=== PATIENT | male | born 1950 | race Caucasian/White ===

== ENCOUNTER 2018-09-26 07:21 | Day surgery (SDC) | payer MEDICARE, OTHER, SELFPAY ==
[2018-09-22 13:50] VITALS: BMI 36.8
--- NOTE | 2018-09-22 15:10 | RAD_ITS ---
STUDY: X-RAY CHEST REASON FOR EXAM: Male, 68 years old. Shortness of breath pulmonary hypertension TECHNIQUE: PA and lateral views of the chest. COMPARISON: None. FINDINGS: The lungs are clear and expanded. Interstitial markings are minimally prominent. There is no demonstrated pleural abnormality. There is borderline cardiomegaly. Normal mediastinum and shakir. Normal visualized pulmonary arteries. There is atherosclerotic calcification of the aortic arch with tortuosity. There is mild kyphosis of the thoracic spine, there is mild levoscoliosis of the thoracolumbar junction. There is multilevel degenerative change in the thoracic spine. Normal visualized ribs, clavicles, and shoulders. There is no demonstrated abnormality of the visualized soft tissue structures of the upper abdomen. RAD/Chest PA and Lateral IMPRESSION: No demonstrated acute cardiopulmonary process. Electronically Signed: Sarah Leyva MD at 16:49 EDT Tel , Service support ,
[2018-09-22 16:11] LABS: Absolute Lymphocyte Count 1.28 X10^3/uL (0.83-4.51); Absolute Neutrophil Count 5.5 X10^3/uL (2.0-7.7); Basophil# 0.03 X10^3/uL; Basophil% 0.4 % (0-1); Eosinophil# 0.24 X10^3/uL; Eosinophils% 3.1 % (0-5); Hematocrit 46.3 % (40-54); Lymphocyte # 1.28 X10^3/ul (4.0); Lymphocyte % 16.4 % (19-41); Mean Corp Hgb Conc 30.2 g/dL (32-36); Mean Corpuscular Hgb 29.4 pg (27.0-32.0); Mean Corpuscular Volume 97.3 fL (80-94); Mean Platelet Vol. 10.4 fl (6.2-12.0); Monocyte# 0.68 X10^3/uL; Monocyte% 8.7 % (0-10); NRBC Flagged by Analyzer 0 % (0-5); Neutrophil # 5.54 X10^3/uL (2.7-7.7); Neutrophil % 70.8 % (47-70); Platelet Count 186 K/mm3 (150-450); RBC Distribution Width CV 13.7 % (11.6-14.6); Red Blood Count 4.76 M/mm3 (4.6-6.2); White Blood Count 7.8 K/mm3 (4.4-11.0)
[2018-09-22 16:26] LABS: International Normalized Ratio 1.1; Partial Thromboplast Time 29.9 Seconds (24.1-36.2); Prothrombin Time (Protime)PT. 13.6 SECONDS (11.7-14.9)
[2018-09-22 16:32] LABS: Anion Gap 8 (5-15); BUN 19 mg/dL (7-18); Chloride 98 mmol/L (98-107); Creatinine, Serum 1.19 mg/dL (0.70-1.30); EST Glomerular Filtration Rate 64 mL/min (>60); Est Glom Filt Rate - Afr Amer 78 mL/min (>60); Glucose 94 mg/dL (74-106); Potassium 3.6 mmol/L (3.5-5.1); Sodium Level 143 mmol/L (136-145)
[2018-09-26 07:53] VITALS: BMI 35.7
[2018-09-26 10:16] LABS: Blood Gas Specimen Type VEN; VBG BASE EXCESS 10 mmol/L (-1.0-3.5); VBG Bicarbonate 35 mmol/L (22-26); VBG Oxygen Content 37 mmol/L (23-33); VBG PO2 33 mmHg (25-40); VBG SO2 59 % (50-70); VBG pCO2 59.6 mmHg (41-51); VBG pH 7.38 (7.32-7.42)
[2018-09-26 10:16] LABS: Blood Gas Specimen Type VEN; VBG BASE EXCESS 10 mmol/L (-1.0-3.5); VBG Bicarbonate 35 mmol/L (22-26); VBG Oxygen Content 37 mmol/L (23-33); VBG PO2 33 mmHg (25-40); VBG SO2 60 % (50-70); VBG pH 7.38 (7.32-7.42)
[2018-09-26 10:16] LABS: Blood Gas Specimen Type VEN; VBG BASE EXCESS 14 mmol/L (-1.0-3.5); VBG Bicarbonate 38 mmol/L (22-26); VBG Oxygen Content 40 mmol/L (23-33); VBG PO2 33 mmHg (25-40); VBG SO2 62 % (50-70); VBG pCO2 58.4 mmHg (41-51); VBG pH 7.42 (7.32-7.42)
--- NOTE | 2018-09-29 09:53 | CL.D_ITS ---
Patient Name: MARCO ANTONIO PETERSON Study Date: 09/26/2018 Performing: Olu Gonzales MD Ht: 65 inches 165 cm : 1950 Wt: 215.3 lbs 97.52 kg Age: 68 Gender: male BSA: 2.04 PROCEDURE(S) PERFORMED [id number] ONLY CLINICAL PROFILE AND INDICATIONS Indications: SOB, Pulmonary HTN Heart Failure: None Stress/Imaging Stress/Image Study Performed: No CAD Presentations: Other: SOB CONCLUSIONS Right heart pressures - moderately to severely elevated RECOMMENDATIONS DESCRIPTION OF PROCEDURE The patient arrived to the procedure lab. The risks and benefits of the procedure as well as a full d escription of our services here and current unavailability of surgical backup were fully explained to the patient and/or their significant other prior to the catheterization. The Timeout was completed, verifying the correct patient and procedure. The patient's procedural site was prepped and draped in the usual fashion. . Using a modified Seldinger technique, Venous access was obtained via the right brachial vein, micro puncture sheath removed, a 7Fr sheath was inserted into the previous IV access. A 7Fr thermal dilution catheter was inserted and right heart pressures were recorded, it was then adv anced to PA position for cardiac outputs. Thermal dilution cardiac outputs were then recorded. O2 sat urations were then obtained. The Thermal dilution catheter was then removed.The venous sheath was the n pulled and manual compression applied until hemostasis achieved CORONARY ANGIOGRAPHY RIGHT HEART ASSESSMENT Thermal CO: 4.74 Thermal CI: 2.32 Jero CO: 4.32 Jero CI: 2.12 PW: 22 PA: 53/21 36 RV: 48/7 14 RA: 11 PVR: 236 COMPLICATIONS No Complications PROCEDURE MEDICATIONS Oxygen: 3 L/min via nasal cannula SUMMARY OF HEMODYNAMIC DATA Time AIR REST ECG 07:57:21 ECG 09:26:33 PA 53/21 (36) PA 09:52:29 PW (22) PV 09:52:59 PW (19) 09:53:08 RV 48/7, 14 09:59:05 RV 47/8, 15 09:59:27 RA (11) SV 10:01:26 Type SV CO (l/m) CI (l/m/ HR Time AIR REST Thermal 76.50 4.74 2.32 62 07:57:21 Jero 69.70 4.32 2.12 62 07:57:21 Label % O2 Pres/Loc Time AIR REST AO 92 PV 10:10:20 RV 62 10:10:26 RA 59 SV 10:10:34 PA 60 PA 10:10:43 Signed By Olu Gonzales MD On 09/29/2018 9:52:32 AM Olu Gonzales MD
== END 2018-09-26 11:16 | disposition home or self-care (01) ==
PROVIDERS: Family Provider Family Medicine; PCP Family Medicine; Referring Provider Specialist; Visit Provider Specialist
DX: R06.02 Shortness of breath (principal); I27.20 Pulmonary hypertension, unspecified; G47.33 Obstructive sleep apnea (adult) (pediatric); I10 Essential (primary) hypertension; E78.5 Hyperlipidemia, unspecified; J44.9 Chronic obstructive pulmonary disease, unspecified; E11.9 Type 2 diabetes mellitus without complications; Z87.891 Personal history of nicotine dependence; R60.9 Edema, unspecified; Z51.81 Encounter for therapeutic drug level monitoring; Z79.01 Long term (current) use of anticoagulants; Z99.89 Dependence on other enabling machines and devices
CPT/HCPCS: 36415; 71046; 80048; 82803; 85025; 85610; 85730; 93451; J7040; C1751; C1769; C1894

== ENCOUNTER → 2018-11-24 08:02 | Outpatient (CLI) | payer MEDICARE, OTHER, SELFPAY ==
[2018-10-22 13:04] VITALS: BMI 36.8
[2018-11-24 09:39] LABS: Anion Gap 7 (5-15); BUN 26 mg/dL (7-18); BUN/Creat Ratio 21.1 RATIO (10-20); Calcium,Total 9.6 mg/dL (8.5-10.1); Chloride 97 mmol/L (98-107); Creatinine, Serum 1.23 mg/dL (0.70-1.30); EST Glomerular Filtration Rate 62 mL/min (>60); Est Glom Filt Rate - Afr Amer 75 mL/min (>60); Glucose 127 mg/dL (74-106); Potassium 3.5 mmol/L (3.5-5.1); Sodium Level 139 mmol/L (136-145)
== END ==
PROVIDERS: Family Provider Family Medicine; PCP Family Medicine; Referring Provider Specialist; Visit Provider Specialist
DX: I27.20 Pulmonary hypertension, unspecified (principal)
CPT/HCPCS: 36415; 80048

== ENCOUNTER 2020-01-13 09:32 | Inpatient (IN) | payer MEDICARE, OTHER, SELFPAY ==
[2019-01-21 13:29] VITALS: BMI 37.3
[2020-01-13] VITALS (29 sets, daily range): BP systolic 98–157; BP diastolic 70–104; PULSE 109–142; RESP 12–36; TEMP 35.8–36.6; O2SAT 90–100; BMI 30.3; BMI 21.5
--- NOTE | 2020-01-13 | ECHOD_ITS ---
Reason For Study: DYSPNEA/SOB Procedure This was a 2D Doppler, Color Flow transthoracic echocardiogram. The study was technically difficult. PT needed to sit up do to coughing and ARRHYTHMIA. Exam performed portable in ICU/CCU. Left Ventricle Normal LV size. The estimated ejection fraction is 35 %. There is evidence of diastolic dysfunction. There is moderate global hypokinesis of the left ventricle. Right Ventricle Normal RV size. Normal systolic function. Atria The left atrium is moderately enlarged. The right atrium is mildly enlarged. No doppler evidence for ASD. Mitral Valve There is moderate to severe mitral annular calcification. There is no mitral valve stenosis. Trivial mitral valve insufficiency. Tricuspid Valve There is no tricuspid stenosis. Mild tricuspid valve insufficiency. Pulmonary artery systolic pressure is 60 mmHg. Aortic Valve There is no aortic stenosis. No aortic valve insufficiency. Likely bioprosthetic aortic valve. Pulmonic Valve There is no pulmonic valvular stenosis. No pulmonic valve insufficiency. Great Vessels Normal aortic root. The inferior vena cava is dilated. Pericardium/Pleural No pericardial effusion. MMode/2D Measurements & Calculations LVIDd: 5.4 cm IVSd: 1.3 cm Ao root diam: 4.0 cm LVIDs: 5.0 cm LVPWd: 1.2 cm LA dimension: 5.3 cm RVDd: 4.4 cm FS: 7.1 % LAV(MOD-bp): 111.1 ml LA A4 area: 32.5 cm2 RA A4 area: 23.8 cm2 LAV(MOD-bp) Indexed: 56.1 ml/m2 LAV(MOD-sp2): 91.8 ml LAV(MOD-sp4): 130.2 ml Time Measurements MV dec time: 0.12 sec Doppler Measurements & Calculations MV E max felicitas: 146.0 cm/sec MV V2 max: 163.1 cm/sec MV P1/2t max felicitas: 163.1 cm/sec MV max P.6 mmHg MV P1/2t: 42.7 msec MV V2 mean: 52.0 cm/sec MV dec slope: 1118 cm/sec2 MV mean P.7 mmHg MVA(P1/2t): 5.2 cm2 MV V2 VTI: 27.6 cm Ao V2 max: 134.2 cm/sec LV V1 max: 118.2 cm/sec PA V2 max: 82.9 cm/sec Ao max P.2 mmHg LV V1 max P.6 mmHg TR max felicitas: 344.5 cm/sec TR max P.1 mmHg Interpretation Summary The estimated ejection fraction is 35 %. There is evidence of diastolic dysfunction. The left atrium is moderately enlarged. The right atrium is mildly enlarged. Trivial mitral valve insufficiency. Mild tricuspid valve insufficiency. Pulmonary artery systolic pressure is 60 mmHg. Likely bioprosthetic aortic valve Ordering Physician: Lizeth Gilliam Referring Physician: Thien Evans Performed By: Belem Houston RDCS, RVT
--- NOTE | 2020-01-13 09:36 | EKG12_ITS ---
Test Reason : Blood Pressure : / mmHG Vent. Rate : 114 BPM Atrial Rate : 100 BPM P-R Int : 000 ms QRS Dur : 138 ms QT Int : 476 ms P-R-T Axes : 000 -63 -37 degrees QTc Int : 656 ms Basline artifact Possible Sinus Tachycardia Left axis deviation Right bundle branch block Abnormal ECG Confirmed by SAMIR SHAIKH, NASEEM ([id number]), society editor AMADO RAMIREZ ([id number]) on 01/15/2020 1:56:10 PM Referred By: RONY Confirmed By:BRIANA DAWSON MD
--- NOTE | 2020-01-13 10:00 | RAD_ITS ---
STUDY: X-RAY CHEST REASON FOR EXAM: Male, 69 years old. Shortness of breath, respiratory failure. TECHNIQUE: Single AP portable view of the chest. COMPARISON: Comparison is made with prior study dated 09/22/2018. FINDINGS: EKG electrodes are seen. Small bilateral pleural effusions with increased markings at the lung bases suggestive of bibasilar atelectasis. Mild degree of vascular congestion. Sternal cerclage wires and vascular clips are present from a prior sternotomy and coronary artery bypass graft procedure (CABG). Borderline cardiomegaly. Normal mediastinum and shakir. Normal visualized pulmonary arteries. There is atherosclerotic tortuosity of the aortic arch and descending thoracic aorta. Normal visualized thoracic spine. Normal visualized ribs, clavicles, and shoulders. There is no demonstrated abnormality of the visualized soft tissue structures of the upper abdomen. RAD/Chest 1 View (Portable) IMPRESSION: Findings suggestive of a mild degree of CHF with small bilateral pleural effusions and bibasilar atelectasis. Electronically Signed: José Antonio Lopez, at 10:46 EST , Service support ,
[2020-01-13 10:16] LABS: Allen Test Positive; Base Excess 17 mmol/L (-2 to +2); Bicarbonate 41.6 mmol/L (22-26); Blood Gas Specimen Type ART; FI02 50; O2 Delivery Device BiPAP; PO2 187 mmHG (75-100); RR 12; SITE R Radial; SO2 100 % (95-99); Total Carbon Dioxide 44 mmol/L; pCO2 64.2 mmHg (35-45); pH 7.42 (7.35-7.45)
[2020-01-13 10:23] LABS: EPAP 8; IPAP 18
--- NOTE | 2020-01-13 10:31 | NURSING ---
PURPLE AND BLUE TOP HEMOLIZED. LAB AWARE THEY NEED TO COME REDRAW
--- NOTE | 2020-01-13 10:35 | ED.DCSUM_ITS ---
History of Present Illness Chief Complaint: Shortness of Breath Informant: Patient, Equip Maint Eng Onset: - - Limited due to dyspnea and hypoxia Timing: Continuous Quality: Difficulty breathing Location: Respiratory Current Severity: Severe Maximum Severity: Severe Worsened by: Unknown, recent positive Covid test, 4 days ago Relieved by: Nothing Associated Symptoms: Slight cough, weakness Narrative: Patient is an elderly male with both medical problems who underwent valve surgery 4 weeks ago and is on anticoagulant. Vital signs by squad indicates patient in respiratory distress with a pulse ox of 60% on nonrebreather. Patient was able to say at best 1 word before gasping for breath. He does not appear well. He does not appear toxic. He does not want the bed flat. Yes and no questions were asked that he could nod yes or no. He has had orthopnea and PND. He also has swelling of his legs. Uncertain whether there is an acute worsening. He denied chest pain. He denied fever or chills. He does report cough that is nonproductive. He does report nausea. Prior similar symptoms: No Recent Illness/Hospitalization: Yes - Past Medical History (1) Mitral valve replaced Status: Acute (2) long-term current use of anticoagulant Status: Acute (3) SARS-associated coronavirus infection Status: Acute (4) Essential hypertension Status: Chronic (5) Hyperlipidemia Status: Chronic (6) REBECA on CPAP Status: Chronic (7) Pulmonary hypertension Status: Chronic Past Medical History - Allergies and Home Meds Allergies/Adverse Reactions: Allergies povidone-iodine [From Betadine] Allergy (Intermediate, Verified 07/29/19 13:09) rash, itching soap [From Betadine] Allergy (Intermediate, Verified 07/29/19 13:09) rash, itching Primary Care Physician: Thien Evans MD [Primary Care Provider] - Surgical History: - - Recent valve replacement Lives: Spouse/ Significant Other Smoking Status: Former smoker Alcohol: None Drugs: None Review of Systems ROS: Unable to Obtain - Difficulty due to clinical presentation General: Reports: Malaise. Denies: Chills, Fever Eyes: Denies: Visual changes - bilaterally ENT: Denies: Rhinorrhea, Sore throat Cardiovascular: Reports: Heart racing. Denies: Chest pain Respiratory: Reports: Dyspnea, Dyspnea on exertion, Orthopnea, Paroxysmal nocturnal dyspnea Gastrointestinal: Reports: Nausea. Denies: Abdominal pain, Vomiting, Diarrhea Genitourinary: Denies: Dysuria, Hematuria Musculoskeletal: Reports: Swelling. Denies: Myalgias, Arthralgias, Extremity Pain Skin: Reports: Rash - Lower extremities, which is chronic Neurological: Reports: Weakness. Denies: Headache Hematologic: Denies: Easy bruising Physical Exam Vital Signs/Narrative: Vital Signs Temp Pulse Resp BP Pulse Ox 01/13/20 10:15 100 01/13/20 10:04 111 H 15 100 01/13/20 10:00 100 01/13/20 09:59 97.8 F 115 H 20 H 104/93 H 100 01/13/20 09:33 96.5 F L 142 H 28 H 129/99 H 100 Inital Vital Signs reviewed: Yes General: Well nourished, Well developed, Obese, Acute Distress Head: Normocephalic, Atraumatic Eyes: Perrl, EOMI. Negative for: Pale conjunctiva, Scleral icterus ENT: Moist mucous membranes, No rhinorrhea, TM's clear Neck: Supple, Nontender, No lymphadenopathy. Negative for: No JVD Cardiovascular: No murmurs, Irregular, Tachycardia Respiratory: Rales - [place] throughout.. Negative for: No distress, CTA bilaterally Abdomen: Soft, Nontender, Nondistended, Normal bowel sounds Rectal: Deferred Back: Negative for: Nontender, Normal Inspection Extremities: Nontender, No edema, - - Acral cyanosis Skin: No rash, Cyanosis, No Trauma. Negative for: Normal color, Diaphoresis, Jaundice Neurological: Alert, Oriented x3, Cranial nerves II-XII grossly intact, Normal Strength, Normal Sensation Psychological: Normal affect Diagnostic/Tx/Re-eval Chest X-Ray - ED: 1 View, Read by ED Physician, Bony Structures, - - Borderline and mildly enlarged heart. Limited story volume. Bilateral pleural effusion. Bilateral lower lobe atelectasis. Interstitial changes which may represent Covid and also may represent Impressions Chest X-Ray 01/13/20 10:00 IMPRESSION: Findings suggestive of a mild degree of CHF with small bilateral pleural effusions and bibasilar atelectasis. Electronically Signed: José Antonio Lopez, at 10:46 EST , Service support , 01/13/20 10:00 Chest 1 View (Portable) [RAD] Stat Laboratory Results 01/13/20 01/13/20 01/13/20 10:10 10:10 10:10 WBC Cancelled Corrected WBC Cancelled RBC Cancelled Hgb Cancelled Hct Cancelled MCV Cancelled MCH Cancelled MCHC Cancelled RDW Std Deviation Cancelled RDW Coeff of Perfecto Cancelled Plt Count Cancelled MPV Cancelled Immature Gran % (Auto) Cancelled Neut % (Auto) Cancelled Lymph % (Auto) Cancelled [place] % (Auto) Cancelled Eos % (Auto) Cancelled Baso % (Auto) Cancelled Absolute Neuts (auto) Cancelled Absolute Lymphs (auto) Cancelled Total Counted Cancelled Neutrophils % (Manual) Cancelled Band Neutrophils % Cancelled Lymphocytes % (Manual) Cancelled Monocytes % (Manual) Cancelled Eosinophils % (Manual) Cancelled Basophils % (Manual) Cancelled Metamyelocytes % Cancelled Myelocytes % Cancelled Promyelocytes % Cancelled Blast Cells % Cancelled Plasma Cell % (Manual) Cancelled Other Cells % Cancelled Nucleated RBC % Cancelled Nucleated RBCs/100 WBC Cancelled Differential Comment Cancelled Diff Path Review Cancelled Hypersegmented Neuts Cancelled Atypical Lymphocytes Cancelled Reactive Lymphocytes Cancelled Smudge Cells Cancelled Toxic Granulation Cancelled Toxic Vacuolation Cancelled Dohle Bodies Cancelled Constantino Rods Cancelled Platelet Estimate Cancelled Plt Morphology Comment Cancelled RBC Morphology Cancelled Polychromasia Cancelled Hypochromasia Cancelled Poikilocytosis Cancelled Basophilic Stippling Cancelled Anisocytosis Cancelled Microcytosis Cancelled Macrocytosis Cancelled Spherocytes Cancelled Sickle Cells Cancelled Target Cells Cancelled Tear Drop Cells Cancelled Ovalocytes Cancelled Stomatocytes Cancelled Angel-Greenway Bodies Cancelled [place] Cells Cancelled Bite Cells Cancelled Crenated Cell Cancelled Acanthocytes (Spur) Cancelled Rouleaux Cancelled Schistocytes Cancelled PT Cancelled INR Cancelled APTT Cancelled Specimen Type Sample Site pH Bicarbonate Actual Total CO2 Base Excess O2 Saturation O2 % ABG pCO2 ABG pO2 Jak Test Respiration Rate O2 Delivery Device EPAP IPAP Sodium 141 Potassium 4.2 Chloride 99 Carbon Dioxide 41.0 H Anion Gap 1 L BUN 35 H Creatinine 1.83 H Estim Creat Clear Calc 35.82 Est GFR (MDRD) Af Amer 47 L Est GFR (MDRD) Non-Af 39 L BUN/Creatinine Ratio 19.1 Glucose 96 Calcium 8.8 Total Bilirubin 1.00 AST 47 H ALT 22 Alkaline Phosphatase 76 Troponin I 0.115 H Total Protein 8.2 Albumin 2.8 L Globulin 5.4 H Albumin/Globulin Ratio 0.5 L 01/13/20 01/13/20 01/13/20 10:10 10:49 10:49 WBC 4.0 L Corrected WBC RBC 3.06 L Hgb 9.4 L Hct 32.5 L MCV 106.2 H MCH 30.7 MCHC 28.9 L RDW Std Deviation 60.5 H RDW Coeff of Perfecto 15.7 H Plt Count 164 MPV 9.8 Immature Gran % (Auto) 0.500 Neut % (Auto) 74.0 H Lymph % (Auto) 11.3 L [place] % (Auto) 13.1 H Eos % (Auto) 0.8 Baso % (Auto) 0.3 Absolute Neuts (auto) 3.0 Absolute Lymphs (auto) 0.45 L Total Counted Neutrophils % (Manual) Band Neutrophils % Lymphocytes % (Manual) Monocytes % (Manual) Eosinophils % (Manual) Basophils % (Manual) Metamyelocytes % Myelocytes % Promyelocytes % Blast Cells % Plasma Cell % (Manual) Other Cells % Nucleated RBC % 0 Nucleated RBCs/100 WBC Differential Comment Diff Path Review Hypersegmented Neuts Atypical Lymphocytes Reactive Lymphocytes Smudge Cells Toxic Granulation Toxic Vacuolation Dohle Bodies Constantino Rods Platelet Estimate Plt Morphology Comment RBC Morphology Polychromasia Hypochromasia Poikilocytosis Basophilic Stippling Anisocytosis Microcytosis Macrocytosis Spherocytes Sickle Cells Target Cells Tear Drop Cells Ovalocytes Stomatocytes Angel-Greenway Bodies Judd Cells Bite Cells Crenated Cell Acanthocytes (Spur) Rouleaux Schistocytes PT 32.4 H INR 3.2 APTT 41.2 H Specimen Type ART Sample Site R Radial pH 7.42 Bicarbonate Actual 41.6 H Total CO2 44 Base Excess 17 H O2 Saturation 100 H O2 % 50 ABG pCO2 64.2 H ABG pO2 187 H Jak Test Positive Respiration Rate 12 O2 Delivery Device BiPAP EPAP 8 IPAP 18 Sodium Potassium Chloride Carbon Dioxide Anion Gap BUN Creatinine Estim Creat Clear Calc Est GFR (MDRD) Af Amer Est GFR (MDRD) Non-Af BUN/Creatinine Ratio Glucose Calcium Total Bilirubin AST ALT Alkaline Phosphatase Troponin I Total Protein Albumin Globulin Albumin/Globulin Ratio BUN and creatinine are elevated at 35 1.83. Troponin is elevated 0.115 suspect secondary to exacerbation of heart failure. He is neutropenic which is felt to be due to the Covid infection. He is anemic. INR is elevated due to Coumadin, 3.2. - EKG Initial EKG Interpretation: Atrial Fibrillation - Ventricular rate 114, QRS duration 138 ms consistent with a right bundle branch block. QT interval 476 ms with a QTC of 650 ms, which is prolonged. [place] is to the left. Computer is reading acute ST elevation [place]. I am in disagreement. There are ST-T wave changes which in all likelihood are due t - Medical Decision Making She presents with respiratory distress. This may represent Covid pneumonia, congestive heart failure, cardiac ischemia. Also need to evaluate for pneumothorax. History is limited because of clinical presentation and respiratory distress. Patient improved markedly with BiPAP. Initial plan was intubation. Suspect low pulse ox may have been due to poor perfusion/acrocyanosis and cold extremities. Blood gas was obtained and reveals a normal pH of 7.42 with a PCO2 of 64.2 and a PaO2 of 187.3 on 50% oxygen. Bicarb is elevated 41.6. Base excess is elevated, 17.1. Saturation was 99.6 which correlated with pulse ox. Chest x-ray reveals cardiomegaly, bilateral pleural effusion and interstitial changes which may represent heart failure versus Covid. Since he has significant edema the lower extremity complains of orthopnea PND will treat for congestive heart failure. Patient has improved on BiPAP. Nitroglycerin was ordered for preload reduction. Will also order Lasix since he is clinically fluid overloaded. Suspect his elevated troponin is due to exacerbation of his congestive heart failure. Dyspnea may be worse due to anemia. We will need to review prior labs to determine if this is a new finding. Creatinine is elevated from baseline. Last hemoglobin on record was 14. - Critical Care Time Critical care time (excluding procedures): 30-74 minutes - Critical care time 36 minutes, Discussing w/Patient &/or Family/Manager Purchasing, Discussing w/Consultants, Arranging Admission or Transfer, Performing Direct Patient Care at Bedside ED Disposition - Plan for ED Patient: Disposition: Acute Care Hospital [facility] Diagnosis: Acute and chronic respiratory failure with hypercapnia, Acute exacerbation of congestive heart failure, Elevated serum creatinine, Anemia, unspecified, Infection due to 2019 novel coronavirus, Atrial fibrillation with RVR, Elevated troponin I level Referrals: Thien Evans MD [Primary Care Provider] -
[2020-01-13 10:44] LABS: ALB/GLOB Ratio 0.5 RATIO (0.9-2.4); AST(SGOT) 47 U/L (15-37); Alanine Aminotransfer ALT/SGPT 22 U/L (16-61); Albumin, Serum 2.8 g/dL (3.2-5.0); Alkaline Phosphatase 76 U/L (45-117); Anion Gap 1 (5-15); BUN 35 mg/dL (7-18); BUN/Creat Ratio 19.1 RATIO (10-20); Calcium,Total 8.8 mg/dL (8.5-10.1); Chloride 99 mmol/L (98-107); Creatinine, Serum 1.83 mg/dL (0.70-1.30); EST Glomerular Filtration Rate 39 mL/min (>60); Est Glom Filt Rate - Afr Amer 47 mL/min (>60); Estimated Creatinine Clearance 35.82 ml/min; Globulin 5.4 g/dL (2.2-4.2); Glucose 96 mg/dL (74-106); Potassium 4.2 mmol/L (3.5-5.1); Protein, Total 8.2 g/dL (6.4-8.2); Sodium Level 141 mmol/L (136-145)
[2020-01-13 11:03] LABS: Absolute Lymphocyte Count 0.45 X10^3/uL (0.83-4.51); Basophil# 0.01 X10^3/uL; Basophil% 0.3 % (0-1); Eosinophil# 0.03 X10^3/uL; Eosinophils% 0.8 % (0-5); Hematocrit 32.5 % (40-54); Hemoglobin 9.4 g/dL (13.0-16.5); Lymphocyte # 0.45 X10^3/ul (4.0); Lymphocyte % 11.3 % (19-41); Mean Corp Hgb Conc 28.9 g/dL (32-36); Mean Corpuscular Hgb 30.7 pg (27.0-32.0); Mean Corpuscular Volume 106.2 fL (80-94); Mean Platelet Vol. 9.8 fl (6.2-12.0); Monocyte# 0.52 X10^3/uL; Monocyte% 13.1 % (0-10); NRBC Flagged by Analyzer 0 % (0-5); Neutrophil # 2.95 X10^3/uL (2.7-7.7); POSITIVE DIFFERENTIAL YES; Platelet Count 164 K/mm3 (150-450); RBC Distribution Width CV 15.7 % (11.6-14.6); RBC Distribution Width SD 60.5 fl (35.1-43.9); Red Blood Count 3.06 M/mm3 (4.6-6.2)
[2020-01-13 11:08] LABS: Differential Indicated SCAN CRITERIA MET; International Normalized Ratio 3.2; Prothrombin Time (Protime)PT. 32.4 SECONDS (11.7-14.9)
[2020-01-13 11:09] LABS: Partial Thromboplast Time 41.2 Seconds (24.1-36.2)
[2020-01-13] MEDS: Nitroglycerin Infusion 250 ML 6 MG CONT INF (11:18)
[2020-01-13 11:19] LABS: Lactic Acid 1.5 mmol/L (0.4-1.9)
[2020-01-13] MEDS: dexAMETHasone 10 MG/ML Vial IV (11:19)
--- NOTE | 2020-01-13 11:41 | NURSING ---
ICU [facility] ACUTE ON CHRONIC RESP FAILURE WITH HYPERCAPNIA, CHF
[2020-01-13] MEDS: Furosemide 40 MG/4 ML Vial IV ×2 (12:03→16:53)
--- NOTE | 2020-01-13 12:04 | NURSING ---
[facility] 202
[2020-01-13 12:05] LABS: Platelet Estimate ADEQUATE (ADEQ); Red Cell Morphology NORM C+C NORMAL (NORM C&C)
--- NOTE | 2020-01-13 12:10 | NURSING ---
DR VARELA IN WITH PATIENT
[2020-01-13 15:28] LABS: BNP,B-Type NATRIURETIC PEPTIDE 1756.3 pg/mL (0-100); International Normalized Ratio 2.9; Prothrombin Time (Protime)PT. 29.6 SECONDS (11.7-14.9)
[2020-01-13 15:35] LABS: D-Dimer Quantitative (DVT/PE) 2.93 FEU/ug/m (0.27-0.49)
[2020-01-13 15:42] LABS: ALB/GLOB Ratio 0.5 RATIO (0.9-2.4); AST(SGOT) 54 U/L (15-37); Alanine Aminotransfer ALT/SGPT 20 U/L (16-61); Albumin, Serum 2.6 g/dL (3.2-5.0); Alkaline Phosphatase 68 U/L (45-117); Anion Gap 2 (5-15); BUN 35 mg/dL (7-18); BUN/Creat Ratio 20.6 RATIO (10-20); CPK Total, Creatine Kinase 69 U/L (39-308); Calcium,Total 8.8 mg/dL (8.5-10.1); Chloride 98 mmol/L (98-107); EST Glomerular Filtration Rate 42 mL/min (>60); Est Glom Filt Rate - Afr Amer 51 mL/min (>60); Estimated Creatinine Clearance 36.31 ml/min; Globulin 4.9 g/dL (2.2-4.2); Glucose 94 mg/dL (74-106); Potassium 4.4 mmol/L (3.5-5.1); Protein, Total 7.5 g/dL (6.4-8.2); Sodium Level 141 mmol/L (136-145)
--- NOTE | 2020-01-13 16:05 | NS ---
Noted ED wt was 90.5 kg and admission wt 64.41 kg. Called ICU and spoke w/ Mychal RN to notify of discrepancy. Mercedes Woods MS, RDN, LD.
--- NOTE | 2020-01-13 16:05 | PCM.HP.ID ---
Problem List (1) Infection due to 2019 novel coronavirus Status: Acute Reason for Consult: covid Consulted by: Dr. Gilliam History of Present Illness: The patient is a 69 year old M at [facility], dx with covid, started 01/11 with azithro and dex. Reports several days of fever, headache, mild body aches, dyspnea, cough. No change in taste or smell. Came to ED, admitted to icu on bipap, O2. Full ROS performed and neg except as noted above. - Medical History Past Medical History (Chronic Problems): Chronic Problems (Last Reviewed 07/29/19 @ 13:[address] Bee Gonzales MD) Acute and chronic respiratory failure with hypercapnia (Chronic) Acute exacerbation of congestive heart failure (Chronic) REBECA on CPAP (Chronic) Pulmonary hypertension (Chronic) Hyperlipidemia (Chronic) Essential hypertension (Chronic) Allergies/Adverse Reactions: Allergies povidone-iodine [From Betadine] Allergy (Intermediate, Verified 07/29/19 13:09) rash, itching soap [From Betadine] Allergy (Intermediate, Verified 07/29/19 13:09) rash, itching Home Medications: Ambulatory Orders Medication Instructions Recorded albuterol sulfate 90 mcg/actuation 2 puff INHALATION Q4H PRN g 07/23/18 aerosol inhaler aspirin 81 mg tablet,delayed 81 mg PO DAILY 07/23/18 release diltiazem HCl 180 mg 360 mg PO DAILY cap 07/23/18 capsule,extended release 24 hr fenofibrate 160 mg tablet 160 mg PO DAILY 07/23/18 fluticasone propionate 115 2 puff INHALATION BID 07/23/18 mcg-salmeterol 21 mcg/actuation HFA inhaler metformin 1,000 mg tablet 1,000 mg PO BID 07/23/18 hydrochlorothiazide 25 mg tablet 25 mg PO DAILY 11/25/18 losartan 100 mg tablet 100 mg PO DAILY 11/25/18 Apixaban [Eliquis] 5 mg PO DAILY 01/13/20 Ascorbic Acid [Vitamin C] 500 mg PO BID 01/13/20 Atorvastatin Calcium [Lipitor] 80 mg PO QHS 01/13/20 Azithromycin [Zithromax] 250 mg PO DAILY 01/13/20 Carvedilol [Coreg] 3.125 mg PO BID 01/13/20 Dexamethasone [Decadron] 6 mg PO DAILY 01/13/20 Melatonin 5 mg PO QHS 01/13/20 Potassium Chloride [K-Dur] 20 meq PO DAILY 01/13/20 Torsemide [Demadex] 20 mg PO DAILY 01/13/20 Warfarin [Coumadin ([facility])] 1.5 mg PO DAILY 01/13/20 - Social History SMOKING STATUS:: Former smoker Vital Signs Temp Pulse Resp BP Pulse Ox 97.8 F 111 H 18 109/76 100 01/13/20 12:20 01/13/20 16:00 01/13/20 16:00 01/13/20 16:00 01/13/20 16:00 Oxygen Flow Rate (L/min) 15 Oxygen Delivery Method Bi-pap Weight: 64.41 kg Body Mass Index (BMI) 21.5 Laboratory Tests Past 24 Hrs 01/13/20 01/13/20 01/13/20 10:10 10:10 10:10 WBC Cancelled Corrected WBC Cancelled RBC Cancelled Hgb Cancelled Hct Cancelled MCV Cancelled MCH Cancelled MCHC Cancelled RDW Std Deviation Cancelled RDW Coeff of Perfecto Cancelled Plt Count Cancelled MPV Cancelled Immature Gran % (Auto) Cancelled Neut % (Auto) Cancelled Lymph % (Auto) Cancelled [place] % (Auto) Cancelled Eos % (Auto) Cancelled Baso % (Auto) Cancelled Absolute Neuts (auto) Cancelled Absolute Lymphs (auto) Cancelled Total Counted Cancelled Neutrophils % (Manual) Cancelled Band Neutrophils % Cancelled Lymphocytes % (Manual) Cancelled Monocytes % (Manual) Cancelled Eosinophils % (Manual) Cancelled Basophils % (Manual) Cancelled Metamyelocytes % Cancelled Myelocytes % Cancelled Promyelocytes % Cancelled Blast Cells % Cancelled Plasma Cell % (Manual) Cancelled Other Cells % Cancelled Nucleated RBC % Cancelled Nucleated RBCs/100 WBC Cancelled Differential Comment Cancelled Diff Path Review Cancelled Hypersegmented Neuts Cancelled Atypical Lymphocytes Cancelled Reactive Lymphocytes Cancelled Smudge Cells Cancelled Toxic Granulation Cancelled Toxic Vacuolation Cancelled Dohle Bodies Cancelled Constantino Rods Cancelled Platelet Estimate Cancelled Plt Morphology Comment Cancelled RBC Morphology Cancelled Polychromasia Cancelled Hypochromasia Cancelled Poikilocytosis Cancelled Basophilic Stippling Cancelled Anisocytosis Cancelled Microcytosis Cancelled Macrocytosis Cancelled Spherocytes Cancelled Sickle Cells Cancelled Target Cells Cancelled Tear Drop Cells Cancelled Ovalocytes Cancelled Stomatocytes Cancelled [place] 5 Bodies Cancelled [place] Cells Cancelled Bite Cells Cancelled Crenated Cell Cancelled Acanthocytes (Spur) Cancelled Rouleaux Cancelled Schistocytes Cancelled PT Cancelled INR Cancelled APTT Cancelled D-Dimer Quant (PE/DVT) Specimen Type Sample Site pH Bicarbonate Actual Total CO2 Base Excess O2 Saturation O2 % ABG pCO2 ABG pO2 Jak Test Respiration Rate O2 Delivery Device EPAP IPAP Sodium 141 Potassium 4.2 Chloride 99 Carbon Dioxide 41.0 H Anion Gap 1 L BUN 35 H Creatinine 1.83 H Estim Creat Clear Calc 35.82 Est GFR (MDRD) Af Amer 47 L Est GFR (MDRD) Non-Af 39 L BUN/Creatinine Ratio 19.1 Glucose 96 Lactic Acid Calcium 8.8 Total Bilirubin 1.00 AST 47 H ALT 22 Alkaline Phosphatase 76 Total Creatine Kinase Troponin I 0.115 H B-Natriuretic Peptide Total Protein 8.2 Albumin 2.8 L Globulin 5.4 H Albumin/Globulin Ratio 0.5 L Procalcitonin 01/13/20 01/13/20 01/13/20 10:10 10:49 10:49 WBC Corrected WBC RBC Hgb Hct MCV MCH MCHC RDW Std Deviation RDW Coeff of Perfecto Plt Count MPV Immature Gran % (Auto) Neut % (Auto) Lymph % (Auto) [place] % (Auto) Eos % (Auto) Baso % (Auto) Absolute Neuts (auto) Absolute Lymphs (auto) Total Counted Neutrophils % (Manual) Band Neutrophils % Lymphocytes % (Manual) Monocytes % (Manual) Eosinophils % (Manual) Basophils % (Manual) Metamyelocytes % Myelocytes % Promyelocytes % Blast Cells % Plasma Cell % (Manual) Other Cells % Nucleated RBC % Nucleated RBCs/100 WBC Differential Comment Diff Path Review Hypersegmented Neuts Atypical Lymphocytes Reactive Lymphocytes Smudge Cells Toxic Granulation Toxic Vacuolation Dohle Bodies Constantino Rods Platelet Estimate Plt Morphology Comment RBC Morphology Polychromasia Hypochromasia Poikilocytosis Basophilic Stippling Anisocytosis Microcytosis Macrocytosis Spherocytes Sickle Cells Target Cells Tear Drop Cells Ovalocytes Stomatocytes [place] 5 Bodies Judd Cells Bite Cells Crenated Cell Acanthocytes (Spur) Rouleaux Schistocytes PT 32.4 H INR 3.2 APTT 41.2 H D-Dimer Quant (PE/DVT) Specimen Type ART Sample Site R Radial pH 7.42 Bicarbonate Actual 41.6 H Total CO2 44 Base Excess 17 H O2 Saturation 100 H O2 % 50 ABG pCO2 64.2 H ABG pO2 187 H Jak Test Positive Respiration Rate 12 O2 Delivery Device BiPAP EPAP 8 IPAP 18 Sodium Potassium Chloride Carbon Dioxide Anion Gap BUN Creatinine Estim Creat Clear Calc Est GFR (MDRD) Af Amer Est GFR (MDRD) Non-Af BUN/Creatinine Ratio Glucose Lactic Acid 1.5 Calcium Total Bilirubin AST ALT Alkaline Phosphatase Total Creatine Kinase Troponin I B-Natriuretic Peptide Total Protein Albumin Globulin Albumin/Globulin Ratio Procalcitonin 01/13/20 01/13/20 01/13/20 10:49 14:55 14:55 WBC 4.0 L Corrected WBC RBC 3.06 L Hgb 9.4 L Hct 32.5 L MCV 106.2 H MCH 30.7 MCHC 28.9 L RDW Std Deviation 60.5 H RDW Coeff of Perfecto 15.7 H Plt Count 164 MPV 9.8 Immature Gran % (Auto) 0.500 Neut % (Auto) 74.0 H Lymph % (Auto) 11.3 L [place] % (Auto) 13.1 H Eos % (Auto) 0.8 Baso % (Auto) 0.3 Absolute Neuts (auto) 3.0 Absolute Lymphs (auto) 0.45 L Total Counted Neutrophils % (Manual) Band Neutrophils % Lymphocytes % (Manual) Monocytes % (Manual) Eosinophils % (Manual) Basophils % (Manual) Metamyelocytes % Myelocytes % Promyelocytes % Blast Cells % Plasma Cell % (Manual) Other Cells % Nucleated RBC % 0 Nucleated RBCs/100 WBC Differential Comment Diff Path Review May foll Hypersegmented Neuts Atypical Lymphocytes Reactive Lymphocytes Smudge Cells Toxic Granulation Toxic Vacuolation Dohle Bodies Constantino Rods Platelet Estimate ADEQUATE Plt Morphology Comment RBC Morphology NORM C+C Polychromasia Hypochromasia Poikilocytosis Basophilic Stippling Anisocytosis Microcytosis Macrocytosis Spherocytes Sickle Cells Target Cells Tear Drop Cells Ovalocytes Stomatocytes [place] 5 Bodies Judd Cells Bite Cells Crenated Cell Acanthocytes (Spur) Rouleaux Schistocytes PT 29.6 H INR 2.9 APTT D-Dimer Quant (PE/DVT) 2.93 H* Specimen Type Sample Site pH Bicarbonate Actual Total CO2 Base Excess O2 Saturation O2 % ABG pCO2 ABG pO2 Jak Test Respiration Rate O2 Delivery Device EPAP IPAP Sodium 141 Potassium 4.4 Chloride 98 Carbon Dioxide 41.0 H Anion Gap 2 L BUN 35 H Creatinine 1.70 H Estim Creat Clear Calc 36.31 Est GFR (MDRD) Af Amer 51 L Est GFR (MDRD) Non-Af 42 L BUN/Creatinine Ratio 20.6 H Glucose 94 Lactic Acid Calcium 8.8 Total Bilirubin 1.00 AST 54 H ALT 20 Alkaline Phosphatase 68 Total Creatine Kinase 69 Troponin I 0.105 H B-Natriuretic Peptide Total Protein 7.5 Albumin 2.6 L Globulin 4.9 H Albumin/Globulin Ratio 0.5 L Procalcitonin 01/13/20 01/13/20 14:55 14:55 WBC Corrected WBC RBC Hgb Hct MCV MCH MCHC RDW Std Deviation RDW Coeff of Perfecto Plt Count MPV Immature Gran % (Auto) Neut % (Auto) Lymph % (Auto) [place] % (Auto) Eos % (Auto) Baso % (Auto) Absolute Neuts (auto) Absolute Lymphs (auto) Total Counted Neutrophils % (Manual) Band Neutrophils % Lymphocytes % (Manual) Monocytes % (Manual) Eosinophils % (Manual) Basophils % (Manual) Metamyelocytes % Myelocytes % Promyelocytes % Blast Cells % Plasma Cell % (Manual) Other Cells % Nucleated RBC % Nucleated RBCs/100 WBC Differential Comment Diff Path Review Hypersegmented Neuts Atypical Lymphocytes Reactive Lymphocytes Smudge Cells Toxic Granulation Toxic Vacuolation Dohle Bodies Constantino Rods Platelet Estimate Plt Morphology Comment RBC Morphology Polychromasia Hypochromasia Poikilocytosis Basophilic Stippling Anisocytosis Microcytosis Macrocytosis Spherocytes Sickle Cells Target Cells Tear Drop Cells Ovalocytes Stomatocytes [place] 5 Bodies Judd Cells Bite Cells Crenated Cell Acanthocytes (Spur) Rouleaux Schistocytes PT INR APTT D-Dimer Quant (PE/DVT) Specimen Type Sample Site pH Bicarbonate Actual Total CO2 Base Excess O2 Saturation O2 % ABG pCO2 ABG pO2 Jak Test Respiration Rate O2 Delivery Device EPAP IPAP Sodium Potassium Chloride Carbon Dioxide Anion Gap BUN Creatinine Estim Creat Clear Calc Est GFR (MDRD) Af Amer Est GFR (MDRD) Non-Af BUN/Creatinine Ratio Glucose Lactic Acid Calcium Total Bilirubin AST ALT Alkaline Phosphatase Total Creatine Kinase Troponin I B-Natriuretic Peptide 1756.3 H Total Protein Albumin Globulin Albumin/Globulin Ratio Procalcitonin 0.10 H - Other Studies Radiology: [] reviewed Other Studies: [] Route of nutrition/ use of supplements: [] Nutritional Intake: [] IV Site: [] [place] Catheter: [] - Physical Exam General: Alert, Oriented x3, Cooperative HEENT: Atraumatic, PERRLA, EOMI Neck: Supple, No Nodes Lungs: Diminished Cardiovascular: Regular rate, Regular Rhythm Abdomen: Soft, Non Tender, Non-Distended Extremities: No edema Skin: No rashes IV Site: Peripheral, without redness Musculoskeletal: No Tenderness to Palpation of Joints or Extremities Neurological: Cranial nerves II-XII grossly intact - Assessment/Plan Antibiotics: [] Assessment/Plan: [] Active and Suspected Problems (Last Reviewed 07/29/19 @ 13:[address] 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 Sx started around 01/10. D-dimer elevated, therapeutic INR on coumadin. Will cont dex, start remdesivir. Will follow, thank you
[2020-01-13 16:47] LABS: Bacteria 0 SEEN /hpf (None Seen); Mucous, Urine 0 SEEN /hpf (<or=2+); Squamous Epithelial Cells - UA 0 SEEN /hpf (0-5); White Blood Cells 0 SEEN /hpf (0-5)
[2020-01-13 16:48] LABS: Color, Urine Yellow (Yellow); Glucose, Dipstick Normal (Normal); Ketone-Dipstick Negative (Negative); Leukocyte Esterase-Dipstick Negative /ul (Negative); Nitrite-Dipstick Negative (Negative); Occult Blood-Urine 10 /ul (Negative); Protein-Dipstick 15 mg/dl (Negative); Specific Gravity, Urine 1.005 (1.002-1.030); Urine Bilirubin Dipstick Negative (Negative); Urine Clarity Clear (Clear); Urine Urobilinogen Normal (Normal)
[2020-01-13] MEDS: Warfarin 1 MG, Warfarin 0.5 MG 1.5 MG PO (16:53)
--- NOTE | 2020-01-13 16:59 | HP.PCM_ITS ---
History of Present Illness Date of Admission: 01/13/20 Chief Complaint: shortness of breath The patient is a 69 year old M male with an extensive past medical history who was admitted via the ED on 01/13/2020 with a complaint of shortness of breath. Patient was brought in from home where he apparently became short of breath and EMS was called. He was found to have pulse ox of 60% on and was started on a nonrebreather mask. Patient cannot give much of a history because he says he does not have a voice. He also was on BiPAP at time I reviewed him and was also not able to communicate very well. Per discussion with the ED doctor, patient had admitted to orthopnea and PND and also swelling of his lower extremities. He recently had valve surgery 4 weeks ago and is on anticoagulant. ED, vitals showed blood pressure of 121/102, temperature of 97.8 and pulse rate of 113. He was saturating at 100% on BiPAP at time I reviewed him. Labs showed creatinine of 1.83 and sodium of 141 with potassium of 4.2. Initial troponin was 0.115. She showed hemoglobin of 9.4 and WBC of 4 with platelets of 164. Of note, patient had also apparently tested positive for Covid 4 days prior to admission, there is no record in our system. He has been admitted to be managed for acute hypoxic respiratory failure due to heart failure and COVID-19 infection. [] Past Medical History Past Medical History (Chronic Problems): Chronic Problems (Last Reviewed 07/29/19 @ 13:[address] Bee Gonzales MD) Acute and chronic respiratory failure with hypercapnia (Chronic) Acute exacerbation of congestive heart failure (Chronic) REBECA on CPAP (Chronic) Pulmonary hypertension (Chronic) Hyperlipidemia (Chronic) Essential hypertension (Chronic) Medical History: Medical History (Last Reviewed 07/29/19 @ 13:[address] Bee Gonzales MD) REBECA on CPAP (Chronic) G47.33, Z99.89 Pulmonary hypertension (Chronic) I27.20 Hyperlipidemia (Chronic) E78.5 Essential hypertension (Chronic) I10 COPD (chronic obstructive pulmonary disease) J44.9 Obesity E66.9 Psoriasis L40.9 Rheumatic fever without mention of heart involvement I00 Type 2 diabetes mellitus without complication E11.9 Ulcerative colitis K51.90 Diverticulitis of colon with hemorrhage Onset Date: ~2004 K57.33 Allergies povidone-iodine [From Betadine] Allergy (Intermediate, Verified 07/29/19 13:09) rash, itching soap [From Betadine] Allergy (Intermediate, Verified 07/29/19 13:09) rash, itching Home Medications: Ambulatory Orders Medication Instructions Recorded albuterol sulfate 90 mcg/actuation 2 puff INHALATION Q4H PRN g 07/23/18 aerosol inhaler aspirin 81 mg tablet,delayed 81 mg PO DAILY 07/23/18 release diltiazem HCl 180 mg 360 mg PO DAILY cap 07/23/18 capsule,extended release 24 hr fenofibrate 160 mg tablet 160 mg PO DAILY 07/23/18 fluticasone propionate 115 2 puff INHALATION BID 07/23/18 mcg-salmeterol 21 mcg/actuation HFA inhaler metformin 1,000 mg tablet 1,000 mg PO BID 07/23/18 hydrochlorothiazide 25 mg tablet 25 mg PO DAILY 11/25/18 losartan 100 mg tablet 100 mg PO DAILY 11/25/18 Apixaban [Eliquis] 5 mg PO DAILY 01/13/20 Ascorbic Acid [Vitamin C] 500 mg PO BID 01/13/20 Atorvastatin Calcium [Lipitor] 80 mg PO QHS 01/13/20 Azithromycin [Zithromax] 250 mg PO DAILY 01/13/20 Carvedilol [Coreg] 3.125 mg PO BID 01/13/20 Dexamethasone [Decadron] 6 mg PO DAILY 01/13/20 Melatonin 5 mg PO QHS 01/13/20 Potassium Chloride [K-Dur] 20 meq PO DAILY 01/13/20 Torsemide [Demadex] 20 mg PO DAILY 01/13/20 Warfarin [Coumadin ([facility])] 1.5 mg PO DAILY 01/13/20 Surgical History: Surgical History (Last Reviewed 07/29/19 @ 13:[address] Bee Gonzales MD) History of left hip replacement Z96.642 History of open reduction and internal fixation (ORIF) procedure Z98.890 right ankle fracture History of skin graft Z94.5 right foot x 8 History of vein stripping Z98.890 left leg Surgical History: - - Recent valve replacement Lives: Spouse/ Significant Other Smoking Status: Former smoker Alcohol: None Drugs: None Review of Systems Unable to obtain accurate/complete ROS d/t: Unab to do comprehensive review of symptoms as patient is on BiPAP and shannan VTE Information - Inpt Only VTE Present on Admission: No Patient Problems: Active and Suspected Problems (Last Reviewed 07/29/19 @ 13:[address] 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 valve replaced (Acute) [employer] current use of anticoagulant (Acute) SARS-associated coronavirus infection (Acute) Elevated serum creatinine (Acute) Anemia, unspecified (Acute) Infection due to 2019 novel coronavirus (Acute) Atrial fibrillation with RVR (Acute) Elevated troponin I level (Acute) - Physical Exam Vitals/I&O's: Vital Signs Temp Pulse Resp BP Pulse Ox 97.8 F 111 H 18 109/76 100 01/13/20 12:20 01/13/20 16:00 01/13/20 16:00 01/13/20 16:00 01/13/20 16:00 Oxygen Flow Rate (L/min) 15 Oxygen Delivery Method Bi-pap Weight: 141 lb 15.996 oz Body Mass Index (BMI) 21.5 Intake and Output for Last 24 Hours 01/11/20 01/12/20 01/13/20 23:59 23:59 23:59 Intake Total 28.2 / 28.2 Output Total 800 / 800 Balance -771.8 / -771.8 General: Alert, Oriented x3, Cooperative, No apparent distress HEENT: Atraumatic, PERRLA, EOMI, Normocephalic Oral: Moist Mucosa Neck: Supple, No JVD, Negative Carotid Bruits Lungs: - - decreased breath sounds bibasally. Bilateral coarse crackles. On BIPAP Cardiovascular: Regular rate, Regular Rhythm, Normal S1, Normal S2, No murmurs Abdomen: Bowel Sounds Present, Soft, Non Tender Extremities: No clubbing, No cyanosis, - - bilateral LE edema- 2+ pitting edema. Skin: No rashes, No breakdown Musculoskeletal: No Tenderness to Palpation of Joints or Extremities Lymphatic: No Cervical, Supraclavicular, or Inguinal Adenopathy Neurological: Cranial nerves II-XII grossly intact, Neuro grossly intact, Motor Exam 5/5 strength throughout Psych/Mental Status: Normal Affect, Appropriate, Alert and oriented to time, place, person, mood and affect Microbiology Past 72 Hours 01/13/20 15:00 Urine Catheter - [place] Legionella Antigen - Final 01/13/20 15:00 Urine Catheter - [place] Streptococcus pneumoniae Antigen (M - Final Laboratory Results 01/13/20 10:10: WBC Cancelled, Corrected WBC Cancelled, RBC Cancelled, Hgb Cancelled, Hct Cancelled, MCV Cancelled, MCH Cancelled, MCHC Cancelled, RDW Std Deviation Cancelled, RDW Coeff of Perfecto Cancelled, Plt Count Cancelled, MPV Cancelled, Immature Gran % (Auto) Cancelled, Neut % (Auto) Cancelled, Lymph % (Auto) Cancelled, [place] % (Auto) Cancelled, Eos % (Auto) Cancelled, Baso % (Auto) Cancelled, Absolute Neuts (auto) Cancelled, Absolute Lymphs (auto) Cancelled, Total Counted Cancelled, Neutrophils % (Manual) Cancelled, Band Neutrophils % Cancelled, Lymphocytes % (Manual) Cancelled, Monocytes % (Manual) Cancelled, Eosinophils % (Manual) Cancelled, Basophils % (Manual) Cancelled, Metamyelocytes % Cancelled, Myelocytes % Cancelled, Promyelocytes % Cancelled, Blast Cells % Cancelled, Plasma Cell % (Manual) Cancelled, Other Cells % Cancelled, Nucleated RBC % Cancelled, Nucleated RBCs/100 WBC Cancelled, Differential Comment Cancelled, Diff Path Review Cancelled, Hypersegmented Neuts Cancelled, Atypical Lymphocytes Cancelled, Reactive Lymphocytes Cancelled, Smudge Cells Cancelled, Toxic Granulation Cancelled, Toxic Vacuolation Cancelled, Dohle Bodies Cancelled, Constantino Rods Cancelled, Platelet Estimate Cancelled, Plt Morphology Comment Cancelled, RBC Morphology Cancelled, Polychromasia Cancelled, Hypochromasia Cancelled, Poikilocytosis Cancelled, Basophilic Stippling Cancelled, Anisocytosis Cancelled, Microcytosis Cancelled, Macrocytosis Cancelled, Spherocytes Cancelled, Sickle Cells Cancelled, Target Cells Cancelled, Tear Drop Cells Cancelled, Ovalocytes Cancelled, Stomatocytes Cancelled, [place] Bodies Cancelled, [place] Cells Cancelled, Bite Cells Cancelled, Crenated Cell Cancelled, Acanthocytes (Spur) Cancelled, Rouleaux Cancelled, Schistocytes Cancelled 01/13/20 10:10: PT Cancelled, INR Cancelled, APTT Cancelled 01/13/20 10:10: Sodium 141, Potassium 4.2, Chloride 99, Carbon Dioxide 41.0 H, Anion Gap 1 L, BUN 35 H, Creatinine 1.83 H, Estim Creat Clear Calc 35.82, Est GFR (MDRD) Af Amer 47 L, Est GFR (MDRD) Non-Af 39 L, BUN/Creatinine Ratio 19.1, Glucose 96, Calcium 8.8, Total Bilirubin 1.00, AST 47 H, ALT 22, Alkaline Phosphatase 76, Troponin I 0.115 H, Total Protein 8.2, Albumin 2.8 L, Globulin 5.4 H, Albumin/Globulin Ratio 0.5 L 01/13/20 10:10: Specimen Type ART, Sample Site R Radial, pH 7.42, Bicarbonate Actual 41.6 H, Total CO2 44, Base Excess 17 H, O2 Saturation 100 H, O2 % 50, ABG pCO2 64.2 H, ABG pO2 187 H, Jak Test Positive, Respiration Rate 12, O2 Delivery Device BiPAP, EPAP 8, IPAP 18 01/13/20 10:49: Lactic Acid 1.5 01/13/20 10:49: PT 32.4 H, INR 3.2, APTT 41.2 H 01/13/20 10:49: WBC 4.0 L, RBC 3.06 L, Hgb 9.4 L, Hct 32.5 L, MCV 106.2 H, MCH 30.7, MCHC 28.9 L, RDW Std Deviation 60.5 H, RDW Coeff of Perfecto 15.7 H, Plt Count 164, MPV 9.8, Immature Gran % (Auto) 0.500, Neut % (Auto) 74.0 H, Lymph % (Auto) 11.3 L, Cochran % (Auto) 13.1 H, Eos % (Auto) 0.8, Baso % (Auto) 0.3, Absolute Neuts (auto) 3.0, Absolute Lymphs (auto) 0.45 L, Nucleated RBC % 0, Differential Comment , Diff Path Review May foll, Platelet Estimate ADEQUATE, RBC Morphology NORM C+C 01/13/20 14:55: Urine Color Yellow, Urine Clarity Clear, Urine pH 7.0, Ur Specific [place] 1.005, Urine Protein 15 H, Urine Glucose (UA) Normal, Urine Ketones Negative, Urine Occult Blood 10 H, Urine Nitrite Negative, Urine Bilirubin Negative, Urine Urobilinogen Normal, Ur Leukocyte Esterase Negative, Urine RBC Pending, Urine WBC Pending, Ur Squamous Epith Cells Pending, Urine Bacteria Pending, Urine Mucus Pending 01/13/20 14:55: PT 29.6 H, INR 2.9, D-Dimer Quant (PE/DVT) 2.93 H* 01/13/20 14:55: Sodium 141, Potassium 4.4, Chloride 98, Carbon Dioxide 41.0 H, Anion Gap 2 L, BUN 35 H, Creatinine 1.70 H, Estim Creat Clear Calc 36.31, Est GFR (MDRD) Af Amer 51 L, Est GFR (MDRD) Non-Af 42 L, BUN/Creatinine Ratio 20.6 H , Glucose 94, Calcium 8.8, Total Bilirubin 1.00, AST 54 H, ALT 20, Alkaline Phosphatase 68, Total Creatine Kinase 69, Troponin I 0.105 H, Total Protein 7.5, Albumin 2.6 L, Globulin 4.9 H, Albumin/Globulin Ratio 0.5 L 01/13/20 14:55: B-Natriuretic Peptide 1756.3 H 01/13/20 14:55: Procalcitonin 0.10 H Diagnostic Data Chest X-Ray 01/13/20 10:00 IMPRESSION: Findings suggestive of a mild degree of CHF with small bilateral pleural effusions and bibasilar atelectasis. Electronically Signed: José Antonio Lopez, at 10:46 EST , Service support , Current Medications Ascorbic Acid (Ascorbic Acid 500 Mg Tablet) 500 mg PO BID [facility] Aspirin (Aspirin E.C. 81 Mg Tablet) 81 mg PO DAILY [facility] Atorvastatin Calcium (Atorvastatin Calcium 80 Mg Tablet) 80 mg PO QHS [facility] Carvedilol (Carvedilol 3.125 Mg Tablet) 3.125 mg PO BID [facility] Dexamethasone (Dexamethasone 2 Mg Tablet) 6 mg PO DAILY [facility] Stop: 01/22/20 10:01 Fenofibrate (Fenofibrate 145 Mg Tablet) 145 mg PO DAILY [facility] Furosemide (Furosemide 40 Mg/4 Ml Vial) 40 mg IV BID@1000,1700 [facility] Last Admin: 01/13/20 16:53 Dose: 40 mg Documented by: Guaifenesin (Guaifenesin 600 Mg Tablet) 600 mg PO BID KALEB Fentanyl () 100 mls @ 2.5 mls/hr IV UD KALEB; Protocol Last Admin: 01/13/20 11:54 Dose: Not Given Documented by: Nitroglycerin/Dextrose () 250 mls @ 6 mls/hr CONT INF .[id number] [facility]; Protocol Last Titration: 01/13/20 16:00 Dose: 10 mcg/min, 6 mls/hr Documented by: Remdesivir 100 mg/ Sodium (Chloride) 250 mls @ 125 mls/hr IV DAILY KALEB; Protocol Stop: 01/17/20 11:59 Remdesivir 200 mg/ Sodium (Chloride) 250 mls @ 125 mls/hr IV X1 ONE; Protocol Stop: 01/13/20 18:29 Melatonin (Melatonin 10 Mg Tablet) 5 mg PO QHS [facility] Nitroglycerin (Nitroglycerin (Inpatient Use) 0.4 Mg Tab.Subl) 0.4 mg SUBLINGUAL Q5M PRN PRN Reason: CARDIAC/CHEST PAIN Ondansetron HCl (Ondansetron 4 Mg/2 Ml Vial) 4 mg IV Q8H PRN PRN PRN Reason: NAUSEA/VOMITING Sodium Chloride (0.9% Saline Lock 10 Ml Syringe) 10 - 40 ml IV UD PRN PRN Reason: SALINE FLUSH Warfarin Sodium 1 mg/ Warfarin (Sodium 0.5 mg) 1.5 mg PO DAILY@1700 [facility] Last Admin: 01/13/20 16:53 Dose: 1.5 mg Documented by: Assessment/Plan All Active Problems (Last Reviewed 07/29/19 @ 13:[address] 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 valve replaced (Acute) [employer] current use of anticoagulant (Acute) SARS-associated coronavirus infection (Acute) Elevated serum creatinine (Acute) Anemia, unspecified (Acute) Infection due to 2019 novel coronavirus (Acute) Atrial fibrillation with RVR (Acute) Elevated troponin I level (Acute) 69 y/o admitted with a complaint of shortness of breath # Acute on chronic hypoxic respiratory failure due to COVID 19 infection and heart failure and probable COPD exacerbation * admit to ICu with telemetry * diurese with IV lasix 40mg bid. * continue BIPAP, and titrate oxygen to maintain sats >90% * consult pulmonology. * fluid restriction to 1500cc daily. * monitor intake and output chart * # Acute on chronic HFpEF * 2D echo from 2019 showed EF of 65%. * BNP is >1700. * Diuresed with IV Lasix 40 mg twice daily as above. * Order 2D echo. * Management as above. * #COVID-19 infection * D consulted. Tested positive about 4 days ago. * Started on remdesivir and dexamethasone. * Denies also elevated. INR is therapeutic while on Coumadin. * Titrate oxygen to maintain saturation above 90% as above. * # Pulmonary hypertension and chronic respiratory failure due to COPD * on oxygen at home. * being managed for acute on chronic respiratory failure as above * #History of mitral valve replacement: On Coumadin. #Atrial fibrillation: Currently rate controlled. #FREDIS on CKD: * Creatinine is 1.7. Baseline is around 1.23. * Cannot hydrate with fluids on account of heart failure. * Will trend creatinine. * #Elevated creatinine: * Initial troponin was 0.115 but this is started trending down to 0.105. * Likely due to heart failure and Covid infection. * Will monitor. * 2D echo ordered. * DVT prophlaxis; on coumadin. INR is therapeutic Code Status: Full code * Patient counseled extensively about different types of CODE STATUS including full code, DNR CCA and DNR CCA. Patient elects to be full co. Total [id number] time 16 minutes. Inpatient E&M: 96171 Init Hosp L3 Procedures: 94757 Advncd Care Plan 30 Min
[2020-01-13 17:09] LABS: Red Blood Cells-Urine 0-5 SEEN /hpf (0-5)
--- NOTE | 2020-01-13 19:46 | NURSING ---
PICC line called. Unable to place line tonight, but PICC RN will be available tomorrow 01/14/2020 some time after 9am.
[2020-01-13] MEDS: MELATONIN 10 MG TABLET 5 MG PO (20:15)
[2020-01-13] MEDS: Carvedilol 3.125 MG TABLET PO (20:15)
[2020-01-13] MEDS: Atorvastatin Calcium 80 MG Tablet PO (20:15)
[2020-01-13] MEDS: guaiFENesin 600 MG Tablet PO (20:15)
[2020-01-13] MEDS: Ascorbic Acid 500 MG Tablet PO (20:17)
[2020-01-13 22:36] LABS: Lactic Acid 1.3 mmol/L (0.4-1.9)
[2020-01-14] VITALS (23 sets, daily range): BP systolic 94–127; BP diastolic 43–105; PULSE 86–115; RESP 17–30; TEMP 36.6–37.1; O2SAT 94–100
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
--- NOTE | 2020-01-14 04:18 | NURSING ---
Excessive weight variance from yesterday. Assured only typical bedding on bed, bed in low Fowlers, urinary catheter off rail.
[2020-01-14 04:34] LABS: Absolute Lymphocyte Count 0.47 X10^3/uL (0.83-4.51); Absolute Neutrophil Count 4.5 X10^3/uL (2.0-7.7); Basophil# 0.01 X10^3/uL; Basophil% 0.2 % (0-1); Hematocrit 29.9 % (40-54); Hemoglobin 8.7 g/dL (13.0-16.5); Lymphocyte # 0.47 X10^3/ul (4.0); Lymphocyte % 8.4 % (19-41); Mean Corp Hgb Conc 29.1 g/dL (32-36); Mean Corpuscular Hgb 31.2 pg (27.0-32.0); Mean Corpuscular Volume 107.2 fL (80-94); Mean Platelet Vol. 10.5 fl (6.2-12.0); Monocyte# 0.55 X10^3/uL; Monocyte% 9.8 % (0-10); NRBC Flagged by Analyzer 0 % (0-5); Neutrophil # 4.54 X10^3/uL (2.7-7.7); Neutrophil % 81.1 % (47-70); POSITIVE DIFFERENTIAL YES; Platelet Count 165 K/mm3 (150-450); RBC Distribution Width CV 15.7 % (11.6-14.6); RBC Distribution Width SD 62.1 fl (35.1-43.9); Red Blood Count 2.79 M/mm3 (4.6-6.2); White Blood Count 5.6 K/mm3 (4.4-11.0)
[2020-01-14 04:38] LABS: Differential Indicated SCAN CRITERIA MET
[2020-01-14 05:03] LABS: Anion Gap 3 (5-15); BUN 39 mg/dL (7-18); BUN/Creat Ratio 21.9 RATIO (10-20); Calcium,Total 8.6 mg/dL (8.5-10.1); Chloride 95 mmol/L (98-107); Cholesterol 82 mg/dL (200); Creatinine, Serum 1.78 mg/dL (0.70-1.30); EST Glomerular Filtration Rate 40 mL/min (>60); Est Glom Filt Rate - Afr Amer 49 mL/min (>60); Estimated Creatinine Clearance 36.83 ml/min; Glucose 114 mg/dL (74-106); High Density Lipoprotein 52 mg/dL; Potassium 4.4 mmol/L (3.5-5.1); Sodium Level 139 mmol/L (136-145); Triglycerides 96 mg/dL; Very Low Density Lipoprotein 19 mg/dL (5-40)
--- NOTE | 2020-01-14 05:58 | CON.PCM_ITS ---
Reason for Consult Date of Consultation: 01/14/20 Reason for Consultation: Acute hypoxemic respiratory failure History of Present Illness: The patient is a 69-year-old male, with a history as outlined below, who presented to the emergency department on January 12 with shortness of breath and hypoxemia. Per patient report, he was diagnosed with Covid approximately 4 days prior to admission. The patient does have a self-reported history of chronic hypoxemic respiratory failure with a 3 L/min baseline requirement along with COPD of unknown severity. On presentation to the emergency department, the patient was noted to be afebrile but was tachycardic, tachypneic and hypoxemic, requiring a nonrebreather mask. Laboratory evaluation revealed an elevated D-dimer to 2.93. Chemistry profile revealed a bicarbonate of 41 and creatinine of 1.83. Troponin was mildly elevated to 0.115. BNP was elevated to 1756. Urine analysis was unremarkable. The patient was seen in consultation by infectious diseases after being transferred to the medical intensive care unit. The patient did require BiPAP support and was subsequently started on Decadron and remdesivir. He was also placed on IV diuretic therapy. As of this morning, the patient has been weaned to 3 L/min via nasal cannula. The patient remains therapeutically anticoagulated on Coumadin. Creatinine remains elevated at 1.78. Liver function is stable. Past Medical History Past Medical History (Chronic Problems): Chronic Problems (Last Reviewed 07/29/19 @ 13:[address] Bee Gonzales MD) Acute and chronic respiratory failure with hypercapnia (Chronic) Acute exacerbation of congestive heart failure (Chronic) REBECA on CPAP (Chronic) Pulmonary hypertension (Chronic) Hyperlipidemia (Chronic) Essential hypertension (Chronic) Medical History: Medical History (Last Reviewed 07/29/19 @ 13:[address] Bee Gonzales MD) REBECA on CPAP (Chronic) G47.33, Z99.89 Pulmonary hypertension (Chronic) I27.20 Hyperlipidemia (Chronic) E78.5 Essential hypertension (Chronic) I10 COPD (chronic obstructive pulmonary disease) J44.9 Obesity E66.9 Psoriasis L40.9 Rheumatic fever without mention of heart involvement I00 Type 2 diabetes mellitus without complication E11.9 Ulcerative colitis K51.90 Diverticulitis of colon with hemorrhage Onset Date: ~2004 K57.33 Allergies povidone-iodine [From Betadine] Allergy (Intermediate, Verified 07/29/19 13:09) rash, itching soap [From Betadine] Allergy (Intermediate, Verified 07/29/19 13:09) rash, itching Home Medications: Ambulatory Orders Medication Instructions Recorded albuterol sulfate 90 mcg/actuation 2 puff INHALATION Q4H PRN g 07/23/18 aerosol inhaler aspirin 81 mg tablet,delayed 81 mg PO DAILY 07/23/18 release diltiazem HCl 180 mg 360 mg PO DAILY cap 07/23/18 capsule,extended release 24 hr fenofibrate 160 mg tablet 160 mg PO DAILY 07/23/18 fluticasone propionate 115 2 puff INHALATION BID 07/23/18 mcg-salmeterol 21 mcg/actuation HFA inhaler metformin 1,000 mg tablet 1,000 mg PO BID 07/23/18 hydrochlorothiazide 25 mg tablet 25 mg PO DAILY 11/25/18 losartan 100 mg tablet 100 mg PO DAILY 11/25/18 Apixaban [Eliquis] 5 mg PO DAILY 01/13/20 Ascorbic Acid [Vitamin C] 500 mg PO BID 01/13/20 Atorvastatin Calcium [Lipitor] 80 mg PO QHS 01/13/20 Azithromycin [Zithromax] 250 mg PO DAILY 01/13/20 Carvedilol [Coreg] 3.125 mg PO BID 01/13/20 Dexamethasone [Decadron] 6 mg PO DAILY 01/13/20 Melatonin 5 mg PO QHS 01/13/20 Potassium Chloride [K-Dur] 20 meq PO DAILY 01/13/20 Torsemide [Demadex] 20 mg PO DAILY 01/13/20 Warfarin [Coumadin ([facility])] 1.5 mg PO DAILY 01/13/20 Surgical History: Surgical History (Last Reviewed 07/29/19 @ 13:[address] Bee Gonzales MD) History of left hip replacement Z96.642 History of open reduction and internal fixation (ORIF) procedure Z98.890 right ankle fracture History of skin graft Z94.5 right foot x 8 History of vein stripping Z98.890 left leg Surgical History: - - Recent valve replacement Lives: Spouse/ Significant Other Smoking Status: Former smoker Alcohol: None Drugs: None Review of Systems Constitutional: Reports: Malaise, Fatigue Eyes: Denies: Blurred vision, Double vision HEENT: Denies: Head Aches, Sinus Congestion, Sinus Drainage Cardiovascular: Reports: Edema. Denies: Chest Pain, Palpitations Respiratory: Reports: Cough, Shortness of Breath Gastrointestinal: Denies: Abdominal Pain, Nausea, Vomiting Genitourinary: Denies: Dysuria Musculoskeletal: Denies: Joint Pain, Joint Tenderness Skin: Denies: Rash, Wounds Neurological: Denies: Numbness, Tingling, Focal weakness Psychiatric: Denies: Anxiety, Depression, Homicidal Ideations, Suicidal Ideations Hematologic/ Lymphatic: Reports: Anemia Patient Problems: Active and Suspected Problems (Last Reviewed 07/29/19 @ 13:[address] 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 - Physical Exam Vitals/I&O's: Vital Signs Temp Pulse Resp BP Pulse Ox 98.4 F 109 H 20 H 95/80 100 01/14/20 04:00 01/14/20 05:00 01/14/20 05:00 01/14/20 05:00 01/14/20 05:00 Oxygen Flow Rate (L/min) 3 Oxygen Delivery Method Nasal Cannula Weight: 186 lb 11.704 oz Body Mass Index (BMI) 21.5 Intake and Output for Last 24 Hours 01/12/20 01/13/20 01/14/20 23:59 23:59 23:59 Intake Total 250.2 / 346.2 126 / 126 Output Total 1650 / 1770 120 / 120 Balance -1399.8 / -1423.8 General: Alert, Oriented x3, Cooperative, - - Mild conversational dyspnea. HEENT: Atraumatic, PERRLA, Normocephalic Oral: Moist Mucosa, No Gingival or Mucosal Lesions/ Ulcerations Neck: Supple, No Nodes, Trachea Midline Lungs: Diminished, Rales, Short of Breath, Tachypneic Cardiovascular: Normal S1, Normal S2, Tachycardic Abdomen: Bowel Sounds Present, Soft, Non Tender Extremities: No clubbing, No cyanosis, - - Lower extremity pitting edema present Skin: No breakdown Musculoskeletal: No Tenderness to Palpation of Joints or Extremities, No Muscle Wasting Lymphatic: No Cervical, Supraclavicular, or Inguinal Adenopathy Neurological: Cranial nerves II-XII grossly intact, Neuro grossly intact Psych/Mental Status: Normal Affect, Appropriate Labs (Last 48 Hours) 01/13/20 01/13/20 01/13/20 10:10 10:10 10:10 WBC Cancelled Corrected WBC Cancelled RBC Cancelled Hgb Cancelled Hct Cancelled MCV Cancelled MCH Cancelled MCHC Cancelled RDW Std Deviation Cancelled RDW Coeff of Perfecto Cancelled Plt Count Cancelled MPV Cancelled Immature Gran % (Auto) Cancelled Neut % (Auto) Cancelled Lymph % (Auto) Cancelled [place] % (Auto) Cancelled Eos % (Auto) Cancelled Baso % (Auto) Cancelled Absolute Neuts (auto) Cancelled Absolute Lymphs (auto) Cancelled Total Counted Cancelled Neutrophils % (Manual) Cancelled Band Neutrophils % Cancelled Lymphocytes % (Manual) Cancelled Monocytes % (Manual) Cancelled Eosinophils % (Manual) Cancelled Basophils % (Manual) Cancelled Metamyelocytes % Cancelled Myelocytes % Cancelled Promyelocytes % Cancelled Blast Cells % Cancelled Plasma Cell % (Manual) Cancelled Other Cells % Cancelled Nucleated RBC % Cancelled Nucleated RBCs/100 WBC Cancelled Differential Comment Cancelled Diff Path Review Cancelled Hypersegmented Neuts Cancelled Atypical Lymphocytes Cancelled Reactive Lymphocytes Cancelled Smudge Cells Cancelled Toxic Granulation Cancelled Toxic Vacuolation Cancelled Dohle Bodies Cancelled Constantino Rods Cancelled Platelet Estimate Cancelled Plt Morphology Comment Cancelled RBC Morphology Cancelled Polychromasia Cancelled Hypochromasia Cancelled Poikilocytosis Cancelled Basophilic Stippling Cancelled Anisocytosis Cancelled Microcytosis Cancelled Macrocytosis Cancelled Spherocytes Cancelled Sickle Cells Cancelled Target Cells Cancelled Tear Drop Cells Cancelled Ovalocytes Cancelled Stomatocytes Cancelled Angel-Hohenwald Bodies Cancelled Judd Cells Cancelled Bite Cells Cancelled Crenated Cell Cancelled Acanthocytes (Spur) Cancelled Rouleaux Cancelled Schistocytes Cancelled PT Cancelled INR Cancelled APTT Cancelled D-Dimer Quant (PE/DVT) Specimen Type Sample Site pH Bicarbonate Actual Total CO2 Base Excess O2 Saturation O2 % ABG pCO2 ABG pO2 Jak Test Respiration Rate O2 Delivery Device EPAP IPAP Sodium 141 Potassium 4.2 Chloride 99 Carbon Dioxide 41.0 H Anion Gap 1 L BUN 35 H Creatinine 1.83 H Estim Creat Clear Calc 35.82 Est GFR (MDRD) Af Amer 47 L Est GFR (MDRD) Non-Af 39 L BUN/Creatinine Ratio 19.1 Glucose 96 Lactic Acid Calcium 8.8 Total Bilirubin 1.00 AST 47 H ALT 22 Alkaline Phosphatase 76 Total Creatine Kinase Troponin I 0.115 H B-Natriuretic Peptide Total Protein 8.2 Albumin 2.8 L Globulin 5.4 H Albumin/Globulin Ratio 0.5 L Triglycerides Cholesterol LDL Cholesterol VLDL Cholesterol HDL Cholesterol Procalcitonin Urine Color Urine Clarity Urine pH Ur Specific [place] Urine Protein Urine Glucose (UA) Urine Ketones Urine Occult Blood Urine Nitrite Urine Bilirubin Urine Urobilinogen Ur Leukocyte Esterase Urine RBC Urine WBC Ur Squamous Epith Cells Urine Bacteria Urine Mucus 01/13/20 01/13/20 01/13/20 10:10 10:49 10:49 WBC Corrected WBC RBC Hgb Hct MCV MCH MCHC RDW Std Deviation RDW Coeff of Perfecto Plt Count MPV Immature Gran % (Auto) Neut % (Auto) Lymph % (Auto) [place] % (Auto) Eos % (Auto) Baso % (Auto) Absolute Neuts (auto) Absolute Lymphs (auto) Total Counted Neutrophils % (Manual) Band Neutrophils % Lymphocytes % (Manual) Monocytes % (Manual) Eosinophils % (Manual) Basophils % (Manual) Metamyelocytes % Myelocytes % Promyelocytes % Blast Cells % Plasma Cell % (Manual) Other Cells % Nucleated RBC % Nucleated RBCs/100 WBC Differential Comment Diff Path Review Hypersegmented Neuts Atypical Lymphocytes Reactive Lymphocytes Smudge Cells Toxic Granulation Toxic Vacuolation Dohle Bodies Constantino Rods Platelet Estimate Plt Morphology Comment RBC Morphology Polychromasia Hypochromasia Poikilocytosis Basophilic Stippling Anisocytosis Microcytosis Macrocytosis Spherocytes Sickle Cells Target Cells Tear Drop Cells Ovalocytes Stomatocytes Angel-Hohenwald Bodies [place] Cells Bite Cells Crenated Cell Acanthocytes (Spur) Rouleaux Schistocytes PT 32.4 H INR 3.2 APTT 41.2 H D-Dimer Quant (PE/DVT) Specimen Type ART Sample Site R Radial pH 7.42 Bicarbonate Actual 41.6 H Total CO2 44 Base Excess 17 H O2 Saturation 100 H O2 % 50 ABG pCO2 64.2 H ABG pO2 187 H Jak Test Positive Respiration Rate 12 O2 Delivery Device BiPAP EPAP 8 IPAP 18 Sodium Potassium Chloride Carbon Dioxide Anion Gap BUN Creatinine Estim Creat Clear Calc Est GFR (MDRD) Af Amer Est GFR (MDRD) Non-Af BUN/Creatinine Ratio Glucose Lactic Acid 1.5 Calcium Total Bilirubin AST ALT Alkaline Phosphatase Total Creatine Kinase Troponin I B-Natriuretic Peptide Total Protein Albumin Globulin Albumin/Globulin Ratio Triglycerides Cholesterol LDL Cholesterol VLDL Cholesterol HDL Cholesterol Procalcitonin Urine Color Urine Clarity Urine pH Ur Specific [place] Urine Protein Urine Glucose (UA) Urine Ketones Urine Occult Blood Urine Nitrite Urine Bilirubin Urine Urobilinogen Ur Leukocyte Esterase Urine RBC Urine WBC Ur Squamous Epith Cells Urine Bacteria Urine Mucus 01/13/20 01/13/20 01/13/20 10:49 14:55 14:55 WBC 4.0 L Corrected WBC RBC 3.06 L Hgb 9.4 L Hct 32.5 L MCV 106.2 H MCH 30.7 MCHC 28.9 L RDW Std Deviation 60.5 H RDW Coeff of Perfecto 15.7 H Plt Count 164 MPV 9.8 Immature Gran % (Auto) 0.500 Neut % (Auto) 74.0 H Lymph % (Auto) 11.3 L [place] % (Auto) 13.1 H Eos % (Auto) 0.8 Baso % (Auto) 0.3 Absolute Neuts (auto) 3.0 Absolute Lymphs (auto) 0.45 L Total Counted Neutrophils % (Manual) Band Neutrophils % Lymphocytes % (Manual) Monocytes % (Manual) Eosinophils % (Manual) Basophils % (Manual) Metamyelocytes % Myelocytes % Promyelocytes % Blast Cells % Plasma Cell % (Manual) Other Cells % Nucleated RBC % 0 Nucleated RBCs/100 WBC Differential Comment Diff Path Review May foll Hypersegmented Neuts Atypical Lymphocytes Reactive Lymphocytes Smudge Cells Toxic Granulation Toxic Vacuolation Dohle Bodies Constantino Rods Platelet Estimate ADEQUATE Plt Morphology Comment RBC Morphology NORM C+C Polychromasia Hypochromasia Poikilocytosis Basophilic Stippling Anisocytosis Microcytosis Macrocytosis Spherocytes Sickle Cells Target Cells Tear Drop Cells Ovalocytes Stomatocytes Angel-Hohenwald Bodies [place] Cells Bite Cells Crenated Cell Acanthocytes (Spur) Rouleaux Schistocytes PT 29.6 H INR 2.9 APTT D-Dimer Quant (PE/DVT) 2.93 H* Specimen Type Sample Site pH Bicarbonate Actual Total CO2 Base Excess O2 Saturation O2 % ABG pCO2 ABG pO2 Jak Test Respiration Rate O2 Delivery Device EPAP IPAP Sodium Potassium Chloride Carbon Dioxide Anion Gap BUN Creatinine Estim Creat Clear Calc Est GFR (MDRD) Af Amer Est GFR (MDRD) Non-Af BUN/Creatinine Ratio Glucose Lactic Acid Calcium Total Bilirubin AST ALT Alkaline Phosphatase Total Creatine Kinase Troponin I B-Natriuretic Peptide Total Protein Albumin Globulin Albumin/Globulin Ratio Triglycerides Cholesterol LDL Cholesterol VLDL Cholesterol HDL Cholesterol Procalcitonin Urine Color Yellow Urine Clarity Clear Urine pH 7.0 Ur Specific [place] 1.005 Urine Protein 15 H Urine Glucose (UA) Normal Urine Ketones Negative Urine Occult Blood 10 H Urine Nitrite Negative Urine Bilirubin Negative Urine Urobilinogen Normal Ur Leukocyte Esterase Negative Urine RBC 0-5 SEEN Urine WBC 0 SEEN Ur Squamous Epith Cells 0 SEEN Urine Bacteria 0 SEEN Urine Mucus 0 SEEN 01/13/20 01/13/20 01/13/20 14:55 14:55 14:55 WBC Corrected WBC RBC Hgb Hct MCV MCH MCHC RDW Std Deviation RDW Coeff of Perfecto Plt Count MPV Immature Gran % (Auto) Neut % (Auto) Lymph % (Auto) [place] % (Auto) Eos % (Auto) Baso % (Auto) Absolute Neuts (auto) Absolute Lymphs (auto) Total Counted Neutrophils % (Manual) Band Neutrophils % Lymphocytes % (Manual) Monocytes % (Manual) Eosinophils % (Manual) Basophils % (Manual) Metamyelocytes % Myelocytes % Promyelocytes % Blast Cells % Plasma Cell % (Manual) Other Cells % Nucleated RBC % Nucleated RBCs/100 WBC Differential Comment Diff Path Review Hypersegmented Neuts Atypical Lymphocytes Reactive Lymphocytes Smudge Cells Toxic Granulation Toxic Vacuolation Dohle Bodies Constantino Rods Platelet Estimate Plt Morphology Comment RBC Morphology Polychromasia Hypochromasia Poikilocytosis Basophilic Stippling Anisocytosis Microcytosis Macrocytosis Spherocytes Sickle Cells Target Cells Tear Drop Cells Ovalocytes Stomatocytes Angel-Hohenwald Bodies Judd Cells Bite Cells Crenated Cell Acanthocytes (Spur) Rouleaux Schistocytes PT INR APTT D-Dimer Quant (PE/DVT) Specimen Type Sample Site pH Bicarbonate Actual Total CO2 Base Excess O2 Saturation O2 % ABG pCO2 ABG pO2 Jak Test Respiration Rate O2 Delivery Device EPAP IPAP Sodium 141 Potassium 4.4 Chloride 98 Carbon Dioxide 41.0 H Anion Gap 2 L BUN 35 H Creatinine 1.70 H Estim Creat Clear Calc 36.31 Est GFR (MDRD) Af Amer 51 L Est GFR (MDRD) Non-Af 42 L BUN/Creatinine Ratio 20.6 H Glucose 94 Lactic Acid Calcium 8.8 Total Bilirubin 1.00 AST 54 H ALT 20 Alkaline Phosphatase 68 Total Creatine Kinase 69 Troponin I 0.105 H B-Natriuretic Peptide 1756.3 H Total Protein 7.5 Albumin 2.6 L Globulin 4.9 H Albumin/Globulin Ratio 0.5 L Triglycerides Cholesterol LDL Cholesterol VLDL Cholesterol HDL Cholesterol Procalcitonin 0.10 H Urine Color Urine Clarity Urine pH Ur Specific [place] Urine Protein Urine Glucose (UA) Urine Ketones Urine Occult Blood Urine Nitrite Urine Bilirubin Urine Urobilinogen Ur Leukocyte Esterase Urine RBC Urine WBC Ur Squamous Epith Cells Urine Bacteria Urine Mucus 01/13/20 01/13/20 01/13/20 18:25 21:50 21:50 WBC Corrected WBC RBC Hgb Hct MCV MCH MCHC RDW Std Deviation RDW Coeff of Perfecto Plt Count MPV Immature Gran % (Auto) Neut % (Auto) Lymph % (Auto) [place] % (Auto) Eos % (Auto) Baso % (Auto) Absolute Neuts (auto) Absolute Lymphs (auto) Total Counted Neutrophils % (Manual) Band Neutrophils % Lymphocytes % (Manual) Monocytes % (Manual) Eosinophils % (Manual) Basophils % (Manual) Metamyelocytes % Myelocytes % Promyelocytes % Blast Cells % Plasma Cell % (Manual) Other Cells % Nucleated RBC % Nucleated RBCs/100 WBC Differential Comment Diff Path Review Hypersegmented Neuts Atypical Lymphocytes Reactive Lymphocytes Smudge Cells Toxic Granulation Toxic Vacuolation Dohle Bodies Constantino Rods Platelet Estimate Plt Morphology Comment RBC Morphology Polychromasia Hypochromasia Poikilocytosis Basophilic Stippling Anisocytosis Microcytosis Macrocytosis Spherocytes Sickle Cells Target Cells Tear Drop Cells Ovalocytes Stomatocytes Angel-Hohenwald Bodies Judd Cells Bite Cells Crenated Cell Acanthocytes (Spur) Rouleaux Schistocytes PT INR APTT D-Dimer Quant (PE/DVT) Specimen Type Sample Site pH Bicarbonate Actual Total CO2 Base Excess O2 Saturation O2 % ABG pCO2 ABG pO2 Jak Test Respiration Rate O2 Delivery Device EPAP IPAP Sodium Potassium Chloride Carbon Dioxide Anion Gap BUN Creatinine Estim Creat Clear Calc Est GFR (MDRD) Af Amer Est GFR (MDRD) Non-Af BUN/Creatinine Ratio Glucose Lactic Acid 1.3 Calcium Total Bilirubin AST ALT Alkaline Phosphatase Total Creatine Kinase Troponin I 0.096 H 0.090 H B-Natriuretic Peptide Total Protein Albumin Globulin Albumin/Globulin Ratio Triglycerides Cholesterol LDL Cholesterol VLDL Cholesterol HDL Cholesterol Procalcitonin Urine Color Urine Clarity Urine pH Ur Specific [place] Urine Protein Urine Glucose (UA) Urine Ketones Urine Occult Blood Urine Nitrite Urine Bilirubin Urine Urobilinogen Ur Leukocyte Esterase Urine RBC Urine WBC Ur Squamous Epith Cells Urine Bacteria Urine Mucus 01/14/20 01/14/20 04:15 04:15 WBC 5.6 Corrected WBC RBC 2.79 L Hgb 8.7 L Hct 29.9 L MCV 107.2 H MCH 31.2 MCHC 29.1 L RDW Std Deviation 62.1 H RDW Coeff of Perfecto 15.7 H Plt Count 165 MPV 10.5 Immature Gran % (Auto) 0.500 Neut % (Auto) 81.1 H Lymph % (Auto) 8.4 L [place] % (Auto) 9.8 Eos % (Auto) 0.0 Baso % (Auto) 0.2 Absolute Neuts (auto) 4.5 Absolute Lymphs (auto) 0.47 L Total Counted Neutrophils % (Manual) Band Neutrophils % Lymphocytes % (Manual) Monocytes % (Manual) Eosinophils % (Manual) Basophils % (Manual) Metamyelocytes % Myelocytes % Promyelocytes % Blast Cells % Plasma Cell % (Manual) Other Cells % Nucleated RBC % 0 Nucleated RBCs/100 WBC Differential Comment Diff Path Review Hypersegmented Neuts Atypical Lymphocytes Reactive Lymphocytes Smudge Cells Toxic Granulation Toxic Vacuolation Dohle Bodies Constantino Rods Platelet Estimate Plt Morphology Comment RBC Morphology Polychromasia Hypochromasia Poikilocytosis Basophilic Stippling Anisocytosis Microcytosis Macrocytosis Spherocytes Sickle Cells Target Cells Tear Drop Cells Ovalocytes Stomatocytes Angel-Hohenwald Bodies [place] Cells Bite Cells Crenated Cell Acanthocytes (Spur) Rouleaux Schistocytes PT INR APTT D-Dimer Quant (PE/DVT) Specimen Type Sample Site pH Bicarbonate Actual Total CO2 Base Excess O2 Saturation O2 % ABG pCO2 ABG pO2 Jak Test Respiration Rate O2 Delivery Device EPAP IPAP Sodium 139 Potassium 4.4 Chloride 95 L Carbon Dioxide 41.0 H Anion Gap 3 L BUN 39 H Creatinine 1.78 H Estim Creat Clear Calc 36.83 Est GFR (MDRD) Af Amer 49 L Est GFR (MDRD) Non-Af 40 L BUN/Creatinine Ratio 21.9 H Glucose 114 H Lactic Acid Calcium 8.6 Total Bilirubin AST ALT Alkaline Phosphatase Total Creatine Kinase Troponin I B-Natriuretic Peptide Total Protein Albumin Globulin Albumin/Globulin Ratio Triglycerides 96 Cholesterol 82 LDL Cholesterol 11 VLDL Cholesterol 19 HDL Cholesterol 52 Procalcitonin Urine Color Urine Clarity Urine pH Ur Specific [place] Urine Protein Urine Glucose (UA) Urine Ketones Urine Occult Blood Urine Nitrite Urine Bilirubin Urine Urobilinogen Ur Leukocyte Esterase Urine RBC Urine WBC Ur Squamous Epith Cells Urine Bacteria Urine Mucus Microbiology 01/13/20 15:00 Urine Catheter - [place] Legionella Antigen - Final 01/13/20 15:00 Urine Catheter - [place] Streptococcus pneumoniae Antigen (M - Final Clinical Impression(s) from Imaging Studies Chest X-Ray 01/13/20 10:00 IMPRESSION: Findings suggestive of a mild degree of CHF with small bilateral pleural effusions and bibasilar atelectasis. Electronically Signed: José Antonio Lopez, at 10:46 EST , Service support , Current Medications Albuterol Sulfate (Albuterol Sulfate 8 Gm Inhaler (60 Puffs)) 1 puff INHALATION Q6HWA.RT KALEB Albuterol Sulfate (Albuterol Sulfate 8 Gm Inhaler (60 Puffs)) 2 puff INHALATION Q4H PRN PRN Reason: SOB &/OR WHEEZING Ascorbic Acid (Ascorbic Acid 500 Mg Tablet) 500 mg PO BID [facility] Last Admin: 01/13/20 20:17 Dose: 500 mg Documented by: Aspirin (Aspirin E.C. 81 Mg Tablet) 81 mg PO DAILY KALEB Atorvastatin Calcium (Atorvastatin Calcium 80 Mg Tablet) 80 mg PO QHS [facility] Last Admin: 01/13/20 20:15 Dose: 80 mg Documented by: Carvedilol (Carvedilol 3.125 Mg Tablet) 3.125 mg PO BID [facility] Last Admin: 01/13/20 20:15 Dose: 3.125 mg Documented by: Dexamethasone (Dexamethasone 2 Mg Tablet) 6 mg PO DAILY [facility] Stop: 01/22/20 10:01 Diltiazem HCl (Diltiazem Cd 180 Mg Capsule) 360 mg PO DAILY [facility] Fenofibrate (Fenofibrate 145 Mg Tablet) 145 mg PO DAILY [facility] Furosemide (Furosemide 40 Mg/4 Ml Vial) 40 mg IV BID@1000,1700 [facility] Last Admin: 01/13/20 16:53 Dose: 40 mg Documented by: Guaifenesin (Guaifenesin 600 Mg Tablet) 600 mg PO BID [facility] Last Admin: 01/13/20 20:15 Dose: 600 mg Documented by: Fentanyl () 100 mls @ 2.5 mls/hr IV UD [facility]; Protocol Last Admin: 01/13/20 11:54 Dose: Not Given Documented by: Nitroglycerin/Dextrose () 250 mls @ 6 mls/hr CONT INF .[id number] [facility]; Protocol Last Titration: 01/14/20 05:00 Dose: 10 mcg/min, 6 mls/hr Documented by: Remdesivir 100 mg/ Sodium (Chloride) 250 mls @ 125 mls/hr IV QHS [facility]; Protocol Stop: 01/17/20 23:59 Melatonin (Melatonin 10 Mg Tablet) 5 mg PO QHS [facility] Last Admin: 01/13/20 20:15 Dose: 5 mg Documented by: Nitroglycerin (Nitroglycerin (Inpatient Use) 0.4 Mg Tab.Subl) 0.4 mg SUBLINGUAL Q5M PRN PRN Reason: CARDIAC/CHEST PAIN Ondansetron HCl (Ondansetron 4 Mg/2 Ml Vial) 4 mg IV Q8H PRN PRN PRN Reason: NAUSEA/VOMITING Potassium Chloride (Potassium Chloride 20 Meq Tablet) 20 meq PO DAILY [facility] Sodium Chloride (0.9% Saline Lock 10 Ml Syringe) 10 - 40 ml IV UD PRN PRN Reason: SALINE FLUSH Warfarin Sodium 1 mg/ Warfarin (Sodium 0.5 mg) 1.5 mg PO DAILY@1700 [facility] Last Admin: 01/13/20 16:53 Dose: 1.5 mg Documented by: Assessment/Plan Active and Suspected Problems (Last Reviewed 07/29/19 @ 13:[address] 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 valve replaced (Acute) alf current use of anticoagulant (Acute) SARS-associated coronavirus infection (Acute) Elevated serum creatinine (Acute) Anemia, unspecified (Acute) Infection due to 2019 novel coronavirus (Acute) Atrial fibrillation with RVR (Acute) Elevated troponin I level (Acute) RECOMMENDATIONS: 1. Continue to wean supplemental oxygen as tolerated. 2. Continue remdesivir and Decadron as ordered. Monitor liver and renal function accordingly. 3. Continue diuretic therapy as tolerated by hemodynamics and renal function. 4. Continue systemic anticoagulation with Coumadin and monitor INR daily. 5. Encourage incentive spirometer use and mobilize patient as tolerated. IMPRESSIONS: 1. Acute on chronic hypoxemic respiratory failure Likely multifactorial in etiology with COPD exacerbation precipitated by COVID- 19 pneumonia along with a component of decompensated heart failure likely contributing. The patient has responded clinically to IV diuretic therapy and noninvasive positive pressure ventilatory support. He will be continued on Decadron and remdesivir as ordered. Continue to monitor liver and renal function accordingly. The patient remains systemically anticoagulated on Coumadin with a therapeutic INR. Continue to monitor coagulation status daily. At the present time, the patient is maintaining appropriate oxygen saturations on his baseline 3 L/min requirement. Encourage incentive spirometer use and mob ilize patient as tolerated. 2. Self-reported COPD of unknown severity The patient is a poor historian but does report a history of COPD for which she is apparently followed by an outside editorial specialist. Plan to continue current supportive measures with as needed bronchodilator therapy and supplemental oxygen. 3. Heart failure with preserved ejection fraction/pulmonary hypertension Prior echocardiogram from 2019 did reveal heart failure with preserved ejection fraction and pulmonary hypertension. The patient has responded appropriately to diuretic therapy and BiPAP. Plan to continue Lasix as tolerated by hemodynamics and renal function. 4. Paroxysmal atrial fibrillation/diabetes mellitus/hypertension/hyperlipidemia Complicates care, management, recovery and prognosis. Need to clarify home anticoagulation regimen. Continue to monitor INR daily if the patient is chronically on Coumadin. This note was generated with 66. comation software. It may contain incorrect words, spelling, and punctuation that were not noted in checking the note before signing. Inpatient E&M: 24632 Init Hosp L3
--- NOTE | 2020-01-14 07:39 | PCM.PN.HOSP ---
Patient Problems: Active and Suspected Problems (Last Reviewed 07/29/19 @ 13:[address] 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 He has been weaned to 3 L of oxygen by nasal cannula today. Shortness of breath is improved and he has no other complaints. He however remains tachycardic and tachypneic. Review of symptoms otherwise negative. Vitals/I&O's: Vital Signs Temp Pulse Resp BP Pulse Ox 98.4 F 110 H 27 H 125/88 H 100 01/14/20 04:00 01/14/20 07:00 01/14/20 07:00 01/14/20 07:00 01/14/20 07:00 Oxygen Flow Rate (L/min) 3 Oxygen Delivery Method Nasal Cannula Weight: 186 lb 11.704 oz Body Mass Index (BMI) 21.5 Intake and Output for Last 24 Hours 01/12/20 01/13/20 01/14/20 23:59 23:59 23:59 Intake Total 250.2 / 346.2 126 / 126 Output Total 1650 / 1770 120 / 120 Balance -1399.8 / -1423.8 / General: Alert, Oriented x3, Cooperative, No apparent distress HEENT: Atraumatic, PERRLA, EOMI, Normocephalic Oral: Moist Mucosa Neck: Supple, No JVD, Negative Carotid Bruits Lungs: - - decreased breath sounds bibasally. Bilateral coarse crackles. On 3L of oxygen, tachypneic Cardiovascular: Regular Rhythm, Normal S1, Normal S2, No murmurs, tachycardic Abdomen: Bowel Sounds Present, Soft, Non Tender Extremities: No clubbing, No cyanosis, - - bilateral LE edema- 2+ pitting edema. Skin: No rashes, No breakdown Musculoskeletal: No Tenderness to Palpation of Joints or Extremities Lymphatic: No Cervical, Supraclavicular, or Inguinal Adenopathy Neurological: Cranial nerves II-XII grossly intact, Neuro grossly intact, Motor Exam 5/5 strength throughout Psych/Mental Status: Normal Affect, Appropriate, Alert and oriented to time, place, person, mood and affect Microbiology Past 72 Hours 01/13/20 15:00 Urine Catheter - Aguilera Legionella Antigen - Final 01/13/20 15:00 Urine Catheter - Aguilera Streptococcus pneumoniae Antigen (M - Final Laboratory Results 01/13/20 10:10: WBC Cancelled, Corrected WBC Cancelled, RBC Cancelled, Hgb Cancelled, Hct Cancelled, MCV Cancelled, MCH Cancelled, MCHC Cancelled, RDW Std Deviation Cancelled, RDW Coeff of Perfecto Cancelled, Plt Count Cancelled, MPV Cancelled, Immature Gran % (Auto) Cancelled, Neut % (Auto) Cancelled, Lymph % (Auto) Cancelled, [place] % (Auto) Cancelled, Eos % (Auto) Cancelled, Baso % (Auto) Cancelled, Absolute Neuts (auto) Cancelled, Absolute Lymphs (auto) Cancelled, Total Counted Cancelled, Neutrophils % (Manual) Cancelled, Band Neutrophils % Cancelled, Lymphocytes % (Manual) Cancelled, Monocytes % (Manual) Cancelled, Eosinophils % (Manual) Cancelled, Basophils % (Manual) Cancelled, Metamyelocytes % Cancelled, Myelocytes % Cancelled, Promyelocytes % Cancelled, Blast Cells % Cancelled, Plasma Cell % (Manual) Cancelled, Other Cells % Cancelled, Nucleated RBC % Cancelled, Nucleated RBCs/100 WBC Cancelled, Differential Comment Cancelled, Diff Path Review Cancelled, Hypersegmented Neuts Cancelled, Atypical Lymphocytes Cancelled, Reactive Lymphocytes Cancelled, Smudge Cells Cancelled, Toxic Granulation Cancelled, Toxic Vacuolation Cancelled, Dohle Bodies Cancelled, Constantino Rods Cancelled, Platelet Estimate Cancelled, Plt Morphology Comment Cancelled, RBC Morphology Cancelled, Polychromasia Cancelled, Hypochromasia Cancelled, Poikilocytosis Cancelled, Basophilic Stippling Cancelled, Anisocytosis Cancelled, Microcytosis Cancelled, Macrocytosis Cancelled, Spherocytes Cancelled, Sickle Cells Cancelled, Target Cells Cancelled, Tear Drop Cells Cancelled, Ovalocytes Cancelled, Stomatocytes Cancelled, Angel-Grifton Bodies Cancelled, Napoleon Cells Cancelled, Bite Cells Cancelled, Crenated Cell Cancelled, Acanthocytes (Spur) Cancelled, Rouleaux Cancelled, Schistocytes Cancelled 01/13/20 10:10: PT Cancelled, INR Cancelled, APTT Cancelled 01/13/20 10:10: Sodium 141, Potassium 4.2, Chloride 99, Carbon Dioxide 41.0 H, Anion Gap 1 L, BUN 35 H, Creatinine 1.83 H, Estim Creat Clear Calc 35.82, Est GFR (MDRD) Af Amer 47 L, Est GFR (MDRD) Non-Af 39 L, BUN/Creatinine Ratio 19.1, Glucose 96, Calcium 8.8, Total Bilirubin 1.00, AST 47 H, ALT 22, Alkaline Phosphatase 76, Troponin I 0.115 H, Total Protein 8.2, Albumin 2.8 L, Globulin 5.4 H, Albumin/Globulin Ratio 0.5 L 01/13/20 10:10: Specimen Type ART, Sample Site R Radial, pH 7.42, Bicarbonate Actual 41.6 H, Total CO2 44, Base Excess 17 H, O2 Saturation 100 H, O2 % 50, ABG pCO2 64.2 H, ABG pO2 187 H, Jak Test Positive, Respiration Rate 12, O2 Delivery Device BiPAP, EPAP 8, IPAP 18 01/13/20 10:49: Lactic Acid 1.5 01/13/20 10:49: PT 32.4 H, INR 3.2, APTT 41.2 H 01/13/20 10:49: WBC 4.0 L, RBC 3.06 L, Hgb 9.4 L, Hct 32.5 L, MCV 106.2 H, MCH 30.7, MCHC 28.9 L, RDW Std Deviation 60.5 H, RDW Coeff of Perfecto 15.7 H, Plt Count 164, MPV 9.8, Immature Gran % (Auto) 0.500, Neut % (Auto) 74.0 H, Lymph % (Auto) 11.3 L, [place] % (Auto) 13.1 H, Eos % (Auto) 0.8, Baso % (Auto) 0.3, Absolute Neuts (auto) 3.0, Absolute Lymphs (auto) 0.45 L, Nucleated RBC % 0, Differential Comment , Diff Path Review May foll, Platelet Estimate ADEQUATE, RBC Morphology NORM C+C 01/13/20 14:55: Urine Color Yellow, Urine Clarity Clear, Urine pH 7.0, Ur Specific [place] 1.005, Urine Protein 15 H, Urine Glucose (UA) Normal, Urine Ketones Negative, Urine Occult Blood 10 H, Urine Nitrite Negative, Urine Bilirubin Negative, Urine Urobilinogen Normal, Ur Leukocyte Esterase Negative, Urine RBC 0-5 SEEN, Urine WBC 0 SEEN, Ur Squamous Epith Cells 0 SEEN, Urine Bacteria 0 SEEN, Urine Mucus 0 SEEN 01/13/20 14:55: PT 29.6 H, INR 2.9, D-Dimer Quant (PE/DVT) 2.93 H* 01/13/20 14:55: Sodium 141, Potassium 4.4, Chloride 98, Carbon Dioxide 41.0 H, Anion Gap 2 L, BUN 35 H, Creatinine 1.70 H, Estim Creat Clear Calc 36.31, Est GFR (MDRD) Af Amer 51 L, Est GFR (MDRD) Non-Af 42 L, BUN/Creatinine Ratio 20.6 H, Glucose 94, Calcium 8.8, Total Bilirubin 1.00, AST 54 H, ALT 20, Alkaline Phosphatase 68, Total Creatine Kinase 69, Troponin I 0.105 H, Total Protein 7.5, Albumin 2.6 L, Globulin 4.9 H, Albumin/Globulin Ratio 0.5 L 01/13/20 14:55: B-Natriuretic Peptide 1756.3 H 01/13/20 14:55: Procalcitonin 0.10 H 01/13/20 18:25: Troponin I 0.096 H 01/13/20 21:50: Lactic Acid 1.3 01/13/20 21:50: Troponin I 0.090 H 01/14/20 04:15: Sodium 139, Potassium 4.4, Chloride 95 L, Carbon Dioxide 41.0 H, Anion Gap 3 L, BUN 39 H, Creatinine 1.78 H, Estim Creat Clear Calc 36.83, Est GFR (MDRD) Af Amer 49 L, Est GFR (MDRD) Non-Af 40 L, BUN/Creatinine Ratio 21.9 H, Glucose 114 H, Calcium 8.6, Triglycerides 96, Cholesterol 82, LDL Cholesterol 11, VLDL Cholesterol 19, HDL Cholesterol 52 01/14/20 04:15: WBC 5.6, RBC 2.79 L, Hgb 8.7 L, Hct 29.9 L, MCV 107.2 H, MCH 31.2, MCHC 29.1 L, RDW Std Deviation 62.1 H, RDW Coeff of Perfecto 15.7 H, Plt Count 165, MPV 10.5, Immature Gran % (Auto) 0.500, Neut % (Auto) 81.1 H, Lymph % (Auto) 8.4 L, [place] % (Auto) 9.8, Eos % (Auto) 0.0, Baso % (Auto) 0.2, Absolute Neuts (auto) 4.5, Absolute Lymphs (auto) 0.47 L, Nucleated RBC % 0 Current Medications Albuterol Sulfate (Albuterol Sulfate 8 Gm Inhaler (60 Puffs)) 1 puff INHALATION Q6HWA.RT KALEB Albuterol Sulfate (Albuterol Sulfate 8 Gm Inhaler (60 Puffs)) 2 puff INHALATION Q4H PRN PRN Reason: SOB &/OR WHEEZING Ascorbic Acid (Ascorbic Acid 500 Mg Tablet) 500 mg PO BID [facility] Last Admin: 01/13/20 20:17 Dose: 500 mg Documented by: Aspirin (Aspirin E.C. 81 Mg Tablet) 81 mg PO DAILY [facility] Atorvastatin Calcium (Atorvastatin Calcium 80 Mg Tablet) 80 mg PO QHS [facility] Last Admin: 01/13/20 20:15 Dose: 80 mg Documented by: Carvedilol (Carvedilol 3.125 Mg Tablet) 3.125 mg PO BID [facility] Last Admin: 01/13/20 20:15 Dose: 3.125 mg Documented by: Dexamethasone (Dexamethasone 2 Mg Tablet) 6 mg PO DAILY [facility] Stop: 01/22/20 10:01 Diltiazem HCl (Diltiazem Cd 180 Mg Capsule) 360 mg PO DAILY [facility] Fenofibrate (Fenofibrate 145 Mg Tablet) 145 mg PO DAILY [facility] Furosemide (Furosemide 40 Mg/4 Ml Vial) 40 mg IV BID@1000,1700 [facility] Last Admin: 01/13/20 16:53 Dose: 40 mg Documented by: Guaifenesin (Guaifenesin 600 Mg Tablet) 600 mg PO BID [facility] Last Admin: 01/13/20 20:15 Dose: 600 mg Documented by: Fentanyl () 100 mls @ 2.5 mls/hr IV UD [facility]; Protocol Last Admin: 01/13/20 11:54 Dose: Not Given Documented by: Nitroglycerin/Dextrose () 250 mls @ 6 mls/hr CONT INF .[id number] [facility]; Protocol Last Titration: 01/14/20 05:00 Dose: 10 mcg/min, 6 mls/hr Documented by: Remdesivir 100 mg/ Sodium (Chloride) 250 mls @ 125 mls/hr IV QHS [facility]; Protocol Stop: 01/17/20 23:59 Melatonin (Melatonin 10 Mg Tablet) 5 mg PO QHS [facility] Last Admin: 01/13/20 20:15 Dose: 5 mg Documented by: Nitroglycerin (Nitroglycerin (Inpatient Use) 0.4 Mg Tab.Subl) 0.4 mg SUBLINGUAL Q5M PRN PRN Reason: CARDIAC/CHEST PAIN Ondansetron HCl (Ondansetron 4 Mg/2 Ml Vial) 4 mg IV Q8H PRN PRN PRN Reason: NAUSEA/VOMITING Potassium Chloride (Potassium Chloride 20 Meq Tablet) 20 meq PO DAILY [facility] Sodium Chloride (0.9% Saline Lock 10 Ml Syringe) 10 - 40 ml IV UD PRN PRN Reason: SALINE FLUSH Warfarin Sodium 1 mg/ Warfarin (Sodium 0.5 mg) 1.5 mg PO DAILY@1700 [facility] Last Admin: 01/13/20 16:53 Dose: 1.5 mg Documented by: STROKE Vital Signs/Narrative: Vital Signs Temp Pulse Resp BP Pulse Ox 01/14/20 07:00 110 H 27 H 125/88 H 100 01/14/20 06:00 111 H 27 H 120/91 H 100 01/14/20 05:00 109 H 20 H 95/80 100 01/14/20 04:00 98.4 F 110 H 21 H 110/87 H 100 01/14/20 03:40 110 H Medical Necessity - Tobacco Use Smoking Status: Former smoker Assessment/Plan All Active Problems (Last Reviewed 07/29/19 @ 13:[address] 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 valve replaced (Acute) USP current use of anticoagulant (Acute) SARS-associated coronavirus infection (Acute) Elevated serum creatinine (Acute) Anemia, unspecified (Acute) Infection due to 2019 novel coronavirus (Acute) Atrial fibrillation with RVR (Acute) Elevated troponin I level (Acute) 69 y/o admitted with a complaint of shortness of breath # Acute on chronic hypoxic respiratory failure due to COVID 19 infection and heart failure and probable COPD exacerbation now on 3L of oxygen on IV lasix 40mg bid. titrate oxygen to maintain sats >90% pulmonology on board fluid restriction to 1500cc daily. monitor intake and output chart # Acute on chronic HFpEF 2D echo from 2019 showed EF of 65%. BNP is >1700. on IV lasix as above 2D echo pending Management as above. #COVID-19 infection D consulted. Tested positive about 4 days ago. Started on remdesivir and dexamethasone. Denies also elevated. INR is therapeutic while on Coumadin. Titrate oxygen to maintain saturation above 90% as above. # Pulmonary hypertension and chronic respiratory failure due to COPD on oxygen at home. being managed for acute on chronic respiratory failure as above #History of mitral valve replacement: On Coumadin. #Atrial fibrillation: Currently rate controlled. #FREDIS on CKD: Creatinine is 1.78 today. Baseline is around 1.23. Cannot hydrate with fluids on account of heart failure. Will trend creatinine. #Elevated troponin Initial troponin was 0.115 but this is started trending down to 0.105 then 0.09 Likely due to heart failure and Covid infection. Will monitor. 2D echo ordered. DVT prophylaxis; on coumadin. INR is therapeutic-2.9 Code Status: Full code Inpatient E&M: 29942 Subs Hosp L3
[2020-01-14 08:50] LABS: Prothrombin Time (Protime)PT. 34.8 SECONDS (11.7-14.9)
[2020-01-14 09:09] LABS: International Normalized Ratio 3.5
--- NOTE | 2020-01-14 11:05 | CASEMGMT ---
Social Work SW received referral from RN that Pt is from [facility] and pt dgt does not want pt to return due to care concerns. SW placed call to pt dgt Violeta Cruz. Violeta states pt does not have a HCPOA or Living Will. Pt is and dgt reports pt Nathalie does have trouble remembering things and Violeta has been assisting with medical decisions. Per Violeta, pt was living at home with independently until 11/05/19 when pt had cardiac issues and was hospitalized. Pt transferred to [facility] for Cardiac Surgery. Pt transferred to [facility] in December and from there transferred to [facility] (SNF) for continued rehab on 01/05/20. Violeta stating that pt did not receive good care while at [facility] and pt and she do not feel he should return there. Violeta is aware that pt does need continued SNF stay for rehab with the end goal to return home with his . SW provided list of facilities that are accepting Covid positive patients to pt dgt and provided information on Medicare.gov custodial compare website. Pt dgt will review list of available facilities and will call SW bath with decision. Phone call to pt room to discuss discharge plan however, pt did not answer his phone. Plan: SNF placement upon D/C JARET Rivas
[2020-01-14] MEDS: dexAMETHasone 2 MG TABLET 6 MG PO (11:09)
[2020-01-14] MEDS: Aspirin E.C. 81 MG Tablet PO (11:09)
[2020-01-14] MEDS: Carvedilol 3.125 MG TABLET PO ×2 (11:10→20:31)
[2020-01-14] MEDS: guaiFENesin 600 MG Tablet PO ×2 (11:10→20:31)
[2020-01-14] MEDS: Fenofibrate 145 MG Tablet PO (11:10)
[2020-01-14] MEDS: Ascorbic Acid 500 MG Tablet PO ×2 (11:10→20:31)
[2020-01-14] MEDS: dilTIAZem CD 180 MG Capsule 360 MG PO (11:10)
[2020-01-14] MEDS: Furosemide 40 MG/4 ML Vial IV ×2 (11:11→16:54)
--- NOTE | 2020-01-14 14:51 | PCM.PN.ID ---
Patient Problems: Active and Suspected Problems (Last Reviewed 07/29/19 @ 13:[address] 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) SARS-associated coronavirus infection (Acute) Elevated serum creatinine (Acute) Anemia, unspecified (Acute) Infection due to 2019 novel coronavirus (Acute) Atrial fibrillation with RVR (Acute) Elevated troponin I level (Acute) Subjective: Feeling better today, no fever, some dyspnea, no n/v/d - Physical Exam Vitals/I&O's: Vital Signs Temp Pulse Resp BP Pulse Ox 97.8 F 110 H 21 H 110/86 H 94 01/14/20 12:00 01/14/20 14:00 01/14/20 14:00 01/14/20 14:00 01/14/20 14:00 Oxygen Flow Rate (L/min) 3 Oxygen Delivery Method Nasal Cannula Weight: 84.7 kg Body Mass Index (BMI) 21.5 Intake and Output for Last 24 Hours 01/12/20 01/13/20 01/14/20 23:59 23:59 23:59 Intake Total 250.2 / 346.2 394 / 394 Output Total 1650 / 1770 270 / 270 Balance -1399.8 / -1423.8 124 / 124 General: Alert, Cooperative, No apparent distress Lungs: Diminished Cardiovascular: Regular rate, Regular Rhythm Abdomen: Soft, Non Tender, Non-Distended Skin: No rashes Microbiology Past 72 Hours 01/13/20 14:55 Urine, Clean Catch Urine Culture - Preliminary Culture exhibits no growth. 01/14/20 04:15 Sputum, Expectorated/Coughed Gram Stain - Final 01/13/20 15:00 Urine Catheter - Aguilera Legionella Antigen - Final 01/13/20 15:00 Urine Catheter - Aguilera Streptococcus pneumoniae Antigen (M - Final Laboratory Results 01/13/20 14:55: Urine Color Yellow, Urine Clarity Clear, Urine pH 7.0, Ur Specific [place] 1.005, Urine Protein 15 H, Urine Glucose (UA) Normal, Urine Ketones Negative, Urine Occult Blood 10 H, Urine Nitrite Negative, Urine Bilirubin Negative, Urine Urobilinogen Normal, Ur Leukocyte Esterase Negative, Urine RBC 0-5 SEEN, Urine WBC 0 SEEN, Ur Squamous Epith Cells 0 SEEN, Urine Bacteria 0 SEEN, Urine Mucus 0 SEEN 01/13/20 14:55: PT 29.6 H, INR 2.9, D-Dimer Quant (PE/DVT) 2.93 H* 01/13/20 14:55: Sodium 141, Potassium 4.4, Chloride 98, Carbon Dioxide 41.0 H, Anion Gap 2 L, BUN 35 H, Creatinine 1.70 H, Estim Creat Clear Calc 36.31, Est GFR (MDRD) Af Amer 51 L, Est GFR (MDRD) Non-Af 42 L, BUN/Creatinine Ratio 20.6 H, Glucose 94, Calcium 8.8, Total Bilirubin 1.00, AST 54 H, ALT 20, Alkaline Phosphatase 68, Total Creatine Kinase 69, Troponin I 0.105 H, Total Protein 7.5, Albumin 2.6 L, Globulin 4.9 H, Albumin/Globulin Ratio 0.5 L 01/13/20 14:55: B-Natriuretic Peptide 1756.3 H 01/13/20 14:55: Procalcitonin 0.10 H 01/13/20 18:25: Troponin I 0.096 H 01/13/20 21:50: Lactic Acid 1.3 01/13/20 21:50: Troponin I 0.090 H 01/14/20 04:15: Sodium 139, Potassium 4.4, Chloride 95 L, Carbon Dioxide 41.0 H, Anion Gap 3 L, BUN 39 H, Creatinine 1.78 H, Estim Creat Clear Calc 36.83, Est GFR (MDRD) Af Amer 49 L, Est GFR (MDRD) Non-Af 40 L, BUN/Creatinine Ratio 21.9 H, Glucose 114 H, Calcium 8.6, Triglycerides 96, Cholesterol 82, LDL Cholesterol 11, VLDL Cholesterol 19, HDL Cholesterol 52 01/14/20 04:15: WBC 5.6, RBC 2.79 L, Hgb 8.7 L, Hct 29.9 L, MCV 107.2 H, MCH 31.2, MCHC 29.1 L, RDW Std Deviation 62.1 H, RDW Coeff of Perfecto 15.7 H, Plt Count 165, MPV 10.5, Immature Gran % (Auto) 0.500, Neut % (Auto) 81.1 H, Lymph % (Auto) 8.4 L, [place] % (Auto) 9.8, Eos % (Auto) 0.0, Baso % (Auto) 0.2, Absolute Neuts (auto) 4.5, Absolute Lymphs (auto) 0.47 L, Nucleated RBC % 0 01/14/20 08:25: PT 34.8 H, INR 3.5 H* Current Medications Albuterol Sulfate (Albuterol Sulfate 8 Gm Inhaler (60 Puffs)) 1 puff INHALATION Q6HWA.RT KALEB Albuterol Sulfate (Albuterol Sulfate 8 Gm Inhaler (60 Puffs)) 2 puff INHALATION Q4H PRN PRN Reason: SOB &/OR WHEEZING Ascorbic Acid (Ascorbic Acid 500 Mg Tablet) 500 mg PO BID [facility] Last Admin: 01/14/20 11:10 Dose: 500 mg Documented by: Aspirin (Aspirin E.C. 81 Mg Tablet) 81 mg PO DAILY [facility] Last Admin: 01/14/20 11:09 Dose: 81 mg Documented by: Atorvastatin Calcium (Atorvastatin Calcium 80 Mg Tablet) 80 mg PO QHS [facility] Last Admin: 01/13/20 20:15 Dose: 80 mg Documented by: Carvedilol (Carvedilol 3.125 Mg Tablet) 3.125 mg PO BID [facility] Last Admin: 01/14/20 11:10 Dose: 3.125 mg Documented by: Dexamethasone (Dexamethasone 2 Mg Tablet) 6 mg PO DAILY [facility] Stop: 01/22/20 10:01 Last Admin: 01/14/20 11:09 Dose: 6 mg Documented by: Diltiazem HCl (Diltiazem Cd 180 Mg Capsule) 360 mg PO DAILY [facility] Last Admin: 01/14/20 11:10 Dose: 360 mg Documented by: Fenofibrate (Fenofibrate 145 Mg Tablet) 145 mg PO DAILY [facility] Last Admin: 01/14/20 11:10 Dose: 145 mg Documented by: Furosemide (Furosemide 40 Mg/4 Ml Vial) 40 mg IV BID@1000,1700 [facility] Last Admin: 01/14/20 11:11 Dose: 40 mg Documented by: Guaifenesin (Guaifenesin 600 Mg Tablet) 600 mg PO BID [facility] Last Admin: 01/14/20 11:10 Dose: 600 mg Documented by: Remdesivir 100 mg/ Sodium (Chloride) 250 mls @ 125 mls/hr IV DAILY [facility]; Protocol Stop: 01/18/20 11:59 Melatonin (Melatonin 10 Mg Tablet) 5 mg PO QHS [facility] Last Admin: 01/13/20 20:15 Dose: 5 mg Documented by: Nitroglycerin (Nitroglycerin (Inpatient Use) 0.4 Mg Tab.Subl) 0.4 mg SUBLINGUAL Q5M PRN PRN Reason: CARDIAC/CHEST PAIN Ondansetron HCl (Ondansetron 4 Mg/2 Ml Vial) 4 mg IV Q8H PRN PRN PRN Reason: NAUSEA/VOMITING Potassium Chloride (Potassium Chloride 20 Meq Tablet) 20 meq PO DAILY [facility] Last Admin: 01/14/20 11:10 Dose: 20 meq Documented by: Sodium Chloride (0.9% Saline Lock 10 Ml Syringe) 10 - 40 ml IV UD PRN PRN Reason: SALINE FLUSH Warfarin Sodium 1 mg/ Warfarin (Sodium 0.5 mg) 1.5 mg PO DAILY@1700 [facility] Last Admin: 01/13/20 16:53 Dose: 1.5 mg Documented by: Medical Necessity - Tobacco Use Smoking Status: Former smoker Route of nutrition/ use of supplements: [] Nutritional Intake: [] IV Site: [] Aguilera Catheter: [] - Assessment/Plan Antibiotics: [] Assessment/Plan: [] Active and Suspected Problems (Last Reviewed 07/29/19 @ 13:[address] 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 Sx started around 01/10. D-dimer elevated, therapeutic INR on coumadin. Will cont dex, remdesivir. Feeling better. Will follow
[2020-01-14] MEDS: Albuterol Sulfate 8 gm Inhaler (60 puffs) 1 PUFF INHALATION (16:00)
[2020-01-14] MEDS: MELATONIN 10 MG TABLET 5 MG PO (20:30)
[2020-01-14] MEDS: Atorvastatin Calcium 80 MG Tablet PO (20:35)
--- NOTE | 2020-01-14 22:29 | PCM.RX.CS ---
Consult Pharmacy has been consulted to manage selected antiobiotic: Vancomycin Type of Consult: New start Labs: Sodium 139 mmol/L (136-145) 01/14/20 04:15 Potassium 4.4 mmol/L (3.5-5.1) 01/14/20 04:15 Chloride 95 mmol/L (98-107) L 01/14/20 04:15 Carbon Dioxide 41.0 mmol/L (21.0-32.0) H 01/14/20 04:15 Anion Gap 3 (5-15) L 01/14/20 04:15 BUN 39 mg/dL (7-18) H 01/14/20 04:15 Creatinine 1.78 mg/dL (0.70-1.30) H 01/14/20 04:15 Est GFR (MDRD) Af Amer 49 mL/min (>60) L 01/14/20 04:15 Est GFR (MDRD) Non-Af 40 mL/min (>60) L 01/14/20 04:15 BUN/Creatinine Ratio 21.9 RATIO (10-20) H 01/14/20 04:15 Glucose 114 mg/dL (74-106) H 01/14/20 04:15 Microbiology: Microbiology 01/13/20 10:10 Blood Culture (Wb) - Right Forearm Blood Culture - Preliminary 01/13/20 14:55 Urine, Clean Catch Urine Culture - Preliminary Culture exhibits no growth. 01/14/20 04:15 Sputum, Expectorated/Coughed Gram Stain - Final 01/13/20 15:00 Urine Catheter - Aguilera Legionella Antigen - Final 01/13/20 15:00 Urine Catheter - Aguilera Streptococcus pneumoniae Antigen (M - Final Weight used for dosin kg Estimated Creatinine Clearance: 37 Goal Trough: 15-20 mcg/mL Pharmacy Plan for Drug Dosinmg IV x1 given in ED, 1250mg IV q24h with trough prior to 3rd dose per policy. Pharmacy Service will continue to monitor and adjust dosing as required. Follow-Up Labs: Trough Vancomycin - 01/15 @ 2029
[2020-01-15] VITALS (12 sets, daily range): BP systolic 97–112; BP diastolic 30–70; PULSE 70–94; RESP 19–24; TEMP 34.8–36.6; O2SAT 91–97
--- NOTE | 2020-01-15 07:26 | PN_ITS ---
Patient Problems: Active and Suspected Problems (Last Reviewed 07/29/19 @ 13:[address] 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 valve replaced (Acute) intermediate teacher current use of anticoagulant (Acute) SARS-associated coronavirus infection (Acute) Elevated serum creatinine (Acute) Anemia, unspecified (Acute) Infection due to 2019 novel coronavirus (Acute) Atrial fibrillation with RVR (Acute) Elevated troponin I level (Acute) Subjective: The patient was seen and examined at the bedside this morning. Events from the last 24 hours have been reviewed. The patient is currently afebrile, hemodynamically stable and maintaining appropriate oxygen saturations on 3 L/min via nasal cannula. The patient remains on twice daily scheduled IV Lasix along with Decadron and remdesivir. Liver and renal function are stable. Objective: The patient's most recent lab work, culture data and imaging studies have all been personally reviewed. Surface echocardiogram revealed an ejection fraction of 35%, diastolic dysfunction and moderate global hypokinesis of the LV. Pulmonary artery systolic pressure was estimated to be 60 mmHg. Sputum culture was positive for possible Pseudomonas. - Physical Exam Vitals/I&O's: Vital Signs Temp Pulse Resp BP Pulse Ox 97.3 F L 88 19 H 103/70 93 01/15/20 03:00 01/15/20 03:00 01/15/20 03:00 01/15/20 03:00 01/15/20 03:00 Oxygen Flow Rate (L/min) 3 Oxygen Delivery Method Nasal Cannula Weight: 186 lb 15.232 oz Body Mass Index (BMI) 21.5 Intake and Output for Last 24 Hours 01/13/20 01/14/20 01/15/20 23:59 23:59 23:59 Intake Total 250.2 / 346.2 1184 / 1184 200 / 200 Output Total 1650 / 1770 1120 / 1795 1125 / 1125 Balance -1399.8 / -1423.8 64 / -611 -925 / -925 General: Alert, Cooperative, No apparent distress HEENT: Atraumatic, Normocephalic Oral: Moist Mucosa, No Gingival or Mucosal Lesions/ Ulcerations Neck: Supple, No Nodes, Trachea Midline Lungs: No rhonchi, No wheeze, No rales, Diminished Cardiovascular: Regular rate, Regular Rhythm Abdomen: Bowel Sounds Present, Soft, Non Tender Extremities: No clubbing, No cyanosis, Edema Skin: - - No significant change from previous Musculoskeletal: No Tenderness to Palpation of Joints or Extremities Lymphatic: No Cervical, Supraclavicular, or Inguinal Adenopathy Neurological: Cranial nerves II-XII grossly intact, Neuro grossly intact Psych/Mental Status: Normal Affect, Appropriate Labs (Last 48 Hours) 01/13/20 01/13/20 01/13/20 10:10 10:10 10:10 WBC Cancelled Corrected WBC Cancelled RBC Cancelled Hgb Cancelled Hct Cancelled MCV Cancelled MCH Cancelled MCHC Cancelled RDW Std Deviation Cancelled RDW Coeff of Perfecto Cancelled Plt Count Cancelled MPV Cancelled Immature Gran % (Auto) Cancelled Neut % (Auto) Cancelled Lymph % (Auto) Cancelled [place] % (Auto) Cancelled Eos % (Auto) Cancelled Baso % (Auto) Cancelled Absolute Neuts (auto) Cancelled Absolute Lymphs (auto) Cancelled Total Counted Cancelled Neutrophils % (Manual) Cancelled Band Neutrophils % Cancelled Lymphocytes % (Manual) Cancelled Monocytes % (Manual) Cancelled Eosinophils % (Manual) Cancelled Basophils % (Manual) Cancelled Metamyelocytes % Cancelled Myelocytes % Cancelled Promyelocytes % Cancelled Blast Cells % Cancelled Plasma Cell % (Manual) Cancelled Other Cells % Cancelled Nucleated RBC % Cancelled Nucleated RBCs/100 WBC Cancelled Differential Comment Cancelled Diff Path Review Cancelled Hypersegmented Neuts Cancelled Atypical Lymphocytes Cancelled Reactive Lymphocytes Cancelled Smudge Cells Cancelled Toxic Granulation Cancelled Toxic Vacuolation Cancelled Dohle Bodies Cancelled Constantino Rods Cancelled Platelet Estimate Cancelled Plt Morphology Comment Cancelled RBC Morphology Cancelled Polychromasia Cancelled Hypochromasia Cancelled Poikilocytosis Cancelled Basophilic Stippling Cancelled Anisocytosis Cancelled Microcytosis Cancelled Macrocytosis Cancelled Spherocytes Cancelled Sickle Cells Cancelled Target Cells Cancelled Tear Drop Cells Cancelled Ovalocytes Cancelled Stomatocytes Cancelled Angel-[place] Bodies Cancelled Sumner Cells Cancelled Bite Cells Cancelled Crenated Cell Cancelled Acanthocytes (Spur) Cancelled Rouleaux Cancelled Schistocytes Cancelled PT Cancelled INR Cancelled APTT Cancelled D-Dimer Quant (PE/DVT) Specimen Type Sample Site pH Bicarbonate Actual Total CO2 Base Excess O2 Saturation O2 % ABG pCO2 ABG pO2 Jak Test Respiration Rate O2 Delivery Device EPAP IPAP Sodium 141 Potassium 4.2 Chloride 99 Carbon Dioxide 41.0 H Anion Gap 1 L BUN 35 H Creatinine 1.83 H Estim Creat Clear Calc 35.82 Est GFR (MDRD) Af Amer 47 L Est GFR (MDRD) Non-Af 39 L BUN/Creatinine Ratio 19.1 Glucose 96 Lactic Acid Calcium 8.8 Total Bilirubin 1.00 AST 47 H ALT 22 Alkaline Phosphatase 76 Total Creatine Kinase Troponin I 0.115 H B-Natriuretic Peptide Total Protein 8.2 Albumin 2.8 L Globulin 5.4 H Albumin/Globulin Ratio 0.5 L Triglycerides Cholesterol LDL Cholesterol VLDL Cholesterol HDL Cholesterol Procalcitonin Urine Color Urine Clarity Urine pH Ur Specific [place] Urine Protein Urine Glucose (UA) Urine Ketones Urine Occult Blood Urine Nitrite Urine Bilirubin Urine Urobilinogen Ur Leukocyte Esterase Urine RBC Urine WBC Ur Squamous Epith Cells Urine Bacteria Urine Mucus 01/13/20 01/13/20 01/13/20 10:10 10:49 10:49 WBC Corrected WBC RBC Hgb Hct MCV MCH MCHC RDW Std Deviation RDW Coeff of Perfecto Plt Count MPV Immature Gran % (Auto) Neut % (Auto) Lymph % (Auto) [place] % (Auto) Eos % (Auto) Baso % (Auto) Absolute Neuts (auto) Absolute Lymphs (auto) Total Counted Neutrophils % (Manual) Band Neutrophils % Lymphocytes % (Manual) Monocytes % (Manual) Eosinophils % (Manual) Basophils % (Manual) Metamyelocytes % Myelocytes % Promyelocytes % Blast Cells % Plasma Cell % (Manual) Other Cells % Nucleated RBC % Nucleated RBCs/100 WBC Differential Comment Diff Path Review Hypersegmented Neuts Atypical Lymphocytes Reactive Lymphocytes Smudge Cells Toxic Granulation Toxic Vacuolation Dohle Bodies Constantino Rods Platelet Estimate Plt Morphology Comment RBC Morphology Polychromasia Hypochromasia Poikilocytosis Basophilic Stippling Anisocytosis Microcytosis Macrocytosis Spherocytes Sickle Cells Target Cells Tear Drop Cells Ovalocytes Stomatocytes Angel-Picacho Bodies Judd Cells Bite Cells Crenated Cell Acanthocytes (Spur) Rouleaux Schistocytes PT 32.4 H INR 3.2 APTT 41.2 H D-Dimer Quant (PE/DVT) Specimen Type ART Sample Site R Radial pH 7.42 Bicarbonate Actual 41.6 H Total CO2 44 Base Excess 17 H O2 Saturation 100 H O2 % 50 ABG pCO2 64.2 H ABG pO2 187 H Jak Test Positive Respiration Rate 12 O2 Delivery Device BiPAP EPAP 8 IPAP 18 Sodium Potassium Chloride Carbon Dioxide Anion Gap BUN Creatinine Estim Creat Clear Calc Est GFR (MDRD) Af Amer Est GFR (MDRD) Non-Af BUN/Creatinine Ratio Glucose Lactic Acid 1.5 Calcium Total Bilirubin AST ALT Alkaline Phosphatase Total Creatine Kinase Troponin I B-Natriuretic Peptide Total Protein Albumin Globulin Albumin/Globulin Ratio Triglycerides Cholesterol LDL Cholesterol VLDL Cholesterol HDL Cholesterol Procalcitonin Urine Color Urine Clarity Urine pH Ur Specific [place] Urine Protein Urine Glucose (UA) Urine Ketones Urine Occult Blood Urine Nitrite Urine Bilirubin Urine Urobilinogen Ur Leukocyte Esterase Urine RBC Urine WBC Ur Squamous Epith Cells Urine Bacteria Urine Mucus 01/13/20 01/13/20 01/13/20 10:49 14:55 14:55 WBC 4.0 L Corrected WBC RBC 3.06 L Hgb 9.4 L Hct 32.5 L MCV 106.2 H MCH 30.7 MCHC 28.9 L RDW Std Deviation 60.5 H RDW Coeff of Perfecto 15.7 H Plt Count 164 MPV 9.8 Immature Gran % (Auto) 0.500 Neut % (Auto) 74.0 H Lymph % (Auto) 11.3 L [place] % (Auto) 13.1 H Eos % (Auto) 0.8 Baso % (Auto) 0.3 Absolute Neuts (auto) 3.0 Absolute Lymphs (auto) 0.45 L Total Counted Neutrophils % (Manual) Band Neutrophils % Lymphocytes % (Manual) Monocytes % (Manual) Eosinophils % (Manual) Basophils % (Manual) Metamyelocytes % Myelocytes % Promyelocytes % Blast Cells % Plasma Cell % (Manual) Other Cells % Nucleated RBC % 0 Nucleated RBCs/100 WBC Differential Comment Diff Path Review May foll Hypersegmented Neuts Atypical Lymphocytes Reactive Lymphocytes Smudge Cells Toxic Granulation Toxic Vacuolation Dohle Bodies Constantino Rods Platelet Estimate ADEQUATE Plt Morphology Comment RBC Morphology NORM C+C Polychromasia Hypochromasia Poikilocytosis Basophilic Stippling Anisocytosis Microcytosis Macrocytosis Spherocytes Sickle Cells Target Cells Tear Drop Cells Ovalocytes Stomatocytes Angel-Pic[place] Bodies Sumner Cells Bite Cells Crenated Cell Acanthocytes (Spur) Rouleaux Schistocytes PT 29.6 H INR 2.9 APTT D-Dimer Quant (PE/DVT) 2.93 H* Specimen Type Sample Site pH Bicarbonate Actual Total CO2 Base Excess O2 Saturation O2 % ABG pCO2 ABG pO2 Jak Test Respiration Rate O2 Delivery Device EPAP IPAP Sodium Potassium Chloride Carbon Dioxide Anion Gap BUN Creatinine Estim Creat Clear Calc Est GFR (MDRD) Af Amer Est GFR (MDRD) Non-Af BUN/Creatinine Ratio Glucose Lactic Acid Calcium Total Bilirubin AST ALT Alkaline Phosphatase Total Creatine Kinase Troponin I B-Natriuretic Peptide Total Protein Albumin Globulin Albumin/Globulin Ratio Triglycerides Cholesterol LDL Cholesterol VLDL Cholesterol HDL Cholesterol Procalcitonin Urine Color Yellow Urine Clarity Clear Urine pH 7.0 Ur Specific [place] 1.005 Urine Protein 15 H Urine Glucose (UA) Normal Urine Ketones Negative Urine Occult Blood 10 H Urine Nitrite Negative Urine Bilirubin Negative Urine Urobilinogen Normal Ur Leukocyte Esterase Negative Urine RBC 0-5 SEEN Urine WBC 0 SEEN Ur Squamous Epith Cells 0 SEEN Urine Bacteria 0 SEEN Urine Mucus 0 SEEN 01/13/20 01/13/20 01/13/20 14:55 14:55 14:55 WBC Corrected WBC RBC Hgb Hct MCV MCH MCHC RDW Std Deviation RDW Coeff of Perfecto Plt Count MPV Immature Gran % (Auto) Neut % (Auto) Lymph % (Auto) [place] % (Auto) Eos % (Auto) Baso % (Auto) Absolute Neuts (auto) Absolute Lymphs (auto) Total Counted Neutrophils % (Manual) Band Neutrophils % Lymphocytes % (Manual) Monocytes % (Manual) Eosinophils % (Manual) Basophils % (Manual) Metamyelocytes % Myelocytes % Promyelocytes % Blast Cells % Plasma Cell % (Manual) Other Cells % Nucleated RBC % Nucleated RBCs/100 WBC Differential Comment Diff Path Review Hypersegmented Neuts Atypical Lymphocytes Reactive Lymphocytes Smudge Cells Toxic Granulation Toxic Vacuolation Dohle Bodies Constantino Rods Platelet Estimate Plt Morphology Comment RBC Morphology Polychromasia Hypochromasia Poikilocytosis Basophilic Stippling Anisocytosis Microcytosis Macrocytosis Spherocytes Sickle Cells Target Cells Tear Drop Cells Ovalocytes Stomatocytes Angel-[place] Bodies Judd Cells Bite Cells Crenated Cell Acanthocytes (Spur) Rouleaux Schistocytes PT INR APTT D-Dimer Quant (PE/DVT) Specimen Type Sample Site pH Bicarbonate Actual Total CO2 Base Excess O2 Saturation O2 % ABG pCO2 ABG pO2 Jak Test Respiration Rate O2 Delivery Device EPAP IPAP Sodium 141 Potassium 4.4 Chloride 98 Carbon Dioxide 41.0 H Anion Gap 2 L BUN 35 H Creatinine 1.70 H Estim Creat Clear Calc 36.31 Est GFR (MDRD) Af Amer 51 L Est GFR (MDRD) Non-Af 42 L BUN/Creatinine Ratio 20.6 H Glucose 94 Lactic Acid Calcium 8.8 Total Bilirubin 1.00 AST 54 H ALT 20 Alkaline Phosphatase 68 Total Creatine Kinase 69 Troponin I 0.105 H B-Natriuretic Peptide 1756.3 H Total Protein 7.5 Albumin 2.6 L Globulin 4.9 H Albumin/Globulin Ratio 0.5 L Triglycerides Cholesterol LDL Cholesterol VLDL Cholesterol HDL Cholesterol Procalcitonin 0.10 H Urine Color Urine Clarity Urine pH Ur Specific [place] Urine Protein Urine Glucose (UA) Urine Ketones Urine Occult Blood Urine Nitrite Urine Bilirubin Urine Urobilinogen Ur Leukocyte Esterase Urine RBC Urine WBC Ur Squamous Epith Cells Urine Bacteria Urine Mucus 01/13/20 01/13/20 01/13/20 18:25 21:50 21:50 WBC Corrected WBC RBC Hgb Hct MCV MCH MCHC RDW Std Deviation RDW Coeff of Perfecto Plt Count MPV Immature Gran % (Auto) Neut % (Auto) Lymph % (Auto) [place] % (Auto) Eos % (Auto) Baso % (Auto) Absolute Neuts (auto) Absolute Lymphs (auto) Total Counted Neutrophils % (Manual) Band Neutrophils % Lymphocytes % (Manual) Monocytes % (Manual) Eosinophils % (Manual) Basophils % (Manual) Metamyelocytes % Myelocytes % Promyelocytes % Blast Cells % Plasma Cell % (Manual) Other Cells % Nucleated RBC % Nucleated RBCs/100 WBC Differential Comment Diff Path Review Hypersegmented Neuts Atypical Lymphocytes Reactive Lymphocytes Smudge Cells Toxic Granulation Toxic Vacuolation Dohle Bodies Constantino Rods Platelet Estimate Plt Morphology Comment RBC Morphology Polychromasia Hypochromasia Poikilocytosis Basophilic Stippling Anisocytosis Microcytosis Macrocytosis Spherocytes Sickle Cells Target Cells Tear Drop Cells Ovalocytes Stomatocytes Angel-Picacho Bodies Sumner Cells Bite Cells Crenated Cell Acanthocytes (Spur) Rouleaux Schistocytes PT INR APTT D-Dimer Quant (PE/DVT) Specimen Type Sample Site pH Bicarbonate Actual Total CO2 Base Excess O2 Saturation O2 % ABG pCO2 ABG pO2 Jak Test Respiration Rate O2 Delivery Device EPAP IPAP Sodium Potassium Chloride Carbon Dioxide Anion Gap BUN Creatinine Estim Creat Clear Calc Est GFR (MDRD) Af Amer Est GFR (MDRD) Non-Af BUN/Creatinine Ratio Glucose Lactic Acid 1.3 Calcium Total Bilirubin AST ALT Alkaline Phosphatase Total Creatine Kinase Troponin I 0.096 H 0.090 H B-Natriuretic Peptide Total Protein Albumin Globulin Albumin/Globulin Ratio Triglycerides Cholesterol LDL Cholesterol VLDL Cholesterol HDL Cholesterol Procalcitonin Urine Color Urine Clarity Urine pH Ur Specific [place] Urine Protein Urine Glucose (UA) Urine Ketones Urine Occult Blood Urine Nitrite Urine Bilirubin Urine Urobilinogen Ur Leukocyte Esterase Urine RBC Urine WBC Ur Squamous Epith Cells Urine Bacteria Urine Mucus 01/14/20 01/14/20 01/14/20 04:15 04:15 08:25 WBC 5.6 Corrected WBC RBC 2.79 L Hgb 8.7 L Hct 29.9 L MCV 107.2 H MCH 31.2 MCHC 29.1 L RDW Std Deviation 62.1 H RDW Coeff of Perfecto 15.7 H Plt Count 165 MPV 10.5 Immature Gran % (Auto) 0.500 Neut % (Auto) 81.1 H Lymph % (Auto) 8.4 L [place] % (Auto) 9.8 Eos % (Auto) 0.0 Baso % (Auto) 0.2 Absolute Neuts (auto) 4.5 Absolute Lymphs (auto) 0.47 L Total Counted Neutrophils % (Manual) Band Neutrophils % Lymphocytes % (Manual) Monocytes % (Manual) Eosinophils % (Manual) Basophils % (Manual) Metamyelocytes % Myelocytes % Promyelocytes % Blast Cells % Plasma Cell % (Manual) Other Cells % Nucleated RBC % 0 Nucleated RBCs/100 WBC Differential Comment Diff Path Review Hypersegmented Neuts Atypical Lymphocytes Reactive Lymphocytes Smudge Cells Toxic Granulation Toxic Vacuolation Dohle Bodies Constantino Rods Platelet Estimate Plt Morphology Comment RBC Morphology Polychromasia Hypochromasia Poikilocytosis Basophilic Stippling Anisocytosis Microcytosis Macrocytosis Spherocytes Sickle Cells Target Cells Tear Drop Cells Ovalocytes Stomatocytes Angel-Picacho Bodies Judd Cells Bite Cells Crenated Cell Acanthocytes (Spur) Rouleaux Schistocytes PT 34.8 H INR 3.5 H* APTT D-Dimer Quant (PE/DVT) Specimen Type Sample Site pH Bicarbonate Actual Total CO2 Base Excess O2 Saturation O2 % ABG pCO2 ABG pO2 Jak Test Respiration Rate O2 Delivery Device EPAP IPAP Sodium 139 Potassium 4.4 Chloride 95 L Carbon Dioxide 41.0 H Anion Gap 3 L BUN 39 H Creatinine 1.78 H Estim Creat Clear Calc 36.83 Est GFR (MDRD) Af Amer 49 L Est GFR (MDRD) Non-Af 40 L BUN/Creatinine Ratio 21.9 H Glucose 114 H Lactic Acid Calcium 8.6 Total Bilirubin AST ALT Alkaline Phosphatase Total Creatine Kinase Troponin I B-Natriuretic Peptide Total Protein Albumin Globulin Albumin/Globulin Ratio Triglycerides 96 Cholesterol 82 LDL Cholesterol 11 VLDL Cholesterol 19 HDL Cholesterol 52 Procalcitonin Urine Color Urine Clarity Urine pH Ur Specific [place] Urine Protein Urine Glucose (UA) Urine Ketones Urine Occult Blood Urine Nitrite Urine Bilirubin Urine Urobilinogen Ur Leukocyte Esterase Urine RBC Urine WBC Ur Squamous Epith Cells Urine Bacteria Urine Mucus Microbiology 01/13/20 10:10 Blood Culture (Wb) - Right Forearm Bacteria Detection (PCR) - Preliminary Staphylococcus epidermidis 01/13/20 10:10 Blood Culture (Wb) - Right Forearm Blood Culture - Preliminary 01/13/20 14:55 Urine, Clean Catch Urine Culture - Preliminary Culture exhibits no growth. 01/14/20 04:15 Sputum, Expectorated/Coughed Gram Stain - Final 01/13/20 15:00 Urine Catheter - [place] Legionella Antigen - Final 01/13/20 15:00 Urine Catheter - [place] Streptococcus pneumoniae Antigen (M - Final Clinical Impression(s) from Imaging Studies Chest X-Ray 01/13/20 10:00 IMPRESSION: Findings suggestive of a mild degree of CHF with small bilateral pleural effusions and bibasilar atelectasis. Electronically Signed: José Antonio Lopez, at 10:46 EST , Service support , Current Medications Albuterol Sulfate (Albuterol Sulfate 8 Gm Inhaler (60 Puffs)) 1 puff INHALATION Q6HWA.RT [facility] Last Admin: 01/14/20 16:00 Dose: 1 puff Documented by: Albuterol Sulfate (Albuterol Sulfate 8 Gm Inhaler (60 Puffs)) 2 puff INHALATION Q4H PRN PRN Reason: SOB &/OR WHEEZING Ascorbic Acid (Ascorbic Acid 500 Mg Tablet) 500 mg PO BID [facility] Last Admin: 01/14/20 20:31 Dose: 500 mg Documented by: Aspirin (Aspirin E.C. 81 Mg Tablet) 81 mg PO DAILY [facility] Last Admin: 01/14/20 11:09 Dose: 81 mg Documented by: Atorvastatin Calcium (Atorvastatin Calcium 80 Mg Tablet) 80 mg PO QHS [facility] Last Admin: 01/14/20 20:35 Dose: 80 mg Documented by: Carvedilol (Carvedilol 3.125 Mg Tablet) 3.125 mg PO BID [facility] Last Admin: 01/14/20 20:31 Dose: 3.125 mg Documented by: Dexamethasone (Dexamethasone 2 Mg Tablet) 6 mg PO DAILY [facility] Stop: 01/22/20 10:01 Last Admin: 01/14/20 11:09 Dose: 6 mg Documented by: Diltiazem HCl (Diltiazem Cd 180 Mg Capsule) 360 mg PO DAILY [facility] Last Admin: 01/14/20 11:10 Dose: 360 mg Documented by: Fenofibrate (Fenofibrate 145 Mg Tablet) 145 mg PO DAILY [facility] Last Admin: 01/14/20 11:10 Dose: 145 mg Documented by: Furosemide (Furosemide 40 Mg/4 Ml Vial) 40 mg IV BID@1000,1700 [facility] Last Admin: 01/14/20 16:54 Dose: 40 mg Documented by: Guaifenesin (Guaifenesin 600 Mg Tablet) 600 mg PO BID [facility] Last Admin: 01/14/20 20:31 Dose: 600 mg Documented by: Remdesivir 100 mg/ Sodium (Chloride) 250 mls @ 125 mls/hr IV DAILY [facility]; Camilo col Stop: 01/18/20 11:59 Vancomycin IV Pharmacy to Dose (1 ea/ Sodium Chloride) 500 mls @ 250 mls/hr IV PRN PRN; Protocol PRN Reason: Rx to Dose Vancomycin HCl 1,250 mg/ (Sodium Chloride) 275 mls @ 167 mls/hr IV Q24H [facility] Melatonin (Melatonin 10 Mg Tablet) 5 mg PO QHS [facility] Last Admin: 01/14/20 20:30 Dose: 5 mg Documented by: Nitroglycerin (Nitroglycerin (Inpatient Use) 0.4 Mg Tab.Subl) 0.4 mg SUBLINGUAL Q5M PRN PRN Reason: CARDIAC/CHEST PAIN Ondansetron HCl (Ondansetron 4 Mg/2 Ml Vial) 4 mg IV Q8H PRN PRN PRN Reason: NAUSEA/VOMITING Potassium Chloride (Potassium Chloride 20 Meq Tablet) 20 meq PO DAILY [facility] Last Admin: 01/14/20 11:10 Dose: 20 meq Documented by: Sodium Chloride (0.9% Saline Lock 10 Ml Syringe) 10 - 40 ml IV UD PRN PRN Reason: SALINE FLUSH Medical Necessity - Tobacco Use Smoking Status: Former smoker Assessment/Plan All Active Problems (Last Reviewed 07/29/19 @ 13:[address] 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 valve replaced (Acute) intermediate teacher current use of anticoagulant (Acute) SARS-associated coronavirus infection (Acute) Elevated serum creatinine (Acute) Anemia, unspecified (Acute) Infection due to 2019 novel coronavirus (Acute) Atrial fibrillation with RVR (Acute) Elevated troponin I level (Acute) RECOMMENDATIONS: 1. Continue to wean supplemental oxygen as tolerated. 2. Continue remdesivir and Decadron as ordered. Monitor liver and renal function accordingly. 3. Continue diuretic therapy as tolerated by hemodynamics and renal function. 4. Continue to hold Coumadin and monitor INR daily. 5. Encourage incentive spirometer use and mobilize patient as tolerated. 6. Discontinue vancomycin and start Zosyn to cover for possible Pseudomonas in sputum. IMPRESSIONS: 1. Acute on chronic hypoxemic respiratory failure Likely multifactorial in etiology with COPD exacerbation precipitated by COVID- 19 pneumonia along with a component of decompensated heart failure likely contributing. The patient responded clinically to IV diuretic therapy and noninvasive positive pressure ventilatory support. He will be continued on Decadron and remdesivir as ordered. Continue to monitor liver and renal function accordingly. The patient is normally anticoagulated on Coumadin at baseline. However, he has a supratherapeutic INR at this time. Therefore, Coumadin will be held. Continue to monitor coagulation status daily. At the present time, the patient is maintaining appropriate oxygen saturations on his baseline 3 L/min requirement. Encourage incentive spirometer use and mobilize patient as tolerated. 2. Self-reported COPD of unknown severity The patient is a poor historian but does report a history of COPD for which she is apparently followed by an outside pan puller. Plan to continue current supportive measures with as needed bronchodilator therapy and supplemental oxygen. 3. Heart failure with preserved ejection fraction/pulmonary hypertension Prior echocardiogram from 2019 did reveal heart failure with preserved ejection fraction and pulmonary hypertension. The patient has responded appropriately to diuretic therapy and BiPAP. Plan to continue Lasix as tolerated by hemodynamics and renal function. 4. Paroxysmal atrial fibrillation/diabetes mellitus/hypertension/hyperlipidemia Complicates care, management, recovery and prognosis. Continue supportive measures as noted above. This note was generated with [employer] dictation software. It may contain incorrect words, spelling, and punctuation that were not noted in checking the note before signing. Inpatient E&M: 11297 Subs Hosp L2
[2020-01-15] MEDS: 0.9% Saline Lock 10 ML Syringe IV ×3 (08:23→15:51)
[2020-01-15] MEDS: dilTIAZem CD 180 MG Capsule 360 MG PO (08:23)
[2020-01-15] MEDS: Furosemide 40 MG/4 ML Vial IV ×2 (08:23→15:51)
[2020-01-15] MEDS: Fenofibrate 145 MG Tablet PO (08:23)
[2020-01-15] MEDS: Aspirin E.C. 81 MG Tablet PO ×2 (08:23→08:26)
[2020-01-15] MEDS: Carvedilol 3.125 MG TABLET PO ×2 (08:23→22:32)
[2020-01-15] MEDS: Ascorbic Acid 500 MG Tablet PO ×2 (08:24→22:33)
[2020-01-15] MEDS: guaiFENesin 600 MG Tablet PO ×2 (08:24→22:33)
[2020-01-15] MEDS: dexAMETHasone 2 MG TABLET 6 MG PO (08:24)
[2020-01-15 08:29] LABS: Absolute Neutrophil Count 3.1 X10^3/uL (2.0-7.7); Basophil# 0.01 X10^3/uL; Basophil% 0.3 % (0-1); Hematocrit 31.4 % (40-54); Hemoglobin 8.8 g/dL (13.0-16.5); Lymphocyte % 10.2 % (19-41); Mean Corpuscular Hgb 30.1 pg (27.0-32.0); Mean Corpuscular Volume 107.5 fL (80-94); Mean Platelet Vol. 9.9 fl (6.2-12.0); Monocyte# 0.41 X10^3/uL; Monocyte% 10.4 % (0-10); NRBC Flagged by Analyzer 0 % (0-5); Neutrophil % 78.6 % (47-70); POSITIVE DIFFERENTIAL YES; Platelet Count 171 K/mm3 (150-450); RBC Distribution Width CV 15.5 % (11.6-14.6); RBC Distribution Width SD 61.8 fl (35.1-43.9); Red Blood Count 2.92 M/mm3 (4.6-6.2); White Blood Count 3.9 K/mm3 (4.4-11.0)
[2020-01-15 08:31] LABS: Differential Indicated SCAN CRITERIA MET
[2020-01-15 08:43] LABS: ALB/GLOB Ratio 0.5 RATIO (0.9-2.4); AST(SGOT) 32 U/L (15-37); Alanine Aminotransfer ALT/SGPT 19 U/L (16-61); Albumin, Serum 2.4 g/dL (3.2-5.0); Alkaline Phosphatase 63 U/L (45-117); Anion Gap 6 (5-15); BUN 43 mg/dL (7-18); BUN/Creat Ratio 29.5 RATIO (10-20); Calcium,Total 8.3 mg/dL (8.5-10.1); Chloride 96 mmol/L (98-107); Creatinine, Serum 1.46 mg/dL (0.70-1.30); EST Glomerular Filtration Rate 51 mL/min (>60); Est Glom Filt Rate - Afr Amer 61 mL/min (>60); Globulin 4.5 g/dL (2.2-4.2); Glucose 73 mg/dL (74-106); Potassium 3.9 mmol/L (3.5-5.1); Protein, Total 6.9 g/dL (6.4-8.2); Sodium Level 141 mmol/L (136-145)
[2020-01-15 08:53] LABS: Prothrombin Time (Protime)PT. 38.3 SECONDS (11.7-14.9)
[2020-01-15 09:02] LABS: International Normalized Ratio 3.9
--- NOTE | 2020-01-15 09:27 | CASEMGMT ---
Addendum entered by Melissa Phan 01/15/20 16:41: Social Work Physician stating pt is not ready for discharge over the weekend. SW spoke with Fer from [facility] and they are able to accept pt. ANTONIO will need to follow up on Saturday with [facility] for bed availability. Phone call to pt dgt Violeta and updated that [facility] can accept given that there is a bed available when pt is ready for discharge. Violeta inquiring about [facility] and SW informed the do not accept covid positive pt. Violeta understanding and agreeable to placement at [facility]. Plan: [facility], will check bed availability closer to time of discharge. JARET Rivas Original Note: Social Work VM recieved from pt daughter who states she has confirmed with pt and at discharge they would like pt to SNF. Their choice is 1. [facility] 2. [facility] 3. [facility]. Phone Call to Fer at [facility]. He states beds are limited but referral could be faxed and he will review. Clinical information faxed. Will wait for return call. JARET Rivas
[2020-01-15 11:28] LABS: Pathologist Review Reviewed
--- NOTE | 2020-01-15 11:33 | PCM.PN.HOSP ---
Patient Problems: Active and Suspected Problems (Last Reviewed 07/29/19 @ 13:[address] 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 He had no active events overnight. Review of systems otherwise negative. He is a bit tachypneic today with respiratory of 24. He is on 3 L. According to his daughter, Covid test was January 09, 2020. Chemistry showed creatinine of 1.46 and bicarb of 39. Hemoglobin today is 8.8 and WBC is 3.9. Platelets are 171. Blood cultures are growing staph epidermidis in 1 out of 2 samples. ID on board. Vitals/I&O's: Vital Signs Temp Pulse Resp BP Pulse Ox 96.6 F L 83 24 H 112/70 92 01/15/20 08:08 01/15/20 08:08 01/15/20 08:08 01/15/20 08:08 01/15/20 10:15 Oxygen Flow Rate (L/min) 3 Oxygen Delivery Method Nasal Cannula Weight: 186 lb 15.232 oz Body Mass Index (BMI) 21.5 Intake and Output for Last 24 Hours 01/13/20 01/14/20 01/15/20 23:59 23:59 23:59 Intake Total 250.2 / 346.2 1184 / 1184 200 / 200 Output Total 1650 / 1770 1120 / 1795 1125 / 1125 Balance -1399.8 / -1423.8 64 / -611 -925 / -925 General: Alert, Oriented x3, Cooperative, No apparent distress HEENT: Atraumatic, PERRLA, EOMI, Normocephalic Oral: Moist Mucosa Neck: Supple, No JVD, Negative Carotid Bruits Lungs: - - decreased breath sounds bibasally. Bilateral coarse crackles. On 3L of oxygen, tachypneic Cardiovascular: Regular Rhythm, Normal S1, Normal S2, No murmurs, tachycardic Abdomen: Bowel Sounds Present, Soft, Non Tender Extremities: No clubbing, No cyanosis, - - bilateral LE edema- 2+ pitting edema. Skin: No rashes, No breakdown Musculoskeletal: No Tenderness to Palpation of Joints or Extremities Lymphatic: No Cervical, Supraclavicular, or Inguinal Adenopathy Neurological: Cranial nerves II-XII grossly intact, Neuro grossly intact, Motor Exam 5/5 strength throughout Psych/Mental Status: Normal Affect, Appropriate, Alert and oriented to time, place, person, mood and affect Microbiology Past 72 Hours 01/13/20 09:40 Blood Culture (Wb) - Anticubital Left Blood Culture - Preliminary No growth in 48 hours. 01/13/20 10:10 Blood Culture (Wb) - Right Forearm Bacteria Detection (PCR) - Final Staphylococcus epidermidis 01/13/20 10:10 Blood Culture (Wb) - Right Forearm Blood Culture - Preliminary Staphylococcus epidermidis 01/13/20 14:55 Urine, Clean Catch Urine Culture - Preliminary Culture exhibits no growth. 01/14/20 04:15 Sputum, Expectorated/Coughed Gram Stain - Final 01/13/20 15:00 Urine Catheter - [facility] Legionella Antigen - Final 01/13/20 15:00 Urine Catheter - [place] Streptococcus pneumoniae Antigen (M - Final Laboratory Results 01/13/20 10:49: Diff Path Review Reviewed 01/15/20 07:21: WBC 3.9 L, RBC 2.92 L, Hgb 8.8 L, Hct 31.4 L, MCV 107.5 H, MCH 30.1, MCHC 28.0 L, RDW Std Deviation 61.8 H, RDW Coeff of Perfecto 15.5 H, Plt Count 171, MPV 9.9, Immature Gran % (Auto) 0.500, Neut % (Auto) 78.6 H, Lymph % (Auto) 10.2 L, [place] % (Auto) 10.4 H, Eos % (Auto) 0.0, Baso % (Auto) 0.3, Absolute Neuts (auto) 3.1, Absolute Lymphs (auto) 0.40 L, Nucleated RBC % 0, Differential Comment COMMENT, Diff Path Review June01/15/20 07:21: Sodium 141, Potassium 3.9, Chloride 96 L, Carbon Dioxide 39.0 H, Anion Gap 6, BUN 43 H, Creatinine 1.46 H, Estim Creat Clear Calc 44.90, Est GFR (MDRD) Af Amer 61, Est GFR (MDRD) Non-Af 51 L, BUN/Creatinine Ratio 29.5 H, Glucose 73 L, Calcium 8.3 L, Total Bilirubin 1.00, AST 32, ALT 19, Alkaline Phosphatase 63, Total Protein 6.9, Albumin 2.4 L, Globulin 4.5 H, Albumin/Globulin Ratio 0.5 L 01/15/20 07:34: PT 38.3 H, INR 3.9 H* Current Medications Albuterol Sulfate (Albuterol Sulfate 8 Gm Inhaler (60 Puffs)) 1 puff INHALATION Q6HWA.RT [facility] Last Admin: 01/14/20 16:00 Dose: 1 puff Documented by: Albuterol Sulfate (Albuterol Sulfate 8 Gm Inhaler (60 Puffs)) 2 puff INHALATION Q4H PRN PRN Reason: SOB &/OR WHEEZING Ascorbic Acid (Ascorbic Acid 500 Mg Tablet) 500 mg PO BID [facility] Last Admin: 01/15/20 08:24 Dose: 500 mg Documented by: Aspirin (Aspirin E.C. 81 Mg Tablet) 81 mg PO DAILY [facility] Last Admin: 01/15/20 08:26 Dose: 81 mg Documented by: Atorvastatin Calcium (Atorvastatin Calcium 80 Mg Tablet) 80 mg PO QHS [facility] Last Admin: 01/14/20 20:35 Dose: 80 mg Documented by: Carvedilol (Carvedilol 3.125 Mg Tablet) 3.125 mg PO BID [facility] Last Admin: 01/15/20 08:23 Dose: 3.125 mg Documented by: Dexamethasone (Dexamethasone 2 Mg Tablet) 6 mg PO DAILY [facility] Stop: 01/22/20 10:01 Last Admin: 01/15/20 08:24 Dose: 6 mg Documented by: Diltiazem HCl (Diltiazem Cd 180 Mg Capsule) 360 mg PO DAILY [facility] Last Admin: 01/15/20 08:23 Dose: 360 mg Documented by: Fenofibrate (Fenofibrate 145 Mg Tablet) 145 mg PO DAILY [facility] Last Admin: 01/15/20 08:23 Dose: 145 mg Documented by: Furosemide (Furosemide 40 Mg/4 Ml Vial) 40 mg IV BID@1000,1700 [facility] Last Admin: 01/15/20 08:23 Dose: 40 mg Documented by: Guaifenesin (Guaifenesin 600 Mg Tablet) 600 mg PO BID [facility] Last Admin: 01/15/20 08:24 Dose: 600 mg Documented by: Remdesivir 100 mg/ Sodium (Chloride) 250 mls @ 125 mls/hr IV DAILY [facility]; Protocol Stop: 01/18/20 11:59 Vancomycin IV Pharmacy to Dose (1 ea/ Sodium Chloride) 500 mls @ 250 mls/hr IV PRN PRN; Protocol PRN Reason: Rx to Dose Vancomycin HCl 1,250 mg/ (Sodium Chloride) 275 mls @ 167 mls/hr IV Q24H [facility] Melatonin (Melatonin 10 Mg Tablet) 5 mg PO QHS [facility] Last Admin: 01/14/20 20:30 Dose: 5 mg Documented by: Nitroglycerin (Nitroglycerin (Inpatient Use) 0.4 Mg Tab.Subl) 0.4 mg SUBLINGUAL Q5M PRN PRN Reason: CARDIAC/CHEST PAIN Ondansetron HCl (Ondansetron 4 Mg/2 Ml Vial) 4 mg IV Q8H PRN PRN PRN Reason: NAUSEA/VOMITING Potassium Chloride (Potassium Chloride 20 Meq Tablet) 20 meq PO DAILY [facility] Last Admin: 01/15/20 08:23 Dose: 20 meq Documented by: Sodium Chloride (0.9% Saline Lock 10 Ml Syringe) 10 - 40 ml IV UD PRN PRN Reason: SALINE FLUSH Last Admin: 01/15/20 08:23 Dose: 10 ml Documented by: STROKE Vital Signs/Narrative: Vital Signs Temp Pulse Resp BP Pulse Ox 01/15/20 10:15 92 01/15/20 08:08 96.6 F L 83 24 H 112/70 92 Medical Necessity - Tobacco Use Smoking Status: Former smoker Assessment/Plan All Active Problems (Last Reviewed 07/29/19 @ 13:[address] 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 valve replaced (Acute) 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 (Acute) SARS-associated coronavirus infection (Acute) Elevated serum creatinine (Acute) Anemia, unspecified (Acute) Infection due to 2019 novel coronavirus (Acute) Atrial fibrillation with RVR (Acute) Elevated troponin I level (Acute) 69 y/o admitted with a complaint of shortness of breath # Acute on chronic hypoxic respiratory failure due to COVID 19 infection and heart failure and probable COPD exacerbation on IV lasix 40mg bid now on 3L of oxygen by nasal canula titrate oxygen to maintain sats >90% fluid restriction to 1500cc daily pulmonology on board # Acute on chronic HFpEF 2D echo from 2019 showed EF of 65%. BNP is >1700. on IV lasix as above 2D echo: EF of 35%, with evidence of diastolic dysfunction and moderate global hypokinesis of the left ventricle. RVSP is 60mmHg Management as above. #COVID-19 infection ID on board; tested positive on January 09, 2020 on remdesivir and dexamethasone. INR is 3.9 today Titrate oxygen to maintain saturation above 90% as above. #Bacteremia Blood culture at staph epidermidis in 1 out of 2 samples. on IV vancomycin. ID on board; await rec's. # Pulmonary hypertension and chronic respiratory failure due to COPD on oxygen at home. being managed for acute on chronic respiratory failure as above #History of mitral valve replacement: On Coumadin. #Atrial fibrillation: Currently rate controlled. #FREDIS on CKD: Creatinine is 1.46 today. Baseline is around 1.23. Cannot hydrate with fluids on account of heart failure. Will trend creatinine. #Elevated troponin Initial troponin was 0.115 but this is started trending down to 0.105 then 0.09 Likely due to heart failure and Covid infection. Will monitor. 2D echo as above DVT prophylaxis; on coumadin. INR is 3.9. coumadin on hold. Code Status: Full code Inpatient E&M: 97222 Subs Hosp L2
[2020-01-15 13:51] LABS: Pathologist Review Reviewed
--- NOTE | 2020-01-15 13:58 | EKG12_ITS ---
Test Reason : Blood Pressure : / mmHG Vent. Rate : 071 BPM Atrial Rate : 072 BPM P-R Int : 000 ms QRS Dur : 150 ms QT Int : 486 ms P-R-T Axes : 000 -60 086 degrees QTc Int : 528 ms Wide QRS rhythm : Consider Sinus vs Ectopic Atrial Rhythm Left axis deviation Right bundle branch block T wave abnormality, consider lateral ischemia Abnormal ECG Confirmed by JASON SHAIKH, MIGUELINA ([id number]), makeup editor GONZALES HARDEN ([id number]) on 01/20/2020 1:23:44 PM Referred By: AVERY Confirmed By:MIGUELINA GOMEZ MD
[2020-01-15] MEDS: Albuterol Sulfate 8 gm Inhaler (60 puffs) 2 PUFF INHALATION ×2 (14:33→22:44)
--- NOTE | 2020-01-15 15:22 | PCM.PN.ID ---
Patient Problems: Active and Suspected Problems (Last Reviewed 07/29/19 @ 13:[address] 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) SARS-associated coronavirus infection (Acute) Elevated serum creatinine (Acute) Anemia, unspecified (Acute) Infection due to 2019 novel coronavirus (Acute) Atrial fibrillation with RVR (Acute) Elevated troponin I level (Acute) Subjective: Green and bloody sputum, no fever - Physical Exam Vitals/I&O's: Vital Signs Temp Pulse Resp BP Pulse Ox 96.2 F L 75 20 H 97/68 95 01/15/20 14:23 01/15/20 14:23 01/15/20 14:23 01/15/20 14:23 01/15/20 14:23 Oxygen Flow Rate (L/min) 3 Oxygen Delivery Method Nasal Cannula Weight: 84.8 kg Body Mass Index (BMI) 21.5 Intake and Output for Last 24 Hours 01/13/20 01/14/20 01/15/20 23:59 23:59 23:59 Intake Total 250.2 / 346.2 1184 / 1184 200 / 200 Output Total 1650 / 1770 1120 / 1795 1700 / 1700 Balance -1399.8 / -1423.8 64 / -611 -1500 / -1500 General: Alert, Cooperative, No apparent distress Lungs: Diminished, Rhonchi Cardiovascular: Regular rate, Regular Rhythm Abdomen: Soft, Non Tender, Non-Distended Skin: No rashes Microbiology Past 72 Hours 01/14/20 04:15 Sputum, Expectorated/Coughed Gram Stain - Final 01/14/20 04:15 Sputum, Expectorated/Coughed Respiratory Culture - Preliminary GNR Poss Pseudomonas sp 01/13/20 09:40 Blood Culture (Wb) - Anticubital Left Blood Culture - Preliminary No growth in 48 hours. 01/13/20 10:10 Blood Culture (Wb) - Right Forearm Bacteria Detection (PCR) - Final Staphylococcus epidermidis 01/13/20 10:10 Blood Culture (Wb) - Right Forearm Blood Culture - Preliminary Staphylococcus epidermidis 01/13/20 14:55 Urine, Clean Catch Urine Culture - Preliminary Culture exhibits no growth. 01/13/20 15:00 Urine Catheter - [place] Legionella Antigen - Final 12/02/20 15:00 Urine Catheter - [place] Streptococcus pneumoniae Antigen (M - Final Laboratory Results 01/13/20 10:49: Diff Path Review Reviewed 01/15/20 07:21: WBC 3.9 L, RBC 2.92 L, Hgb 8.8 L, Hct 31.4 L, MCV 107.5 H, MCH 30.1, MCHC 28.0 L, RDW Std Deviation 61.8 H, RDW Coeff of Perfecto 15.5 H, Plt Count 171, MPV 9.9, Immature Gran % (Auto) 0.500, Neut % (Auto) 78.6 H, Lymph % (Auto) 10.2 L, [place] % (Auto) 10.4 H, Eos % (Auto) 0.0, Baso % (Auto) 0.3, Absolute Neuts (auto) 3.1, Absolute Lymphs (auto) 0.40 L, Nucleated RBC % 0, Differential Comment COMMENT, Diff Path Review Reviewed 01/15/20 07:21: Sodium 141, Potassium 3.9, Chloride 96 L, Carbon Dioxide 39.0 H, Anion Gap 6, BUN 43 H, Creatinine 1.46 H, Estim Creat Clear Calc 44.90, Est GFR (MDRD) Af Amer 61, Est GFR (MDRD) Non-Af 51 L, BUN/Creatinine Ratio 29.5 H, Glucose 73 L, Calcium 8.3 L, Total Bilirubin 1.00, AST 32, ALT 19, Alkaline Phosphatase 63, Total Protein 6.9, Albumin 2.4 L, Globulin 4.5 H, Albumin/Globulin Ratio 0.5 L 01/15/20 07:34: PT 38.3 H, INR 3.9 H* Current Medications Albuterol Sulfate (Albuterol Sulfate 8 Gm Inhaler (60 Puffs)) 1 puff INHALATION Q6HWA.RT [facility] Last Admin: 01/14/20 16:00 Dose: 1 puff Documented by: Albuterol Sulfate (Albuterol Sulfate 8 Gm Inhaler (60 Puffs)) 2 puff INHALATION Q4H PRN PRN Reason: SOB &/OR WHEEZING Last Admin: 01/15/20 14:33 Dose: 2 puff Documented by: Ascorbic Acid (Ascorbic Acid 500 Mg Tablet) 500 mg PO BID [facility] Last Admin: 01/15/20 08:24 Dose: 500 mg Documented by: Aspirin (Aspirin E.C. 81 Mg Tablet) 81 mg PO DAILY [facility] Last Admin: 01/15/20 08:26 Dose: 81 mg Documented by: Atorvastatin Calcium (Atorvastatin Calcium 80 Mg Tablet) 80 mg PO QHS [facility] Last Admin: 01/14/20 20:35 Dose: 80 mg Documented by: Carvedilol (Carvedilol 3.125 Mg Tablet) 3.125 mg PO BID [facility] Last Admin: 01/15/20 08:23 Dose: 3.125 mg Documented by: Dexamethasone (Dexamethasone 2 Mg Tablet) 6 mg PO DAILY [facility] Stop: 01/22/20 10:01 Last Admin: 01/15/20 08:24 Dose: 6 mg Documented by: Diltiazem HCl (Diltiazem Cd 180 Mg Capsule) 360 mg PO DAILY [facility] Last Admin: 01/15/20 08:23 Dose: 360 mg Documented by: Fenofibrate (Fenofibrate 145 Mg Tablet) 145 mg PO DAILY [facility] Last Admin: 01/15/20 08:23 Dose: 145 mg Documented by: Furosemide (Furosemide 40 Mg/4 Ml Vial) 40 mg IV BID@1000,1700 [facility] Last Admin: 01/15/20 08:23 Dose: 40 mg Documented by: Guaifenesin (Guaifenesin 600 Mg Tablet) 600 mg PO BID [facility] Last Admin: 01/15/20 08:24 Dose: 600 mg Documented by: Remdesivir 100 mg/ Sodium (Chloride) 250 mls @ 125 mls/hr IV DAILY [facility]; Protocol Stop: 01/18/20 11:59 Last Admin: 01/15/20 12:49 Dose: 125 mls/hr Documented by: Piperacillin Sod/Tazobactam (Sod 3.375 gm/ Sodium Chloride) 50 mls @ 12.5 mls/hr IV Q8 [facility] Melatonin (Melatonin 10 Mg Tablet) 5 mg PO QHS [facility] Last Admin: 01/14/20 20:30 Dose: 5 mg Documented by: Nitroglycerin (Nitroglycerin (Inpatient Use) 0.4 Mg Tab.Subl) 0.4 mg SUBLINGUAL Q5M PRN PRN Reason: CARDIAC/CHEST PAIN Ondansetron HCl (Ondansetron 4 Mg/2 Ml Vial) 4 mg IV Q8H PRN PRN PRN Reason: NAUSEA/VOMITING Potassium Chloride (Potassium Chloride 20 Meq Tablet) 20 meq PO DAILY [facility] Last Admin: 01/15/20 08:23 Dose: 20 meq Documented by: Sodium Chloride (0.9% Saline Lock 10 Ml Syringe) 10 - 40 ml IV UD PRN PRN Reason: SALINE FLUSH Last Admin: 01/15/20 12:49 Dose: 10 ml Documented by: Medical Necessity - Tobacco Use Smoking Status: Former smoker Route of nutrition/ use of supplements: [] Nutritional Intake: [] IV Site: [] [facility] Catheter: [] - Assessment/Plan Antibiotics: [] Assessment/Plan: [] Active and Suspected Problems (Last Reviewed 07/29/19 @ 13:[address] 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 Sx started around 01/10. D-dimer elevated, therapeutic INR on coumadin. Will cont dex, remdesivir. Feeling better. Sputum purulence, showing Pseudomonas-like, would treat. Zosyn started. Single (+) bcx with CoNS, contaminant. Will follow
[2020-01-15] MEDS: Atorvastatin Calcium 80 MG Tablet PO (22:32)
[2020-01-15] MEDS: MELATONIN 10 MG TABLET 5 MG PO (22:33)
[2020-01-16] VITALS (14 sets, daily range): BP systolic 102–139; BP diastolic 62–84; PULSE 67–90; RESP 18–20; TEMP 36.3–36.6; O2SAT 94–100
[2020-01-16 07:12] LABS: Absolute Lymphocyte Count 0.31 X10^3/uL (0.83-4.51); Absolute Neutrophil Count 2.5 X10^3/uL (2.0-7.7); Hematocrit 30.8 % (40-54); Lymphocyte # 0.31 X10^3/ul (4.0); Lymphocyte % 9.8 % (19-41); Mean Corp Hgb Conc 29.2 g/dL (32-36); Mean Corpuscular Hgb 30.6 pg (27.0-32.0); Mean Corpuscular Volume 104.8 fL (80-94); Mean Platelet Vol. 9.9 fl (6.2-12.0); Monocyte% 9.5 % (0-10); NRBC Flagged by Analyzer 0 % (0-5); Neutrophil # 2.54 X10^3/uL (2.7-7.7); Neutrophil % 80.1 % (47-70); POSITIVE DIFFERENTIAL YES; Platelet Count 166 K/mm3 (150-450); RBC Distribution Width CV 15.3 % (11.6-14.6); RBC Distribution Width SD 59.7 fl (35.1-43.9); Red Blood Count 2.94 M/mm3 (4.6-6.2); White Blood Count 3.2 K/mm3 (4.4-11.0)
[2020-01-16 07:18] LABS: Differential Indicated SCAN CRITERIA MET
[2020-01-16 07:38] LABS: Differential Comment SCANNED
[2020-01-16 07:41] LABS: Anion Gap 5 (5-15); BUN 41 mg/dL (7-18); BUN/Creat Ratio 31.1 RATIO (10-20); Calcium,Total 8.1 mg/dL (8.5-10.1); Chloride 96 mmol/L (98-107); Creatinine, Serum 1.32 mg/dL (0.70-1.30); EST Glomerular Filtration Rate 57 mL/min (>60); Est Glom Filt Rate - Afr Amer 69 mL/min (>60); Estimated Creatinine Clearance 49.66 ml/min; Glucose 109 mg/dL (74-106); Potassium 3.4 mmol/L (3.5-5.1); Sodium Level 140 mmol/L (136-145)
[2020-01-16] MEDS: dilTIAZem CD 180 MG Capsule 360 MG PO (09:03)
[2020-01-16] MEDS: Ascorbic Acid 500 MG Tablet PO ×2 (09:04→21:25)
[2020-01-16] MEDS: guaiFENesin 600 MG Tablet PO ×2 (09:04→21:25)
[2020-01-16] MEDS: Fenofibrate 145 MG Tablet PO (09:04)
[2020-01-16] MEDS: Carvedilol 3.125 MG TABLET PO ×2 (09:04→21:30)
[2020-01-16] MEDS: 0.9% Saline Lock 10 ML Syringe IV ×3 (10:17→16:31)
[2020-01-16] MEDS: dexAMETHasone 2 MG TABLET 6 MG PO (10:17)
[2020-01-16] MEDS: Furosemide 40 MG/4 ML Vial IV ×2 (10:17→16:10)
[2020-01-16 12:14] LABS: International Normalized Ratio 3.4; Prothrombin Time (Protime)PT. 34.3 SECONDS (11.7-14.9)
--- NOTE | 2020-01-16 13:04 | PCM.PN.HOSP ---
Patient Problems: Active and Suspected Problems (Last Reviewed 07/29/19 @ 13:[address] 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 He has no active complaints and feels well. Review of symptoms otherwise negative. He has remained hemodynamically stable. He is awaiting placement in a [facility]. Vitals/I&O's: Vital Signs Temp Pulse Resp BP Pulse Ox 97.8 F 87 20 H 109/62 98 01/16/20 08:47 01/16/20 09:00 01/16/20 08:47 01/16/20 08:47 01/16/20 08:47 Oxygen Flow Rate (L/min) 3 Oxygen Delivery Method Nasal Cannula Weight: 183 lb 12.8 oz Body Mass Index (BMI) 21.5 Intake and Output for Last 24 Hours 01/14/20 01/15/20 01/16/20 23:59 23:59 23:59 Intake Total 1184 / 1184 500 / 500 350 / 350 Output Total 1120 / 1795 1900 / 1900 1475 / 1475 Balance 64 / -611 -1400 / -1400 -1125 / -1125 General: Alert, Oriented x3, Cooperative, No apparent distress HEENT: Atraumatic, PERRLA, EOMI, Normocephalic Oral: Moist Mucosa Neck: Supple, No JVD, Negative Carotid Bruits Lungs: - - decreased breath sounds bibasally. Bilateral coarse crackles. On 3L of oxygen, Cardiovascular: Regular Rhythm, Normal S1, Normal S2, No murmurs, tachycardic Abdomen: Bowel Sounds Present, Soft, Non Tender Extremities: No clubbing, No cyanosis, - - bilateral LE edema- 2+ pitting edema. Skin: No rashes, No breakdown Musculoskeletal: No Tenderness to Palpation of Joints or Extremities Lymphatic: No Cervical, Supraclavicular, or Inguinal Adenopathy Neurological: Cranial nerves II-XII grossly intact, Neuro grossly intact, Motor Exam 5/5 strength throughout Psych/Mental Status: Normal Affect, Appropriate, Alert and oriented to time, place, person, mood and affect Microbiology Past 72 Hours 01/14/20 04:15 Sputum, Expectorated/Coughed Gram Stain - Final 01/14/20 04:15 Sputum, Expectorated/Coughed Respiratory Culture - Final Pseudomonas aeroginosa 01/13/20 14:55 Urine, Clean Catch Urine Culture - Final Culture exhibits no growth. 01/13/20 09:40 Blood Culture (Wb) - Anticubital Left Blood Culture - Preliminary No growth in 48 hours. 01/13/20 10:10 Blood Culture (Wb) - Right Forearm Bacteria Detection (PCR) - Final Staphylococcus epidermidis 01/13/20 10:10 Blood Culture (Wb) - Right Forearm Blood Culture - Preliminary Staphylococcus epidermidis 01/13/20 15:00 Urine Catheter - [place] Legionella Antigen - Final 01/13/20 15:00 Urine Catheter - [place] Streptococcus pneumoniae Antigen (M - Final Laboratory Results 01/15/20 07:21: Diff Path Review Reviewed 01/15/20 15:14: Troponin I 0.137 H 01/15/20 17:32: Troponin I 0.113 H 01/15/20 20:50: Troponin I 0.122 H 01/16/20 06:25: WBC 3.2 L, RBC 2.94 L, Hgb 9.0 L, Hct 30.8 L, MCV 104.8 H, MCH 30.6, MCHC 29.2 L, RDW Std Deviation 59.7 H, RDW Coeff of Perfecto 15.3 H, Plt Count 166, MPV 9.9, Immature Gran % (Auto) 0.600, Neut % (Auto) 80.1 H, Lymph % (Auto) 9.8 L, [place] % (Auto) 9.5, Eos % (Auto) 0.0, Baso % (Auto) 0.0, Absolute Neuts (auto) 2.5, Absolute Lymphs (auto) 0.31 L, Nucleated RBC % 0, Differential Comment SCANNED, Diff Path Review June01/16/20 06:25: Sodium 140, Potassium 3.4 L, Chloride 96 L, Carbon Dioxide 39.0 H, Anion Gap 5, BUN 41 H, Creatinine 1.32 H, Estim Creat Clear Calc 49.66, Est GFR (MDRD) Af Amer 69, Est GFR (MDRD) Non-Af 57 L, BUN/Creatinine Ratio 31.1 H, Glucose 109 H, Calcium 8.1 L 01/16/20 10:00: PT Cancelled, INR Cancelled 01/16/20 12:01: PT 34.3 H, INR 3.4 Diagnostic Data Chest X-Ray 01/13/20 10:00 IMPRESSION: Findings suggestive of a mild degree of CHF with small bilateral pleural effusions and bibasilar atelectasis. Electronically Signed: José Antonio Jessica, at 10:46 EST , Service support , Current Medications Albuterol Sulfate (Albuterol Sulfate 8 Gm Inhaler (60 Puffs)) 1 puff INHALATION Q6HWA.RT [facility] Last Admin: 01/14/20 16:00 Dose: 1 puff Documented by: Albuterol Sulfate (Albuterol Sulfate 8 Gm Inhaler (60 Puffs)) 2 puff INHALATION Q4H PRN PRN Reason: SOB &/OR WHEEZING Last Admin: 01/15/20 22:44 Dose: 2 puff Documented by: Ascorbic Acid (Ascorbic Acid 500 Mg Tablet) 500 mg PO BID [facility] Last Admin: 01/16/20 09:04 Dose: 500 mg Documented by: Aspirin (Aspirin E.C. 81 Mg Tablet) 81 mg PO DAILY [facility] Last Admin: 01/15/20 08:26 Dose: 81 mg Documented by: Atorvastatin Calcium (Atorvastatin Calcium 80 Mg Tablet) 80 mg PO QHS [facility] Last Admin: 01/15/20 22:32 Dose: 80 mg Documented by: Carvedilol (Carvedilol 3.125 Mg Tablet) 3.125 mg PO BID [facility] Last Admin: 01/16/20 09:04 Dose: 3.125 mg Documented by: Dexamethasone (Dexamethasone 2 Mg Tablet) 6 mg PO DAILY [facility] Stop: 01/22/20 10:01 Last Admin: 01/16/20 10:17 Dose: 6 mg Documented by: Diltiazem HCl (Diltiazem Cd 180 Mg Capsule) 360 mg PO DAILY [facility] Last Admin: 01/16/20 09:03 Dose: 360 mg Documented by: Fenofibrate (Fenofibrate 145 Mg Tablet) 145 mg PO DAILY [facility] Last Admin: 01/16/20 09:04 Dose: 145 mg Documented by: Furosemide (Furosemide 40 Mg/4 Ml Vial) 40 mg IV BID@1000,1700 [facility] Last Admin: 01/16/20 10:17 Dose: 40 mg Documented by: Guaifenesin (Guaifenesin 600 Mg Tablet) 600 mg PO BID [facility] Last Admin: 01/16/20 09:04 Dose: 600 mg Documented by: Remdesivir 100 mg/ Sodium (Chloride) 250 mls @ 125 mls/hr IV DAILY [facility]; Protocol Stop: 01/18/20 11:59 Last Infusion: 01/16/20 12:55 Dose: Infused Documented by: Piperacillin Sod/Tazobactam (Sod 3.375 gm/ Sodium Chloride) 50 mls @ 12.5 mls/hr IV Q8 [facility] Last Admin: 01/16/20 12:56 Dose: 12.5 mls/hr Documented by: Sodium Chloride () 250 mls @ 15 mls/hr IV .[id number] PRN PRN Reason: Saline Flush Last Infusion: 01/16/20 05:25 Dose: 0 mls/hr Documented by: Melatonin (Melatonin 10 Mg Tablet) 5 mg PO QHS [facility] Last Admin: 01/15/20 22:33 Dose: 5 mg Documented by: Nitroglycerin (Nitroglycerin (Inpatient Use) 0.4 Mg Tab.Subl) 0.4 mg SUBLINGUAL Q5M PRN PRN Reason: CARDIAC/CHEST PAIN Ondansetron HCl (Ondansetron 4 Mg/2 Ml Vial) 4 mg IV Q8H PRN PRN PRN Reason: NAUSEA/VOMITING Potassium Chloride (Potassium Chloride 20 Meq Tablet) 20 meq PO DAILY [facility] Last Admin: 01/16/20 09:04 Dose: 20 meq Documented by: Sodium Chloride (0.9% Saline Lock 10 Ml Syringe) 10 - 40 ml IV UD PRN PRN Reason: SALINE FLUSH Last Admin: 01/16/20 12:56 Dose: 10 ml Documented by: Medical Necessity - Tobacco Use Smoking Status: Former smoker Assessment/Plan All Active Problems (Last Reviewed 07/29/19 @ 13:[address] 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 valve replaced (Acute) residential current use of anticoagulant (Acute) SARS-associated coronavirus infection (Acute) Elevated serum creatinine (Acute) Anemia, unspecified (Acute) Infection due to 2019 novel coronavirus (Acute) Atrial fibrillation with RVR (Acute) Elevated troponin I level (Acute) 69 y/o admitted with a complaint of shortness of breath # Acute on chronic hypoxic respiratory failure due to COVID 19 infection and heart failure and probable COPD exacerbation on IV lasix 40mg bid now on 3L of oxygen by nasal canula titrate oxygen to maintain sats >90% fluid restriction to 1500cc daily pulmonology on board # Acute on chronic HFpEF 2D echo from 2019 showed EF of 65%. BNP is >1700. on IV lasix as above 2D echo: EF of 35%, with evidence of diastolic dysfunction and moderate global hypokinesis of the left ventricle. RVSP is 60mmHg Management as above. #COVID-19 infection ID on board; tested positive on January 09, 2020 on remdesivir and dexamethasone. INR is 3.4 today Titrate oxygen to maintain saturation above 90% as above. started on zosyn o/a of sputum growing probable Pseudomonas #Bacteremia Blood culture at [facility] epidermidis in 1 out of 2 samples. ID feels it is a contaminant. vancomycin discontinued # Pulmonary hypertension and chronic respiratory failure due to COPD on oxygen at home. being managed for acute on chronic respiratory failure as above #History of mitral valve replacement: On Coumadin. INR today is 3.4. Coumadin on hold. #Atrial fibrillation: Currently rate controlled. #FREDIS on CKD: Creatinine is 1.32 today. Baseline is around 1.23. stable #Elevated troponin Likely due to heart failure and Covid infection. Will monitor. 2D echo as above DVT prophylaxis; on coumadin. INR is 3.4 today. coumadin on hold. Code Status: Full code Disposition: awaiting placement at [facility]. Inpatient E&M: 51241 Subs Hosp L2
[2020-01-16] MEDS: Phytonadione (Vit K1) 5 MG TABLET 2.5 MG PO (18:58)
[2020-01-16] MEDS: Mixture 30 ML Bottle TOPICAL (19:11)
[2020-01-16 20:28] LABS: Vancomycin, Trough Level 11.3 ug/mL (5.0-15.0)
--- NOTE | 2020-01-16 21:05 | SUR.PREOP ---
ED physician consultation and procedure note for epistaxis care Given lack of ENT coverage at the time, I was called to evaluate this patient due to acute epistaxis. Patient is anticoagulated on warfarin and his last INR is 3.5, they are reversing him and he is admitted for COVID-19 complications. He has had nosebleeds in the past but not very frequently. Started bleeding spontaneously tonight from the left side only, he is swallowing blood when holding pressure but not a lot. He denies any other focal complaints right now other than spitting out some of the blood he was swallowing, no vomiting or increased dyspnea. Exam: Blood and clots present in the left naris, small amount of active bleeding seen in the posterior oropharynx, there is no arterial hemorrhaging in the patient's airway is intact, he is hoarse of voice but able to talk and in no distress. There is no blood seen in the right side. With the patient's verbal consent, initially had him blow his nose until he could easily move air through the left nostril without any more blood or clots. Bleeding was minimal at that time, and I immediately placed 3 cc of Olivia mix into the nose, he swallowed a portion and spit the rest of it out tolerating this well. This was followed immediately by insertion of a 5.5 cm inflatable rapid Rhino, patient tolerated this very well and it resulted in good hemostasis. Since care providers are reversing his coagulopathy, if he has no other issues with this hemorrhage while the packing is in and he is in the hospital, packing may be removed in 2 days either here in the hospital or if discharged prior to that, with otolaryngology or in the emergency department. He does not require antibiotics solely for the purpose of infection prevention for this packing.
[2020-01-16] MEDS: MELATONIN 10 MG TABLET 5 MG PO (21:25)
[2020-01-16] MEDS: Atorvastatin Calcium 80 MG Tablet PO (21:25)
[2020-01-17] VITALS (9 sets, daily range): BP systolic 102–137; BP diastolic 63–87; PULSE 54–91; RESP 20–22; TEMP 36.4–36.8; O2SAT 94–100
--- NOTE | 2020-01-17 07:08 | PCM.PN.PUL ---
Patient Problems: Active and Suspected Problems (Last Reviewed 07/29/19 @ 13:[address] 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 Events from the last 24 hours have been reviewed. The patient is currently afebrile, hemodynamically stable and maintaining appropriate oxygen saturations on 6 L/min via nasal cannula. The patient remains on remdesivir and Decadron, along with antimicrobials. The patient is currently documented to be overall net -5 L for the hospital admission. The patient did experience epistaxis last night which required nasal packing. Objective: The patient's most recent lab work, culture data and imaging studies have all been personally reviewed. Surface echocardiogram revealed an ejection fraction of 35%, diastolic dysfunction and moderate global hypokinesis of the LV. Pulmonary artery systolic pressure was estimated to be 60 mmHg. Sputum culture was positive for Pseudomonas. - Physical Exam Vitals/I&O's: Vital Signs Temp Pulse Resp BP Pulse Ox 97.6 F L 87 22 H 137/87 H 99 01/17/20 05:36 01/17/20 05:36 01/17/20 05:36 01/17/20 05:36 01/17/20 05:36 Oxygen Flow Rate (L/min) 6 Oxygen Delivery Method Nasal Cannula Weight: 180 lb 1.883 oz Body Mass Index (BMI) 21.5 Intake and Output for Last 24 Hours 01/15/20 01/16/20 01/17/20 23:59 23:59 23:59 Intake Total 500 / 500 535.5 / 535.5 315.5 / 315.5 Output Total 1900 / 1900 2660 / 2660 700 / 700 Balance -1400 / -1400 -2124.5 / -2124.5 -384.5 / -384.5 General: Alert, Cooperative, No apparent distress HEENT: Atraumatic, PERRLA, Normocephalic Oral: No Gingival or Mucosal Lesions/ Ulcerations Neck: Supple, No Nodes, Trachea Midline Lungs: Diminished, Rhonchi Cardiovascular: Regular rate, Regular Rhythm Abdomen: Bowel Sounds Present, Soft, Non Tender Extremities: No clubbing, No cyanosis, Edema Skin: - - Lower extremity venous stasis dermatitis Musculoskeletal: No Muscle Wasting Lymphatic: No Cervical, Supraclavicular, or Inguinal Adenopathy Neurological: Cranial nerves II-XII grossly intact, Neuro grossly intact Psych/Mental Status: Normal Affect, Appropriate Labs (Last 48 Hours) 01/13/20 01/15/20 01/15/20 10:49 07:21 07:21 WBC 3.9 L RBC 2.92 L Hgb 8.8 L Hct 31.4 L MCV 107.5 H MCH 30.1 MCHC 28.0 L RDW Std Deviation 61.8 H RDW Coeff of Perfecto 15.5 H Plt Count 171 MPV 9.9 Immature Gran % (Auto) 0.500 Neut % (Auto) 78.6 H Lymph % (Auto) 10.2 L [place] % (Auto) 10.4 H Eos % (Auto) 0.0 Baso % (Auto) 0.3 Absolute Neuts (auto) 3.1 Absolute Lymphs (auto) 0.40 L Nucleated RBC % 0 Differential Comment COMMENT Diff Path Review Reviewed Reviewed PT INR Sodium 141 Potassium 3.9 Chloride 96 L Carbon Dioxide 39.0 H Anion Gap 6 BUN 43 H Creatinine 1.46 H Estim Creat Clear Calc 44.90 Est GFR (MDRD) Af Amer 61 Est GFR (MDRD) Non-Af 51 L BUN/Creatinine Ratio 29.5 H Glucose 73 L Calcium 8.3 L Total Bilirubin 1.00 AST 32 ALT 19 Alkaline Phosphatase 63 Troponin I Total Protein 6.9 Albumin 2.4 L Globulin 4.5 H Albumin/Globulin Ratio 0.5 L Vancomycin Trough 01/15/20 01/15/20 01/15/20 07:34 15:14 17:32 WBC RBC Hgb Hct MCV MCH MCHC RDW Std Deviation RDW Coeff of Perfecto Plt Count MPV Immature Gran % (Auto) Neut % (Auto) Lymph % (Auto) [place] % (Auto) Eos % (Auto) Baso % (Auto) Absolute Neuts (auto) Absolute Lymphs (auto) Nucleated RBC % Differential Comment Diff Path Review PT 38.3 H INR 3.9 H* Sodium Potassium Chloride Carbon Dioxide Anion Gap BUN Creatinine Estim Creat Clear Calc Est GFR (MDRD) Af Amer Est GFR (MDRD) Non-Af BUN/Creatinine Ratio Glucose Calcium Total Bilirubin AST ALT Alkaline Phosphatase Troponin I 0.137 H 0.113 H Total Protein Albumin Globulin Albumin/Globulin Ratio Vancomycin Trough 01/15/20 01/16/20 01/16/20 20:50 06:25 06:25 WBC 3.2 L RBC 2.94 L Hgb 9.0 L Hct 30.8 L MCV 104.8 H MCH 30.6 MCHC 29.2 L RDW Std Deviation 59.7 H RDW Coeff of Perfecto 15.3 H Plt Count 166 MPV 9.9 Immature Gran % (Auto) 0.600 Neut % (Auto) 80.1 H Lymph % (Auto) 9.8 L [place] % (Auto) 9.5 Eos % (Auto) 0.0 Baso % (Auto) 0.0 Absolute Neuts (auto) 2.5 Absolute Lymphs (auto) 0.31 L Nucleated RBC % 0 Differential Comment SCANNED Diff Path Review May foll PT INR Sodium 140 Potassium 3.4 L Chloride 96 L Carbon Dioxide 39.0 H Anion Gap 5 BUN 41 H Creatinine 1.32 H Estim Creat Clear Calc 49.66 Est GFR (MDRD) Af Amer 69 Est GFR (MDRD) Non-Af 57 L BUN/Creatinine Ratio 31.1 H Glucose 109 H Calcium 8.1 L Total Bilirubin AST ALT Alkaline Phosphatase Troponin I 0.122 H Total Protein Albumin Globulin Albumin/Globulin Ratio Vancomycin Trough 01/16/20 01/16/20 01/16/20 10:00 12:01 19:55 WBC RBC Hgb Hct MCV MCH MCHC RDW Std Deviation RDW Coeff of Perfecto Plt Count MPV Immature Gran % (Auto) Neut % (Auto) Lymph % (Auto) [place] % (Auto) Eos % (Auto) Baso % (Auto) Absolute Neuts (auto) Absolute Lymphs (auto) Nucleated RBC % Differential Comment Diff Path Review PT Cancelled 34.3 H INR Cancelled 3.4 Sodium Potassium Chloride Carbon Dioxide Anion Gap BUN Creatinine Estim Creat Clear Calc Est GFR (MDRD) Af Amer Est GFR (MDRD) Non-Af BUN/Creatinine Ratio Glucose Calcium Total Bilirubin AST ALT Alkaline Phosphatase Troponin I Total Protein Albumin Globulin Albumin/Globulin Ratio Vancomycin Trough 11.3 Microbiology 01/14/20 04:15 Sputum, Expectorated/Coughed Gram Stain - Final 01/14/20 04:15 Sputum, Expectorated/Coughed Respiratory Culture - Final Pseudomonas aeroginosa 01/13/20 14:55 Urine, Clean Catch Urine Culture - Final Culture exhibits no growth. 01/13/20 09:40 Blood Culture (Wb) - Anticubital Left Blood Culture - Preliminary No growth in 48 hours. 01/13/20 10:10 Blood Culture (Wb) - Right Forearm Bacteria Detection (PCR) - Final Staphylococcus epidermidis 01/13/20 10:10 Blood Culture (Wb) - Right Forearm Blood Culture - Preliminary Staphylococcus epidermidis Clinical Impression(s) from Imaging Studies Chest X-Ray 01/13/20 10:00 IMPRESSION: Findings suggestive of a mild degree of CHF with small bilateral pleural effusions and bibasilar atelectasis. Electronically Signed: José Antonio Lopez, at 10:46 EST , Service support , Current Medications Albuterol Sulfate (Albuterol Sulfate 8 Gm Inhaler (60 Puffs)) 1 puff INHALATION Q6HWA.RT [facility] Last Admin: 01/14/20 16:00 Dose: 1 puff Documented by: Albuterol Sulfate (Albuterol Sulfate 8 Gm Inhaler (60 Puffs)) 2 puff INHALATION Q4H PRN PRN Reason: SOB &/OR WHEEZING Last Admin: 01/15/20 22:44 Dose: 2 puff Documented by: Ascorbic Acid (Ascorbic Acid 500 Mg Tablet) 500 mg PO BID [facility] Last Admin: 01/16/20 21:25 Dose: 500 mg Documented by: Atorvastatin Calcium (Atorvastatin Calcium 80 Mg Tablet) 80 mg PO QHS [facility] Last Admin: 01/16/20 21:25 Dose: 80 mg Documented by: Carvedilol (Carvedilol 3.125 Mg Tablet) 3.125 mg PO BID [facility] Last Admin: 01/16/20 21:30 Dose: 3.125 mg Documented by: Dexamethasone (Dexamethasone 2 Mg Tablet) 6 mg PO DAILY [facility] Stop: 01/22/20 10:01 Last Admin: 01/16/20 10:17 Dose: 6 mg Documented by: Diltiazem HCl (Diltiazem Cd 180 Mg Capsule) 360 mg PO DAILY [facility] Last Admin: 01/16/20 09:03 Dose: 360 mg Documented by: Fenofibrate (Fenofibrate 145 Mg Tablet) 145 mg PO DAILY [facility] Last Admin: 01/16/20 09:04 Dose: 145 mg Documented by: Furosemide (Furosemide 40 Mg/4 Ml Vial) 40 mg IV BID@1000,1700 [facility] Last Admin: 01/16/20 16:10 Dose: 40 mg Documented by: Guaifenesin (Guaifenesin 600 Mg Tablet) 600 mg PO BID [facility] Last Admin: 01/16/20 21:25 Dose: 600 mg Documented by: Remdesivir 100 mg/ Sodium (Chloride) 250 mls @ 125 mls/hr IV DAILY [facility]; Protocol Stop: 01/18/20 11:59 Last Infusion: 01/16/20 12:55 Dose: Infused Documented by: Piperacillin Sod/Tazobactam (Sod 3.375 gm/ Sodium Chloride) 50 mls @ 12.5 mls/hr IV Q8 [facility] Last Admin: 01/17/20 05:41 Dose: 12.5 mls/hr Documented by: Sodium Chloride () 250 mls @ 15 mls/hr IV .[id number] PRN PRN Reason: Saline Flush Last Infusion: 01/17/20 05:41 Dose: 0 mls/hr Documented by: Melatonin (Melatonin 10 Mg Tablet) 5 mg PO QHS [facility] Last Admin: 01/16/20 21:25 Dose: 5 mg Documented by: Nitroglycerin (Nitroglycerin (Inpatient Use) 0.4 Mg Tab.Subl) 0.4 mg SUBLINGUAL Q5M PRN PRN Reason: CARDIAC/CHEST PAIN Ondansetron HCl (Ondansetron 4 Mg/2 Ml Vial) 4 mg IV Q8H PRN PRN PRN Reason: NAUSEA/VOMITING Potassium Chloride (Potassium Chloride 20 Meq Tablet) 20 meq PO DAILY [facility] Last Admin: 01/16/20 09:04 Dose: 20 meq Documented by: Sodium Chloride (0.9% Saline Lock 10 Ml Syringe) 10 - 40 ml IV UD PRN PRN Reason: SALINE FLUSH Last Admin: 01/16/20 16:31 Dose: 10 ml Documented by: Medical Necessity - Tobacco Use Smoking Status: Former smoker Assessment/Plan All Active Problems (Last Reviewed 07/29/19 @ 13:[address] 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 Continue to wean supplemental oxygen as tolerated. 2. Continue remdesivir and Decadron as ordered. Monitor liver and renal function accordingly. 3. Continue diuretic therapy as tolerated by hemodynamics and renal function. 4. Continue Coumadin and check daily INR. 5. Encourage incentive spirometer use and mobilize patient as tolerated. 6. Continue antimicrobials. IMPRESSIONS: 1. Acute on chronic hypoxemic respiratory failure Likely multifactorial in etiology with COPD exacerbation precipitated by COVID-19 pneumonia along with a component of decompensated heart failure likely contributing. The patient responded clinically to IV diuretic therapy and noninvasive positive pressure ventilatory support. He will be continued on Decadron and remdesivir as ordered. Continue to monitor liver and renal function accordingly. The patient is normally anticoagulated on Coumadin at baseline. Continue to monitor coagulation status daily. Encourage incentive spirometer use and mobilize patient as tolerated. 2. Self-reported COPD of unknown severity The patient is a poor historian but does report a history of COPD for which she is apparently followed by an outside fulfillment coordinator. Plan to continue current supportive measures with as needed bronchodilator therapy and supplemental oxygen. 3. Heart failure with preserved ejection fraction/pulmonary hypertension Prior echocardiogram from 2019 did reveal heart failure with preserved ejection fraction and pulmonary hypertension. The patient has responded appropriately to diuretic therapy and BiPAP. Plan to continue Lasix as tolerated by hemodynamics and renal function. 4. Paroxysmal atrial fibrillation/diabetes mellitus/hypertension/hyperlipidemia Complicates care, management, recovery and prognosis. Continue supportive measures as noted above. This note was generated with [employer] software. It may contain incorrect words, spelling, and punctuation that were not noted in checking the note before signing. Inpatient E&M: 27054 Subs Hosp L2
[2020-01-17] MEDS: Fenofibrate 145 MG Tablet PO (08:58)
[2020-01-17] MEDS: Ascorbic Acid 500 MG Tablet PO ×2 (08:58→21:25)
[2020-01-17] MEDS: guaiFENesin 600 MG Tablet PO ×2 (08:58→21:25)
[2020-01-17] MEDS: Carvedilol 3.125 MG TABLET PO ×2 (08:58→21:25)
[2020-01-17] MEDS: 0.9% Saline Lock 10 ML Syringe IV ×3 (08:59→15:26)
[2020-01-17] MEDS: Furosemide 40 MG/4 ML Vial IV ×2 (08:59→15:25)
[2020-01-17] MEDS: dilTIAZem CD 180 MG Capsule 360 MG PO (08:59)
[2020-01-17 09:42] LABS: Absolute Lymphocyte Count 0.38 X10^3/uL (0.83-4.51); Absolute Neutrophil Count 4.2 X10^3/uL (2.0-7.7); Hematocrit 33.6 % (40-54); Hemoglobin 9.5 g/dL (13.0-16.5); Lymphocyte # 0.38 X10^3/ul (4.0); Lymphocyte % 7.7 % (19-41); Mean Corp Hgb Conc 28.3 g/dL (32-36); Mean Platelet Vol. 9.3 fl (6.2-12.0); Monocyte# 0.31 X10^3/uL; Monocyte% 6.3 % (0-10); NRBC Flagged by Analyzer 0 % (0-5); Neutrophil # 4.21 X10^3/uL (2.7-7.7); Neutrophil % 85.8 % (47-70); POSITIVE DIFFERENTIAL YES; Platelet Count 190 K/mm3 (150-450); RBC Distribution Width CV 15.1 % (11.6-14.6); RBC Distribution Width SD 60.2 fl (35.1-43.9); Red Blood Count 3.17 M/mm3 (4.6-6.2); White Blood Count 4.9 K/mm3 (4.4-11.0)
[2020-01-17 09:51] LABS: Differential Indicated SCAN CRITERIA MET
[2020-01-17 09:53] LABS: International Normalized Ratio 2.3
[2020-01-17 09:59] LABS: ALB/GLOB Ratio 0.6 RATIO (0.9-2.4); AST(SGOT) 25 U/L (15-37); Alanine Aminotransfer ALT/SGPT 20 U/L (16-61); Albumin, Serum 2.6 g/dL (3.2-5.0); Alkaline Phosphatase 61 U/L (45-117); Anion Gap 4 (5-15); BUN 38 mg/dL (7-18); BUN/Creat Ratio 26.2 RATIO (10-20); Calcium,Total 8.3 mg/dL (8.5-10.1); Chloride 96 mmol/L (98-107); Creatinine, Serum 1.45 mg/dL (0.70-1.30); EST Glomerular Filtration Rate 51 mL/min (>60); Est Glom Filt Rate - Afr Amer 62 mL/min (>60); Estimated Creatinine Clearance 45.21 ml/min; Globulin 4.6 g/dL (2.2-4.2); Glucose 191 mg/dL (74-106); Potassium 3.4 mmol/L (3.5-5.1); Protein, Total 7.2 g/dL (6.4-8.2); Sodium Level 144 mmol/L (136-145)
[2020-01-17 10:11] LABS: Differential Comment SCANNED
[2020-01-17] MEDS: dexAMETHasone 2 MG TABLET 6 MG PO (10:55)
--- NOTE | 2020-01-17 11:29 | PN_ITS ---
Patient Problems: Active and Suspected Problems (Last Reviewed 07/29/19 @ 13:[address] 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 He apparently complained of some chest pain during the night with chest pain had resolved this morning. He started having epistasis yesterday from the left nostril. This was not resolving with nasal pressure. ED physician inserted nasal packing on 01/16/2020 on account of lack of ENT coverage at that time. Bleeding subsequently resolved and he has not had any bleeding again. INR today is 2.3. He did receive 5 mg of vitamin K yesterday. Per ED doctor, patient does not need to be on antibiotics for infection prophylaxis and packing can be removed in 2 days if bleeding does not recur. Review of systems otherwise negative. He has remained hemodynamically stable. Vitals/I&O's: Vital Signs Temp Pulse Resp BP Pulse Ox 98.2 F 91 20 H 105/63 94 01/17/20 08:43 01/17/20 08:43 01/17/20 08:43 01/17/20 08:43 01/17/20 08:43 Oxygen Flow Rate (L/min) 6 Oxygen Delivery Method Nasal Cannula Weight: 180 lb 1.883 oz Body Mass Index (BMI) 21.5 Intake and Output for Last 24 Hours 01/15/20 01/16/20 01/17/20 23:59 23:59 23:59 Intake Total 500 / 500 535.5 / 535.5 365.5 / 365.5 Output Total 1900 / 1900 2660 / 2660 700 / 700 Balance -1400 / -1400 -2124.5 / -2124.5 -334.5 / -334.5 General: Alert, Oriented x3, Cooperative, No apparent distress HEENT: Atraumatic, PERRLA, EOMI, Normocephalic, nasal packing in left nares Oral: Dry Mucosa Neck: Supple, No JVD, Negative Carotid Bruits Lungs: - - diminished breath sounds bibasally, no wheezes or crackles. on 2L of oxygen. Cardiovascular: Regular rate, Regular Rhythm, Normal S1, Normal S2, No murmurs Abdomen: Bowel Sounds Present, Soft, Non Tender, Non-Distended, No Hepato- splenomegaly Extremities: No edema, Capillary Refill Less than 3 Seconds Skin: No rashes, No breakdown Musculoskeletal: No Tenderness to Palpation of Joints or Extremities Neurological: Cranial nerves II-XII grossly intact Psych/Mental Status: Normal Affect, Appropriate, Alert and oriented to time, place, person, mood and affect Microbiology Past 72 Hours 01/14/20 04:15 Sputum, Expectorated/Coughed Gram Stain - Final 01/14/20 04:15 Sputum, Expectorated/Coughed Respiratory Culture - Final Pseudomonas aeroginosa 01/13/20 14:55 Urine, Clean Catch Urine Culture - Final Culture exhibits no growth. 01/13/20 09:40 Blood Culture (Wb) - Anticubital Left Blood Culture - Preliminary No growth in 48 hours. 01/13/20 10:10 Blood Culture (Wb) - Right Forearm Bacteria Detection (PCR) - Final Staphylococcus epidermidis 01/13/20 10:10 Blood Culture (Wb) - Right Forearm Blood Culture - Preliminary Staphylococcus epidermidis Laboratory Results 01/16/20 10:00: PT Cancelled, INR Cancelled 01/16/20 12:01: PT 34.3 H, INR 3.4 01/16/20 19:55: Vancomycin Trough 11.3 01/17/20 09:23: PT 25.0 H, INR 2.3 01/17/20 09:23: Sodium 144, Potassium 3.4 L, Chloride 96 L, Carbon Dioxide 44.0 H, Anion Gap 4 L, BUN 38 H, Creatinine 1.45 H, Estim Creat Clear Calc 45.21, Est GFR (MDRD) Af Amer 62, Est GFR (MDRD) Non-Af 51 L, BUN/Creatinine Ratio 26.2 H, Glucose 191 H, Calcium 8.3 L, Total Bilirubin 1.00, AST 25, ALT 20, Alkaline Phosphatase 61, Total Protein 7.2, Albumin 2.6 L, Globulin 4.6 H, Albumin/Globulin Ratio 0.6 L 01/17/20 09:23: WBC 4.9, RBC 3.17 L, Hgb 9.5 L, Hct 33.6 L, MCV 106.0 H, MCH 30.0, MCHC 28.3 L, RDW Std Deviation 60.2 H, RDW Coeff of Perfecto 15.1 H, Plt Count 190, MPV 9.3, Immature Gran % (Auto) 0.200, Neut % (Auto) 85.8 H, Lymph % (Auto) 7.7 L, Sumner % (Auto) 6.3, Eos % (Auto) 0.0, Baso % (Auto) 0.0, Absolute Neuts (auto) 4.2, Absolute Lymphs (auto) 0.38 L, Nucleated RBC % 0, Differential Comment SCANNED 01/17/20 09:23: Magnesium 2.0 Current Medications Albuterol Sulfate (Albuterol Sulfate 8 Gm Inhaler (60 Puffs)) 1 puff INHALATION Q6HWA.RT [facility] Last Admin: 01/14/20 16:00 Dose: 1 puff Documented by: Albuterol Sulfate (Albuterol Sulfate 8 Gm Inhaler (60 Puffs)) 2 puff INHALATION Q4H PRN PRN Reason: SOB &/OR WHEEZING Last Admin: 01/15/20 22:44 Dose: 2 puff Documented by: Ascorbic Acid (Ascorbic Acid 500 Mg Tablet) 500 mg PO BID [facility] Last Admin: 01/17/20 08:58 Dose: 500 mg Documented by: Atorvastatin Calcium (Atorvastatin Calcium 80 Mg Tablet) 80 mg PO QHS [facility] Last Admin: 01/16/20 21:25 Dose: 80 mg Documented by: Carvedilol (Carvedilol 3.125 Mg Tablet) 3.125 mg PO BID [facility] Last Admin: 01/17/20 08:58 Dose: 3.125 mg Documented by: Dexamethasone (Dexamethasone 2 Mg Tablet) 6 mg PO DAILY [facility] Stop: 01/22/20 10:01 Last Admin: 01/17/20 10:55 Dose: 6 mg Documented by: Diltiazem HCl (Diltiazem Cd 180 Mg Capsule) 360 mg PO DAILY [facility] Last Admin: 01/17/20 08:59 Dose: 360 mg Documented by: Fenofibrate (Fenofibrate 145 Mg Tablet) 145 mg PO DAILY [facility] Last Admin: 01/17/20 08:58 Dose: 145 mg Documented by: Furosemide (Furosemide 40 Mg/4 Ml Vial) 40 mg IV BID@1000,1700 [facility] Last Admin: 01/17/20 08:59 Dose: 40 mg Documented by: Guaifenesin (Guaifenesin 600 Mg Tablet) 600 mg PO BID [facility] Last Admin: 01/17/20 08:58 Dose: 600 mg Documented by: Remdesivir 100 mg/ Sodium (Chloride) 250 mls @ 125 mls/hr IV DAILY [facility]; Protocol Stop: 01/18/20 11:59 Last Admin: 01/17/20 10:54 Dose: 125 mls/hr Documented by: Piperacillin Sod/Tazobactam (Sod 3.375 gm/ Sodium Chloride) 50 mls @ 12.5 mls/hr IV Q8 [facility] Last Infusion: 01/17/20 10:35 Dose: Infused Documented by: Sodium Chloride () 250 mls @ 15 mls/hr IV .[id number] PRN PRN Reason: Saline Flush Last Infusion: 01/17/20 05:41 Dose: 0 mls/hr Documented by: Melatonin (Melatonin 10 Mg Tablet) 5 mg PO QHS [facility] Last Admin: 01/16/20 21:25 Dose: 5 mg Documented by: Nitroglycerin (Nitroglycerin (Inpatient Use) 0.4 Mg Tab.Subl) 0.4 mg SUBLINGUAL Q5M PRN PRN Reason: CARDIAC/CHEST PAIN Ondansetron HCl (Ondansetron 4 Mg/2 Ml Vial) 4 mg IV Q8H PRN PRN PRN Reason: NAUSEA/VOMITING Potassium Chloride (Potassium Chloride 20 Meq Tablet) 20 meq PO DAILY [facility] Last Admin: 01/17/20 08:59 Dose: 20 meq Documented by: Sodium Chloride (0.9% Saline Lock 10 Ml Syringe) 10 - 40 ml IV UD PRN PRN Reason: SALINE FLUSH Last Admin: 01/17/20 10:55 Dose: 10 ml Documented by: STROKE Vital Signs/Narrative: Vital Signs Temp Pulse Resp BP Pulse Ox 01/17/20 08:43 98.2 F 90 20 H 105/63 94 Medical Necessity - Tobacco Use Smoking Status: Former smoker Assessment/Plan All Active Problems (Last Reviewed 07/29/19 @ 13:[address] 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) SARS-associated coronavirus infection (Acute) Elevated serum creatinine (Acute) Anemia, unspecified (Acute) Infection due to 2019 novel coronavirus (Acute) Atrial fibrillation with RVR (Acute) Elevated troponin I level (Acute) 69 y/o admitted with a complaint of shortness of breath # Acute on chronic hypoxic respiratory failure due to COVID 19 infection and heart failure and probable COPD exacerbation * on IV lasix 40mg bid * now on 3L of oxygen by nasal canula * titrate oxygen to maintain sats >90% * fluid restriction to 1500cc daily * pulmonology on board * will switch to PO lasix 40mg bid # Acute on chronic HFpEF * 2D echo from 2019 showed EF of 65%. * BNP is >1700. * on IV lasix as above; will switch to PO lasix * 2D echo: EF of 35%, with evidence of diastolic dysfunction and moderate global hypokinesis of the left ventricle. RVSP is 60mmHg * Management as above. * #COVID-19 infection * ID on board; tested positive on January 09, 2020 * on remdesivir and dexamethasone. * INR is 2.3 today * Titrate oxygen to maintain saturation above 90% as above. * started on zosyn o/a of sputum growing probable Pseudomonas * #Bacteremia * Blood culture at staph epidermidis in 1 out of 2 samples. ID feels it is a contaminant. vancomycin discontinued * #Chest pain * Patient was complaining of chest pain during the night. Troponins have been mildly elevated and peaked at 0.132. * Patient in troponin was initially thought to be due to Covid and heart failure. However in light of his chest pain, cardiology consulted. * 2D echo done showed EF of 35% as above. * #Epistaxis: * Had nasal packing done by ED doctor yesterday. * Epistasis has resolved. Per ED doctor's note, packing could be left in for 2 days and then removed if it does not recur. * # Pulmonary hypertension and chronic respiratory failure due to COPD * on oxygen at home. * being managed for acute on chronic respiratory failure as above * #History of mitral valve replacement: On Coumadin. INR today is 2.3. He received vitamin K yesterday o/a of epistaxis. Coumadin on hold. #Atrial fibrillation: Currently rate controlled. #FREDIS on CKD: * resolved. Cr is 1.45 today which is around his baseline. * stable * DVT prophylaxis; INR is 2.3 today. coumadin on hold. Code Status: Full code * Disposition: awaiting placement at [facility]. Inpatient E&M: 86778 Subs Hosp L2
--- NOTE | 2020-01-17 11:59 | CON.PCM_ITS ---
Problem List (1) Chest pain Status: Acute (2) Abnormal cardiac enzyme level Status: Acute (3) Cardiomyopathy Status: Acute (4) Acute exacerbation of congestive heart failure Status: Chronic (5) Mitral valve replaced Status: Acute (6) Hyperlipidemia Status: Chronic Qualifiers: Hyperlipidemia type: unspecified Qualified Code(s): E78.5 - Hyperlipidemia, unspecified (7) Essential hypertension Status: Chronic (8) Pulmonary hypertension Status: Chronic (9) Epistaxis Status: Acute (10) SARS-associated coronavirus infection Status: Acute Reason for Consult Date of Consultation: 01/17/20 History of Present Illness: The patient is a 69 year old male with a past medical history of hyperlipidemia, hypertension, pulmonary hypertension, previously evaluated and cared for by Dr. Gonzales of [facility] who was referred for evaluation of chest pain, abnormal cardiac enzymes, findings compatible with a cardiomyopathy, concern of acute systolic CHF, a history of mitral valve replacement, superimposed upon his aforementioned medical history as well as being COVID-19 positive. The patient states that since his last visit, which was a virtual visit with Dr. Gonzales he is undergone additional evaluation and care which he believes may have occurred in [place], [place]. He states this resulted in open heart surgery which he believes is CABG. He does not recall being told about valvular related surgery. He has been recuperating since his recent surgery. He presented for shortness of breath post upon being reported as Covid positive. During his hospitalization he has been evaluated. From a cardiac standpoint he had indeterminate troponin I levels to which have waxed and waned. He had ECGs that demonstrated what appears to be sinus versus ectopic atrial rhythm with a right bundle branch block pattern nonspecific T wave abnormality. He had a chest x- ray which suggested post open heart surgery changes/sternotomy changes. He underwent evaluation with a transthoracic echocardiogram. The results are noted below. Of note there is no comment of any type of prosthetic valvular apparatus. He has continued medical therapy with adjustment based upon his vital signs and clinical course. With respect to his COVID-19 positivity he has been on medical management as well per infectious disease. This morning he apparently commented on some form of chest discomfort. He states that he had discomfort which went across his lower chest/upper abdominal area. He notes it was fleeting in duration. He states he has had no recurrent discomfort. There was no associated nausea, emesis, or diaphoresis. He notes his main concern continues to be his shortness of breath and dyspnea. He has also had bilateral lower extremity peripheral pitting edema. He notes that since his open heart surgery he has had a very weak voice. He speaks in a whisper. He is reported as having a long postoperative course which required for period of time a tracheostomy. He also has a wound on his right foot which is being cared for. He was reported as being on aspirin and anticoagulant therapy with warfarin/Coumadin. The exact reason for this is unknown although there are mentions as to whether or not he may have had atrial fibrillation. He is reported by the nursing staff as having had epistaxis requiring nasal packing. Thus his aspirin and warfarin therapy have been placed on hold. His previous cardiovascular records guarding his open heart surgery procedure are unavailable for review. Past Medical History Allergies/Adverse Reactions: Allergies povidone-iodine [From Betadine] Allergy (Intermediate, Verified 07/29/19 13:09) rash, itching soap [From Betadine] Allergy (Intermediate, Verified 07/29/19 13:09) rash, itching Home Medications: Ambulatory Orders Medication Instructions Recorded albuterol sulfate 90 mcg/actuation 2 puff INHALATION Q4H PRN g 07/23/18 aerosol inhaler aspirin 81 mg tablet,delayed 81 mg PO DAILY 07/23/18 release diltiazem HCl 180 mg 360 mg PO DAILY cap 07/23/18 capsule,extended release 24 hr fenofibrate 160 mg tablet 160 mg PO DAILY 07/23/18 fluticasone propionate 115 2 puff INHALATION BID 07/23/18 mcg-salmeterol 21 mcg/actuation HFA inhaler metformin 1,000 mg tablet 1,000 mg PO BID 07/23/18 hydrochlorothiazide 25 mg tablet 25 mg PO DAILY 11/25/18 losartan 100 mg tablet 100 mg PO DAILY 11/25/18 Apixaban [Eliquis] 5 mg PO DAILY 01/13/20 Ascorbic Acid [Vitamin C] 500 mg PO BID 01/13/20 Atorvastatin Calcium [Lipitor] 80 mg PO QHS 01/13/20 Azithromycin [Zithromax] 250 mg PO DAILY 01/13/20 Carvedilol [Coreg] 3.125 mg PO BID 01/13/20 Dexamethasone [Decadron] 6 mg PO DAILY 01/13/20 Melatonin 5 mg PO QHS 01/13/20 Potassium Chloride [K-Dur] 20 meq PO DAILY 01/13/20 Torsemide [Demadex] 20 mg PO DAILY 01/13/20 Warfarin [Coumadin (PBKC)] 1.5 mg PO DAILY 01/13/20 Past Medical History (Chronic Problems): Chronic Problems (Last Reviewed 07/29/19 @ 13:[address] Bee Gonzales MD) Acute and chronic respiratory failure with hypercapnia (Chronic) Acute exacerbation of congestive heart failure (Chronic) REBECA on CPAP (Chronic) Pulmonary hypertension (Chronic) Hyperlipidemia (Chronic) Essential hypertension (Chronic) Surgical History: - - Recent valve replacement Lives: Spouse/ Significant Other Smoking Status: Former smoker Alcohol: None Drugs: None Review of Systems - Review of Systems General: Denies: Fever, Night Sweats, Fatigue HEENT: Reports: - - Epistaxis Cardiovascular: Reports: Chest Discomfort, Shortness of Breath. Denies: Orthopnea, PND, Peripheral Edema, Palpitations, Lightheadedness, Dizziness, Near Syncope, Syncope Respiratory: Reports: Shortness of Breath. Denies: Cough, Sputum Production, Hemoptysis Gastrointestinal: Denies: Hematemesis, Hematochezia, Melena Genitourinary: Denies: Dysuria, Hematuria Skin: Denies: Rash Subjectve: This is an older than stated age appearing 69-year-old white male who speaks in a soft voice wearing O2 nasal cannula in his oral cavity at this time secondary to his nasal packing who appears to be resting comfortably at the moment in no acute distress. Objective: Vital Signs Temp Pulse Resp BP Pulse Ox 98.2 F 71 20 H 105/63 94 01/17/20 08:43 01/17/20 11:00 01/17/20 08:43 01/17/20 08:43 01/17/20 08:43 Oxygen Flow Rate (L/min) 6 Oxygen Delivery Method Nasal Cannula Weight: 180 lb 1.883 oz Body Mass Index (BMI) 21.5 Intake and Output for Last 24 Hours 01/15/20 01/16/20 01/17/20 23:59 23:59 23:59 Intake Total 500 / 500 535.5 / 535.5 365.5 / 365.5 Output Total 1900 / 1900 2660 / 2660 700 / 700 Balance -1400 / -1400 -2124.5 / -2124.5 -334.5 / -334.5 General: Awake, Alert, Oriented x 3, Cooperative, No Acute Distress HEENT: Atraumatic, Normocephalic, PERRL, EOMI, Sclera Non Icteric Neck: Supple, Good ROM, No JVD Lungs: Rhonchi, Expiratory Wheezes-Sushil Cardiovascular: Regular Rhythm, Normal S1, Normal S2 Abdomen: Bowel Sounds Present, Soft Extremities: Moderate RLE Edema, Moderate LLE Edema Psych/Mental Status: Appropriate 01/16/20 10:00: PT Cancelled, INR Cancelled 01/16/20 12:01: PT 34.3 H, INR 3.4 01/17/20 09:23: PT 25.0 H, INR 2.3 01/17/20 09:23: Sodium 144, Potassium 3.4 L, Chloride 96 L, Carbon Dioxide 44.0 H, Anion Gap 4 L, BUN 38 H, Creatinine 1.45 H, Est GFR (MDRD) Af Amer 62, Est GFR (MDRD) Non-Af 51 L, BUN/Creatinine Ratio 26.2 H, Glucose 191 H, Calcium 8.3 L, Total Bilirubin 1.00 01/17/20 09:23: WBC 4.9, RBC 3.17 L, Hgb 9.5 L, Hct 33.6 L, MCV 106.0 H, MCH 30.0, MCHC 28.3 L, Plt Count 190, MPV 9.3, Immature Gran % (Auto) 0.200, Neut % (Auto) 85.8 H, Lymph % (Auto) 7.7 L, Irion % (Auto) 6.3, Eos % (Auto) 0.0, Baso % (Auto) 0.0, Absolute Neuts (auto) 4.2, Nucleated RBC % 0 01/17/20 09:23: Magnesium 2.0 Rhythm: Sinus versus ectopic atrial rhythm EK01-15-2020: Sinus versus ectopic atrial rhythm, left axis deviation, right bundle branch block pattern, nonspecific T wave abnormality ECHO: 01-14-2020 Interpretation Summary The estimated ejection fraction is 35 %. There is evidence of diastolic dysfunction. The left atrium is moderately enlarged. The right atrium is mildly enlarged. Trivial mitral valve insufficiency. Mild tricuspid valve insufficiency. Pulmonary artery systolic pressure is 60 mmHg. Likely bioprosthetic aortic valve Stress Test: Cardiac Cath: 09-29-2018 CONCLUSIONS Right heart pressures - moderately to severely elevated RECOMMENDATIONS DESCRIPTION OF PROCEDURE The patient arrived to the procedure lab. The risks and benefits of the procedure as well as a full description of our services here and current unavailability of surgical backup were fully explained to the patient and/or their significant other prior to the catheterization. The Timeout was completed, verifying the correct patient and procedure. The patient's procedural site was prepped and draped in the usual fashion. . Using a modified Seldinger technique, Venous access was obtained via the right brachial vein, micro puncture sheath removed, a 7Fr sheath was inserted into the previous IV access. A 7Fr thermal dilution catheter was inserted and right heart pressures were recorded, it was then advanced to PA position for cardiac outputs. Thermal dilution cardiac outputs were then recorded. O2 saturations were then obtained. The Thermal dilution catheter was then removed.The venous sheath was then pulled and manual compression applied until hemostasis achieved CORONARY ANGIOGRAPHY RIGHT HEART ASSESSMENT Thermal CO: 4.74 Thermal CI: 2.32 Jero CO: 4.32 Jero CI: 2.12 PW: / 22 PA: 53/21 36 RV: 48/7 14 RA: 19/14 11 PVR: 236 CXR: FINDINGS: EKG electrodes are seen. Small bilateral pleural effusions with increased markings at the lung bases suggestive of bibasilar atelectasis. Mild degree of vascular congestion. Sternal cerclage wires and vascular clips are present from a prior sternotomy and coronary artery bypass graft procedure (CABG). Borderline cardiomegaly. Normal mediastinum and shakir. Normal visualized pulmonary arteries. There is atherosclerotic tortuosity of the aortic arch and descending thoracic aorta. Normal visualized thoracic spine. Normal visualized ribs, clavicles, and shoulders. There is no demonstrated abnormality of the visualized soft tissue structures of the upper abdomen. RAD/Chest 1 View (Portable) IMPRESSION: Findings suggestive of a mild degree of CHF with small bilateral pleural effusions and bibasilar atelectasis. Electronically Signed: José Antonio Lopez, at 10:46 EST Assessment/Plan 1. Chest pain The patient described a somewhat atypical chest discomfort. The exact etiology is unclear. It is unclear whether this truly represents an underlying CAD history versus being related to postoperative musculoskeletal discomfort versus being related to his underlying ongoing pulmonary disease process versus etiologies. He has been followed with cardiac enzymes which have demonstrated troponin I levels which remain indeterminant. It is unclear they are related to any ongoing cardiovascular event as they could be related to his underlying noncardiac issues as well. He has been followed on underground roof bolter which appears to suggest underlying sinus versus ectopic atrial rhythm. At the moment he can continue to be followed. It would not be unreasonable to repeat an ECG. He has already undergone evaluation with a transthoracic echocardiogram. He will continue medical therapy for the possibility of underlying CAD. This could include agents when he is able to resume such as aspirin, nitrates as needed, beta-blockers, and his lipid-lowering agents. 2. Abnormal cardiac enzymes Again the etiology of his cardiac enzymes are somewhat unclear. It is not clear that he has had an acute coronary syndrome event. His enzymes may be secondary to underlying noncardiovascular issues such as his underlying pulmonary disease process superimposed upon an underlying cardiovascular condition. This could include concerns of CAD or his cardiomyopathy. At the moment his enzymes remain indeterminant without significant change. Again it would not be unreasonable to repeat an ECG. He has already had an echocardiogram performed. He will continue medical management. 3. Cardiomyopathy He does have what appears to be diminished LV systolic function based upon his recent echocardiogram. This does appear to be different compared to a previous transthoracic echocardiogram. However it is unclear as to his cardiovascular history since his last outpatient visit with respect to what occurred with his cardiac status and his overall LV systolic function. Thus at the moment attempt will be made to obtain outside cardiovascular records for continuity of care. In the meantime he will continue medical therapy. This would include agents such as his beta-blockers, diuretics, and when he is able afterload reducing agents. 4. CHF: Acute systolic He does have findings which can be compatible with acute systolic mediated CHF based upon his diminished LV systolic function. This is based upon his history, his exam, and his radiologic findings suggesting findings compatible with CHF and pleural effusions superimposed upon his COVID-19 bit of status. The moment he is continuing medical therapy. This is included diuretic therapy. 5. Status post mitral valve replacement The patient is unaware of any valvular heart related disease/procedure. He believes he had open heart surgery for CABG. His examination, as best as can be auscultated at this time, does not appear to suggest a mechanical prosthetic valve click. His recent echocardiogram performed during this hospitalization does not report any prosthetic valvular apparatus present. Thus it would be important to obtain his open heart surgery report as to what exact surgery was performed whether was coronary bypass grafting surgery and/or valvular related surgery. 6. Hyperlipidemia He should continue medical therapy as tolerated. 7. Hypertension Blood pressures have waxed and waned. He will need to continue medical management. 8. Pulmonary hypertension Has a history of pulmonary hypertension for which she has been evaluated by Dr. Gonzales in the past. In the past at [facility] she had a right heart catheterization performed. Those results are available for review. We will need to continue medical management and support. 9. Epistaxis He was reported as having epistaxis. He required nasal packing. His antiplatelet anticoagulants have been placed on hold. Hopefully he can resume them as deemed appropriate as his condition stabilizes. 10. COVID-19 positive He is COVID-19 positive. He is being evaluated by infectious disease. He is receiving medical therapy. As he is COVID-19 positive, barring some unforeseen acute cardiovascular event resulting in compromise to the patient, he would continue conservative cardiovascular medical therapy with patient or outpatient cardiovascular renetta luation as deemed appropriate. Comment: The patient's case has been discussed and reviewed with the patient. This note was generated using a voice recognition system and there may be incorrect words, spelling or punctuation that were not noted when reviewing the office note prior to saving.
--- NOTE | 2020-01-17 12:44 | EKG12_ITS ---
Test Reason : CP Blood Pressure : / mmHG Vent. Rate : 074 BPM Atrial Rate : 085 BPM P-R Int : 000 ms QRS Dur : 158 ms QT Int : 484 ms P-R-T Axes : 000 -63 128 degrees QTc Int : 537 ms Undetermined rhythm :Consider Sinus vs Ectopic Atrial Rhythm Right bundle branch block Left anterior fascicular block Bifascicular block Nonspecific T wave abnormality Abnormal ECG Confirmed by JASON SHAIKH, MIGUELINA ([id number]), news editor GONZALES HARDEN ([id number]) on 01/20/2020 1:26:33 PM Referred By: JASON Confirmed By:MIGUELINA GOMEZ MD
[2020-01-17] MEDS: Atorvastatin Calcium 80 MG Tablet PO (21:25)
[2020-01-17] MEDS: MELATONIN 10 MG TABLET 5 MG PO (21:26)
[2020-01-18] VITALS (11 sets, daily range): BP systolic 119–135; BP diastolic 68–92; PULSE 74–109; RESP 18–22; TEMP 36.4–37.1; O2SAT 80–100
--- NOTE | 2020-01-18 05:55 | RAD_ITS ---
STUDY: X-RAY CHEST REASON FOR EXAM: Male, 69 years old. CHF -- PLEURAL EFFUSION -- COVID+ TECHNIQUE: Single AP portable view of the chest. COMPARISON: Comparison is made with prior study dated 01/13/2020. FINDINGS: EKG electrodes are seen. Surgical clips are seen in the right axillary region. Since prior study, there has been progressive increase of the bilateral pleural effusions with bibasilar atelectasis and/or infiltrates at the lung bases slightly worse on the right side. Sternal cerclage wires and vascular clips are present from a prior sternotomy and coronary artery bypass graft procedure (CABG). Normal mediastinum and shakir. Normal visualized pulmonary arteries. There is atherosclerotic calcification of the aortic arch with tortuosity. There are diffuse degenerative changes of the visualized thoracic spine. There is degenerative osteoarthritis of the bilateral shoulders. There is no demonstrated abnormality of the visualized soft tissue structures of the upper abdomen. RAD/Chest 1 View (Portable) IMPRESSION: Progressive increase in the bilateral pleural effusions worse on the right side with the bibasilar atelectasis and/or infiltrates. Electronically Signed: José Antonio Lopez, at 10:14 EST , Service support ,
[2020-01-18 06:02] LABS: Hematocrit 35.2 % (40-54); Hemoglobin 10.2 g/dL (13.0-16.5); Lymphocyte % 5.3 % (19-41); Mean Corpuscular Hgb 30.3 pg (27.0-32.0); Mean Corpuscular Volume 104.5 fL (80-94); Mean Platelet Vol. 9.8 fl (6.2-12.0); Monocyte# 0.36 X10^3/uL; Monocyte% 6.4 % (0-10); NRBC Flagged by Analyzer 0 % (0-5); Neutrophil # 4.95 X10^3/uL (2.7-7.7); Neutrophil % 87.9 % (47-70); POSITIVE DIFFERENTIAL YES; Platelet Count 187 K/mm3 (150-450); RBC Distribution Width CV 15.1 % (11.6-14.6); RBC Distribution Width SD 58.4 fl (35.1-43.9); Red Blood Count 3.37 M/mm3 (4.6-6.2); White Blood Count 5.6 K/mm3 (4.4-11.0)
--- NOTE | 2020-01-18 06:02 | PCA ---
PATIENT REFUSED TO GET HIS WEIGHT TODAY. PATIENT WAS IN THE RECLINER AND WAS COMFORTABLE SO HE DIDNT WANT TO GET BACK INTO BED FOR THE WEIGHT.
[2020-01-18 06:04] LABS: Differential Indicated SCAN CRITERIA MET
[2020-01-18 06:33] LABS: ALB/GLOB Ratio 0.5 RATIO (0.9-2.4); AST(SGOT) 29 U/L (15-37); Alanine Aminotransfer ALT/SGPT 19 U/L (16-61); Albumin, Serum 2.5 g/dL (3.2-5.0); Alkaline Phosphatase 59 U/L (45-117); Anion Gap 4 (5-15); BUN 36 mg/dL (7-18); BUN/Creat Ratio 27.3 RATIO (10-20); Calcium,Total 8.4 mg/dL (8.5-10.1); Chloride 96 mmol/L (98-107); Creatinine, Serum 1.32 mg/dL (0.70-1.30); EST Glomerular Filtration Rate 57 mL/min (>60); Est Glom Filt Rate - Afr Amer 69 mL/min (>60); Estimated Creatinine Clearance 49.66 ml/min; Globulin 4.6 g/dL (2.2-4.2); Glucose 118 mg/dL (74-106); Potassium 3.2 mmol/L (3.5-5.1); Protein, Total 7.1 g/dL (6.4-8.2); Sodium Level 143 mmol/L (136-145)
[2020-01-18] MEDS: guaiFENesin 600 MG Tablet PO ×2 (08:52→20:13)
[2020-01-18] MEDS: Fenofibrate 145 MG Tablet PO (08:52)
[2020-01-18] MEDS: dexAMETHasone 2 MG TABLET 6 MG PO (08:52)
[2020-01-18] MEDS: Carvedilol 3.125 MG TABLET PO ×2 (08:52→20:11)
[2020-01-18] MEDS: Ascorbic Acid 500 MG Tablet PO ×2 (08:53→20:13)
[2020-01-18] MEDS: dilTIAZem CD 180 MG Capsule 360 MG PO (08:53)
[2020-01-18] MEDS: Furosemide 40 MG/4 ML Vial IV ×2 (08:53→17:12)
[2020-01-18] MEDS: 0.9% Saline Lock 10 ML Syringe IV (08:54)
--- NOTE | 2020-01-18 09:20 | CASEMGMT ---
Addendum entered by Maricruz Walker 01/18/20 12:43: SW spoke w/Fer from [place], pt is accepted, SW will speak w/Fer tomorrow regarding bed availability. YASMINE Weston Original Note: SW spoke w/Fer from [place], he requested updates, will let SW know about bed availability. SW faxed updates, waiting for return call. YASMINE Weston
--- NOTE | 2020-01-18 13:15 | CHAPLAIN ---
Type of Pastoral Visit ___ Initial Visit ___ Follow-up Visit ___ On-call Visit ___ General Patient Visit ___ Spiritual Assessment ___ Family Conference ___ Bereavement ___ Rapid Response ___ Code Blue _x__ Other (describe below) Pastoral Care Referral From _x__ Patient ___ Family ___ Nurse ___ Physician ___ Flower Picker ___ Mail Machine Operator ___ Other (describe below) Sacrament/Intervention ___ Active listening ___ Anointing ___ Baptist ___ Bereavement ___ Communion ___ Kyra exploration ___ ___ Life review _x__ Prayer ___ Reconciliation ___ Sacrament of Sick _x__ Supportive presence ___ Wedding ___ Other (describe below) Pastoral Comments due to patient being in isolation room a phone call was made by this trial examiner; pt answered phone on second attempt of the day; pt voice is very weak but he answers the few questions asked and welcomed prayer; this trial examiner kept call brief and assured pt that future support and prayer is available as desired; pt accepts
--- NOTE | 2020-01-18 13:15 | CASEMGMT ---
Addendum entered by Maricruz Walker 01/18/20 14:13: Daughter called SW back, SW reiterated that [facility] has medically accepted pt and we will see if they have a bed available when pt is ready for discharge. Daughter states understanding. YASMINE Weston Original Note: SW did call pt's daughter and left a message explaining [facility] medically has accepted pt and we will see if bed is available when pt is ready for discharge. YASMINE Weston
--- NOTE | 2020-01-18 13:58 | PCM.PN.PUL ---
Patient Problems: Active and Suspected Problems (Last Reviewed 07/29/19 @ 13:[address] 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 valve replaced (Acute) emt 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 (Acute) SARS-associated coronavirus infection (Acute) Elevated serum creatinine (Acute) Anemia, unspecified (Acute) Infection due to 2019 novel coronavirus (Acute) Atrial fibrillation with RVR (Acute) Elevated troponin I level (Acute) Chest pain (Acute) Abnormal cardiac enzyme level (Acute) Cardiomyopathy (Acute) Epistaxis (Acute) Subjective: Patient did okay overnight. No acute issues were reported. Patient continues to have a Rhino Rocket in place and states he is tolerating this well. Patient is requiring 3 L nasal cannula to maintain saturations. Patient reports this is his baseline oxygen requirements. - Physical Exam Vitals/I&O's: Vital Signs Temp Pulse Resp BP Pulse Ox 37.1 C 107 H 20 H 135/78 H 97 01/18/20 08:41 01/18/20 08:41 01/18/20 08:41 01/18/20 08:41 01/18/20 08:41 Oxygen Flow Rate (L/min) 3 Oxygen Delivery Method Nasal Cannula Weight: 81.7 kg Body Mass Index (BMI) 21.5 Intake and Output for Last 24 Hours 01/16/20 01/17/20 01/18/20 23:59 23:59 23:59 Intake Total 535.5 / 535.5 719.25 / 719.25 308.00 / 308.00 Output Total 2660 / 2660 1685 / 1685 2325 / 2325 Balance -4.5 / -2124.5 -965.75 / -965.75 -2017.00 / -2017.00 General: Alert, Oriented x3, Cooperative, No apparent distress, - - Poor vocalization at baseline HEENT: Atraumatic, PERRLA, EOMI, Normocephalic, - - Rhino Rocket is clean, dry and intact Oral: Moist Mucosa, No Gingival or Mucosal Lesions/ Ulcerations Neck: Supple, No Nodes, Trachea Midline, JVD, Right Lungs: No rhonchi, No wheeze, Diminished, - - Dullness to percussion at the right base Cardiovascular: Regular rate, Regular Rhythm, Normal S1, Normal S2, No murmurs, No rub noted, No Gallop Abdomen: Bowel Sounds Present, Soft, Non Tender, Non-Distended Extremities: No clubbing, No cyanosis, Edema Skin: - - Venous stasis changes lower extremities Musculoskeletal: No Tenderness to Palpation of Joints or Extremities Lymphatic: No Cervical, Supraclavicular, or Inguinal Adenopathy Neurological: Cranial nerves II-XII grossly intact, Neuro grossly intact, Motor Exam 5/5 strength throughout Psych/Mental Status: Normal Affect, Appropriate Microbiology Past 72 Hours 01/13/20 10:10 Blood Culture (Wb) - Right Forearm Bacteria Detection (PCR) - Final Staphylococcus epidermidis 01/13/20 10:10 Blood Culture (Wb) - Right Forearm Blood Culture - Final Staphylococcus epidermidis 01/13/20 09:40 Blood Culture (Wb) - Anticubital Left Blood Culture - Final No growth in 5 days. 01/14/20 04:15 Sputum, Expectorated/Coughed Gram Stain - Final 01/14/20 04:15 Sputum, Expectorated/Coughed Respiratory Culture - Final Pseudomonas aeroginosa 01/13/20 14:55 Urine, Clean Catch Urine Culture - Final Culture exhibits no growth. Laboratory Results 01/18/20 05:30: WBC 5.6, RBC 3.37 L, Hgb 10.2 L, Hct 35.2 L, MCV 104.5 H, MCH 30.3, MCHC 29.0 L, RDW Std Deviation 58.4 H, RDW Coeff of Perfecto 15.1 H, Plt Count 187, MPV 9.8, Immature Gran % (Auto) 0.400, Neut % (Auto) 87.9 H, Lymph % (Auto) 5.3 L, [place] % (Auto) 6.4, Eos % (Auto) 0.0, Baso % (Auto) 0.0, Absolute Neuts (auto) 5.0, Absolute Lymphs (auto) 0.30 L, Nucleated RBC % 0 01/18/20 05:30: Sodium 143, Potassium 3.2 L, Chloride 96 L, Carbon Dioxide 43.0 H, Anion Gap 4 L, BUN 36 H, Creatinine 1.32 H, Estim Creat Clear Calc 49.66, Est GFR (MDRD) Af Amer 69, Est GFR (MDRD) Non-Af 57 L, BUN/Creatinine Ratio 27.3 H, Glucose 118 H, Calcium 8.4 L, Total Bilirubin 0.90, AST 29, ALT 19, Alkaline Phosphatase 59, Total Protein 7.1, Albumin 2.5 L, Globulin 4.6 H, Albumin/Globulin Ratio 0.5 L Current Medications Albuterol Sulfate (Albuterol Sulfate 8 Gm Inhaler (60 Puffs)) 1 puff INHALATION Q6HWA.RT [facility] Last Admin: 01/14/20 16:00 Dose: 1 puff Documented by: Albuterol Sulfate (Albuterol Sulfate 8 Gm Inhaler (60 Puffs)) 2 puff INHALATION Q4H PRN PRN Reason: SOB &/OR WHEEZING Last Admin: 01/15/20 22:44 Dose: 2 puff Documented by: Ascorbic Acid (Ascorbic Acid 500 Mg Tablet) 500 mg PO BID [facility] Last Admin: 01/18/20 08:53 Dose: 500 mg Documented by: Atorvastatin Calcium (Atorvastatin Calcium 80 Mg Tablet) 80 mg PO QHS [facility] Last Admin: 01/17/20 21:25 Dose: 80 mg Documented by: Carvedilol (Carvedilol 3.125 Mg Tablet) 3.125 mg PO BID [facility] Last Admin: 01/18/20 08:52 Dose: 3.125 mg Documented by: Dexamethasone (Dexamethasone 2 Mg Tablet) 6 mg PO DAILY [facility] Stop: 01/22/20 10:01 Last Admin: 01/18/20 08:52 Dose: 6 mg Documented by: Diltiazem HCl (Diltiazem Cd 180 Mg Capsule) 360 mg PO DAILY [facility] Last Admin: 01/18/20 08:53 Dose: 360 mg Documented by: Fenofibrate (Fenofibrate 145 Mg Tablet) 145 mg PO DAILY [facility] Last Admin: 01/18/20 08:52 Dose: 145 mg Documented by: Furosemide (Furosemide 40 Mg/4 Ml Vial) 40 mg IV BID@1000,1700 [facility] Last Admin: 01/18/20 08:53 Dose: 40 mg Documented by: Guaifenesin (Guaifenesin 600 Mg Tablet) 600 mg PO BID [facility] Last Admin: 01/18/20 08:52 Dose: 600 mg Documented by: Piperacillin Sod/Tazobactam (Sod 3.375 gm/ Sodium Chloride) 50 mls @ 12.5 mls/hr IV Q8 [facility] Last Infusion: 01/18/20 09:20 Dose: Infused Documented by: Sodium Chloride () 250 mls @ 15 mls/hr IV .[id number] PRN PRN Reason: Saline Flush Last Infusion: 01/18/20 05:23 Dose: 0 mls/hr Documented by: Melatonin (Melatonin 10 Mg Tablet) 5 mg PO QHS [facility] Last Admin: 01/17/20 21:26 Dose: 5 mg Documented by: Nitroglycerin (Nitroglycerin (Inpatient Use) 0.4 Mg Tab.Subl) 0.4 mg SUBLINGUAL Q5M PRN PRN Reason: CARDIAC/CHEST PAIN Ondansetron HCl (Ondansetron 4 Mg/2 Ml Vial) 4 mg IV Q8H PRN PRN PRN Reason: NAUSEA/VOMITING Potassium Chloride (Potassium Chloride 20 Meq Tablet) 20 meq PO DAILY [facility] Last Admin: 01/18/20 08:53 Dose: 20 meq Documented by: Sodium Chloride (0.9% Saline Lock 10 Ml Syringe) 10 - 40 ml IV UD PRN PRN Reason: SALINE FLUSH Last Admin: 01/18/20 08:54 Dose: 10 ml Documented by: Clinical Impression(s) from Imaging Studies Chest X-Ray 01/18/20 05:55 IMPRESSION: Progressive increase in the bilateral pleural effusions worse on the right side with the bibasilar atelectasis and/or infiltrates. Electronically Signed: José Antonio Lopez, at 10:14 EST , Service support , Medical Necessity - Tobacco Use Smoking Status: Former smoker Assessment/Plan All Active Problems (Last Reviewed 07/29/19 @ 13:[address] 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 valve replaced (Acute) shelter current use of anticoagulant (Acute) SARS-associated coronavirus infection (Acute) Elevated serum creatinine (Acute) Anemia, unspecified (Acute) Infection due to 2019 novel coronavirus (Acute) Atrial fibrillation with RVR (Acute) Elevated troponin I level (Acute) Chest pain (Acute) Abnormal cardiac enzyme level (Acute) Cardiomyopathy (Acute) Epistaxis (Acute) RECOMMENDATIONS: 1. Continue to wean supplemental oxygen as tolerated. 2. Completed remdesivir. Continue Decadron as ordered. Monitor liver and renal function accordingly. 3. Continue diuretic therapy as tolerated by hemodynamics and renal function. 4. Continue Coumadin and check daily INR. 5. Encourage incentive spirometer use and mobilize patient as tolerated. 6. Continue antimicrobials. 7. No thoracentesis likely indicated during the acute hospitalization IMPRESSIONS: 1. Acute on chronic hypoxemic respiratory failure Likely multifactorial in etiology with COPD exacerbation precipitated by COVID-19 pneumonia along with a component of decompensated heart failure likely contributing. The patient responded clinically to IV diuretic therapy and noninvasive positive pressure ventilatory support. He will be continued on Decadron and remdesivir as ordered. Continue to monitor liver and renal function accordingly. The patient is normally anticoagulated on Coumadin at baseline. Continue to monitor coagulation status daily. Encourage incentive spirometer use and mobilize patient as tolerated. Patient at his baseline oxygen requirements. Likely not necessary to proceed with thoracentesis as transudate etiology is highly likely. This could be addressed as an outpatient if fails to resolve with appropriate diuretic therapy and cardiac optimization 2. Self-reported COPD of unknown severity The patient is a poor historian but does report a history of COPD for which she is apparently followed by an outside carbon paste mixer operator. Plan to continue current supportive measures with as needed bronchodilator therapy and supplemental oxygen. Patient can likely follow-up with outside carbon paste mixer operator following discharge 3. Heart failure with preserved ejection fraction/pulmonary hypertension Prior echocardiogram from 2019 did reveal heart failure with preserved ejection fraction and pulmonary hypertension. The patient has responded appropriately to diuretic therapy and BiPAP. Plan to continue Lasix as tolerated by hemodynamics and renal function. Would not recommend thoracentesis at this time. 4. Paroxysmal atrial fibrillation/diabetes mellitus/hypertension/hyperlipidemia Complicates care, management, recovery and prognosis. Continue supportive measures as noted above. Inpatient E&M: 07846 Subs Hosp L2
[2020-01-18 14:10] LABS: Pathologist Review Reviewed
--- NOTE | 2020-01-18 15:36 | NURSING ---
EMILI Montez had just changed the dressing to the right foot. this nurse will assess in am.
--- NOTE | 2020-01-18 16:40 | PCM.PN.ID ---
Patient Problems: Active and Suspected Problems (Last Reviewed 07/29/19 @ 13:[address] 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 - Physical Exam Vitals/I&O's: Vital Signs Temp Pulse Resp BP Pulse Ox 97.6 F L 77 20 H 119/68 96 01/18/20 14:07 01/18/20 15:24 01/18/20 14:07 01/18/20 14:07 01/18/20 14:07 Oxygen Flow Rate (L/min) 3 Oxygen Delivery Method Nasal Cannula Weight: 81.7 kg Body Mass Index (BMI) 21.5 Intake and Output for Last 24 Hours 01/16/20 01/17/20 01/18/20 23:59 23:59 23:59 Intake Total 535.5 / 535.5 719.25 / 719.25 558.00 / 558.00 Output Total 2660 / 2660 1685 / 1685 2325 / 2325 Balance -2124.5 / -2124.5 -965.75 / -965.75 -1767.00 / -1767.00 General: Alert, Cooperative, No apparent distress Lungs: Clear to auscultation, Diminished Cardiovascular: Regular rate, Regular Rhythm Abdomen: Soft, Non Tender, Non-Distended Skin: No rashes Microbiology Past 72 Hours 01/13/20 10:10 Blood Culture (Wb) - Right Forearm Bacteria Detection (PCR) - Final Staphylococcus epidermidis 01/13/20 10:10 Blood Culture (Wb) - Right Forearm Blood Culture - Final Staphylococcus epidermidis 01/13/20 09:40 Blood Culture (Wb) - Anticubital Left Blood Culture - Final No growth in 5 days. 01/14/20 04:15 Sputum, Expectorated/Coughed Gram Stain - Final 01/14/20 04:15 Sputum, Expectorated/Coughed Respiratory Culture - Final Pseudomonas aeroginosa 01/13/20 14:55 Urine, Clean Catch Urine Culture - Final Culture exhibits no growth. Laboratory Results 01/16/20 06:25: Diff Path Review Reviewed 01/18/20 05:30: WBC 5.6, RBC 3.37 L, Hgb 10.2 L, Hct 35.2 L, MCV 104.5 H, MCH 30.3, MCHC 29.0 L, RDW Std Deviation 58.4 H, RDW Coeff of Perfecto 15.1 H, Plt Count 187, MPV 9.8, Immature Gran % (Auto) 0.400, Neut % (Auto) 87.9 H, Lymph % (Auto) 5.3 L, [place] % (Auto) 6.4, Eos % (Auto) 0.0, Baso % (Auto) 0.0, Absolute Neuts (auto) 5.0, Absolute Lymphs (auto) 0.30 L, Nucleated RBC % 0 01/18/20 05:30: Sodium 143, Potassium 3.2 L, Chloride 96 L, Carbon Dioxide 43.0 H, Anion Gap 4 L, BUN 36 H, Creatinine 1.32 H, Estim Creat Clear Calc 49.66, Est GFR (MDRD) Af Amer 69, Est GFR (MDRD) Non-Af 57 L, BUN/Creatinine Ratio 27.3 H, Glucose 118 H, Calcium 8.4 L, Total Bilirubin 0.90, AST 29, ALT 19, Alkaline Phosphatase 59, Total Protein 7.1, Albumin 2.5 L, Globulin 4.6 H, Albumin/Globulin Ratio 0.5 L Current Medications Albuterol Sulfate (Albuterol Sulfate 8 Gm Inhaler (60 Puffs)) 1 puff INHALATION Q6HWA.RT [facility] Last Admin: 01/14/20 16:00 Dose: 1 puff Documented by: Albuterol Sulfate (Albuterol Sulfate 8 Gm Inhaler (60 Puffs)) 2 puff INHALATION Q4H PRN PRN Reason: SOB &/OR WHEEZING Last Admin: 01/15/20 22:44 Dose: 2 puff Documented by: Ascorbic Acid (Ascorbic Acid 500 Mg Tablet) 500 mg PO BID [facility] Last Admin: 01/18/20 08:53 Dose: 500 mg Documented by: Atorvastatin Calcium (Atorvastatin Calcium 80 Mg Tablet) 80 mg PO QHS [facility] Last Admin: 01/17/20 21:25 Dose: 80 mg Documented by: Carvedilol (Carvedilol 3.125 Mg Tablet) 3.125 mg PO BID [facility] Last Admin: 01/18/20 08:52 Dose: 3.125 mg Documented by: Dexamethasone (Dexamethasone 2 Mg Tablet) 6 mg PO DAILY [facility] Stop: 01/22/20 10:01 Last Admin: 01/18/20 08:52 Dose: 6 mg Documented by: Diltiazem HCl (Diltiazem Cd 180 Mg Capsule) 360 mg PO DAILY [facility] Last Admin: 01/18/20 08:53 Dose: 360 mg Documented by: Fenofibrate (Fenofibrate 145 Mg Tablet) 145 mg PO DAILY [facility] Last Admin: 01/18/20 08:52 Dose: 145 mg Documented by: Furosemide (Furosemide 40 Mg/4 Ml Vial) 40 mg IV BID@1000,1700 [facility] Last Admin: 01/18/20 08:53 Dose: 40 mg Documented by: Guaifenesin (Guaifenesin 600 Mg Tablet) 600 mg PO BID [facility] Last Admin: 01/18/20 08:52 Dose: 600 mg Documented by: Piperacillin Sod/Tazobactam (Sod 3.375 gm/ Sodium Chloride) 50 mls @ 12.5 mls/hr IV Q8 [facility] Last Admin: 01/18/20 13:58 Dose: 12.5 mls/hr Documented by: Sodium Chloride () 250 mls @ 15 mls/hr IV .[id number] PRN PRN Reason: Saline Flush Last Infusion: 01/18/20 05:23 Dose: 0 mls/hr Documented by: Melatonin (Melatonin 10 Mg Tablet) 5 mg PO QHS [facility] Last Admin: 01/17/20 21:26 Dose: 5 mg Documented by: Nitroglycerin (Nitroglycerin (Inpatient Use) 0.4 Mg Tab.Subl) 0.4 mg SUBLINGUAL Q5M PRN PRN Reason: CARDIAC/CHEST PAIN Ondansetron HCl (Ondansetron 4 Mg/2 Ml Vial) 4 mg IV Q8H PRN PRN PRN Reason: NAUSEA/VOMITING Potassium Chloride (Potassium Chloride 20 Meq Tablet) 20 meq PO DAILY [facility] Last Admin: 01/18/20 08:53 Dose: 20 meq Documented by: Sodium Chloride (0.9% Saline Lock 10 Ml Syringe) 10 - 40 ml IV UD PRN PRN Reason: SALINE FLUSH Last Admin: 01/18/20 08:54 Dose: 10 ml Documented by: Medical Necessity - Tobacco Use Smoking Status: Former smoker Route of nutrition/ use of supplements: [] Nutritional Intake: [] IV Site: [] Aguilera Catheter: [] - Assessment/Plan Antibiotics: [] Assessment/Plan: [] Active and Suspected Problems (Last Reviewed 07/29/19 @ 13:[address] 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 Sx started around 01/10. D-dimer elevated, therapeutic INR on coumadin. Will cont dex, completed remdesivir. Feeling better. Sputum purulence, showing Pseudomonas, cont zosyn. Single (+) bcx with CoNS, contaminant. Ok for discharge to complete 10 days total of dex. Plan on 6-7 days of zosyn; not a candidate for po cipro due to QTC over 600. Will follow
--- NOTE | 2020-01-18 17:39 | PN_ITS ---
Patient Problems: Active and Suspected Problems (Last Reviewed 07/29/19 @ 13:[address] 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 Vitals/I&O's: Vital Signs Temp Pulse Resp BP Pulse Ox 36.4 C L 77 20 H 119/68 96 01/18/20 14:07 01/18/20 15:24 01/18/20 14:07 01/18/20 14:07 01/18/20 14:07 Oxygen Flow Rate (L/min) 3 Oxygen Delivery Method Nasal Cannula Weight: 81.7 kg Body Mass Index (BMI) 21.5 Intake and Output for Last 24 Hours 01/16/20 01/17/20 01/18/20 23:59 23:59 23:59 Intake Total 535.5 / 535.5 719.25 / 719.25 558.00 / 558.00 Output Total 2660 / 2660 1685 / 1685 2875 / 2875 Balance -2124.5 / -2124.5 -965.75 / -965.75 -2317.00 / -2317.00 General: Alert, No apparent distress HEENT: Atraumatic, Normocephalic Oral: Moist Mucosa, No Gingival or Mucosal Lesions/ Ulcerations Neck: No Nodes, Thyroid Normal Size and Texture Lungs: Clear to auscultation, Normal air movement, No rhonchi, No wheeze, No rales Cardiovascular: Regular rate, Regular Rhythm, Normal S1, Normal S2, No murmurs Abdomen: Bowel Sounds Present, Soft, Non Tender, Non-Distended, No Hepato- splenomegaly Extremities: No edema, No Calf Tenderness Psych/Mental Status: Normal Affect, Appropriate Microbiology Past 72 Hours 01/13/20 10:10 Blood Culture (Wb) - Right Forearm Bacteria Detection (PCR) - Final Staphylococcus epidermidis 01/13/20 10:10 Blood Culture (Wb) - Right Forearm Blood Culture - Final Staphylococcus epidermidis 01/13/20 09:40 Blood Culture (Wb) - Anticubital Left Blood Culture - Final No growth in 5 days. 01/14/20 04:15 Sputum, Expectorated/Coughed Gram Stain - Final 01/14/20 04:15 Sputum, Expectorated/Coughed Respiratory Culture - Final Pseudomonas aeroginosa 01/13/20 14:55 Urine, Clean Catch Urine Culture - Final Culture exhibits no growth. Laboratory Results 01/16/20 06:25: Diff Path Review Reviewed 01/18/20 05:30: WBC 5.6, RBC 3.37 L, Hgb 10.2 L, Hct 35.2 L, MCV 104.5 H, MCH 30.3, MCHC 29.0 L, RDW Std Deviation 58.4 H, RDW Coeff of Perfecto 15.1 H, Plt Count 187, MPV 9.8, Immature Gran % (Auto) 0.400, Neut % (Auto) 87.9 H, Lymph % (Auto) 5.3 L, [place] % (Auto) 6.4, Eos % (Auto) 0.0, Baso % (Auto) 0.0, Absolute Neuts (auto) 5.0, Absolute Lymphs (auto) 0.30 L, Nucleated RBC % 0 01/18/20 05:30: Sodium 143, Potassium 3.2 L, Chloride 96 L, Carbon Dioxide 43.0 H, Anion Gap 4 L, BUN 36 H, Creatinine 1.32 H, Estim Creat Clear Calc 49.66, Est GFR (MDRD) Af Amer 69, Est GFR (MDRD) Non-Af 57 L, BUN/Creatinine Ratio 27.3 H, Glucose 118 H, Calcium 8.4 L, Total Bilirubin 0.90, AST 29, ALT 19, Alkaline Phosphatase 59, Total Protein 7.1, Albumin 2.5 L, Globulin 4.6 H, Albumin/Globulin Ratio 0.5 L Current Medications Albuterol Sulfate (Albuterol Sulfate 8 Gm Inhaler (60 Puffs)) 1 puff INHALATION Q6HWA.RT [facility] Last Admin: 01/14/20 16:00 Dose: 1 puff Documented by: Albuterol Sulfate (Albuterol Sulfate 8 Gm Inhaler (60 Puffs)) 2 puff INHALATION Q4H PRN PRN Reason: SOB &/OR WHEEZING Last Admin: 01/15/20 22:44 Dose: 2 puff Documented by: Ascorbic Acid (Ascorbic Acid 500 Mg Tablet) 500 mg PO BID [facility] Last Admin: 01/18/20 08:53 Dose: 500 mg Documented by: Atorvastatin Calcium (Atorvastatin Calcium 80 Mg Tablet) 80 mg PO QHS [facility] Last Admin: 01/17/20 21:25 Dose: 80 mg Documented by: Carvedilol (Carvedilol 3.125 Mg Tablet) 3.125 mg PO BID [facility] Last Admin: 01/18/20 08:52 Dose: 3.125 mg Documented by: Dexamethasone (Dexamethasone 2 Mg Tablet) 6 mg PO DAILY [facility] Stop: 01/22/20 10:01 Last Admin: 01/18/20 08:52 Dose: 6 mg Documented by: Diltiazem HCl (Diltiazem Cd 180 Mg Capsule) 360 mg PO DAILY [facility] Last Admin: 01/18/20 08:53 Dose: 360 mg Documented by: Fenofibrate (Fenofibrate 145 Mg Tablet) 145 mg PO DAILY [facility] Last Admin: 01/18/20 08:52 Dose: 145 mg Documented by: Furosemide (Furosemide 40 Mg/4 Ml Vial) 40 mg IV BID@1000,1700 [facility] Last Admin: 01/18/20 17:12 Dose: 40 mg Documented by: Guaifenesin (Guaifenesin 600 Mg Tablet) 600 mg PO BID [facility] Last Admin: 01/18/20 08:52 Dose: 600 mg Documented by: Piperacillin Sod/Tazobactam (Sod 3.375 gm/ Sodium Chloride) 50 mls @ 12.5 mls/hr IV Q8 [facility] Last Admin: 01/18/20 13:58 Dose: 12.5 mls/hr Documented by: Sodium Chloride () 250 mls @ 15 mls/hr IV .[id number] PRN PRN Reason: Saline Flush Last Infusion: 01/18/20 05:23 Dose: 0 mls/hr Documented by: Melatonin (Melatonin 10 Mg Tablet) 5 mg PO QHS [facility] Last Admin: 01/17/20 21:26 Dose: 5 mg Documented by: Nitroglycerin (Nitroglycerin (Inpatient Use) 0.4 Mg Tab.Subl) 0.4 mg SUBLINGUAL Q5M PRN PRN Reason: CARDIAC/CHEST PAIN Ondansetron HCl (Ondansetron 4 Mg/2 Ml Vial) 4 mg IV Q8H PRN PRN PRN Reason: NAUSEA/VOMITING Potassium Chloride (Potassium Chloride 20 Meq Tablet) 20 meq PO DAILY [facility] Last Admin: 01/18/20 08:53 Dose: 20 meq Documented by: Sodium Chloride (0.9% Saline Lock 10 Ml Syringe) 10 - 40 ml IV UD PRN PRN Reason: SALINE FLUSH Last Admin: 01/18/20 08:54 Dose: 10 ml Documented by: STROKE Vital Signs/Narrative: Vital Signs Temp Pulse Resp BP Pulse Ox 01/18/20 15:24 77 01/18/20 14:07 36.4 C L 74 20 H 119/68 96 Medical Necessity - Tobacco Use Smoking Status: Former smoker Assessment/Plan All Active Problems (Last Reviewed 07/29/19 @ 13:[address] 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 valve replaced (Acute) [facility] current use of anticoagulant (Acute) SARS-associated coronavirus infection (Acute) Elevated serum creatinine (Acute) Anemia, unspecified (Acute) Infection due to 2019 novel coronavirus (Acute) Atrial fibrillation with RVR (Acute) Elevated troponin I level (Acute) Chest pain (Acute) Abnormal cardiac enzyme level (Acute) Cardiomyopathy (Acute) Epistaxis (Acute) 1. acute COVID 19 pneumonia * on dexa * completed remdesivir * on pip/tazo 2. acute hypoxic resp failure * wean oxygen as tolerated * 2/2 COVID-19 pneumonia +/- ALI, +/- pneumonia +/- HFrEF + pleural effusions 3. Acute HFrEF * EF 35% * continue furosemide * on carvedilol 4. Pleural effusion * follow up CXR as outpt * if persists, then may need thoracentesis 5. pAfib * resume warfarin 6. VTE prophylaxis: anticoagulated Inpatient E&M: [id number] Subs Hosp L2
[2020-01-18] MEDS: Atorvastatin Calcium 80 MG Tablet PO (20:12)
[2020-01-18] MEDS: MELATONIN 10 MG TABLET 5 MG PO (20:12)
[2020-01-18] MEDS: Albuterol Sulfate 8 gm Inhaler (60 puffs) 1 PUFF INHALATION (20:16)
[2020-01-19 02:05] VITALS: BP 141/72; PULSE 90; RESP 20; TEMP 36.7; O2SAT 94
[2020-01-19 05:52] VITALS: PULSE 98
[2020-01-19 06:03] LABS: Absolute Lymphocyte Count 0.32 X10^3/uL (0.83-4.51); Hematocrit 36.1 % (40-54); Hemoglobin 10.3 g/dL (13.0-16.5); Lymphocyte # 0.32 X10^3/ul (4.0); Lymphocyte % 5.6 % (19-41); Mean Corp Hgb Conc 28.5 g/dL (32-36); Mean Corpuscular Hgb 30.2 pg (27.0-32.0); Mean Corpuscular Volume 105.9 fL (80-94); NRBC Flagged by Analyzer 0 % (0-5); Neutrophil # 4.95 X10^3/uL (2.7-7.7); POSITIVE DIFFERENTIAL YES; Platelet Count 189 K/mm3 (150-450); RBC Distribution Width SD 58.5 fl (35.1-43.9); Red Blood Count 3.41 M/mm3 (4.6-6.2); White Blood Count 5.7 K/mm3 (4.4-11.0)
[2020-01-19 06:05] LABS: Differential Indicated SCAN CRITERIA MET
[2020-01-19 06:13] LABS: International Normalized Ratio 1.4; Prothrombin Time (Protime)PT. 16.8 SECONDS (11.7-14.9)
[2020-01-19 06:27] LABS: ALB/GLOB Ratio 0.6 RATIO (0.9-2.4); AST(SGOT) 28 U/L (15-37); Alanine Aminotransfer ALT/SGPT 18 U/L (16-61); Albumin, Serum 2.6 g/dL (3.2-5.0); Alkaline Phosphatase 57 U/L (45-117); Anion Gap 5 (5-15); BUN 33 mg/dL (7-18); BUN/Creat Ratio 25.6 RATIO (10-20); Calcium,Total 8.7 mg/dL (8.5-10.1); Chloride 96 mmol/L (98-107); Creatinine, Serum 1.29 mg/dL (0.70-1.30); EST Glomerular Filtration Rate 58 mL/min (>60); Est Glom Filt Rate - Afr Amer 70 mL/min (>60); Estimated Creatinine Clearance 50.81 ml/min; Globulin 4.3 g/dL (2.2-4.2); Glucose 108 mg/dL (74-106); Potassium 3.3 mmol/L (3.5-5.1); Protein, Total 6.9 g/dL (6.4-8.2); Sodium Level 145 mmol/L (136-145)
[2020-01-19 06:30] LABS: Differential Comment SCANNED
[2020-01-19 08:14] VITALS: PULSE 90
[2020-01-19 08:18] VITALS: BP 116/82; PULSE 96; RESP 20; TEMP 36.5; O2SAT 96
[2020-01-19 10:10] VITALS: O2SAT 94
[2020-01-19] MEDS: guaiFENesin 600 MG Tablet PO (10:27)
[2020-01-19] MEDS: dexAMETHasone 2 MG TABLET 6 MG PO (10:27)
[2020-01-19] MEDS: Ascorbic Acid 500 MG Tablet PO (10:28)
[2020-01-19] MEDS: Carvedilol 3.125 MG TABLET PO (10:28)
[2020-01-19] MEDS: dilTIAZem CD 180 MG Capsule 360 MG PO (10:28)
[2020-01-19] MEDS: Fenofibrate 145 MG Tablet PO (10:28)
[2020-01-19] MEDS: Furosemide 40 MG/4 ML Vial IV (10:29)
--- NOTE | 2020-01-19 10:53 | PCA ---
sent to [facility] [place] and [place] again to get records no response back at this time
--- NOTE | 2020-01-19 11:03 | PCM.TXEXTCAR ---
- Diet 01/18/20 12:17 Diet: Cardiac. 1500 cc/fluid/day Food consistency:: Regular Liquid Consistency:: Regular/Thin Type of Dietary Supplement:: Ensure Enlive Is pt able to select menu?: Yes - Routine Orders/Code Status Routine Lab Work: BMP - every Saturday and , INR - every Sat and Code Status: Full Code - Wound(s) R Foot Wound Type: Broken blister top of right foot rt hand Wound Type: healing scab lt toes 3 and 4 Wound Type: Neuropathic/Diabetic Foot Ulcer ant chest Wound Type: Surgical Incision RT KNEE Wound Type: Abrasion LEFT FOOT Wound Type: Abrasion - Therapies Physical Therapy: Eval and Treat Occupational Therapy: Eval and Treat - Allergies/Procedures Done in Hospital Allergies/Adverse Reactions: Allergies povidone-iodine [From Betadine] Allergy (Intermediate, Verified 07/29/19 13:09) rash, itching soap [From Betadine] Allergy (Intermediate, Verified 07/29/19 13:09) rash, itching Procedures: 2-D Echocardiogram - he estimated ejection fraction is 35 %. There is evidence of diastolic dysfunction. The left atrium is moderately enlarged. The right atrium is mildly enlarged. Trivial mitral valve insufficiency. Mild tricuspid valve insufficiency. Pulmonary artery systolic pressure is 60 mmHg. - Type of Care/Length of Stay Estimated LOS: Convalescent Care Less Than 30 days Type of Care Needed: Skilled Rehab Potential: Fair Prognosis: Fair - Additional Orders/Day of Discharge Day of Discharge: 01/19/20 - Dietary and Speech Recommendations Dietitian Recommendations/Changes: Will liberalize diet to Regular d/t s/s of malnutrition - can resume therapeutic diet once po intake consistently improves. Will provide 8 oz ensure enlive w/ meals for increased nutrition if consumed - Follow Up Care Primary Care Physician: Thien Evans MD [Primary Care Provider] - Within 1 Week Please Follow Up With: [facility] When: 2-4 weeks
--- NOTE | 2020-01-19 11:07 | PCM.DC.SUM ---
Discharge Date and Diagnosis - Problem List Patient Problems: Active and Suspected Problems (Last Reviewed 07/29/19 @ 13:[address] Bee Gonzales MD) SARS-associated coronavirus infection (Acute) Elevated serum creatinine (Acute) Infection due to 2019 novel coronavirus (Acute) Elevated troponin I level (Acute) Chest pain (Acute) Abnormal cardiac enzyme level (Acute) Date of Admission: 01/13/20 Date of Discharge: 01/19/20 - Primary Discharge Diagnosis Acute Problems: Active Problems (Last Reviewed 07/29/19 @ 13:[address] 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 Bee Gonzales MD) Acute and chronic respiratory failure with hypercapnia (Chronic) Acute exacerbation of congestive heart failure (Chronic) REBECA on CPAP (Chronic) Pulmonary hypertension (Chronic) Hyperlipidemia (Chronic) Essential hypertension (Chronic) Hospital Course and Treatment Imaging Results: Clinical Impression(s) from Imaging Studies Chest X-Ray 01/13/20 10:00 IMPRESSION: Findings suggestive of a mild degree of CHF with small bilateral pleural effusions and bibasilar atelectasis. Electronically Signed: José Antonio Lopez, at 10:46 EST , Service support , Chest X-Ray 01/18/20 05:55 IMPRESSION: Progressive increase in the bilateral pleural effusions worse on the right side with the bibasilar atelectasis and/or infiltrates. Electronically Signed: José Antonio Lopez, at 10:14 EST , Service support , Consultations 01/17/20 22:04 Consult: Onc/Wound/equipment engineering technician Routine Comment: Allan, cardiology Duane/Kojo, [facility] [place] Operations: None Procedures: 2-D Echocardiogram - The estimated ejection fraction is 35 %. There is evidence of diastolic dysfunction. The left atrium is moderately enlarged. The right atrium is mildly enlarged. Trivial mitral valve insufficiency. Mild tricuspid valve insufficiency. Pulmonary artery systolic pressure is 60 mmHg. Summary of Care Provided: The patient is a 69 year old M presents with SOB. 1. acute COVID 19 pneumonia on dexa completed remdesivir on pip/tazo 2. acute hypoxic resp failure wean oxygen as tolerated 2/ COVID-19 pneumonia +/- ALI, +/- pneumonia +/- HFrEF + pleural effusions 3. Acute HFrEF EF 35% continue furosemide on carvedilol 4. Pleural effusion follow up CXR as outpt if persists, then may need thoracentesis 5. pAfib resume warfarin 6. Pseudomonal pneumonia: on pip/tazo. continue with 3 more days of abx on dc. 7. FREDIS: resolved. 8. Debility to [place] on DC.[] 9. Elevated cardiac enzymes: seen by cardiology unclear if true cardiac event v demand. Follow up with cardiology as outpt. Patient Problems: Active and Suspected Problems (Last Reviewed 07/29/19 @ 13:[address] Bee Gonzales MD) SARS-associated coronavirus infection (Acute) Elevated serum creatinine (Acute) Infection due to 2019 novel coronavirus (Acute) Elevated troponin I level (Acute) Chest pain (Acute) Abnormal cardiac enzyme level (Acute) - Physical Exam Vitals/I&O's: Vital Signs Temp Pulse Resp BP Pulse Ox 36.5 C L 96 20 H 116/82 H 96 01/19/20 08:18 01/19/20 08:18 01/19/20 08:18 01/19/20 08:18 01/19/20 08:18 Oxygen Flow Rate (L/min) 4 Oxygen Delivery Method Nasal Cannula Weight: 81.7 kg Body Mass Index (BMI) 21.5 Intake and Output for Last 24 Hours 01/17/20 01/18/20 01/19/20 23:59 23:59 23:59 Intake Total 719.25 / 719.25 608.00 / 608.00 340 / 340 Output Total 1685 / 1685 3975 / 4375 850 / 850 Balance -965.75 / -965.75 -3367.00 / -3767.00 -510 / -510 General: Alert, No apparent distress HEENT: Atraumatic, Normocephalic Oral: Moist Mucosa, No Gingival or Mucosal Lesions/ Ulcerations Neck: No Nodes, Thyroid Normal Size and Texture Lungs: Clear to auscultation, Normal air movement, No rhonchi, No wheeze, No rales Cardiovascular: Regular rate, Regular Rhythm, Normal S1, Normal S2, No murmurs Abdomen: Bowel Sounds Present, Soft, Non Tender, Non-Distended, No Hepato-splenomegaly Extremities: No edema, No Calf Tenderness Psych/Mental Status: Normal Affect, Appropriate Microbiology Past 72 Hours 01/13/20 10:10 Blood Culture (Wb) - Right Forearm Bacteria Detection (PCR) - Final Staphylococcus epidermidis 01/13/20 10:10 Blood Culture (Wb) - Right Forearm Blood Culture - Final Staphylococcus epidermidis 01/13/20 09:40 Blood Culture (Wb) - Anticubital Left Blood Culture - Final No growth in 5 days. 01/14/20 04:15 Sputum, Expectorated/Coughed Gram Stain - Final 01/14/20 04:15 Sputum, Expectorated/Coughed Respiratory Culture - Final Pseudomonas aeroginosa 01/13/20 14:55 Urine, Clean Catch Urine Culture - Final Culture exhibits no growth. Laboratory Results 01/16/20 06:25: Diff Path Review Reviewed 01/19/20 05:06: WBC 5.7, RBC 3.41 L, Hgb 10.3 L, Hct 36.1 L, MCV 105.9 H, MCH 30.2, MCHC 28.5 L, RDW Std Deviation 58.5 H, RDW Coeff of Perfecto 15.0 H, Plt Count 189, MPV 10.0, Immature Gran % (Auto) 0.400, Neut % (Auto) 87.0 H, Lymph % (Auto) 5.6 L, [place] % (Auto) 7.0, Eos % (Auto) 0.0, Baso % (Auto) 0.0, Absolute Neuts (auto) 5.0, Absolute Lymphs (auto) 0.32 L, Nucleated RBC % 0, Differential Comment SCANNED 01/19/20 05:06: PT 16.8 H, INR 1.4 01/19/20 05:06: Sodium 145, Potassium 3.3 L, Chloride 96 L, Carbon Dioxide 44.0 H, Anion Gap 5, BUN 33 H, Creatinine 1.29, Estim Creat Clear Calc 50.81, Est GFR (MDRD) Af Amer 70, Est GFR (MDRD) Non-Af 58 L, BUN/Creatinine Ratio 25.6 H, Glucose 108 H, Calcium 8.7, Total Bilirubin 0.90, AST 28, ALT 18, Alkaline Phosphatase 57, Total Protein 6.9, Albumin 2.6 L, Globulin 4.3 H, Albumin/Globulin Ratio 0.6 L Current Medications Albuterol Sulfate (Albuterol Sulfate 8 Gm Inhaler (60 Puffs)) 1 puff INHALATION Q6HWA.RT [facility] Last Admin: 01/18/20 20:16 Dose: 1 puff Documented by: Albuterol Sulfate (Albuterol Sulfate 8 Gm Inhaler (60 Puffs)) 2 puff INHALATION Q4H PRN PRN Reason: SOB &/OR WHEEZING Last Admin: 01/15/20 22:44 Dose: 2 puff Documented by: Ascorbic Acid (Ascorbic Acid 500 Mg Tablet) 500 mg PO BID [facility] Last Admin: 01/19/20 10:28 Dose: 500 mg Documented by: Atorvastatin Calcium (Atorvastatin Calcium 80 Mg Tablet) 80 mg PO QHS [facility] Last Admin: 01/18/20 20:12 Dose: 80 mg Documented by: Carvedilol (Carvedilol 3.125 Mg Tablet) 3.125 mg PO BID [facility] Last Admin: 01/19/20 10:28 Dose: 3.125 mg Documented by: Dexamethasone (Dexamethasone 2 Mg Tablet) 6 mg PO DAILY [facility] Stop: 01/22/20 10:01 Last Admin: 01/19/20 10:27 Dose: 6 mg Documented by: Diltiazem HCl (Diltiazem Cd 180 Mg Capsule) 360 mg PO DAILY [facility] Last Admin: 01/19/20 10:28 Dose: 360 mg Documented by: Fenofibrate (Fenofibrate 145 Mg Tablet) 145 mg PO DAILY [facility] Last Admin: 01/19/20 10:28 Dose: 145 mg Documented by: Furosemide (Furosemide 40 Mg/4 Ml Vial) 40 mg IV BID@1000,1700 [facility] Last Admin: 01/19/20 10:29 Dose: 40 mg Documented by: Guaifenesin (Guaifenesin 600 Mg Tablet) 600 mg PO BID [facility] Last Admin: 01/19/20 10:27 Dose: 600 mg Documented by: Piperacillin Sod/Tazobactam (Sod 3.375 gm/ Sodium Chloride) 50 mls @ 12.5 mls/hr IV Q8 [facility] Last Infusion: 01/19/20 08:58 Dose: Infused Documented by: Sodium Chloride () 250 mls @ 15 mls/hr IV .[id number] PRN PRN Reason: Saline Flush Last Infusion: 01/18/20 07:30 Dose: 15 mls/hr Documented by: Melatonin (Melatonin 10 Mg Tablet) 5 mg PO QHS [facility] Last Admin: 01/18/20 20:12 Dose: 5 mg Documented by: Nitroglycerin (Nitroglycerin (Inpatient Use) 0.4 Mg Tab.Subl) 0.4 mg SUBLINGUAL Q5M PRN PRN Reason: CARDIAC/CHEST PAIN Ondansetron HCl (Ondansetron 4 Mg/2 Ml Vial) 4 mg IV Q8H PRN PRN PRN Reason: NAUSEA/VOMITING Potassium Chloride (Potassium Chloride 20 Meq Tablet) 20 meq PO DAILY [facility] Last Admin: 01/19/20 10:28 Dose: 20 meq Documented by: Sodium Chloride (0.9% Saline Lock 10 Ml Syringe) 10 - 40 ml IV UD PRN PRN Reason: SALINE FLUSH Last Admin: 01/18/20 08:54 Dose: 10 ml Documented by: Warfarin Sodium (Warfarin 1 Mg Tablet) 1 mg PO DAILY@1700 [facility] Warfarin Sodium (Warfarin 0.5 Mg Tablet) 0.5 mg PO DAILY@1700 [facility] Discharge Diet: Low fat/ Low Cholesterol, 2000 mg Sodium Diet Home Medications: Medications to take at Discharge albuterol sulfate 90 mcg/actuation aerosol inhaler 2 puff INHALATION Q4H PRN g 07/23/18 diltiazem HCl 180 mg capsule,extended release 24 hr 360 mg PO DAILY cap 07/23/18 fenofibrate 160 mg tablet 160 mg PO DAILY 07/23/18 fluticasone propionate 115 mcg-salmeterol 21 mcg/actuation HFA inhaler 2 puff INHALATION BID 07/23/18 losartan 100 mg tablet 100 mg PO DAILY 11/25/18 Ascorbic Acid [Vitamin C] 500 mg PO BID 01/13/20 Atorvastatin Calcium [Lipitor] 80 mg PO QHS 01/13/20 Carvedilol [Coreg (Beta Sheron)] 3.125 mg PO BID 01/13/20 Melatonin 5 mg PO QHS 01/13/20 Potassium Chloride [K-Dur] 20 meq PO DAILY 01/13/20 Warfarin [Coumadin ([facility])] 1.5 mg PO DAILY 01/13/20 Amoxicillin/Potassium Clav [Augmentin 875-125 Tablet] 1 ea PO BID #6 tab 01/19/20 Dexamethasone [Decadron] 6 mg PO DAILY #0 01/19/20 Furosemide 40 mg PO BID #60 tab 01/19/20 Following Prescriptions Were Given to Patient: Amoxicillin/Potassium Clav [Augmentin 875-125 Tablet] 1 ea PO BID #6 tab Furosemide 40 mg PO BID #60 tab Primary Care Physician: Thien Evans MD [Primary Care Provider] - Within 1 Week Please Follow Up With: [facility] When: 2-4 weeks Disposition: Shelter facility Minutes spent on discharge:: 35 Patient Condition:: Fair Medical Necessity - Tobacco Use Smoking Status: Former smoker Meaningful Use Info Meaningful Use Diagnoses (Choose all that apply): CHF - CHF GIA/ARB ordered at discharge?: Yes Documented LVEF (%): 35 Inpatient E&M: 51120 Disch Hosp
--- NOTE | 2020-01-19 11:23 | NURSING ---
EMILI Cavazos had changed dressing to the right foot.
--- NOTE | 2020-01-19 11:57 | CASEMGMT ---
SW spoke to daughter for clarification on when and where pt was tested for COVID. Pt was tested at [facility] in [place], results came back on 01/12/20 that he was positive for COVID. YASMINE Weston
--- NOTE | 2020-01-19 12:18 | CASEMGMT ---
Pt is ready for discharge today, going to [facility]. ANTONIO faxed all discharge instructions to [facility] including completed hospital exemption form from [facility]. Fer at [facility] asking about when pt was diagnosed with COVID, SW called daughter to verify, she states was diagnosed on 01/12/20 at [facility]. SW let daughter know pt will be discharged today and will be setting up transport for this afternoon. Daughter states understanding and is in agreement with plan and time. ANTONIO attempted to call [facility] in [place] to get documentation for [facility] in regard to pt's COVID test, just got voicemail. SW will try again. [facility], set up a 1:30pm Ambulance. ANTONIO let RN here know, Fer from [facility] know. CARMEN Ballard called [facility] in [place] and left a message asking for the COVID results from their facility be faxed here. YASMINE Weston
[2020-01-19 12:52] VITALS: BP 134/74; PULSE 76; RESP 20; TEMP 36.6; O2SAT 96
[2020-01-19] MEDS: Albuterol Sulfate 8 gm Inhaler (60 puffs) 1 PUFF INHALATION (13:02)
--- NOTE | 2020-01-19 14:41 | NURSING ---
report given to maddi pearson in [place]
== END 2020-01-19 13:58 | disposition skilled nursing facility (03) | DRG 177 ==
LOC: ED 11:48 → ICU 12:05 → MS2 01-14 15:18
PROVIDERS: Internal Medicine Critical Care Medicine; Admitting Provider Student in an Organized Health Care Education/Training Program; Emergency Provider Emergency Medicine; PCP Family Medicine
DX: U07.1 COVID-19 (principal); J96.21 Acute and chronic respiratory failure with hypoxia; I50.43 Acute on chronic combined systolic (congestive) and diastolic (congestive) heart failure; J15.1 Pneumonia due to Pseudomonas; J96.22 Acute and chronic respiratory failure with hypercapnia; J12.89 Other viral pneumonia; J44.1 Chronic obstructive pulmonary disease with (acute) exacerbation; N17.9 Acute kidney failure, unspecified; J44.0 Chronic obstructive pulmonary disease with (acute) lower respiratory infection; I13.0 Hypertensive heart and chronic kidney disease with heart failure and stage 1 through stage 4 chronic kidney disease, or unspecified chronic kidney disease; J90 Pleural effusion, not elsewhere classified; I42.9 Cardiomyopathy, unspecified; N18.9 Chronic kidney disease, unspecified; I27.20 Pulmonary hypertension, unspecified; E78.5 Hyperlipidemia, unspecified; Z95.2 Presence of prosthetic heart valve; Z99.81 Dependence on supplemental oxygen; Z79.01 Long term (current) use of anticoagulants; I48.0 Paroxysmal atrial fibrillation; R74.8 Abnormal levels of other serum enzymes; G47.33 Obstructive sleep apnea (adult) (pediatric); Z87.891 Personal history of nicotine dependence; Z66 Do not resuscitate; D64.9 Anemia, unspecified; E11.22 Type 2 diabetes mellitus with diabetic chronic kidney disease; R04.0 Epistaxis; Z79.82 Long term (current) use of aspirin; Z79.899 Other long term (current) drug therapy; Z95.1 Presence of aortocoronary bypass graft; Z96.642 Presence of left artificial hip joint
CPT/HCPCS: 36415; 36600; 71045; 80048; 80053; 80061; 80202; 81001; 82550; 82803; 83605; 83735; 83880; 84145; 84484; 85025; 85379; 85610; 85730; 87040; 87070; 87077; 87086; 87149; 87184; 87186; 87205; 87449; 93005; 93306; 94002; 94640; 94762; 97110; 97116; 97162; 97166; 97530; 97535; 99285; J7040; J7050; Q9957; A4216; J1940

== ENCOUNTER → 2020-06-15 16:22 | Outpatient (CLI) | payer MEDICARE, OTHER, SELFPAY ==
[2020-01-13 14:14] VITALS: BMI 21.5
[2020-06-15 17:32] LABS: Absolute Lymphocyte Count 0.87 X10^3/uL (0.83-4.51); Absolute Neutrophil Count 3.9 X10^3/uL (2.0-7.7); Basophil# 0.02 X10^3/uL; Basophil% 0.4 % (0-1); Eosinophil# 0.24 X10^3/uL; Eosinophils% 4.3 % (0-5); Hematocrit 31.9 % (40-54); Hemoglobin 9.1 g/dL (13.0-16.5); Lymphocyte # 0.87 X10^3/ul (0.83-4.51); Lymphocyte % 15.6 % (19-41); Mean Corp Hgb Conc 28.5 g/dL (32-36); Mean Corpuscular Hgb 26.7 pg (27.0-32.0); Mean Corpuscular Volume 93.5 fL (80-94); Mean Platelet Vol. 10.5 fl (6.2-12.0); Monocyte# 0.48 X10^3/uL; Monocyte% 8.6 % (0-10); NRBC Flagged by Analyzer 0 % (0-5); Neutrophil # 3.91 X10^3/uL (2.7-7.7); Neutrophil % 70.2 % (47-70); Platelet Count 163 K/mm3 (150-450); RBC Distribution Width CV 15.6 % (11.6-14.6); RET-HE 30.7 pg (30-35); Red Blood Count 3.41 M/mm3 (4.6-6.2); Reticulocyte Count 1.37 % (0.5-1.5); White Blood Count 5.6 K/mm3 (4.4-11.0)
[2020-06-15 18:10] LABS: Vitamin B12 246 pg/mL (211-911)
[2020-06-15 18:27] LABS: Anion Gap 4 (5-15); BUN 62 mg/dL (7-18); BUN/Creat Ratio 27.7 RATIO (10-20); Calcium,Total 8.9 mg/dL (8.5-10.1); Chloride 105 mmol/L (98-107); Creatinine, Serum 2.24 mg/dL (0.70-1.30); EST Glomerular Filtration Rate 31 mL/min (>60); Est Glom Filt Rate - Afr Amer 37 mL/min (>60); Ferritin 279 ng/mL (26-388); Glucose 75 mg/dL (74-106); Iron 68 ug/dL (65-175); Iron Binding Capacity,Total 260 ug/dL (250-450); PERCENT IRON SATURATION 26.2 % (15.0-55.0); Potassium 4.4 mmol/L (3.5-5.1); Sodium Level 140 mmol/L (136-145)
== END ==
PROVIDERS: PCP Family Medicine; Visit Provider Family Medicine
DX: E11.9 Type 2 diabetes mellitus without complications (principal); I11.0 Hypertensive heart disease with heart failure; I50.9 Heart failure, unspecified; I27.20 Pulmonary hypertension, unspecified; Z79.01 Long term (current) use of anticoagulants
CPT/HCPCS: 80048; 82607; 82728; 82746; 83540; 83550; 85025; 85045

== ENCOUNTER → 2020-12-12 13:14 | Outpatient (CLI) | payer MEDICARE, OTHER, SELFPAY ==
[2020-12-12 13:55] LABS: Anion Gap 6 (5-15); BUN 51 mg/dL (7-18); BUN/Creat Ratio 25.4 RATIO (10-20); Calcium,Total 8.9 mg/dL (8.5-10.1); Chloride 102 mmol/L (98-107); Creatinine, Serum 2.01 mg/dL (0.70-1.30); EST Glomerular Filtration Rate 35 mL/min (>60); Est Glom Filt Rate - Afr Amer 42 mL/min (>60); Glucose 176 mg/dL (74-106); Potassium 3.3 mmol/L (3.5-5.1); Sodium Level 144 mmol/L (136-145)
[2020-12-12 14:53] LABS: BNP,B-Type NATRIURETIC PEPTIDE 471.3 pg/mL (0-100)
== END ==
PROVIDERS: PCP Family Medicine
DX: I50.22 Chronic systolic (congestive) heart failure (principal); I44.2 Atrioventricular block, complete
CPT/HCPCS: 80048; 83880

== ENCOUNTER → 2020-12-19 15:35 | Outpatient (CLI) | payer MEDICARE, OTHER, SELFPAY ==
[2020-12-19 16:03] LABS: BNP,B-Type NATRIURETIC PEPTIDE 478.3 pg/mL (0-100)
[2020-12-19 16:12] LABS: Anion Gap 5 (5-15); BUN 45 mg/dL (7-18); BUN/Creat Ratio 23.6 RATIO (10-20); Calcium,Total 8.7 mg/dL (8.5-10.1); Chloride 97 mmol/L (98-107); Creatinine, Serum 1.91 mg/dL (0.70-1.30); EST Glomerular Filtration Rate 37 mL/min (>60); Est Glom Filt Rate - Afr Amer 45 mL/min (>60); Glucose 144 mg/dL (74-106); Sodium Level 139 mmol/L (136-145)
== END ==
PROVIDERS: PCP Family Medicine
DX: I50.22 Chronic systolic (congestive) heart failure (principal); I44.2 Atrioventricular block, complete
CPT/HCPCS: 80048; 83880

== ENCOUNTER → 2021-01-20 12:27 | Outpatient (CLI) | payer MEDICARE, OTHER, SELFPAY ==
[2021-01-20 13:14] LABS: Anion Gap 9 (5-15); BUN 67 mg/dL (7-18); BUN/Creat Ratio 36.6 RATIO (10-20); Calcium,Total 8.7 mg/dL (8.5-10.1); Chloride 101 mmol/L (98-107); Creatinine, Serum 1.83 mg/dL (0.70-1.30); EST Glomerular Filtration Rate 39 mL/min (>60); Est Glom Filt Rate - Afr Amer 47 mL/min (>60); Glucose 141 mg/dL (74-106); Potassium 4.6 mmol/L (3.5-5.1); Sodium Level 142 mmol/L (136-145)
== END ==
PROVIDERS: PCP Family Medicine
DX: I48.92 Unspecified atrial flutter (principal); I48.19 Other persistent atrial fibrillation; I13.0 Hypertensive heart and chronic kidney disease with heart failure and stage 1 through stage 4 chronic kidney disease, or unspecified chronic kidney disease; I50.22 Chronic systolic (congestive) heart failure
CPT/HCPCS: 80048

== ENCOUNTER 2021-06-06 08:53 | Outpatient (RCR) | payer MEDICARE, OTHER, SELFPAY ==
[2021-06-06 09:10] VITALS: BP 131/94; PULSE 69; TEMP 36.3
[2021-06-06 09:43] VITALS: BMI 32.4
--- NOTE | 2021-06-06 14:49 | PCM.WC.HP ---
History of Present Illness Date of Service: 06/06/21 Chief Complaint: Open wound, right lower extremity History of Wound: This is a 71-year-old male who presents with an open wound in the right lower extremity. According the patient, the wound has been present for approximately 18 months. It is cared for by nursing staff at [facility], with visits 2-3 times per week. It appears as though a variety of treatments have been implemented, including the use of collagenase Santyl and gauze packing. Patient is currently applying gauze topically. He has previously been treated with Augmentin. The patient is unaware of the etiology of his wound, or how it originated. It has been relatively unchanged for quite some time. He denies a history of thrombophlebitis. He does relate swelling in his right lower extremity, typically worse at the end of the day. He sleeps in a recliner. Patient has multiple pre-existing medical problems, including atrial fibrillation, congestive heart failure, diabetes mellitus, chronic respiratory failure with hypoxia, oxygen dependence, COPD, diverticular disease, hypertension, hyperlipidemia, ulcerative colitis, and obstructive sleep apnea. The patient has a pacemaker, and is on systemic anticoagulation with Coumadin. He has previously undergone open reduction and internal fixation of a right ankle fracture, with subsequent skin graft procedures on multiple occasions. He has had a vein stripping in the left lower extremity, and a left total hip replacement. [facility] Medical History (Updated 06/06/21 @ 15:[address] Rayo Lee MD) Chronic renal failure, stage 3 (moderate) COPD (chronic obstructive pulmonary disease) COPD (chronic obstructive pulmonary disease) Dependence on supplemental oxygen Diabetes mellitus Diverticular disease Diverticulitis of colon with hemorrhage (~2004) Essential hypertension Hyperlipidemia Leg edema Leg swelling Obesity Obesity (BMI 30.0-34.9) REBECA on CPAP Pacemaker Psoriasis Pulmonary hypertension Rheumatic fever without mention of heart involvement Type 2 diabetes mellitus without complication Ulcerative colitis Ulcerative colitis Wound of right lower extremity Home Medications albuterol sulfate 90 mcg/actuation aerosol inhaler 2 puff INHALATION Q4H PRN g 07/23/18 [History Last Taken Unknown] diltiazem HCl 180 mg capsule,extended release 24 hr 360 mg PO DAILY cap 07/23/18 [History Last Taken 09/26/18] fenofibrate 160 mg tablet 160 mg PO DAILY 07/23/18 [History Last Taken Unknown] fluticasone propionate 115 mcg-salmeterol 21 mcg/actuation HFA inhaler 2 puff INHALATION BID 07/23/18 [History Last Taken Unknown] losartan 100 mg tablet 100 mg PO DAILY 11/25/18 [History Last Taken Unknown] ascorbic acid (vitamin C) 500 mg PO BID 01/13/20 [History Last Taken Unknown] atorvastatin 80 mg PO QHS 01/13/20 [History Last Taken Unknown] carvedilol 3.125 mg PO BID 01/13/20 [History Last Taken Unknown] melatonin 5 mg PO QHS 01/13/20 [History Last Taken Unknown] potassium chloride 20 meq PO DAILY 01/13/20 [History Last Taken Unknown] amoxicillin-pot clavulanate 1 ea PO BID #6 tab 01/19/20 [Rx Last Taken Unknown] dexamethasone 6 mg PO DAILY #0 01/19/20 [Rx Last Taken Unknown] furosemide 40 mg PO BID #60 tab 01/19/20 [Rx Last Taken Unknown] warfarin 1 mg tablet 3.5 mg PO DAILY tab 02/08/20 [History Last Taken Unknown] Allergy/AdvReac Type Severity Reaction Status Date / Time povidone-iodine Allergy Intermediate rash, Verified 07/29/19 13:09 [From Betadine] itching soap [From Betadine] Allergy Intermediate rash, Verified 07/29/19 13:09 itching Family History Mother Cancer kidney Father Cancer lung Surgical History (Updated 01/19/20 @ 11:[address] Hector Stringer DO) History of left hip replacement History of open reduction and internal fixation (ORIF) procedure History of skin graft History of vein stripping Social History (Updated 07/29/19 @ 13:[address] Bee Gonzales MD) Smoking Status: Former smoker Smokeless tobacco user: snuff how long ago did patient quit smokin months ago alcohol intake: never substance use type: does not use caffeine: Yes Type: coffee Number of servings: 2 Vital Signs Vital Signs Vital Signs: 06/06/21 09:10 Temperature 97.4 F L Temperature Source Temporal Pulse Rate 69 Blood Pressure 131/94 H Blood Pressure Mean 106 Blood Pressure Source Monitor Blood Pressure Position Sitting Blood Pressure Location Right Arm Weight Weight: 195 lb Body Mass Index (BMI) 32.4 Physical Exam Const alert, oriented x3, no apparent distress and well nourished Constitutional Narrative: The patient is obese. General Appearance: cooperative, comfortable and well developed Orientation / Consciousness: awake, oriented to person, oriented to place and oriented to time HEENT normocephalic and head/scalp atraumatic Head and Scalp: normal to inspection, normocephalic and atraumatic External Ear: external ears normal Eyes PERRL and EOMs intact bilaterally General Eye: normal appearance of both eyes Resp normal respiratory effort, normal air movement, no retractions and no use of accessory muscles Effort and Inspection: able to speak in complete sentences Extremity no calf tenderness General Extremity: Negative for clubbing or cyanosis Skin Wound Narrative: Patient's wound is noted on the medial aspect of his right lower extremity. It is situated on his upper calf. There is significant undermining at the 1 o'clock position. The depth of the undermined segment is approximately 2 cm. There are scattered varicosities and telangiectasias in the lower extremities bilaterally. No significant swelling is noted at this time. Hyperpigmentation is noted in the gaiter areas bilaterally. There is no sign of infection or cellulitis. No drainage or odor are noted. Neuro oriented x3, CN's II-XII intact bilaterally and moves all extremities Sensorium / Orientation: awake, alert, oriented to person, oriented to place and oriented to time Psych Appearance: grossly normal and appropriate Attitude: calm Activity / Motor Behavior: appropriate eye contact Speech: normal speech Mood & Affect: euthymic mood Thought Process: normal thought process Thought Content: normal thought content Attention / Concentration: attention grossly intact Debridement Note Debridement Note Wound debrided: Right lower extremity Laterality: Right Type of Debridement: Excisional debridement Anesthesia Used: 5% Lidocaine Gel Depth: Down to and including healthy tissue and in the subcutaneous layer Percentage of wound debrided: 100 Instrument Used: 3mm curette Tissue Removed: Bioburden Severity: Fat Layer Exposed Amount of bleeding with debridement: Mild Bleeding Controlled with: Compression and gauze Patient tolerated procedure: Patient tolerated procedure well Post-Debridement Measurements and Additional Note: Post-Debridement Measurements/Treatment [facility] - Nurse 1 - General Ulcer Assessment Start: 06/06/21 09:09 Freq: Status: Active Protocol: RAJAT Activity Type Activity Date Activity User E-Sign Co-Sign Detail Recorded Client Recorded Date Recorded By Document 06/06/21 09:10 KR [id number] 06/06/21 09:25 KR Document 06/06/21 09:43 KR [id number] 06/06/21 09:45 KR 06/06/21 06/06/21 09:10 09:43 WC - Today's Visit Information Type of service Initial Visit Arrival Mode Ambulatory Patient Identification Verified (Name & Yes ) Height and Weight Height 5 ft 5 in Weight 195 lb Weight in Pounds 195.0 lbs Body Mass Index (BMI) 32.4 BMI Classification Obese BSA - Bianca 1.96 Vital Signs Temperature (97.8 F-99.1 F) 97.4 F L Temperature Source Temporal Pulse Rate (60-100) 69 Pulse Location Monitor Blood Pressure (90/60-120/80) 131/94 H Blood Pressure Mean 106 Source Monitor Position Sitting Blood Pressure Location Right Arm History Since Last Visit- (Skip if this is Patient's initial visit) Have you changed medications since your No last visit? Any new allergies or adverse reactions No Had a fall/change in ADL's that may No increase risk of falls Signs or symptoms of abuse and/or No neglect since last visit Have you been in the hospital since your No last visit? Has dressing in place as prescribed Yes Has compression in place as prescribed N/A Has offloadiing in place as prescribed N/A Experienced any changes in pain level or No management Left Footwear Regular Shoe Right Footwear Regular Shoe Pain Scale: 0-10 Numeric Is Patient Pain Free? Yes Yes Lower Extremity Assessment/ Foot Assessment/ Toe Nail Assessment Right -Popliteal Doppler Multiphasic -Posterior Tibial Palpable Yes -Posterior Tibial Doppler Multiphasic -Dorsalis Pedis Palpable Yes -Dorsalis Pedis Doppler Monophasic -Extremity Color Hemosiderin -Hair Growth on Legs No -Hair Growth on Toes No -Temperature of Extremity Cool -Capillary Refill Less than 3 Seconds -Dependent Rubor No -Blanched when Elevated N/A -Lipodermatosclerosis No -Other Deformity No -Prior Foot Ulcer No -Charcot Joint No -Prior Amputation No -Thick Yes -Discolored Yes -Deformed Yes -Improper Length & Hygeine Yes Left -Popliteal Doppler Multiphasic -Posterior Tibial Doppler Multiphasic -Dorsalis Pedis Doppler Monophasic -Extremity Color Hemosiderin -Hair Growth on Legs No -Hair Growth on Toes No -Temperature of Extremity Cool -Capillary Refill Less than 3 Seconds -Dependent Rubor No -Blanched when Elevated N/A -Lipodermatosclerosis No -Other Deformity No -Prior Foot Ulcer No -Charcot Joint No -Prior Amputation No -Thick Yes -Discolored Yes -Deformed Yes -Improper Length & Hygeine Yes WC - Nurse 1 - General Ulcer Measurement Start: 06/06/21 09:09 Freq: Status: Active Protocol: Activity Type Activity Date Activity User E-Sign Co-Sign Detail Recorded Client Recorded Date Recorded By Document 06/06/21 09:10 KR [id number] 06/06/21 09:25 KR 06/06/21 09:10 Wound Center Nurse 1 #Jeanie BROOKS -Current Size (cm) - Length 0.7 -Current Size (cm) - Width 0.6 -Current Size (cm) - Depth 1 -Total Square Cm 0.42 -Tunneling Distance (cm) 1 -Tunneling Position #2 (O'clock) 2 -Exudate Amt Small -Exudate Type Serosanguineous -Wound Margin Distinct, Outline Attached -Granulation Amt Large (67-100%) -Granulation Quality Red -Necrosis Amt None Present (0 %) -Texture (Nancy-wound Skin Appearance) Assessed, Scarring -Moisture (Nancy-wound Skin Appearance) No Abnormality, Assessed -Color (Nancy-wound Skin Appearance) Assessed,Not Assessed -Temperature (Nancy-wound Skin No Abnormality Appearance) (Pt Warm) -Tenderness on Palpation (Nancy-wound No Skin Appearance) -Ulcer Cleansing Rinsed/ Irrigated with Saline -Foul Odor after Cleansing No -Anesthetic Used 5% Lidocaine Gel Right Calf (cm) 33.5 Right Ankle (cm) 21 Left Calf (cm) 35 Left Ankle (cm) 22.5 WC - Nurse 2 - General Ulcer CM Notes Start: 06/06/21 09:09 Freq: Status: Active Protocol: Activity Type Activity Date Activity User E-Sign Co-Sign Detail Recorded Client Recorded Date Recorded By Document 06/06/21 13:22 PL [id number] 06/06/21 13:23 PL 06/06/21 13:22 Wound Center Nurse 2 #1Right Medial LE -Time 09:46 -Correct Patient Yes -Correct Side, Site, Position Yes -Correct Procedure Yes -Procedure Performed Yes -Type of Procedure Debridement -Clinical Debridement Subcutaneous -Tissue Removed Subcutaneous -Post Debridement (cm) - Length 0.7 -Post Debridement (cm) - Width 0.6 -Post Debridement (cm) - Depth 1.0 -Total Square (Post) (cm) 0.42 -Area of Debridement (cm) - Length 0.7 -Area of Debridement (cm) - Width 0.6 -Total Square (Area) (cm) 0.42 -Tunneling No -Undermining/Tunneling No -Circular Undermining No -Wound/Ulcer Outcome Not Healed -Ulcer Cleansing Rinsed/ Irrigated with Saline -Foul Odor after Cleansing No -Bioengineered Tissue No -Bleeding Controlled with Pressure -Treatment Response Procedure Tolerated Well -Debridement - Subq, 1st 20sq cm Yes Pain Scale: 0-10 Numeric Is Patient Pain Free? Yes - Nurse 3 - General Ulcer D/C NN Start: 06/06/21 09:09 Freq: Status: Active Protocol: Activity Type Activity Date Activity User E-Sign Co-Sign Detail Recorded Client Recorded Date Recorded By Document 06/06/21 10:11 DL [id number] 06/06/21 10:12 DL 06/06/21 10:11 Wound Care Nurse 3 #1Right Medial LE -Ulcer Cleansing Rinsed/ Irrigated with Saline -Foul Odor after Cleansing No -Other Dressing 1/4 nugauze -Primary Dressing Covered/Secured with Dry Gauze, Secured with Tape Treatment Response Procedure Tolerated Well Pain Scale: 0-10 Numeric Is Patient Pain Free? Yes WC - Visit Discharge Discharge Condition Stable Ambulatory Status Ambulatory Transportation Private Auto Accompanied by family friend Facility Type Home Health Orders Sent Yes Assessment/Plan Assessment/Plan (1) Wound of right lower extremity: CODE(S): S81.801A - Unspecified open wound, right lower leg, initial encounter QUALIFIERS: Encounter type: initial encounter Qualified Code(s): S81.801A - Unspecified open wound, right lower leg, initial encounter (2) Leg swelling: CODE(S): M79.89 - Other specified soft tissue disorders (3) Leg edema: CODE(S): R60.0 - Localized edema (4) Paroxysmal atrial fibrillation: CODE(S): I48.0 - Paroxysmal atrial fibrillation (5) Mitral valve replaced: CODE(S): Z95.2 - Presence of prosthetic heart valve (6) 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: CODE(S): Z79.01 - intermediate manager (current) use of anticoagulants (7) Acute and chronic respiratory failure with hypercapnia: CODE(S): J96.22 - Acute and chronic respiratory failure with hypercapnia (8) Atrial fibrillation with RVR: CODE(S): I48.91 - Unspecified atrial fibrillation (9) Cardiomyopathy: CODE(S): I42.9 - Cardiomyopathy, unspecified (10) REBECA on CPAP: CODE(S): G47.33 - Obstructive sleep apnea (adult) (pediatric); Z99.89 - Dependence on other enabling machines and devices (11) Pulmonary hypertension: CODE(S): I27.20 - Pulmonary hypertension, unspecified (12) Hyperlipidemia: CODE(S): E78.5 - Hyperlipidemia, unspecified QUALIFIERS: Hyperlipidemia type: unspecified Qualified Code(s): E78.5 - Hyperlipidemia, unspecified (13) Essential hypertension: CODE(S): I10 - Essential (primary) hypertension (14) Ulcerative colitis: CODE(S): K51.90 - Ulcerative colitis, unspecified, without complications (15) Dependence on supplemental oxygen: CODE(S): Z99.81 - Dependence on supplemental oxygen (16) Pacemaker: CODE(S): Z95.0 - Presence of cardiac pacemaker (17) Obesity (BMI 30.0-34.9): CODE(S): E66.9 - Obesity, unspecified (18) Diverticular disease: CODE(S): K57.90 - Diverticulosis of intestine, part unspecified, without perforation or abscess without bleeding (19) Chronic renal failure, stage 3 (moderate): CODE(S): N18.30 - Chronic kidney disease, stage 3 unspecified (20) COPD (chronic obstructive pulmonary disease): CODE(S): J44.9 - Chronic obstructive pulmonary disease, unspecified (21) Diabetes mellitus: CODE(S): E11.9 - Type 2 diabetes mellitus without complications PLAN: This is a 71-year-old male who presents with an open wound on his right medial calf, which has been present for approximately 18 months. It has failed to heal, despite several treatments. The patient has multiple pre-existing medical problems, which are listed above. It is noted that there is significant tunneling and undermining of the wound at the 1 o'clock position, which may be a factor in ultimate healing. This issue has been discussed with the patient in detail. For now, we are to implement the use of moistened 1/4 inch Nu Gauze which will be used to pack the wound on a daily basis. Home health nursing care will be implemented patient has been advised to refrain from prolonged idle sitting. Activity has been encouraged. Leg elevation is to be implemented as much as possible. The patient has been encouraged to sleep with his legs elevated, and to elevate his legs even during daytime hours. Elevation is to be to heart level, or higher. We are to obtain routine laboratory studies, including a CBC, comprehensive metabolic profile, and hemoglobin A1c. Patient has been advised to optimize his nutritional intake and his glycemic control. We will obtain a noninvasive lower extremity arterial study to assess the arterial status of the patient's lower extremities. Patient is to return in 1 week for reassessment. Total time: 65 minutes.
== END 2021-06-10 23:59 | disposition home or self-care (01) ==
LOC: WC 08:53
PROVIDERS: PCP Family Medicine; Visit Provider Surgery
DX: S81.801A Unspecified open wound, right lower leg, initial encounter (principal); J44.9 Chronic obstructive pulmonary disease, unspecified; I13.0 Hypertensive heart and chronic kidney disease with heart failure and stage 1 through stage 4 chronic kidney disease, or unspecified chronic kidney disease; I42.9 Cardiomyopathy, unspecified; I50.9 Heart failure, unspecified; I27.20 Pulmonary hypertension, unspecified; K51.90 Ulcerative colitis, unspecified, without complications; E11.22 Type 2 diabetes mellitus with diabetic chronic kidney disease; J96.21 Acute and chronic respiratory failure with hypoxia; J96.22 Acute and chronic respiratory failure with hypercapnia; I48.0 Paroxysmal atrial fibrillation; I48.91 Unspecified atrial fibrillation; N18.30 Chronic kidney disease, stage 3 unspecified; T81.89XA Other complications of procedures, not elsewhere classified, initial encounter; E78.5 Hyperlipidemia, unspecified; K57.90 Diverticulosis of intestine, part unspecified, without perforation or abscess without bleeding; Z79.01 Long term (current) use of anticoagulants; Z96.642 Presence of left artificial hip joint; E66.9 Obesity, unspecified; Z95.0 Presence of cardiac pacemaker; Z99.81 Dependence on supplemental oxygen; Z87.891 Personal history of nicotine dependence; G47.33 Obstructive sleep apnea (adult) (pediatric); M79.89 Other specified soft tissue disorders; R60.0 Localized edema
CPT/HCPCS: 11042; 99213; G0463

== ENCOUNTER 2021-07-11 09:00 | Outpatient (RCR) | payer MEDICARE, OTHER, SELFPAY ==
[2021-06-11 00:52] VITALS: BP 131/94; PULSE 69; TEMP 36.3; BMI 32.4
[2021-06-13 09:27] VITALS: BP 152/67; PULSE 70; RESP 22; TEMP 36.2; BMI 32.4
--- NOTE | 2021-06-13 12:29 | PCM.WC.HP ---
History of Present Illness Date of Service: 06/13/21 Chief Complaint: Open wound, right lower extremity History of Wound: This is a 71-year-old male who presented with an open wound in the right lower extremity. According the patient, the wound had been present for approximately 18 months. It is cared for by nursing staff at [facility], with visits 2-3 times per week. It appears as though a variety of treatments have been implemented, including the use of collagenase Santyl and gauze packing. The patient most recently was applying gauze topically. He has previously been treated with Augmentin. The patient is unaware of the etiology of his wound, or how it originated. It has been relatively unchanged for quite some time. He denies a history of thrombophlebitis. He does relate swelling in his right lower extremity, typically worse at the end of the day. He sleeps in a recliner. Patient has multiple pre-existing medical problems, including atrial fibrillation, congestive heart failure, diabetes mellitus, chronic respiratory failure with hypoxia, oxygen dependence, COPD, diverticular disease, hypertension, hyperlipidemia, ulcerative colitis, and obstructive sleep apnea. The patient has a pacemaker, and is on systemic anticoagulation with Coumadin. He has previously undergone open reduction and internal fixation of a right ankle fracture, with subsequent skin graft procedures on multiple occasions. He has had a vein stripping in the left lower extremity, and a left total hip replacement. [facility] Medical History Chronic renal failure, stage 3 (moderate) COPD (chronic obstructive pulmonary disease) COPD (chronic obstructive pulmonary disease) Dependence on supplemental oxygen Diabetes mellitus Diverticular disease Diverticulitis of colon with hemorrhage (~2004) Essential hypertension Hyperlipidemia Leg edema Leg swelling Obesity Obesity (BMI 30.0-34.9) REBECA on CPAP Pacemaker Psoriasis Pulmonary hypertension Rheumatic fever without mention of heart involvement Type 2 diabetes mellitus without complication Ulcerative colitis Ulcerative colitis Wound of right lower extremity Home Medications albuterol sulfate 90 mcg/actuation aerosol inhaler 2 puff INHALATION Q4H PRN g 07/23/18 [History Last Taken Unknown] diltiazem HCl 180 mg capsule,extended release 24 hr 360 mg PO DAILY cap 07/23/18 [History Last Taken 09/26/18] fenofibrate 160 mg tablet 160 mg PO DAILY 06/12/19 [History Last Taken Unknown] fluticasone propionate 115 mcg-salmeterol 21 mcg/actuation HFA inhaler 2 puff INHALATION BID 07/23/18 [History Last Taken Unknown] losartan 100 mg tablet 100 mg PO DAILY 11/25/18 [History Last Taken Unknown] ascorbic acid (vitamin C) 500 mg PO BID 01/13/20 [History Last Taken Unknown] atorvastatin 80 mg PO QHS 01/13/20 [History Last Taken Unknown] carvedilol 3.125 mg PO BID 01/13/20 [History Last Taken Unknown] melatonin 5 mg PO QHS 01/13/20 [History Last Taken Unknown] potassium chloride 20 meq PO DAILY 01/13/20 [History Last Taken Unknown] amoxicillin-pot clavulanate 1 ea PO BID #6 tab 01/19/20 [Rx Last Taken Unknown] dexamethasone 6 mg PO DAILY #0 01/19/20 [Rx Last Taken Unknown] furosemide 40 mg PO BID #60 tab 01/19/20 [Rx Last Taken Unknown] warfarin 1 mg tablet 3.5 mg PO DAILY tab 02/08/20 [History Last Taken Unknown] Allergy/AdvReac Type Severity Reaction Status Date / Time povidone-iodine Allergy Intermediate rash, Verified 07/29/19 13:09 [From Betadine] itching soap [From Betadine] Allergy Intermediate rash, Verified 07/29/19 13:09 itching Family History Mother Cancer kidney Father Cancer lung Surgical History History of left hip replacement History of open reduction and internal fixation (ORIF) procedure History of skin graft History of vein stripping Social History Smoking Status: Former smoker Smokeless tobacco user: snuff how long ago did patient quit smokin months ago alcohol intake: never substance use type: does not use caffeine: Yes Type: coffee Number of servings: 2 Vital Signs Vital Signs Vital Signs: 06/13/21 09:27 Temperature 97.1 F L Temperature Source Temporal Pulse Rate 70 Respiratory Rate 22 H Blood Pressure 152/67 H Blood Pressure Mean 95 Weight Weight: 195 lb Body Mass Index (BMI) 32.4 Physical Exam Const alert, oriented x3, no apparent distress and well nourished General Appearance: cooperative, comfortable and well developed Orientation / Consciousness: awake, oriented to person, oriented to place and oriented to time HEENT normocephalic and head/scalp atraumatic Head and Scalp: normal to inspection, normocephalic and atraumatic External Ear: external ears normal Eyes PERRL and EOMs intact bilaterally General Eye: normal appearance of both eyes Resp normal respiratory effort, normal air movement, no retractions and no use of accessory muscles Effort and Inspection: able to speak in complete sentences Extremity no calf tenderness General Extremity: Negative for clubbing or cyanosis Skin Wound Narrative: The patient's wound persists in the right medial upper calf. The wound is tunneled, with undermining extending superiorly. The tunneling extends approximately 2 cm. Hyperpigmentation is noted in the right gaiter area. No significant swelling is noted. A moderate amount of bioburden appears to be present. Neuro oriented x3, CN's II-XII intact bilaterally and moves all extremities Sensorium / Orientation: awake, alert, oriented to person, oriented to place and oriented to time Psych Appearance: grossly normal and appropriate Attitude: calm Activity / Motor Behavior: appropriate eye contact Speech: normal speech Mood & Affect: euthymic mood Thought Process: normal thought process Thought Content: normal thought content Attention / Concentration: attention grossly intact Debridement Note Debridement Note Wound debrided: Proximal right medial calf Laterality: Right Type of Debridement: Excisional debridement Anesthesia Used: 5% Lidocaine Gel Depth: Down to and including healthy tissue and in the subcutaneous layer Percentage of wound debrided: 100 Instrument Used: 3mm curette Tissue Removed: Bioburden Severity: Fat Layer Exposed Amount of bleeding with debridement: Mild Bleeding Controlled with: Compression and gauze Patient tolerated procedure: Patient tolerated procedure well Post-Debridement Measurements and Additional Note: Post-Debridement Measurements/Treatment - Nurse 1 - General Ulcer Assessment Start: 06/13/21 09:27 Freq: Status: Active Protocol: RAJAT Activity Type Activity Date Activity User E-Sign Co-Sign Detail Recorded Client Recorded Date Recorded By Document 06/13/21 09:27 DL [id number] 06/13/21 09:29 DL 06/13/21 09:27 - Today's Visit Information Type of service Follow-up Visit (Physician/CLINICAL SPECIALTY REP ) Arrival Mode Ambulatory Transfer Assistance None Patient Identification Verified (Name & Yes ) Patient Requires Transmission-Based No Precautions Height and Weight Body Mass Index (BMI) 32.4 BMI Classification Obese Vital Signs Temperature (97.8 F-99.1 F) 97.1 F L Temperature Source Temporal Pulse Rate (60-100) 70 Pulse Location Monitor Respiratory Rate (12-18) 22 H Respiratory rate source Observation Blood Pressure (90/60-120/80) 152/67 H Blood Pressure Mean 95 History Since Last Visit- (Skip if this is Patient's initial visit) Have you changed medications since your No last visit? Any new allergies or adverse reactions No Had a fall/change in ADL's that may No increase risk of falls Signs or symptoms of abuse and/or No neglect since last visit Have you been in the hospital since your No last visit? Has dressing in place as prescribed Yes Has compression in place as prescribed Yes Has offloadiing in place as prescribed N/A Experienced any changes in pain level or No management Pain Scale: 0-10 Numeric Is Patient Pain Free? Yes USHA - Nurse 1 - General Ulcer Measurement Start: 06/13/21 09:27 Freq: Status: Active Protocol: Activity Type Activity Date Activity User E-Sign Co-Sign Detail Recorded Client Recorded Date Recorded By Document 06/13/21 09:27 DL [id number] 06/13/21 09:29 DL 06/13/21 09:27 Wound Center Nurse 1 #3 R MEDIAL LE -Current Size (cm) - Length 0.5 -Current Size (cm) - Width 0.4 -Current Size (cm) - Depth 2 -Total Square Cm 0.20 -Photo Taken No -Exudate Amt Small -Exudate Type Sanguineous -Wound Margin Distinct, Outline Attached -Granulation Amt Small (1-33%) -Granulation Quality Red -Necrosis Amt None Present (0 %) -Structure Exposed N/A -Texture (Nancy-wound Skin Appearance) Scarring -Moisture (Nancy-wound Skin Appearance) No Abnormality -Color (Nancy-wound Skin Appearance) No Abnormality -Temperature (Nancy-wound Skin No Abnormality Appearance) (Pt Warm) -Tenderness on Palpation (Nancy-wound No Skin Appearance) -Ulcer Cleansing Soap and Water -Foul Odor after Cleansing No -Anesthetic Used 5% Lidocaine Gel USHA - Nurse 3 - General Ulcer D/C NN Start: 06/13/21 09:27 Freq: Status: Active Protocol: Activity Type Activity Date Activity User E-Sign Co-Sign Detail Recorded Client Recorded Date Recorded By Document 06/13/21 09:51 DL [id number] 06/13/21 09:52 DL 06/13/21 09:51 Wound Care Nurse 3 -Ulcer Cleansing Rinsed/ Irrigated with Saline -Foul Odor after Cleansing No -Primary Dressing Applied Nugauze, Plain Iodoform -Primary Dressing Covered/Secured with Dry Gauze & Roll Gauze, Secured with Tape -Nugauze, Plain Iodoform 02/14 1 Treatment Response Procedure Tolerated Well Pain Scale: 0-10 Numeric Is Patient Pain Free? Yes WC - Visit Discharge Discharge Condition Stable Ambulatory Status Ambulatory, Walker Transportation [facility] Facility Type Home Health Orders Sent Yes Assessment/Plan Assessment/Plan (1) Wound of right lower extremity: CODE(S): S81.801A - Unspecified open wound, right lower leg, initial encounter QUALIFIERS: Encounter type: initial encounter Qualified Code(s): S81.801A - Unspecified open wound, right lower leg, initial encounter (2) Leg edema: CODE(S): R60.0 - Localized edema (3) Leg swelling: CODE(S): M79.89 - Other specified soft tissue disorders (4) Diabetes mellitus: CODE(S): E11.9 - Type 2 diabetes mellitus without complications (5) COPD (chronic obstructive pulmonary disease): CODE(S): J44.9 - Chronic obstructive pulmonary disease, unspecified (6) Chronic renal failure, stage 3 (moderate): CODE(S): N18.30 - Chronic kidney disease, stage 3 unspecified (7) Diverticular disease: CODE(S): K57.90 - Diverticulosis of intestine, part unspecified, without perforation or abscess without bleeding (8) Obesity (BMI 30.0-34.9): CODE(S): E66.9 - Obesity, unspecified (9) Pacemaker: CODE(S): Z95.0 - Presence of cardiac pacemaker (10) Dependence on supplemental oxygen: CODE(S): Z99.81 - Dependence on supplemental oxygen (11) Ulcerative colitis: CODE(S): K51.90 - Ulcerative colitis, unspecified, without complications (12) Paroxysmal atrial fibrillation: CODE(S): I48.0 - Paroxysmal atrial fibrillation (13) Mitral valve replaced: CODE(S): Z95.2 - Presence of prosthetic heart valve (14) 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: CODE(S): Z79.01 - 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 helper (current) use of anticoagulants (15) SARS-associated coronavirus infection: CODE(S): B97.21 - SARS-associated coronavirus as the cause of diseases classified elsewhere (16) Acute and chronic respiratory failure with hypercapnia: CODE(S): J96.22 - Acute and chronic respiratory failure with hypercapnia (17) Acute exacerbation of congestive heart failure: CODE(S): I50.9 - Heart failure, unspecified (18) Elevated serum creatinine: CODE(S): R79.89 - Other specified abnormal findings of blood chemistry (19) Atrial fibrillation with RVR: CODE(S): I48.91 - Unspecified atrial fibrillation (20) Cardiomyopathy: CODE(S): I42.9 - Cardiomyopathy, unspecified (21) Pulmonary hypertension: CODE(S): I27.20 - Pulmonary hypertension, unspecified (22) Hyperlipidemia: CODE(S): E78.5 - Hyperlipidemia, unspecified QUALIFIERS: Hyperlipidemia type: unspecified Qualified Code(s): E78.5 - Hyperlipidemia, unspecified (23) Essential hypertension: CODE(S): I10 - Essential (primary) hypertension PLAN: This is a 71-year-old male who presents with an open wound on his right medial calf, which has been present for approximately 18 months. It has failed to heal, despite several means of treatment. The patient has multiple pre-existing medical problems, which are listed above. It is noted that there is significant tunneling and undermining of the wound at the 1 o'clock position, which may be a factor in ultimate healing. This issue has been discussed with the patient in detail. For now, we are to continue the use of moistened 1/4 inch Nu Gauze which will be used to pack the wound on a daily basis. However, there ultimately may be a need for unroofing and debridement of the site, to enhance the prospect for healing. Home health nursing care will be implemented patient has been advised to refrain from prolonged idle sitting. Activity has been encouraged. Leg elevation is to be implemented as much as possible. The patient has been encouraged to sleep with his legs elevated, and to elevate his legs even during daytime hours. Elevation is to be to heart level, or higher. We have obtained diagnostic laboratory studies, the results of which are as follows: White count 8.3, hemoglobin 11.4, hematocrit 34.4, platelets 152,000, glucose 123, sodium 144, potassium 3.6, chloride 101, BUN 36, creatinine 1.75, calcium 8.7, total protein 8.0, albumin 3.4, total bilirubin 0.5, alkaline phosphatase 79, AST 20, ALT 19, hemoglobin A1c 5.8. The patient has been advised to optimize his nutritional intake and his glycemic control. We will obtain a noninvasive lower extremity arterial study to assess the arterial status of the patient's lower extremities. Patient is to return in 1 week for reassessment. Total time: 29 minutes
--- NOTE | 2021-06-19 13:54 | ART_ITS ---
Reason For Study: nonhealing wound Procedure A bilateral lower extremity continuous wave Doppler with analog waveform analysis,segmental pressures,and ankle brachial indexes without exercise. Left Segmental Pressures Left brachial= 149mmHg. Left posterior tibial artery = 174mmHg. Left dorsalis pedis artery = 162mmHg. Left digit = 117 mmHg. The left dorsalis pedis waveforms are triphasic. The left posterior tibial artery waveforms are triphasic. Right Segmental Pressures Right brachial= 153mmHg. Right posterior tibial artery = 173mmHg. Right dorsalis pedis artery = 161mmHg. Right digit = 38 mmHg. The right dorsalis pedis waveforms are triphasic. The right posterior tibial artery waveforms are triphasic. Indices The right ankle brachial index by the dorsalis pedis is 1.05. The right ankle brachial index by the posterior tibial artery is 1.13. The right digital-brachial index is .25. The left ankle brachial index by the dorsalis pedis is 1.06. The left ankle brachial index by the posterior tibial artery is 1.14. The left digital-brachial index is .76. VL/Lower Ext Art Exam w/o Exercis Interpretation Summary Triphasic Doppler waveforms are noted at ankle level bilaterally. Pulse-volume recordings appear diminished at digital level bilaterally, but satisfactory at all other levels b ilaterally. Resting ankle-brachial indices are normal bilaterally. The right digital-brachial index is moderately to severely diminished. The left digital-brachial index is normal. Arterial flow appears normal at ankle level bilaterally, and at digital level o n the left. There is evidence of [id number] arterial occlusive disease at digital level on t he right. Ordering Physician: Rayo Lee Performed By: Cody Russell RVT
[2021-06-20 09:08] VITALS: TEMP 35.7; BMI 32.4
--- NOTE | 2021-06-20 10:58 | PCM.WC.HP ---
History of Present Illness Date of Service: 06/20/21 Chief Complaint: Open wound, right lower extremity History of Wound: This is a 71-year-old male who presented with an open wound in the right lower extremity. According the patient, the wound had been present for approximately 18 months. It is cared for by nursing staff at [facility], with visits 2-3 times per week. It appears as though a variety of treatments have been implemented, including the use of collagenase Santyl and gauze packing. The patient most recently was applying gauze topically. He has previously been treated with Augmentin. The patient is unaware of the etiology of his wound, or how it originated. It has been relatively unchanged for quite some time. He denies a history of thrombophlebitis. He does relate swelling in his right lower extremity, typically worse at the end of the day. He sleeps in a recliner. Patient has multiple pre-existing medical problems, including atrial fibrillation, congestive heart failure, diabetes mellitus, chronic respiratory failure with hypoxia, oxygen dependence, COPD, diverticular disease, hypertension, hyperlipidemia, ulcerative colitis, and obstructive sleep apnea. The patient has a pacemaker, and is on systemic anticoagulation with Coumadin. He has previously undergone open reduction and internal fixation of a right ankle fracture, with subsequent skin graft procedures on multiple occasions. He has had a vein stripping in the left lower extremity, and a left total hip replacement. [facility] Medical History Chronic renal failure, stage 3 (moderate) COPD (chronic obstructive pulmonary disease) COPD (chronic obstructive pulmonary disease) Dependence on supplemental oxygen Diabetes mellitus Diverticular disease Diverticulitis of colon with hemorrhage (~2004) Essential hypertension Hyperlipidemia Leg edema Leg swelling Obesity Obesity (BMI 30.0-34.9) REBECA on CPAP Pacemaker Psoriasis Pulmonary hypertension Rheumatic fever without mention of heart involvement Type 2 diabetes mellitus without complication Ulcerative colitis Ulcerative colitis Wound of right lower extremity Home Medications albuterol sulfate 90 mcg/actuation aerosol inhaler 2 puff INHALATION Q4H PRN g 07/23/18 [History Last Taken Unknown] diltiazem HCl 180 mg capsule,extended release 24 hr 360 mg PO DAILY cap 07/23/18 [History Last Taken 09/26/18] fenofibrate 160 mg tablet 160 mg PO DAILY 06/12/19 [History Last Taken Unknown] fluticasone propionate 115 mcg-salmeterol 21 mcg/actuation HFA inhaler 2 puff INHALATION BID 07/23/18 [History Last Taken Unknown] losartan 100 mg tablet 100 mg PO DAILY 11/25/18 [History Last Taken Unknown] ascorbic acid (vitamin C) 500 mg PO BID 01/13/20 [History Last Taken Unknown] atorvastatin 80 mg PO QHS 01/13/20 [History Last Taken Unknown] carvedilol 3.125 mg PO BID 01/13/20 [History Last Taken Unknown] melatonin 5 mg PO QHS 01/13/20 [History Last Taken Unknown] potassium chloride 20 meq PO DAILY 01/13/20 [History Last Taken Unknown] amoxicillin-pot clavulanate 1 ea PO BID #6 tab 01/19/20 [Rx Last Taken Unknown] dexamethasone 6 mg PO DAILY #0 01/19/20 [Rx Last Taken Unknown] furosemide 40 mg PO BID #60 tab 01/19/20 [Rx Last Taken Unknown] warfarin 1 mg tablet 3.5 mg PO DAILY tab 02/08/20 [History Last Taken Unknown] Allergy/AdvReac Type Severity Reaction Status Date / Time povidone-iodine Allergy Intermediate rash, Verified 07/29/19 13:09 [From Betadine] itching soap [From Betadine] Allergy Intermediate rash, Verified 07/29/19 13:09 itching Family History Mother Cancer kidney Father Cancer lung Surgical History History of left hip replacement History of open reduction and internal fixation (ORIF) procedure History of skin graft History of vein stripping Social History Smoking Status: Former smoker Smokeless tobacco user: snuff how long ago did patient quit smokin months ago alcohol intake: never substance use type: does not use caffeine: Yes Type: coffee Number of servings: 2 Vital Signs Vital Signs Vital Signs: 06/20/21 09:08 Temperature 96.2 F L Temperature Source Temporal Weight Weight: 195 lb Body Mass Index (BMI) 32.4 Physical Exam Const alert, oriented x3, no apparent distress and well nourished General Appearance: cooperative, comfortable, well kempt and well developed Orientation / Consciousness: awake, oriented to person, oriented to place and oriented to time HEENT normocephalic and head/scalp atraumatic Head and Scalp: normal to inspection, normocephalic and atraumatic External Ear: external ears normal Eyes PERRL and EOMs intact bilaterally General Eye: normal appearance of both eyes Resp normal respiratory effort, normal air movement, no retractions and no use of accessory muscles Effort and Inspection: able to speak in complete sentences Extremity no calf tenderness General Extremity: Negative for clubbing or cyanosis Skin Wound Narrative: Minimal swelling is noted in the patient's right lower extremity. The ulceration on the right upper medial calf persists, and is associated with undermining extending superiorly. There is no significant erythema or cellulitis. Mild hyperpigmentation is noted in the right gaiter area. Dimensions are documented elsewhere. There is a moderate amount of bioburden. Neuro oriented x3, CN's II-XII intact bilaterally and moves all extremities Sensorium / Orientation: awake, alert, oriented to person, oriented to place and oriented to time Psych Appearance: grossly normal and appropriate Attitude: calm Activity / Motor Behavior: appropriate eye contact Speech: normal speech Mood & Affect: euthymic mood Thought Process: normal thought process Thought Content: normal thought content Attention / Concentration: attention grossly intact Debridement Note Debridement Note Wound debrided: Tunneled, undermining wound - upper right medial calf Laterality: Right Type of Debridement: Excisional debridement Anesthesia Used: 5% Lidocaine Gel Depth: Down to and including healthy tissue and in the subcutaneous layer Percentage of wound debrided: 100 Instrument Used: 3mm curette Tissue Removed: Bioburden Severity: Fat Layer Exposed Amount of bleeding with debridement: Mild Bleeding Controlled with: Compression and gauze Patient tolerated procedure: Patient tolerated procedure well Post-Debridement Measurements and Additional Note: Post-Debridement Measurements/Treatment [facility] - Nurse 1 - General Ulcer Assessment Start: 06/13/21 09:27 Freq: Status: Active Protocol: RAJAT Activity Type Activity Date Activity User E-Sign Co-Sign Detail Recorded Client Recorded Date Recorded By Document 06/13/21 09:27 DL [id number] 06/13/21 09:29 DL Document 06/20/21 09:08 MIRIAN [id number] 06/20/21 09:10 AK 06/13/21 06/20/21 09:27 09:08 - Today's Visit Information Type of service Follow-up Visit Follow-up Visit (Physician/SENIOR SALES DIRECTOR (Physician/SENIOR SALES DIRECTOR ) ) Arrival Mode Ambulatory Ambulatory Transfer Assistance None Patient Identification Verified (Name & Yes Yes ) Patient Requires Transmission-Based No No Precautions Safety Precautions NA Height and Weight Body Mass Index (BMI) 32.4 32.4 BMI Classification Obese Obese Vital Signs Temperature (97.8 F-99.1 F) 97.1 F L 96.2 F L Temperature Source Temporal Temporal Pulse Rate (60-100) 70 Pulse Location Monitor Respiratory Rate (12-18) 22 H Respiratory rate source Observation Blood Pressure (90/60-120/80) 152/67 H Blood Pressure Mean 95 History Since Last Visit- (Skip if this is Patient's initial visit) Have you changed medications since your No No last visit? Any new allergies or adverse reactions No No Had a fall/change in ADL's that may No No increase risk of falls Signs or symptoms of abuse and/or No No neglect since last visit Have you been in the hospital since your No No last visit? Has dressing in place as prescribed Yes Yes Has compression in place as prescribed Yes N/A Has offloadiing in place as prescribed N/A N/A Experienced any changes in pain level or No No management Left Footwear Regular Shoe Right Footwear Regular Shoe Pain Scale: 0-10 Numeric Is Patient Pain Free? Yes Yes - Nurse 1 - General Ulcer Measurement Start: 06/13/21 09:27 Freq: Status: Active Protocol: Activity Type Activity Date Activity User E-Sign Co-Sign Detail Recorded Client Recorded Date Recorded By Document 06/13/21 09:27 DL [id number] 06/13/21 09:29 DL Document 06/20/21 09:08 MIRIAN [id number] 06/20/21 09:10 AK 06/13/21 06/20/21 09:27 09:08 Wound Center Nurse 1 #3 R MEDIAL LE -Combined with other wound No -Current Size (cm) - Length 0.5 0.3 -Current Size (cm) - Width 0.4 0.5 -Current Size (cm) - Depth 2 0.5 -Total Square Cm 0.20 0.15 -Photo Taken No No -Tunneling No -Undermining/Tunneling No -Circular Undermining No -Change in Wound Grade/Stage No -Exudate Amt Small Medium -Exudate Type Sanguineous Serosanguineous -Wound Margin Distinct, Distinct, Outline Outline Attached Attached -Granulation Amt Small (1-33%) None Present (0 %) -Granulation Quality Red N/A -Slough/Fibrin No -Necrosis Amt None Present (0 Medium (34-66%) %) -Necrotic Tissue Type Adherent Slough -Structure Exposed N/A N/A -Texture (Nancy-wound Skin Appearance) Scarring Assessed, Scarring -Moisture (Nancy-wound Skin Appearance) No Abnormality Assessed -Color (Nancy-wound Skin Appearance) No Abnormality Assessed -Temperature (Nancy-wound Skin No Abnormality No Abnormality Appearance) (Pt Warm) (Pt Warm) -Tenderness on Palpation (Nancy-wound No No Skin Appearance) -Ulcer Cleansing Soap and Water Rinsed/ Irrigated with Saline -Foul Odor after Cleansing No No -Anesthetic Used 5% Lidocaine 5% Lidocaine Gel Gel WC - Nurse 2 - General Ulcer CM Notes Start: 06/13/21 09:27 Freq: Status: Active Protocol: Activity Type Activity Date Activity User E-Sign Co-Sign Detail Recorded Client Recorded Date Recorded By Document 06/13/21 12:39 PL [id number] 06/13/21 12:40 PL Document 06/20/21 09:47 PL [id number] 06/20/21 09:48 PL 06/13/21 06/20/21 12:39 09:47 Wound Center Nurse 2 #3 R MEDIAL LE -Time 09:35 09:29 -Correct Patient Yes Yes -Correct Side, Site, Position Yes Yes -Correct Procedure Yes Yes -Procedure Performed Yes Yes -Type of Procedure Debridement Debridement -Clinical Debridement Subcutaneous Subcutaneous -Tissue Removed Subcutaneous Subcutaneous -Post Debridement (cm) - Length 0.5 0.3 -Post Debridement (cm) - Width 0.4 0.5 -Post Debridement (cm) - Depth 2.0 0.5 -Total Square (Post) (cm) 0.20 0.15 -Area of Debridement (cm) - Length 0.5 0.3 -Area of Debridement (cm) - Width 0.4 0.5 -Total Square (Area) (cm) 0.20 0.15 -Tunneling No No -Undermining/Tunneling No No -Circular Undermining No No -Wound/Ulcer Outcome Not Healed Not Healed -Ulcer Cleansing Rinsed/ Rinsed/ Irrigated with Irrigated with Saline Saline -Foul Odor after Cleansing No No -Bioengineered Tissue No No -Bleeding Controlled with Pressure Pressure -Treatment Response Procedure Procedure Tolerated Well Tolerated Well -Debridement - Subq, 1st 20sq cm Yes Yes Pain Scale: 0-10 Numeric Is Patient Pain Free? Yes Yes - Nurse 3 - General Ulcer D/C NN Start: 06/13/21 09:27 Freq: Status: Active Protocol: Activity Type Activity Date Activity User E-Sign Co-Sign Detail Recorded Client Recorded Date Recorded By Document 06/13/21 09:51 DL [id number] 06/13/21 09:52 DL Document 06/20/21 09:42 AK [id number] 06/20/21 09:43 AK 06/13/21 06/20/21 09:51 09:42 Wound Care Nurse 3 #3 R MEDIAL LE -Ulcer Cleansing Rinsed/ Rinsed/ Irrigated with Irrigated with Saline Saline -Foul Odor after Cleansing No No -Negative Pressure Wound Therapy N/A -Primary Dressing Applied Nugauze, Plain Nugauze, Iodoform Iodoform -Primary Dressing Covered/Secured with Dry Gauze & Dry Gauze & Roll Gauze, Roll Gauze, Secured with Secured with Tape Tape -Nugauze, Iodoform 1/4 1 -Nugauze, Plain Iodoform 1/4 1 Treatment Response Procedure Tolerated Well Pain Scale: 0-10 Numeric Is Patient Pain Free? Yes Yes - Visit Discharge Discharge Condition Stable Stable Ambulatory Status Ambulatory, Ambulatory,Cane Walker Transportation Private Auto Private Auto Accompanied by friend Medication Reconcilliation completed & Yes provided to patient/care provider Clinical Summary of Care Provided Yes Facility Type Home Health Orders Sent Yes Radiology Impression Extremity Arterial Study 06/19/21 13:54 Interpretation Summary Triphasic Doppler waveforms are noted at ankle level bilaterally. Pulse-volume recordings appear diminished at digital level bilaterally, but satisfactory at all other levels bilaterally. Resting ankle-brachial indices are normal bilaterally. The right digital-brachial index is moderately to severely diminished. The left digital-brachial index is normal. Arterial flow appears normal at ankle level bilaterally, and at digital level on the left. There is evidence of [id number]-[id number] arterial occlusive disease at digital level on the right. Ordering Physician: Rayo Lee Performed By: Cody Russell RVT Assessment/Plan Assessment/Plan (1) Wound of right lower extremity: CODE(S): S81.801A - Unspecified open wound, right lower leg, initial encounter QUALIFIERS: Encounter type: initial encounter Qualified Code(s): S81.801A - Unspecified open wound, right lower leg, initial encounter (2) Leg edema: CODE(S): R60.0 - Localized edema (3) Leg swelling: CODE(S): M79.89 - Other specified soft tissue disorders (4) Diabetes mellitus: CODE(S): E11.9 - Type 2 diabetes mellitus without complications (5) COPD (chronic obstructive pulmonary disease): CODE(S): J44.9 - Chronic obstructive pulmonary disease, unspecified (6) Chronic renal failure, stage 3 (moderate): CODE(S): N18.30 - Chronic kidney disease, stage 3 unspecified (7) Diverticular disease: CODE(S): K57.90 - Diverticulosis of intestine, part unspecified, without perforation or abscess without bleeding (8) Obesity (BMI 30.0-34.9): CODE(S): E66.9 - Obesity, unspecified (9) Pacemaker: CODE(S): Z95.0 - Presence of cardiac pacemaker (10) Dependence on supplemental oxygen: CODE(S): Z99.81 - Dependence on supplemental oxygen (11) Ulcerative colitis: CODE(S): K51.90 - Ulcerative colitis, unspecified, without complications (12) Paroxysmal atrial fibrillation: CODE(S): I48.0 - Paroxysmal atrial fibrillation (13) Mitral valve replaced: CODE(S): Z95.2 - Presence of prosthetic heart valve (14) 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: CODE(S): Z79.01 - termite control service representative (current) use of anticoagulants (15) Acute and chronic respiratory failure with hypercapnia: CODE(S): J96.22 - Acute and chronic respiratory failure with hypercapnia (16) Atrial fibrillation with RVR: CODE(S): I48.91 - Unspecified atrial fibrillation (17) Cardiomyopathy: CODE(S): I42.9 - Cardiomyopathy, unspecified (18) REBECA on CPAP: CODE(S): G47.33 - Obstructive sleep apnea (adult) (pediatric); Z99.89 - Dependence on other enabling machines and devices (19) Pulmonary hypertension: CODE(S): I27.20 - Pulmonary hypertension, unspecified (20) Hyperlipidemia: CODE(S): E78.5 - Hyperlipidemia, unspecified QUALIFIERS: Hyperlipidemia type: unspecified Qualified Code(s): E78.5 - Hyperlipidemia, unspecified (21) Essential hypertension: CODE(S): I10 - Essential (primary) hypertension PLAN: This is a 71-year-old male who presented with an open wound on his right medial calf, which had been present for approximately 18 months. It had failed to heal, despite several means of treatment. The patient has multiple pre-existing medical problems, which are listed above. It is noted that there is significant tunneling and undermining of the wound at the 1 o'clock position, which may be a factor in ultimate healing. This issue has been discussed with the patient in detail. For now, we are to continue the use of moistened 1/4 inch Nu Gauze which will be used to pack the wound on a daily basis. However, there ultimately may be a need for unroofing and debridement of the site, to enhance the prospect for healing. Home health nursing care will be implemented. The patient has been advised to refrain from prolonged idle sitting. Activity has been encouraged. Leg elevation is to be implemented as much as possible. The patient has been encouraged to sleep with his legs elevated, and to elevate his legs even during daytime hours. Elevation is to be to heart level, or higher. We have obtained diagnostic laboratory studies, the results of which are as follows: White count 8.3, hemoglobin 11.4, hematocrit 34.4, platelets 152,000, glucose 123, sodium 144, potassium 3.6, chloride 101, BUN 36, creatinine 1.75, calcium 8.7, total protein 8.0, albumin 3.4, total bilirubin 0.5, alkaline phosphatase 79, AST 20, ALT 19, hemoglobin A1c 5.8. The patient has been advised to optimize his nutritional intake and his glycemic control. A noninvasive lower extremity arterial study has been performed on 06/19/2021, demonstrating arterial flow to be normal at ankle level bilaterally, and at digital level on the left. 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 This finding is suggestive of adequate arterial circulation in the right lower extremity to support healing. The patient is to return in 1 week for reassessment. Total time: 28 minutes
[2021-06-27 09:15] VITALS: BP 108/60; PULSE 71; RESP 22; TEMP 36.4; BMI 32.4
--- NOTE | 2021-06-27 14:57 | HP.PCM_ITS ---
History of Present Illness Date of Service: 06/27/21 Chief Complaint: Open wound, right lower extremity History of Wound: This is a 71-year-old male who presented with an open wound in the right lower extremity. According the patient, the wound had been present for approximately 18 months. It is cared for by nursing staff at [facility], with visits 2-3 times per week. It appears as though a variety of treatments have been implemented, including the use of collagenase Santyl and gauze packing. The patient most recently was applying gauze topically. He has previously been treated with Augmentin. The patient is unaware of the etiology of his wound, or how it originated. It has been relatively unchanged for quite some time. He denies a history of thrombophlebitis. He does relate swelling in his right lower extremity, typically worse at the end of the day. He sleeps in a recliner. Patient has multiple pre-existing medical problems, including atrial fibrillation, congestive heart failure, diabetes mellitus, chronic respiratory failure with hypoxia, oxygen dependence, COPD, diverticular disease, hypertension, hyperlipidemia, ulcerative colitis, and obstructive sleep apnea. The patient has a pacemaker, and is on systemic anticoagulation with Coumadin. He has previously undergone open reduction and internal fixation of a right ankle fracture, with subsequent skin graft procedures on multiple occasions. He has had a vein stripping in the left lower extremity, and a left total hip replacement. [facility] Medical History Chronic renal failure, stage 3 (moderate) COPD (chronic obstructive pulmonary disease) COPD (chronic obstructive pulmonary disease) Dependence on supplemental oxygen Diabetes mellitus Diverticular disease Diverticulitis of colon with hemorrhage (~2004) Essential hypertension Hyperlipidemia Leg edema Leg swelling Obesity Obesity (BMI 30.0-34.9) REBECA on CPAP Pacemaker Psoriasis Pulmonary hypertension Rheumatic fever without mention of heart involvement Type 2 diabetes mellitus without complication Ulcerative colitis Ulcerative colitis Wound of right lower extremity Home Medications albuterol sulfate 90 mcg/actuation aerosol inhaler 2 puff INHALATION Q4H PRN g 07/23/18 [History Last Taken Unknown] diltiazem HCl 180 mg capsule,extended release 24 hr 360 mg PO DAILY cap 07/23/18 [History Last Taken 09/26/18] fenofibrate 160 mg tablet 160 mg PO DAILY 06/12/19 [History Last Taken Unknown] fluticasone propionate 115 mcg-salmeterol 21 mcg/actuation HFA inhaler 2 puff INHALATION BID 07/23/18 [History Last Taken Unknown] losartan 100 mg tablet 100 mg PO DAILY 11/25/18 [History Last Taken Unknown] ascorbic acid (vitamin C) 500 mg PO BID 01/13/20 [History Last Taken Unknown] atorvastatin 80 mg PO QHS 01/13/20 [History Last Taken Unknown] carvedilol 3.125 mg PO BID 01/13/20 [History Last Taken Unknown] melatonin 5 mg PO QHS 01/13/20 [History Last Taken Unknown] potassium chloride 20 meq PO DAILY 01/13/20 [History Last Taken Unknown] amoxicillin-pot clavulanate 1 ea PO BID #6 tab 01/19/20 [Rx Last Taken Unknown] dexamethasone 6 mg PO DAILY #0 01/19/20 [Rx Last Taken Unknown] furosemide 40 mg PO BID #60 tab 01/19/20 [Rx Last Taken Unknown] warfarin 1 mg tablet 3.5 mg PO DAILY tab 02/08/20 [History Last Taken Unknown] Allergy/AdvReac Type Severity Reaction Status Date / Time povidone-iodine Allergy Intermediate rash, Verified 07/29/19 13:09 [From Betadine] itching soap [From Betadine] Allergy Intermediate rash, Verified 07/29/19 13:09 itching Family History Mother Cancer kidney Father Cancer lung Surgical History History of left hip replacement History of open reduction and internal fixation (ORIF) procedure History of skin graft History of vein stripping Social History Smoking Status: Former smoker Smokeless tobacco user: snuff how long ago did patient quit smokin months ago alcohol intake: never substance use type: does not use caffeine: Yes Type: coffee Number of servings: 2 Vital Signs Vital Signs Vital Signs: 06/27/21 09:15 Temperature 97.6 F L Temperature Source Oral Pulse Rate 71 Respiratory Rate 22 H Blood Pressure 108/60 Blood Pressure Mean 76 Blood Pressure Source Monitor Oxygen Flow Rate (L/min) 3 Weight Weight: 195 lb Body Mass Index (BMI) 32.4 Physical Exam Const alert, oriented x3, no apparent distress and well nourished General Appearance: cooperative, comfortable and well developed Orientation / Consciousness: awake, oriented to person, oriented to place and oriented to time HEENT normocephalic and head/scalp atraumatic Head and Scalp: normal to inspection, normocephalic and atraumatic External Ear: external ears normal Eyes PERRL and EOMs intact bilaterally General Eye: normal appearance of both eyes Resp normal respiratory effort, normal air movement, no retractions and no use of accessory muscles Effort and Inspection: able to speak in complete sentences Extremity no calf tenderness General Extremity: Negative for clubbing or cyanosis Skin Wound Narrative: The wound persists on the patient's right medial upper calf. There is little change in appearance. A small opening persists, with significant undermining X tending several centimeters superiorly. The distance of undermining is approximately 2 cm. There is no evidence of infection or cellulitis. No significant swelling or edema are noted in the patient's lower extremities. Hyperpigmentation and lipodermatosclerosis are noted in the right gaiter area. Neuro oriented x3, CN's II-XII intact bilaterally and moves all extremities Sensorium / Orientation: awake, alert, oriented to person, oriented to place and oriented to time Psych Appearance: grossly normal and appropriate Attitude: calm Activity / Motor Behavior: appropriate eye contact Speech: normal speech Mood & Affect: euthymic mood Thought Process: normal thought process Thought Content: normal thought content Attention / Concentration: attention grossly intact Debridement Note Debridement Note Wound debrided: Right medial calf Laterality: Right Type of Debridement: Excisional debridement Anesthesia Used: 5% Lidocaine Gel Depth: Down to and including healthy tissue and in the subcutaneous layer Percentage of wound debrided: 100 Instrument Used: 3mm curette Tissue Removed: Bioburden Severity: Fat Layer Exposed Bleeding Controlled with: Compression and gauze Patient tolerated procedure: Patient tolerated procedure well Post-Debridement Measurements and Additional Note: Post-Debridement Measurements/Treatment WC - Nurse 1 - General Ulcer Assessment Start: 06/13/21 09:27 Freq: Status: Active Protocol: RAJAT Activity Type Activity Date Activity User E-Sign Co-Sign Detail Recorded Client Recorded Date Recorded By Document 06/13/21 09:27 DL [id number] 06/13/21 09:29 DL Document 06/20/21 09:08 AK [id number] 06/20/21 09:10 AK Document 06/27/21 09:15 DL [id number] 06/27/21 09:23 DL 06/13/21 06/20/21 06/27/21 09:27 09:08 09:15 WC - Today's Visit Information Type of service Follow-up Visit Follow-up Visit Follow-up Visit (Physician/JOCKEY ROOM CUSTODIAN (Physician/JOCKEY ROOM CUSTODIAN (Physician/JOCKEY ROOM CUSTODIAN ) ) ) Arrival Mode Ambulatory Ambulatory Ambulatory Transfer Assistance None None Patient Identification Verified (Name & Yes Yes Yes ) Patient Requires Transmission-Based No No Precautions Safety Precautions NA Finger Stick Blood Sugar(mg/dl) (if 112 indicated): Blood Sugar Stated by Patient Height and Weight Body Mass Index (BMI) 32.4 32.4 32.4 BMI Classification Obese Obese Obese Vital Signs Temperature (97.8 F-99.1 F) 97.1 F L 96.2 F L 97.6 F L Temperature Source Temporal Temporal Oral Pulse Rate (60-100) 70 71 Pulse Location Monitor Monitor Respiratory Rate (12-18) 22 H 22 H Respiratory rate source Observation Observation O2 L/MIN 3 Blood Pressure (90/60-120/80) 152/67 H 108/60 Blood Pressure Mean 95 76 Source Monitor History Since Last Visit- (Skip if this is Patient's initial visit) Have you changed medications since your No No No last visit? Any new allergies or adverse reactions No No No Had a fall/change in ADL's that may No No No increase risk of falls Signs or symptoms of abuse and/or No No No neglect since last visit Have you been in the hospital since your No No No last visit? Has dressing in place as prescribed Yes Yes Yes Has compression in place as prescribed Yes N/A Yes Has offloadiing in place as prescribed N/A N/A N/A Experienced any changes in pain level or No No No management Left Footwear Regular Shoe Right Footwear Regular Shoe Pain Scale: 0-10 Numeric Is Patient Pain Free? Yes Yes Yes USHA - Nurse 1 - General Ulcer Measurement Start: 06/13/21 09:27 Freq: Status: Active Protocol: Activity Type Activity Date Activity User E-Sign Co-Sign Detail Recorded Client Recorded Date Recorded By Document 06/13/21 09:27 DL [id number] 06/13/21 09:29 DL Document 06/20/21 09:08 AK [id number] 06/20/21 09:10 AK Document 06/27/21 09:15 DL [id number] 06/27/21 09:23 DL 06/13/21 06/20/21 06/27/21 09:27 09:08 09:15 Wound Center Nurse 1 #3 R MEDIAL LE -Combined with other wound No -Current Size (cm) - Length 0.5 0.3 0.4 -Current Size (cm) - Width 0.4 0.5 0.4 -Current Size (cm) - Depth 2 0.5 0.2 -Total Square Cm 0.20 0.15 0.16 -Photo Taken No No Yes -Tunneling No -Tunneling Position (O'clock) 12 -Tunneling Distance (cm) 1.9 -Undermining/Tunneling No -Circular Undermining No -Change in Wound Grade/Stage No -Exudate Amt Small Medium Small -Exudate Type Sanguineous Serosanguineous Sanguineous -Wound Margin Distinct, Distinct, Distinct, Outline Outline Outline Attached Attached Attached -Granulation Amt Small (1-33%) None Present (0 Small (1-33%) %) -Granulation Quality Red N/A Red -Slough/Fibrin No -Necrosis Amt None Present (0 Medium (34-66%) None Present (0 %) %) -Necrotic Tissue Type Adherent Slough -Structure Exposed N/A N/A N/A -Texture (Nancy-wound Skin Appearance) Scarring Assessed, Scarring Scarring -Moisture (Nancy-wound Skin Appearance) No Abnormality Assessed No Abnormality -Color (Nancy-wound Skin Appearance) No Abnormality Assessed No Abnormality -Temperature (Nancy-wound Skin No Abnormality No Abnormality No Abnormality Appearance) (Pt Warm) (Pt Warm) (Pt Warm) -Tenderness on Palpation (Nancy-wound No No No Skin Appearance) -Ulcer Cleansing Soap and Water Rinsed/ Rinsed/ Irrigated with Irrigated with Saline Saline -Foul Odor after Cleansing No No Yes, Due to Product Use -Anesthetic Used 5% Lidocaine 5% Lidocaine 5% Lidocaine Gel Gel Gel WC - Nurse 2 - General Ulcer CM Notes Start: 06/13/21 09:27 Freq: Status: Active Protocol: Activity Type Activity Date Activity User E-Sign Co-Sign Detail Recorded Client Recorded Date Recorded By Document 06/13/21 12:39 PL [id number] 06/13/21 12:40 PL Document 06/20/21 09:47 PL [id number] 06/20/21 09:48 PL Document 06/27/21 12:50 PL [id number] 06/27/21 12:50 PL 06/13/21 06/20/21 06/27/21 12:39 09:47 12:50 Wound Center Nurse 2 #3 R MEDIAL LE -Time 09:35 09:29 09:50 -Correct Patient Yes Yes Yes -Correct Side, Site, Position Yes Yes Yes -Correct Procedure Yes Yes Yes -Procedure Performed Yes Yes Yes -Type of Procedure Debridement Debridement Debridement -Clinical Debridement Subcutaneous Subcutaneous Subcutaneous -Tissue Removed Subcutaneous Subcutaneous Subcutaneous -Post Debridement (cm) - Length 0.5 0.3 0.4 -Post Debridement (cm) - Width 0.4 0.5 0.4 -Post Debridement (cm) - Depth 2.0 0.5 2.0 -Total Square (Post) (cm) 0.20 0.15 0.16 -Area of Debridement (cm) - Length 0.5 0.3 0.4 -Area of Debridement (cm) - Width 0.4 0.5 0.4 -Total Square (Area) (cm) 0.20 0.15 0.16 -Tunneling No No No -Undermining/Tunneling No No No -Circular Undermining No No No -Wound/Ulcer Outcome Not Healed Not Healed Not Healed -Ulcer Cleansing Rinsed/ Rinsed/ Rinsed/ Irrigated with Irrigated with Irrigated with Saline Saline Saline -Foul Odor after Cleansing No No No -Bioengineered Tissue No No No -Bleeding Controlled with Pressure Pressure Pressure -Treatment Response Procedure Procedure Procedure Tolerated Well Tolerated Well Tolerated Well -Debridement - Subq, 1st 20sq cm Yes Yes Yes Pain Scale: 0-10 Numeric Is Patient Pain Free? Yes Yes Yes WC - Nurse 3 - General Ulcer D/C NN Start: 06/13/21 09:27 Freq: Status: Active Protocol: Activity Type Activity Date Activity User E-Sign Co-Sign Detail Recorded Client Recorded Date Recorded By Document 06/13/21 09:51 DL [id number] 06/13/21 09:52 DL Document 06/20/21 09:42 AK [id number] 06/20/21 09:43 AK Document 06/27/21 10:06 DL [id number] 06/27/21 10:08 DL 06/13/21 06/20/21 06/27/21 09:51 09:42 10:06 Wound Care Nurse 3 #3 R MEDIAL LE -Ulcer Cleansing Rinsed/ Rinsed/ Rinsed/ Irrigated with Irrigated with Irrigated with Saline Saline Saline -Foul Odor after Cleansing No No No -Negative Pressure Wound Therapy N/A -Primary Dressing Applied Nugauze, Plain Nugauze, Nugauze, Plain Iodoform Iodoform Iodoform -Primary Dressing Covered/Secured with Dry Gauze & Dry Gauze & Dry Gauze, Roll Gauze, Roll Gauze, Secured with Secured with Secured with Tape Tape Tape -Nugauze, Iodoform 1/4 1 -Nugauze, Plain Iodoform 1/4 1 1 Treatment Response Procedure Procedure Tolerated Well Tolerated Well Pain Scale: 0-10 Numeric Is Patient Pain Free? Yes Yes Yes WC - Visit Discharge Discharge Condition Stable Stable Stable Ambulatory Status Ambulatory, Ambulatory,Cane Ambulatory Walker Transportation Private Auto Private Auto Private Auto Accompanied by friend Medication Reconcilliation completed & Yes provided to patient/care provider Clinical Summary of Care Provided Yes Facility Type Home Health Orders Sent Yes Assessment/Plan Assessment/Plan (1) Wound of right lower extremity: CODE(S): S81.801A - Unspecified open wound, right lower leg, initial encounter QUALIFIERS: Encounter type: initial encounter Qualified Code(s): S81.801A - Unspecified open wound, right lower leg, initial encounter (2) Leg edema: CODE(S): R60.0 - Localized edema (3) Leg swelling: CODE(S): M79.89 - Other specified soft tissue disorders (4) Diabetes mellitus: CODE(S): E11.9 - Type 2 diabetes mellitus without complications (5) COPD (chronic obstructive pulmonary disease): CODE(S): J44.9 - Chronic obstructive pulmonary disease, unspecified (6) Chronic renal failure, stage 3 (moderate): CODE(S): N18.30 - Chronic kidney disease, stage 3 unspecified (7) Diverticular disease: CODE(S): K57.90 - Diverticulosis of intestine, part unspecified, without perforation or abscess without bleeding (8) Obesity (BMI 30.0-34.9): CODE(S): E66.9 - Obesity, unspecified (9) Pacemaker: CODE(S): Z95.0 - Presence of cardiac pacemaker (10) Dependence on supplemental oxygen: CODE(S): Z99.81 - Dependence on supplemental oxygen (11) Ulcerative colitis: CODE(S): K51.90 - Ulcerative colitis, unspecified, without complications (12) Paroxysmal atrial fibrillation: CODE(S): I48.0 - Paroxysmal atrial fibrillation (13) Mitral valve replaced: CODE(S): Z95.2 - Presence of prosthetic heart valve (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: CODE(S): Z79.01 - 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 (current) use of anticoagulants (15) SARS-associated coronavirus infection: CODE(S): B97.21 - SARS-associated coronavirus as the cause of diseases classified elsewhere (16) Acute and chronic respiratory failure with hypercapnia: CODE(S): J96.22 - Acute and chronic respiratory failure with hypercapnia (17) Acute exacerbation of congestive heart failure: CODE(S): I50.9 - Heart failure, unspecified (18) Elevated serum creatinine: CODE(S): R79.89 - Other specified abnormal findings of blood chemistry (19) Anemia, unspecified: CODE(S): D64.9 - Anemia, unspecified (20) Atrial fibrillation with RVR: CODE(S): I48.91 - Unspecified atrial fibrillation (21) Essential hypertension: CODE(S): I10 - Essential (primary) hypertension (22) Hyperlipidemia: CODE(S): E78.5 - Hyperlipidemia, unspecified QUALIFIERS: Hyperlipidemia type: unspecified Qualified Code(s): E78.5 - Hyperlipidemia, unspecified (23) Pulmonary hypertension: CODE(S): I27.20 - Pulmonary hypertension, unspecified PLAN: This is a 71-year-old male who presented with an open wound on his right medial calf, which had been present for approximately 18 months. It had failed to heal, despite several means of treatment. The patient has multiple pre-existing medical problems, which are listed above. It is noted that there is significant tunneling and undermining of the wound at the 1 o'clock position, which may be a factor in ultimate healing. This issue has been discussed with the patient in detail. For now, we are to continue the use of moistened 1/4 inch Nu Gauze which will be used to pack the wound on a daily basis. However, there ultimately may be a need for unroofing and debridement of the site, to enhance the prospect for healing. We will begin the preauthorization process, and planning for surgical unroofing and debridement of the wound site, in light of the significant amount of undermining. As discussed with the patient, his pre-existing medical problems enhance the risk of surgical intervention, and discussion with the Anesthesia service will take place to determine the safest means of anesthesia for surgical unroofing and debridement. Home health nursing care will continue. The patient has been advised to refrain from prolonged idle sitting. Activity has been encouraged. Leg elevation is to be implemented as much as possible. The patient has been encouraged to sleep with his legs elevated, and to elevate his legs even during daytime hours. Elevation is to be to heart level, or higher. We have obtained diagnostic laboratory studies, the results of which are as follows: White count 8.3, hemoglobin 11.4, hematocrit 34.4, platelets 152,000, glucose 123, sodium 144, potassium 3.6, chloride 101, BUN 36, creatinine 1.75, calcium 8.7, total protein 8.0, albumin 3.4, total bilirubin 0.5, alkaline phosphatase 79, AST 20, ALT 19, hemoglobin A1c 5.8. The patient has been advised to optimize his nutritional intake and his glycemic control. A noninvasive lower extremity arterial study has been performed on 06/19/2021, demonstrating arterial flow to be normal at ankle level bilaterally, and at digital level on the left. 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 This finding is suggestive of adequate arterial circulation in the right lower extremity to support healing. The patient is to return in 2 weeks for reassessment. Total time: 29 minutes
[2021-07-11 09:06] VITALS: BP 146/100; PULSE 70; RESP 20; TEMP 36.2; BMI 32.4
--- NOTE | 2021-07-11 13:19 | PCM.WC.HP ---
History of Present Illness Date of Service: 07/11/21 Chief Complaint: Open wound, right lower extremity History of Wound: This is a 71-year-old male who presented with an open wound in the right lower extremity. According the patient, the wound had been present for approximately 18 months. It is cared for by nursing staff at [facility], with visits 2-3 times per week. It appears as though a variety of treatments have been implemented, including the use of collagenase Santyl and gauze packing. The patient most recently was applying gauze topically. He has previously been treated with Augmentin. The patient is unaware of the etiology of his wound, or how it originated. It has been relatively unchanged for quite some time. He denies a history of thrombophlebitis. He does relate swelling in his right lower extremity, typically worse at the end of the day. He sleeps in a recliner. Patient has multiple pre-existing medical problems, including atrial fibrillation, congestive heart failure, diabetes mellitus, chronic respiratory failure with hypoxia, oxygen dependence, COPD, diverticular disease, hypertension, hyperlipidemia, ulcerative colitis, and obstructive sleep apnea. The patient has a pacemaker, and is on systemic anticoagulation with Coumadin. He has previously undergone open reduction and internal fixation of a right ankle fracture, with subsequent skin graft procedures on multiple occasions. He has had a vein stripping in the left lower extremity, and a left total hip replacement. [facility] Medical History Chronic renal failure, stage 3 (moderate) COPD (chronic obstructive pulmonary disease) COPD (chronic obstructive pulmonary disease) Dependence on supplemental oxygen Diabetes mellitus Diverticular disease Diverticulitis of colon with hemorrhage (~2004) Essential hypertension Hyperlipidemia Leg edema Leg swelling Obesity Obesity (BMI 30.0-34.9) REBECA on CPAP Pacemaker Psoriasis Pulmonary hypertension Rheumatic fever without mention of heart involvement Type 2 diabetes mellitus without complication Ulcerative colitis Ulcerative colitis Wound of right lower extremity Home Medications albuterol sulfate 90 mcg/actuation aerosol inhaler 2 puff INHALATION Q4H PRN g 07/23/18 [History Last Taken Unknown] diltiazem HCl 180 mg capsule,extended release 24 hr 360 mg PO DAILY cap 07/23/18 [History Last Taken 09/26/18] fenofibrate 160 mg tablet 160 mg PO DAILY 07/23/18 [History Last Taken Unknown] fluticasone propionate 115 mcg-salmeterol 21 mcg/actuation HFA inhaler 2 puff INHALATION BID 07/23/18 [History Last Taken Unknown] losartan 100 mg tablet 100 mg PO DAILY 11/25/18 [History Last Taken Unknown] ascorbic acid (vitamin C) 500 mg PO BID 01/13/20 [History Last Taken Unknown] atorvastatin 80 mg PO QHS 01/13/20 [History Last Taken Unknown] carvedilol 3.125 mg PO BID 01/13/20 [History Last Taken Unknown] melatonin 5 mg PO QHS 01/13/20 [History Last Taken Unknown] potassium chloride 20 meq PO DAILY 01/13/20 [History Last Taken Unknown] amoxicillin-pot clavulanate 1 ea PO BID #6 tab 01/19/20 [Rx Last Taken Unknown] dexamethasone 6 mg PO DAILY #0 01/19/20 [Rx Last Taken Unknown] furosemide 40 mg PO BID #60 tab 01/19/20 [Rx Last Taken Unknown] warfarin 1 mg tablet 3.5 mg PO DAILY tab 02/08/20 [History Last Taken Unknown] Allergy/AdvReac Type Severity Reaction Status Date / Time povidone-iodine Allergy Intermediate rash, Verified 07/29/19 13:09 [From Betadine] itching soap [From Betadine] Allergy Intermediate rash, Verified 07/29/19 13:09 itching Family History Mother Cancer kidney Father Cancer lung Surgical History History of left hip replacement History of open reduction and internal fixation (ORIF) procedure History of skin graft History of vein stripping Social History Smoking Status: Former smoker Smokeless tobacco user: snuff how long ago did patient quit smokin months ago alcohol intake: never substance use type: does not use caffeine: Yes Type: coffee Number of servings: 2 Vital Signs Vital Signs Vital Signs: 07/11/21 09:06 Temperature 97.1 F L Temperature Source Temporal Pulse Rate 70 Respiratory Rate 20 H Blood Pressure 146/100 H Blood Pressure Mean 115 Blood Pressure Source Monitor Weight Weight: 195 lb Body Mass Index (BMI) 32.4 Physical Exam Const alert, oriented x3, no apparent distress and well nourished Constitutional Narrative: Supplemental oxygen by nasal cannula is in place. General Appearance: cooperative, comfortable, well kempt and well developed Orientation / Consciousness: awake, oriented to person, oriented to place and oriented to time HEENT normocephalic and head/scalp atraumatic Head and Scalp: normal to inspection, normocephalic and atraumatic External Ear: external ears normal Eyes PERRL and EOMs intact bilaterally General Eye: normal appearance of both eyes Resp normal respiratory effort, normal air movement, no retractions and no use of accessory muscles Effort and Inspection: able to speak in complete sentences Extremity no calf tenderness General Extremity: Negative for clubbing or cyanosis Skin Wound Narrative: The wound on the patient's right upper medial calf persists. There is significant undermining, extending superiorly. There is no sign of infection or cellulitis. There is no significant drainage. Mild hyperpigmentation and lipodermatosclerosis are noted in the gaiter area. Neuro oriented x3, CN's II-XII intact bilaterally and moves all extremities Sensorium / Orientation: awake, alert, oriented to person, oriented to place and oriented to time Psych Appearance: grossly normal and appropriate Attitude: calm Activity / Motor Behavior: appropriate eye contact Speech: normal speech Mood & Affect: euthymic mood Thought Process: normal thought process Thought Content: normal thought content Attention / Concentration: attention grossly intact Debridement Note Debridement Note Wound debrided: Right medial calf Laterality: Right Type of Debridement: Excisional debridement Anesthesia Used: 5% Lidocaine Gel Depth: Down to and including healthy tissue Percentage of wound debrided: 100 Instrument Used: 3mm curette Tissue Removed: Bioburden Severity: Fat Layer Exposed Amount of bleeding with debridement: Mild Bleeding Controlled with: Compression and gauze Patient tolerated procedure: Patient tolerated procedure well Post-Debridement Measurements and Additional Note: Post-Debridement Measurements/Treatment [facility] - Nurse 1 - General Ulcer Assessment Start: 06/13/21 09:27 Freq: Status: Active Protocol: RAJAT Activity Type Activity Date Activity User E-Sign Co-Sign Detail Recorded Client Recorded Date Recorded By Document 06/13/21 09:27 DL [id number] 06/13/21 09:29 DL Document 06/20/21 09:08 AK [id number] 06/20/21 09:10 AK Document 06/27/21 09:15 DL [id number] 06/27/21 09:23 DL Document 07/11/21 09:06 DL [id number] 07/11/21 09:14 DL 06/13/21 06/20/21 06/27/21 09:27 09:08 09:15 WC - Today's Visit Information Type of service Follow-up Visit Follow-up Visit Follow-up Visit (Physician/AIR TRAFFIC SYSTEMS TECHNICIAN (Physician/AIR TRAFFIC SYSTEMS TECHNICIAN (Physician/AIR TRAFFIC SYSTEMS TECHNICIAN ) ) ) Arrival Mode Ambulatory Ambulatory Ambulatory Transfer Assistance None None Patient Identification Verified (Name & Yes Yes Yes ) Patient Requires Transmission-Based No No Precautions Safety Precautions NA Finger Stick Blood Sugar(mg/dl) (if 112 indicated): Blood Sugar Stated by Patient Height and Weight Body Mass Index (BMI) 32.4 32.4 32.4 BMI Classification Obese Obese Obese Vital Signs Temperature (97.8 F-99.1 F) 97.1 F L 96.2 F L 97.6 F L Temperature Source Temporal Temporal Oral Pulse Rate (60-100) 70 71 Pulse Location Monitor Monitor Respiratory Rate (12-18) 22 H 22 H Respiratory rate source Observation Observation O2 L/MIN 3 Blood Pressure (90/60-120/80) 152/67 H 108/60 Blood Pressure Mean 95 76 Source Monitor History Since Last Visit- (Skip if this is Patient's initial visit) Have you changed medications since your No No No last visit? Any new allergies or adverse reactions No No No Had a fall/change in ADL's that may No No No increase risk of falls Signs or symptoms of abuse and/or No No No neglect since last visit Have you been in the hospital since your No No No last visit? Has dressing in place as prescribed Yes Yes Yes Has compression in place as prescribed Yes N/A Yes Has offloadiing in place as prescribed N/A N/A N/A Experienced any changes in pain level or No No No management Left Footwear Regular Shoe Right Footwear Regular Shoe Pain Scale: 0-10 Numeric Is Patient Pain Free? Yes Yes Yes 07/11/21 09:06 WC - Today's Visit Information Type of service Follow-up Visit (Physician/AIR TRAFFIC SYSTEMS TECHNICIAN ) Arrival Mode Ambulatory Transfer Assistance Transfer Board Patient Identification Verified (Name & Yes ) Patient Requires Transmission-Based No Precautions Safety Precautions Fall Prevention Finger Stick Blood Sugar(mg/dl) (if 127 indicated): Blood Sugar Stated by Patient Height and Weight Body Mass Index (BMI) 32.4 BMI Classification Obese Vital Signs Temperature (97.8 F-99.1 F) 97.1 F L Temperature Source Temporal Pulse Rate (60-100) 70 Pulse Location Monitor Respiratory Rate (12-18) 20 H Respiratory rate source Observation O2 L/MIN Blood Pressure (90/60-120/80) 146/100 H Blood Pressure Mean 115 Source Monitor History Since Last Visit- (Skip if this is Patient's initial visit) Have you changed medications since your No last visit? Any new allergies or adverse reactions No Had a fall/change in ADL's that may No increase risk of falls Signs or symptoms of abuse and/or No neglect since last visit Have you been in the hospital since your No last visit? Has dressing in place as prescribed Yes Has compression in place as prescribed Yes Has offloadiing in place as prescribed N/A Experienced any changes in pain level or No management Left Footwear Right Footwear Pain Scale: 0-10 Numeric Is Patient Pain Free? Yes WC - Nurse 1 - General Ulcer Measurement Start: 06/13/21 09:27 Freq: Status: Active Protocol: Activity Type Activity Date Activity User E-Sign Co-Sign Detail Recorded Client Recorded Date Recorded By Document 06/13/21 09:27 DL [id number] 06/13/21 09:29 DL Document 06/20/21 09:08 AK [id number] 06/20/21 09:10 AK Document 06/27/21 09:15 DL [id number] 06/27/21 09:23 DL Document 07/11/21 09:06 DL [id number] 07/11/21 09:14 DL 06/13/21 06/20/21 06/27/21 09:27 09:08 09:15 Wound Center Nurse 1 #3 R MEDIAL LE -Combined with other wound No -Current Size (cm) - Length 0.5 0.3 0.4 -Current Size (cm) - Width 0.4 0.5 0.4 -Current Size (cm) - Depth 2 0.5 0.2 -Total Square Cm 0.20 0.15 0.16 -Photo Taken No No Yes -Tunneling No -Tunneling Position (O'clock) 12 -Tunneling Distance (cm) 1.9 -Undermining/Tunneling No -Circular Undermining No -Change in Wound Grade/Stage No -Exudate Amt Small Medium Small -Exudate Type Sanguineous Serosanguineous Sanguineous -Wound Margin Distinct, Distinct, Distinct, Outline Outline Outline Attached Attached Attached -Granulation Amt Small (1-33%) None Present (0 Small (1-33%) %) -Granulation Quality Red N/A Red -Slough/Fibrin No -Necrosis Amt None Present (0 Medium (34-66%) None Present (0 %) %) -Necrotic Tissue Type Adherent Slough -Structure Exposed N/A N/A N/A -Texture (Nancy-wound Skin Appearance) Scarring Assessed, Scarring Scarring -Moisture (Nancy-wound Skin Appearance) No Abnormality Assessed No Abnormality -Color (Nancy-wound Skin Appearance) No Abnormality Assessed No Abnormality -Temperature (Nancy-wound Skin No Abnormality No Abnormality No Abnormality Appearance) (Pt Warm) (Pt Warm) (Pt Warm) -Tenderness on Palpation (Nancy-wound No No No Skin Appearance) -Ulcer Cleansing Soap and Water Rinsed/ Rinsed/ Irrigated with Irrigated with Saline Saline -Foul Odor after Cleansing No No Yes, Due to Product Use -Anesthetic Used 5% Lidocaine 5% Lidocaine 5% Lidocaine Gel Gel Gel Right Calf (cm) Right Ankle (cm) 07/11/21 09:06 Wound Center Nurse 1 #3 R MEDIAL LE -Combined with other wound -Current Size (cm) - Length 0.5 -Current Size (cm) - Width 0.3 -Current Size (cm) - Depth 1.8 -Total Square Cm 0.15 -Photo Taken No -Tunneling -Tunneling Position (O'clock) 1 -Tunneling Distance (cm) 1.8 -Undermining/Tunneling -Circular Undermining -Change in Wound Grade/Stage -Exudate Amt Small -Exudate Type -Wound Margin Distinct, Outline Attached -Granulation Amt Large (67-100%) -Granulation Quality Nunn -Slough/Fibrin -Necrosis Amt None Present (0 %) -Necrotic Tissue Type -Structure Exposed None/Limited to Skin Breakdown -Texture (Nancy-wound Skin Appearance) Scarring -Moisture (Nancy-wound Skin Appearance) No Abnormality -Color (Nancy-wound Skin Appearance) Mottled -Temperature (Nancy-wound Skin No Abnormality Appearance) (Pt Warm) -Tenderness on Palpation (Nancy-wound No Skin Appearance) -Ulcer Cleansing Rinsed/ Irrigated with Saline -Foul Odor after Cleansing No -Anesthetic Used 4% Lidocaine Solution Right Calf (cm) 35.5 Right Ankle (cm) 21.8 WC - Nurse 2 - General Ulcer CM Notes Start: 06/13/21 09:27 Freq: Status: Active Protocol: Activity Type Activity Date Activity User E-Sign Co-Sign Detail Recorded Client Recorded Date Recorded By Document 06/13/21 12:39 PL [id number] 06/13/21 12:40 PL Document 06/20/21 09:47 PL [id number] 06/20/21 09:48 PL Document 06/27/21 12:50 PL [id number] 06/27/21 12:50 PL Document 07/11/21 09:50 PL [id number] 07/11/21 09:51 PL 06/13/21 06/20/21 06/27/21 12:39 09:47 12:50 Wound Center Nurse 2 #3 R MEDIAL LE -Time 09:35 09:29 09:50 -Correct Patient Yes Yes Yes -Correct Side, Site, Position Yes Yes Yes -Correct Procedure Yes Yes Yes -Procedure Performed Yes Yes Yes -Type of Procedure Debridement Debridement Debridement -Clinical Debridement Subcutaneous Subcutaneous Subcutaneous -Tissue Removed Subcutaneous Subcutaneous Subcutaneous -Post Debridement (cm) - Length 0.5 0.3 0.4 -Post Debridement (cm) - Width 0.4 0.5 0.4 -Post Debridement (cm) - Depth 2.0 0.5 2.0 -Total Square (Post) (cm) 0.20 0.15 0.16 -Area of Debridement (cm) - Length 0.5 0.3 0.4 -Area of Debridement (cm) - Width 0.4 0.5 0.4 -Total Square (Area) (cm) 0.20 0.15 0.16 -Tunneling No No No -Undermining/Tunneling No No No -Circular Undermining No No No -Wound/Ulcer Outcome Not Healed Not Healed Not Healed -Ulcer Cleansing Rinsed/ Rinsed/ Rinsed/ Irrigated with Irrigated with Irrigated with Saline Saline Saline -Foul Odor after Cleansing No No No -Bioengineered Tissue No No No -Bleeding Controlled with Pressure Pressure Pressure -Treatment Response Procedure Procedure Procedure Tolerated Well Tolerated Well Tolerated Well -Debridement - Subq, 1st 20sq cm Yes Yes Yes Pain Scale: 0-10 Numeric Is Patient Pain Free? Yes Yes Yes 07/11/21 09:50 Wound Center Nurse 2 #3 R MEDIAL LE -Time 09:36 -Correct Patient Yes -Correct Side, Site, Position Yes -Correct Procedure Yes -Procedure Performed Yes -Type of Procedure Debridement -Clinical Debridement Subcutaneous -Tissue Removed Subcutaneous -Post Debridement (cm) - Length 0.5 -Post Debridement (cm) - Width 0.3 -Post Debridement (cm) - Depth 1.8 -Total Square (Post) (cm) 0.15 -Area of Debridement (cm) - Length 0.5 -Area of Debridement (cm) - Width 0.3 -Total Square (Area) (cm) 0.15 -Tunneling No -Undermining/Tunneling No -Circular Undermining No -Wound/Ulcer Outcome Not Healed -Ulcer Cleansing Rinsed/ Irrigated with Saline -Foul Odor after Cleansing No -Bioengineered Tissue No -Bleeding Controlled with Pressure -Treatment Response Procedure Tolerated Well -Debridement - Subq, 1st 20sq cm Yes Pain Scale: 0-10 Numeric Is Patient Pain Free? Yes - Nurse 3 - General Ulcer D/C NN Start: 06/13/21 09:27 Freq: Status: Active Protocol: Activity Type Activity Date Activity User E-Sign Co-Sign Detail Recorded Client Recorded Date Recorded By Document 06/13/21 09:51 DL [id number] 06/13/21 09:52 DL Document 06/20/21 09:42 AK [id number] 06/20/21 09:43 AK Document 06/27/21 10:06 DL [id number] 06/27/21 10:08 DL Document 07/11/21 09:55 DL [id number] 07/11/21 09:57 DL 06/13/21 06/20/21 06/27/21 09:51 09:42 10:06 Wound Care Nurse 3 #3 R MEDIAL LE -Ulcer Cleansing Rinsed/ Rinsed/ Rinsed/ Irrigated with Irrigated with Irrigated with Saline Saline Saline -Foul Odor after Cleansing No No No -Negative Pressure Wound Therapy N/A -Primary Dressing Applied Nugauze, Plain Nugauze, Nugauze, Plain Iodoform Iodoform Iodoform -Other Dressing -Primary Dressing Covered/Secured with Dry Gauze & Dry Gauze & Dry Gauze, Roll Gauze, Roll Gauze, Secured with Secured with Secured with Tape Tape Tape -Nugauze, Iodoform 1/4 1 -Nugauze, Plain Iodoform 1/4 1 1 Treatment Response Procedure Procedure Tolerated Well Tolerated Well Pain Scale: 0-10 Numeric Is Patient Pain Free? Yes Yes Yes WC - Visit Discharge Discharge Condition Stable Stable Stable Ambulatory Status Ambulatory, Ambulatory,Cane Ambulatory Walker Transportation Private Auto Private Auto Private Auto Accompanied by friend Medication Reconcilliation completed & Yes provided to patient/care provider Clinical Summary of Care Provided Yes Facility Type Home Health Notes: Orders Sent Yes 07/11/21 09:55 Wound Care Nurse 3 #3 R MEDIAL LE -Ulcer Cleansing Rinsed/ Irrigated with Saline -Foul Odor after Cleansing No -Negative Pressure Wound Therapy -Primary Dressing Applied -Other Dressing moist guaze today in clinic -Primary Dressing Covered/Secured with Dry Gauze, Secured with Tape -Nugauze, Iodoform 1/4 -Nugauze, Plain Iodoform 1/4 Treatment Response Procedure Tolerated Well Pain Scale: 0-10 Numeric Is Patient Pain Free? Yes WC - Visit Discharge Discharge Condition Stable Ambulatory Status Ambulatory, Crutches Transportation Private Auto Accompanied by Medication Reconcilliation completed & provided to patient/care provider Clinical Summary of Care Provided Facility Type Home Health Notes: to resume nugauze packing at home Orders Sent Yes Assessment/Plan Assessment/Plan (1) Wound of right lower extremity: CODE(S): S81.801A - Unspecified open wound, right lower leg, initial encounter QUALIFIERS: Encounter type: initial encounter Qualified Code(s): S81.801A - Unspecified open wound, right lower leg, initial encounter (2) Leg edema: CODE(S): R60.0 - Localized edema (3) Leg swelling: CODE(S): M79.89 - Other specified soft tissue disorders (4) Diabetes mellitus: CODE(S): E11.9 - Type 2 diabetes mellitus without complications (5) COPD (chronic obstructive pulmonary disease): CODE(S): J44.9 - Chronic obstructive pulmonary disease, unspecified (6) Chronic renal failure, stage 3 (moderate): CODE(S): N18.30 - Chronic kidney disease, stage 3 unspecified (7) Diverticular disease: CODE(S): K57.90 - Diverticulosis of intestine, part unspecified, without perforation or abscess without bleeding (8) Obesity (BMI 30.0-34.9): CODE(S): E66.9 - Obesity, unspecified (9) Pacemaker: CODE(S): Z95.0 - Presence of cardiac pacemaker (10) Dependence on supplemental oxygen: CODE(S): Z99.81 - Dependence on supplemental oxygen (11) Ulcerative colitis: CODE(S): K51.90 - Ulcerative colitis, unspecified, without complications (12) Paroxysmal atrial fibrillation: CODE(S): I48.0 - Paroxysmal atrial fibrillation (13) Mitral valve replaced: CODE(S): Z95.2 - Presence of prosthetic heart valve (14) 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 use of anticoagulant: CODE(S): Z79.01 - ocean transportation intermediary (current) use of anticoagulants (15) Atrial fibrillation with RVR: CODE(S): I48.91 - Unspecified atrial fibrillation (16) Cardiomyopathy: CODE(S): I42.9 - Cardiomyopathy, unspecified (17) REBECA on CPAP: CODE(S): G47.33 - Obstructive sleep apnea (adult) (pediatric); Z99.89 - Dependence on other enabling machines and devices (18) Pulmonary hypertension: CODE(S): I27.20 - Pulmonary hypertension, unspecified (19) Hyperlipidemia: CODE(S): E78.5 - Hyperlipidemia, unspecified QUALIFIERS: Hyperlipidemia type: unspecified Qualified Code(s): E78.5 - Hyperlipidemia, unspecified (20) Essential hypertension: CODE(S): I10 - Essential (primary) hypertension PLAN: This is a 71-year-old male who presented with an open wound on his right medial calf, which had been present for approximately 18 months. It had failed to heal, despite several means of treatment. The patient has multiple pre-existing medical problems, which are listed above. It is noted that there is significant tunneling and undermining of the wound at the 1 o'clock position, which may be a factor in ultimate healing. This issue has been discussed with the patient in detail. For now, we are to continue the use of moistened 1/4 inch Nu Gauze which will be used to pack the wound on a daily basis. However, there ultimately may be a need for unroofing and debridement of the site, to enhance the prospect for healing. We will begin the preauthorization process, and planning for surgical unroofing and debridement of the wound site, in light of the significant amount of undermining. As discussed with the patient, his pre-existing medical problems enhance the risk of surgical intervention, and discussion with the Anesthesia service will take place to determine the safest means of anesthesia for surgical unroofing and debridement. Home health nursing care will continue. The patient has been advised to refrain from prolonged idle sitting. Activity has been encouraged. Leg elevation is to be implemented as much as possible. The patient has been encouraged to sleep with his legs elevated, and to elevate his legs even during daytime hours. Elevation is to be to heart level, or higher. We have obtained diagnostic laboratory studies, the results of which are as follows: White count 8.3, hemoglobin 11.4, hematocrit 34.4, platelets 152,000, glucose 123, sodium 144, potassium 3.6, chloride 101, BUN 36, creatinine 1.75, calcium 8.7, total protein 8.0, albumin 3.4, total bilirubin 0.5, alkaline phosphatase 79, AST 20, ALT 19, hemoglobin A1c 5.8. The patient has been advised to optimize his nutritional intake and his glycemic control. A noninvasive lower extremity arterial study has been performed on 06/19/2021, demonstrating arterial flow to be normal at ankle level bilaterally, and at digital level on the left. 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 This finding is suggestive of adequate arterial circulation in the right lower extremity to support healing. The patient is to return in 2 weeks for reassessment. Total time: 28 minutes
== END 2021-07-11 23:59 ==
LOC: WC 09:00
PROVIDERS: PCP Family Medicine; Visit Provider Surgery
DX: T81.89XA Other complications of procedures, not elsewhere classified, initial encounter (principal); J44.9 Chronic obstructive pulmonary disease, unspecified; I27.20 Pulmonary hypertension, unspecified; I42.9 Cardiomyopathy, unspecified; I13.0 Hypertensive heart and chronic kidney disease with heart failure and stage 1 through stage 4 chronic kidney disease, or unspecified chronic kidney disease; I50.9 Heart failure, unspecified; K51.90 Ulcerative colitis, unspecified, without complications; E11.22 Type 2 diabetes mellitus with diabetic chronic kidney disease; I77.1 Stricture of artery; J96.22 Acute and chronic respiratory failure with hypercapnia; J96.21 Acute and chronic respiratory failure with hypoxia; I48.0 Paroxysmal atrial fibrillation; I48.91 Unspecified atrial fibrillation; N18.30 Chronic kidney disease, stage 3 unspecified; S81.801A Unspecified open wound, right lower leg, initial encounter; Z87.891 Personal history of nicotine dependence; Z96.642 Presence of left artificial hip joint; D64.9 Anemia, unspecified; Z95.0 Presence of cardiac pacemaker; Z79.01 Long term (current) use of anticoagulants; G47.33 Obstructive sleep apnea (adult) (pediatric); Z99.81 Dependence on supplemental oxygen; E66.9 Obesity, unspecified; E87.5 Hyperkalemia; K57.90 Diverticulosis of intestine, part unspecified, without perforation or abscess without bleeding; R60.0 Localized edema; M79.89 Other specified soft tissue disorders; Z95.2 Presence of prosthetic heart valve; B97.21 SARS-associated coronavirus as the cause of diseases classified elsewhere; R79.89 Other specified abnormal findings of blood chemistry
CPT/HCPCS: 11042; 93923

== ENCOUNTER 2021-07-25 10:21 | Day surgery (SDC) | payer MEDICARE, OTHER, SELFPAY ==
[2021-07-25] VITALS (8 sets, daily range): BP systolic 122–144; BP diastolic 76–97; PULSE 70–99; RESP 16–18; TEMP 36–37.1; O2SAT 93–100; BMI 33.2
[2021-07-25 10:50] LABS: INR Fingerstick 1.1
[2021-07-25] MEDS: Lactated Ringers 1,000 ML 15 ML IV (11:09)
[2021-07-25 11:16] LABS: Bedside Glucose 145 mg/dL (74-106)
--- NOTE | 2021-07-25 12:00 | FORE_PTH ---
PATIENT: MARCO ANTONIO PETERSON [place] [facility] [id number] AGE/SX: 71/M ROOM: RE07/25/[address]: Dr. Rayo Lee MD : 1950 BED: DIS: 07/25/2021 SPEC #: [id number] RECD: 07/25/21 14:15 STATUS: JAMAAL REDebbie #: [id number] LATRICIA: 07/25/21 12:[address]: Rayo Lee DEPT: SURGICAL PATHOLOGY RECD BY: Kasia Acuna ENTERED: 07/26/21 11:25 SP TYPE: FOREIGN B OTHR DR: Dr. Thien Evans MD Tissues: A - FOREIGN BODY B - Skin of leg, NOS Procedures: Surgery Specimen Level I Special Stain Group I Surgery Specimen Level III AFB Stain (control) GMS Stain (control) HEADER OPERATION: Surgical preparation by excision of open wound, lower extremity PRE-OP DIAGNOSIS: Non-pressure chronic ulcer of right calf with fat layer exposed TISSUE SUBMITTED: A ? Foreign body, B ? Wound excision MICROSCOPIC DIAGNOSIS A. Foreign body: Metallic clip (foreign body), gross only. B. Wound excision: Pieces of skin with underlying tissue with acute and chronic inflammation, granulation tissue reaction and focal granulomatous inflammation. Two metallic clips (gross only). See comment. SJ:rg 07/27/2021 COMMENT B. Special stains for acid fast bacilli and fungi are negative for organisms; matched controls are appropriate. MICROSCOPIC DESCRIPTION Slides are reviewed. GROSS DESCRIPTION A - Received in labeled with the patient's name and designated foreign body. The specimen consists of a metallic clip measuring 6 mm in length and 0.2 cm in thickness. No soft tissue is attached. B - Received in fixative is one container labeled with the patient's name and designated wound excision. The specimen consists of two irregular fragments of skin with attached rubbery, yellow-white soft tissue that in aggregate measure 3.4 x 3 x 1.3 cm. No cutaneous lesions are identified. Dissection of the larger fragment reveals two metallic clips each measuring 6 x 2 mm. Media Analyst sections are submitted in two cassettes. / AM:yuniel 07/26/2021 TC:2 CPT: 27960, 30751 x2, 75509
[2021-07-25] MEDS: Enoxaparin 30 MG/0.3 ML Syringe SC (12:22)
[2021-07-25] MEDS: Cefazolin 2 GM in 0.9% Normal Saline 100 ML IV (12:34)
[2021-07-25] MEDS: Lidocaine 1% /Epi 1:100 (20ml) 20 ML Vial (12:57)
--- NOTE | 2021-07-25 14:14 | EX.PCM.DISCH ---
Discharge Instructions Diet Discharge Diet: - (Diet as pre-op) Activity Discharge Activity: - (May resume normal activity in 24-36 hours.) May shower in (days): 2 Weight Bearing Status: Full weight bearing Dressing / Incision Call your doctor if your incision/area has: Sudden Increased Bleeding Call your doctor if you observe: Shortness of breath, Fainting spells, Chest pain and Uncontrolled pain Change Dressing in: do not change dressing Remove Dressing in: do not remove dressing Follow Up Care Test Results: Test results from this visit will be discussed in further detail at your follow-up appointment, if applicable. Discharge Plan Admission Attending Provider: Rayo Lee Primary Care Provider: Thien Evans Instructions Additional Instructions / Restrictions: Contact Dr. Lee if you notice significant bleeding or blood staining on the dressing. Dr. Lee can be reached through the hospital operator automated process 03/09. You may resume your normal blood thinner medication late today if there is no blood noted on your surgical dressing. Discharge Orders/Prescriptions Prescriptions: New oxycodone-acetaminophen [Percocet] 5-325 mg tablet 1 tab PO Q8H PRN (Reason: pain) 3 Days Qty: 14 RF: 0 Continued fluticasone propion-salmeterol 115-21 mcg/actuation HFA aerosol inhaler 2 puff INHALATION BID RF: 0 albuterol sulfate 90 mcg/actuation HFA aerosol inhaler 2 puff INHALATION Q4H PRN (Reason: Sob &/Or Wheezing) RF: 0 diltiazem HCl 180 mg capsule,extended release 24hr 360 mg PO DAILY RF: 0 fenofibrate 160 mg tablet 160 mg PO DAILY RF: 0 losartan 100 mg tablet 100 mg PO DAILY RF: 0 atorvastatin 80 MG tablet 80 mg PO QHS RF: 0 carvedilol 3.125 MG tablet 3.125 mg PO BID RF: 0 ascorbic acid (vitamin C) 500 MG tablet 500 mg PO BID RF: 0 melatonin 5 MG tablet 5 mg PO QHS RF: 0 potassium chloride 20 MEQ tablet 20 meq PO DAILY RF: 0 furosemide 40 MG tablet 40 mg PO BID Qty: 60 RF: 0 amoxicillin-pot clavulanate 1 EACH tablet 1 ea PO BID Qty: 6 RF: 0 dexamethasone 6 MG tablet 6 mg PO DAILY Qty: 0 RF: 0 warfarin 1 mg tablet 3.5 mg PO DAILY RF: 0 Referrals / Follow Up: Rayo Lee MD [STAFF PHYSICIAN] - 07/27/21 ([facility]21.) Thien Evans MD [Primary Care Provider] - Disposition Disposition (needs filled in before D/C Order can be placed): Home, Self Care
--- NOTE | 2021-07-25 14:34 | OP.PCM_ITS ---
Report of Operation Date of Procedure: 07/25/21 Pre-Operative Diagnosis: Open wound of the right leg with fat layer exposed (ICD 10 L97.212) Post-Operative Diagnosis: Open wound of the right leg with fat layer exposed (ICD 10 L97.212); Retained foreign body (surgical clip) from prior surgery Surgery/Procedure Performed:: Excision of right calf wound; Surgical preparation by excision of an open wound (CPT 42770) Description of Surgical Findings:: As above Surgeon: Rayo Lee production posting clerk: None Type of Anesthesia: General and Local MAC Anesthesiologist: Hector Olivo Specimen's removed: Wound tissue and surgical clip Drains: None Estimated Blood Loss (mL): Minimal Description of Procedure: This is a 71-year-old male who presented with an open wound on the right upper medial calf which has been present for approximately 18 months. The etiology of the patient's wound was uncertain, and the patient was unaware of any initiating events. The patient was treated by conservative treatment measures at the [facility] for several months, without any significant improvement in the status of his wound. Of note, the wound consisted of a small external opening, with significant undermining in the superior direction. It was felt that the morphology of the wound was such that healing by conservative means would be unlikely. This proved to be the case. In consideration of the options of management, surgical intervention was considered, and the nature of the proposed surgical procedure, its indications and risks, and expectations were discussed in detail. The plan was to unroofed and excised the wound, preparing the site for treatment modalities thereafter which may include the use of negative pressure wound therapy, or skin graft substitutes/allografts. The appropriate preprocedure consent process was undertaken. Patient was brought to the operating suite, placed supine upon the operating table, where general LMA anesthesia was administered by the anesthesia staff. Patient's right lower extremity was prepped and draped in the appropriate sterile manner. The wound cavity was gently probed, where it was appreciated that significant undermining extended superiorly for several centimeters. The external opening of the wound cavity measured 3 mm x 4 mm. Lidocaine 1% with epinephrine was injected about the wound and overlying the underlying cavity. This was injected using a 25-gauge needle, and utilized to provide subsequent patient comfort and for its hemostatic effect. Thereafter, using both sharp and electrocautery dissection, the overlying skin and subcutaneous tissues were excised, and the wound itself was excised, leaving an open, bowl-shaped wound. In the course of the dissection, a surgical clip was encountered, an unexpected finding, presumably from a prior surgical procedure in the remote past. The surgical clip was removed and placed within the container to be sent to the pathology department for inspection and documentation purposes. The excised wound tissue was divided, with a portion placed within a sterile container for bacterial culture and sensitivity, and the other portion was placed within formalin for histologi babatunde examination. Hemostasis was achieved using the Bovie electrocautery unit. One small area of persistent bleeding was controlled using 3-0 Vicryl suture in a [id number] configuration. Surgicel was applied topically to this site, and the wound cavity was packed with saline?moistened Kerlix gauze. A folded 4 x 4 gauze and an ABD was then placed, it was anchored in place using 3-inch Emanuel wrap which was used to wrap the right calf. The final dimensions of the surgical wound were 3.6 cm x 4.0 cm, with a depth of 1.5 cm. The patient tolerated the procedure well, and was transported from the operating room to the postanesthesia care unit in stable condition. Grafts/Implants Used: None Complications None Admit VTE Documentation VTE Present on Admission: No VTE Mechan Device Prophylaxis: SCD's (Left leg) VTE Pharm Prophylaxis ordered?: Yes
--- NOTE | 2021-07-25 16:17 | SUR.PREOP ---
Patient brought back into AC doing to bleeding from incision site. IV restarted and will be taken back into OR per Dr. Lee to hopefully close further under local anesthesia./
--- NOTE | 2021-07-25 16:31 | SUR.PREOP ---
manual pressure was held on the wound upon arrival to per dr. rose until sx could be started.
[2021-07-25] MEDS: Lidocaine 1% /Epi 1:100 (20ml) 20 ML Vial OPERA.SITE (16:41)
--- NOTE | 2021-07-25 17:02 | PCM.OPRPT ---
Report of Operation Date of Procedure: 07/25/21 Pre-Operative Diagnosis: Status post excision of right calf wound; surgical preparation by excision and open wound; postoperative bleeding Post-Operative Diagnosis: Status post excision of right calf wound; surgical preparation by excision and open wound; postoperative bleeding Surgery/Procedure Performed:: Control of bleeding in the postoperative surgical wound Description of Surgical Findings:: As above Surgeon: Rayo Lee food science technician: None Type of Anesthesia: Local Specimen's removed: None Drains: None Estimated Blood Loss (mL): 30 cc Description of Procedure: This is a 71-year-old male with an open wound in the right upper medial calf. Earlier this afternoon, only 7 hours earlier, patient underwent excision of his wound with surgical preparation by excision. At the completion of his wound excision, hemostasis was satisfactorily achieved, and the patient was taken to the postanesthesia care unit in stable condition. While in the postanesthesia care unit, and in the home care manager rn unit, prior to discharge, the patient did well, without any identifiable problems. His surgical dressing remained dry and intact. He was discharged in good condition. However, shortly following discharge, bleeding was noted to saturate his surgical dressing, the patient was brought back to the home care manager rn unit, where he was evaluated, and the decision made to return to the operating room for control of postsurgical bleeding. The options of management and the indications and risks of the proposed procedure were discussed with patient in detail. The appropriate preprocedure consent process was undertaken. The patient was brought to the operating suite, and placed supine upon the operating table. While maintaining compression to the surgical wound, the compression dressings were removed, and the patient's right lower extremity was appropriately prepped and draped. Immediately upon removal of the compression and exposure of the wound, a site of arterial bleeding was identified. Lidocaine 1% with epinephrine was injected to provide patient comfort and cautery was used without delay to cauterize the bleeding site. Once achieved, it appeared as though hemostasis was otherwise good. There were several other sites with very minimal oozing, which were not thought to be the offending sites of bleeding. Nonetheless after appropriate local anesthesia electrocautery was used to control these areas, and to optimize hemostasis. So as to minimize the likelihood of further bleeding from the arterial site a 3-0 Vicryl suture was placed in [id number] fashion to enhance hemostasis. The open wound was then inspected very careful, and the patient, who is fully conscious and awake, was asked to flex and extend his foot at the ankle, so as to activate the calf musculature after multiple repetitions, the wound was again inspected, and no sign of bleed was identified. Hemostasis was judged to be satisfactory. Surgicel was within the open wound, and the wound was packed with saline-moistened Kerlix. A folded 4 x 4 gauze and and ABD pad were placed over the packed wound, and the dressings were secured in place using a 3 inch Emanuel wrap which was placed circumferentially. Patient tolerated the procedure well, and was transported back to the home care manager rn unit in good condition. His post discharge instructions are to remain unchanged from those that were arranged following his initial procedure earlier in the afternoon. He has been provided a prescription for Percocet, and is to leave his compression bandaging in place, until he follows up in the [facility] for a change of his dressings in 48 hours. Complications None Admit VTE Documentation VTE Present on Admission: No
== END 2021-07-25 17:48 | disposition home or self-care (01) ==
LOC: SDC 10:23 → AC 10:24
PROVIDERS: PCP Family Medicine; Referring Provider Surgery; Visit Provider Surgery
PROC: (CPT 15002; principal; 2021-07-25 11:45)
DX: L97.212 Non-pressure chronic ulcer of right calf with fat layer exposed (principal); J44.9 Chronic obstructive pulmonary disease, unspecified; I27.20 Pulmonary hypertension, unspecified; K51.90 Ulcerative colitis, unspecified, without complications; J96.22 Acute and chronic respiratory failure with hypercapnia; I48.0 Paroxysmal atrial fibrillation; I48.91 Unspecified atrial fibrillation; E11.9 Type 2 diabetes mellitus without complications; N18.30 Chronic kidney disease, stage 3 unspecified; S81.801A Unspecified open wound, right lower leg, initial encounter; T81.509A Unspecified complication of foreign body accidentally left in body following unspecified procedure, initial encounter; R60.0 Localized edema; M79.89 Other specified soft tissue disorders; K57.90 Diverticulosis of intestine, part unspecified, without perforation or abscess without bleeding; E66.9 Obesity, unspecified; Z95.0 Presence of cardiac pacemaker; Z99.81 Dependence on supplemental oxygen; Z95.2 Presence of prosthetic heart valve; Z79.01 Long term (current) use of anticoagulants; G47.33 Obstructive sleep apnea (adult) (pediatric); E78.5 Hyperlipidemia, unspecified; I12.9 Hypertensive chronic kidney disease with stage 1 through stage 4 chronic kidney disease, or unspecified chronic kidney disease; L76.22 Postprocedural hemorrhage of skin and subcutaneous tissue following other procedure; Y83.8 Other surgical procedures as the cause of abnormal reaction of the patient, or of later complication, without mention of misadventure at the time of the procedure
CPT/HCPCS: 15002; 35860; 00300; 36416; 82962; 85610; 87015; 87070; 87075; 87102; 87116; 87205; 87206; 88300; 88304; 88305; 88312; J7120; J2405

== ENCOUNTER 2021-08-08 09:00 | Outpatient (RCR) | payer MEDICARE, OTHER, SELFPAY ==
[2021-07-12 01:10] VITALS: BP 146/100; PULSE 70; RESP 20; TEMP 36.2; BMI 32.4
[2021-07-18 09:34] VITALS: BP 128/84; TEMP 36.1; BMI 32.4
--- NOTE | 2021-07-18 13:16 | PCM.WC.HP ---
History of Present Illness Date of Service: 07/18/21 Chief Complaint: Open wound, right lower extremity History of Wound: This is a 71-year-old male who presented with an open wound in the right lower extremity. According the patient, the wound had been present for approximately 18 months. It is cared for by nursing staff at [facility], with visits 2-3 times per week. It appears as though a variety of treatments have been implemented, including the use of collagenase Santyl and gauze packing. The patient most recently was applying gauze topically. He has previously been treated with Augmentin. The patient is unaware of the etiology of his wound, or how it originated. It has been relatively unchanged for quite some time. He denies a history of thrombophlebitis. He does relate swelling in his right lower extremity, typically worse at the end of the day. He sleeps in a recliner. Patient has multiple pre-existing medical problems, including atrial fibrillation, congestive heart failure, diabetes mellitus, chronic respiratory failure with hypoxia, oxygen dependence, COPD, diverticular disease, hypertension, hyperlipidemia, ulcerative colitis, and obstructive sleep apnea. The patient has a pacemaker, and is on systemic anticoagulation with Coumadin. He has previously undergone open reduction and internal fixation of a right ankle fracture, with subsequent skin graft procedures on multiple occasions. He has had a vein stripping in the left lower extremity, and a left total hip replacement. [facility] Medical History (Updated 07/18/21 @ 13:[address] Rayo Lee MD) Chronic renal failure, stage 3 (moderate) COPD (chronic obstructive pulmonary disease) COPD (chronic obstructive pulmonary disease) Dependence on supplemental oxygen Diabetes mellitus Diverticular disease Diverticulitis of colon with hemorrhage (~2004) Essential hypertension Hyperlipidemia Leg edema Leg swelling Non-pressure chronic ulcer of right calf with fat layer exposed Obesity Obesity (BMI 30.0-34.9) REBECA on CPAP Pacemaker Psoriasis Pulmonary hypertension Rheumatic fever without mention of heart involvement Type 2 diabetes mellitus without complication Ulcerative colitis Ulcerative colitis Wound of right lower extremity Home Medications albuterol sulfate 90 mcg/actuation aerosol inhaler 2 puff INHALATION Q4H PRN g 07/23/18 [History Last Taken Unknown] diltiazem HCl 180 mg capsule,extended release 24 hr 360 mg PO DAILY cap 07/23/18 [History Last Taken 09/26/18] fenofibrate 160 mg tablet 160 mg PO DAILY 07/23/18 [History Last Taken Unknown] fluticasone propionate 115 mcg-salmeterol 21 mcg/actuation HFA inhaler 2 puff INHALATION BID 07/23/18 [History Last Taken Unknown] losartan 100 mg tablet 100 mg PO DAILY 11/25/18 [History Last Taken Unknown] ascorbic acid (vitamin C) 500 mg PO BID 01/13/20 [History Last Taken Unknown] atorvastatin 80 mg PO QHS 01/13/20 [History Last Taken Unknown] carvedilol 3.125 mg PO BID 01/13/20 [History Last Taken Unknown] melatonin 5 mg PO QHS 01/13/20 [History Last Taken Unknown] potassium chloride 20 meq PO DAILY 01/13/20 [History Last Taken Unknown] amoxicillin-pot clavulanate 1 ea PO BID #6 tab 01/19/20 [Rx Last Taken Unknown] dexamethasone 6 mg PO DAILY #0 01/19/20 [Rx Last Taken Unknown] furosemide 40 mg PO BID #60 tab 01/19/20 [Rx Last Taken Unknown] warfarin 1 mg tablet 3.5 mg PO DAILY tab 02/08/20 [History Last Taken Unknown] Allergy/AdvReac Type Severity Reaction Status Date / Time povidone-iodine Allergy Intermediate rash, Verified 07/29/19 13:09 [From Betadine] itching soap [From Betadine] Allergy Intermediate rash, Verified 07/29/19 13:09 itching Family History Mother Cancer kidney Father Cancer lung Surgical History History of left hip replacement History of open reduction and internal fixation (ORIF) procedure History of skin graft History of vein stripping Social History Smoking Status: Former smoker Smokeless tobacco user: snuff how long ago did patient quit smokin months ago alcohol intake: never substance use type: does not use caffeine: Yes Type: coffee Number of servings: 2 Vital Signs Vital Signs Vital Signs: 07/18/21 09:34 Temperature 97.0 F L Temperature Source Temporal Blood Pressure 128/84 H Blood Pressure Mean 98 Blood Pressure Source Monitor Blood Pressure Position Sitting Blood Pressure Location Right Arm Weight Weight: 195 lb Body Mass Index (BMI) 32.4 Physical Exam Const alert, oriented x3, no apparent distress and well nourished Constitutional Narrative: An oxygen nasal cannula is in place. General Appearance: cooperative, comfortable, well kempt and well developed Orientation / Consciousness: awake, oriented to person, oriented to place and oriented to time HEENT normocephalic and head/scalp atraumatic Head and Scalp: normal to inspection, normocephalic and atraumatic External Ear: external ears normal Eyes PERRL and EOMs intact bilaterally General Eye: normal appearance of both eyes Chest inspection of chest normal Resp normal respiratory effort, normal air movement, no retractions and no use of accessory muscles Effort and Inspection: able to speak in complete sentences Extremity no calf tenderness General Extremity: Negative for clubbing or cyanosis Skin Wound Narrative: The ulceration in the right upper medial calf persists. Dimensions are documented elsewhere. There is little change from previous examinations. Undermining is noted, particularly in the superior direction. There is no sign of infection or cellulitis. Neuro oriented x3, CN's II-XII intact bilaterally and moves all extremities Sensorium / Orientation: awake, alert, oriented to person, oriented to place and oriented to time Psych Appearance: grossly normal and appropriate Attitude: calm Activity / Motor Behavior: appropriate eye contact Speech: normal speech Mood & Affect: euthymic mood Thought Process: normal thought process Thought Content: normal thought content Attention / Concentration: attention grossly intact Debridement Note Debridement Note Wound debrided: Right upper medial calf Laterality: Right Type of Debridement: Excisional debridement Anesthesia Used: 5% Lidocaine Gel Depth: Down to and including healthy tissue and in the subcutaneous layer Percentage of wound debrided: 100 Instrument Used: 3mm curette Tissue Removed: Bioburden and nonviable tissue Severity: Fat Layer Exposed Amount of bleeding with debridement: Mild Bleeding Controlled with: Compression and gauze Patient tolerated procedure: Patient tolerated procedure well Post-Debridement Measurements and Additional Note: Post-Debridement Measurements/Treatment WC - Nurse 1 - General Ulcer Assessment Start: 07/18/21 09:34 Freq: Status: Active Protocol: USHA.HELENE Activity Type Activity Date Activity User E-Sign Co-Sign Detail Recorded Client Recorded Date Recorded By Document 07/18/21 09:34 ML [id number] 07/18/21 09:39 ML 07/18/21 09:34 WC - Today's Visit Information Type of service 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 Any new allergies or adverse reactions No Had a fall/change in ADL's that may No increase risk of falls Signs or symptoms of abuse and/or No neglect since last visit Have you been in the hospital since your No last visit? Has dressing in place as prescribed Yes Has compression in place as prescribed N/A Has offloadiing in place as prescribed N/A Experienced any changes in pain level or No management Left Footwear Regular Shoe Right Footwear Regular Shoe Pain Scale: 0-10 Numeric Is Patient Pain Free? Yes - Nurse 1 - General Ulcer Measurement Start: 07/18/21 09:34 Freq: Status: Active Protocol: Activity Type Activity Date Activity User E-Sign Co-Sign Detail Recorded Client Recorded Date Recorded By Document 07/18/21 09:34 ML [id number] 07/18/21 09:39 ML 07/18/21 09:34 Wound Center Nurse 1 #3 R MEDIAL LE -Current Size (cm) - Length 0.8 -Current Size (cm) - Width 0.3 -Current Size (cm) - Depth 0.5 -Total Square Cm 0.24 -Exudate Amt Medium -Exudate Type Serosanguineous -Wound Margin Distinct, Outline Attached -Granulation Amt Medium (34-66%) -Granulation Quality [place] -Necrosis Amt Small (1-33%) -Necrotic Tissue Type Adherent Slough -Texture (Nancy-wound Skin Appearance) Assessed, Scarring -Moisture (Nancy-wound Skin Appearance) No Abnormality, Assessed -Color (Nancy-wound Skin Appearance) No Abnormality, Assessed -Temperature (Nancy-wound Skin No Abnormality Appearance) (Pt Warm) -Tenderness on Palpation (Nancy-wound No Skin Appearance) -Ulcer Cleansing Rinsed/ Irrigated with Saline -Foul Odor after Cleansing No -Anesthetic Used 5% Lidocaine Gel WC - Nurse 2 - General Ulcer CM Notes Start: 07/18/21 09:34 Freq: Status: Active Protocol: Activity Type Activity Date Activity User E-Sign Co-Sign Detail Recorded Client Recorded Date Recorded By Document 07/18/21 12:52 LOIS [id number] 07/18/21 12:53 PL 07/18/21 12:52 Wound Center Nurse 2 -Time 09:52 -Correct Patient Yes -Correct Side, Site, Position Yes -Correct Procedure Yes -Procedure Performed Yes -Type of Procedure Debridement -Clinical Debridement Subcutaneous -Tissue Removed Subcutaneous -Post Debridement (cm) - Length 0.8 -Post Debridement (cm) - Width 0.3 -Post Debridement (cm) - Depth 0.5 -Total Square (Post) (cm) 0.24 -Area of Debridement (cm) - Length 0.8 -Area of Debridement (cm) - Width 0.3 -Total Square (Area) (cm) 0.24 -Tunneling No -Undermining/Tunneling No -Circular Undermining No -Wound/Ulcer Outcome Not Healed -Ulcer Cleansing Rinsed/ Irrigated with Saline -Foul Odor after Cleansing No -Bioengineered Tissue No -Bleeding Controlled with Pressure -Treatment Response Procedure Tolerated Well -Debridement - Subq, 1st 20sq cm Yes Pain Scale: 0-10 Numeric Is Patient Pain Free? Yes - Nurse 3 - General Ulcer D/C NN Start: 07/18/21 09:34 Freq: Status: Active Protocol: Activity Type Activity Date Activity User E-Sign Co-Sign Detail Recorded Client Recorded Date Recorded By Document 07/18/21 10:13 KAVITHA [id number] 07/18/21 10:14 KAVITHA 07/18/21 10:13 Wound Care Nurse 3 #3 R MEDIAL LE -Ulcer Cleansing Rinsed/ Irrigated with Saline -Primary Dressing Applied Nugauze, Plain Iodoform -Primary Dressing Covered/Secured with Dry Gauze, Secured with Tape -Nugauze, Plain Iodoform 1/4 1 Pain Scale: 0-10 Numeric Is Patient Pain Free? Yes WC - Visit Discharge Discharge Condition Stable Ambulatory Status Ambulatory Transportation Private Auto Assessment/Plan Assessment/Plan (1) Non-pressure chronic ulcer of right calf with fat layer exposed: CODE(S): L97.212 - Non-pressure chronic ulcer of right calf with fat layer exposed (2) Wound of right lower extremity: CODE(S): S81.801A - Unspecified open wound, right lower leg, initial encounter QUALIFIERS: Encounter type: initial encounter Qualified Code(s): S81.801A - Unspecified open wound, right lower leg, initial encounter (3) Leg edema: CODE(S): R60.0 - Localized edema (4) Leg swelling: CODE(S): M79.89 - Other specified soft tissue disorders (5) Diabetes mellitus: CODE(S): E11.9 - Type 2 diabetes mellitus without complications (6) COPD (chronic obstructive pulmonary disease): CODE(S): J44.9 - Chronic obstructive pulmonary disease, unspecified (7) Chronic renal failure, stage 3 (moderate): CODE(S): N18.30 - Chronic kidney disease, stage 3 unspecified (8) Diverticular disease: CODE(S): K57.90 - Diverticulosis of intestine, part unspecified, without perforation or abscess without bleeding (9) Obesity (BMI 30.0-34.9): CODE(S): E66.9 - Obesity, unspecified (10) Pacemaker: CODE(S): Z95.0 - Presence of cardiac pacemaker (11) Dependence on supplemental oxygen: CODE(S): Z99.81 - Dependence on supplemental oxygen (12) Ulcerative colitis: CODE(S): K51.90 - Ulcerative colitis, unspecified, without complications (13) Paroxysmal atrial fibrillation: CODE(S): I48.0 - Paroxysmal atrial fibrillation (14) Mitral valve replaced: CODE(S): Z95.2 - Presence of prosthetic heart valve (15) 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: CODE(S): Z79.01 - long-term (current) use of anticoagulants (16) Acute and chronic respiratory failure with hypercapnia: CODE(S): J96.22 - Acute and chronic respiratory failure with hypercapnia (17) Atrial fibrillation with RVR: CODE(S): I48.91 - Unspecified atrial fibrillation (18) REBECA on CPAP: CODE(S): G47.33 - Obstructive sleep apnea (adult) (pediatric); Z99.89 - Dependence on other enabling machines and devices (19) Pulmonary hypertension: CODE(S): I27.20 - Pulmonary hypertension, unspecified (20) Hyperlipidemia: CODE(S): E78.5 - Hyperlipidemia, unspecified QUALIFIERS: Hyperlipidemia type: unspecified Qualified Code(s): E78.5 - Hyperlipidemia, unspecified (21) Essential hypertension: CODE(S): I10 - Essential (primary) hypertension PLAN: This is a 71-year-old male who presented with an open wound on his right medial calf, which had been present for approximately 18 months. It had failed to heal, despite several means of treatment. The patient has multiple pre-existing medical problems, which are listed above. It is noted that there is significant tunneling and undermining of the wound at the 1 o'clock position, which may be a factor in ultimate healing. This issue has been discussed with the patient in detail. For now, we are to continue the use of moistened 1/4 inch Nu Gauze which will be used to pack the wound on a daily basis. However, given the failure of appreciable improvement in the status of the patient's wound, he has been scheduled for surgical intervention by means of debridement, wound excision, and surgical preparation for subsequent management of the open wound. This issue has been discussed with the patient in detail on several occasions. The indications and risks of the procedure have been discussed thoroughly. He has been made aware that the wound will be visually larger at the completion of the procedure, but that the morphology of the wound will be such that an improvement in the healing potential will be expected. Once surgical preparation by excision of the open wound has been accomplished, options such as negative pressure wound therapy, skin substitutes, etc., will be available options of management, and expected to hasten the ultimate healing process. The patient is scheduled to undergo preadmission testing several days hence, with surgery scheduled for 1 week from this date. Indications and risks have been thoroughly explained, and the patient has indicated his desire to proceed. As discussed with the patient, his pre-existing medical problems enhance the risk of surgical intervention, and discussion with the Anesthesia service will take place to determine the safest means of anesthesia for surgery. The patient has been advised to refrain from prolonged idle sitting. Activity has been encouraged. Leg elevation is to be implemented as much as possible. The patient has been encouraged to sleep with his legs elevated, and to elevate his legs even during daytime hours. Elevation is to be to heart level, or higher. We have obtained diagnostic laboratory studies, the results of which are as follows: White count 8.3, hemoglobin 11.4, hematocrit 34.4, platelets 152,000, glucose 123, sodium 144, potassium 3.6, chloride 101, BUN 36, creatinine 1.75, calcium 8.7, total protein 8.0, albumin 3.4, total bilirubin 0.5, alkaline phosphatase 79, AST 20, ALT 19, hemoglobin A1c 5.8. The patient has been advised to optimize his nutritional intake and his glycemic control. A noninvasive lower extremity arterial study has been performed on 06/19/2021, demonstrating arterial flow to be normal at ankle level bilaterally, and at digital level on the left. 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 This finding is suggestive of adequate arterial circulation in the right lower extremity to support healing. The patient is to return in 2 weeks. Total time: 29 minutes
[2021-07-27 14:15] VITALS: BMI 32.4
[2021-08-01 09:25] VITALS: BP 140/79; PULSE 67; RESP 18; TEMP 36.7; BMI 32.4
--- NOTE | 2021-08-01 09:35 | HP.PCM_ITS ---
History of Present Illness Date of Service: 08/01/21 Chief Complaint: Open wound, right lower extremity History of Wound: This is a 71-year-old male who presented with an open wound in the right lower extremity. According the patient, the wound had been present for approximately 18 months. It is cared for by nursing staff at [facility], with visits 2-3 times per week. It appears as though a variety of treatments have been implemented, including the use of collagenase Santyl and gauze packing. The patient most recently was applying gauze topically. He has previously been treated with Augmentin. The patient is unaware of the etiology of his wound, or how it originated. It has been relatively unchanged for quite some time. He denies a history of thrombophlebitis. He does relate swelling in his right lower extremity, typically worse at the end of the day. He sleeps in a recliner. Patient has multiple pre-existing medical problems, including atrial fibrillation, congestive heart failure, diabetes mellitus, chronic respiratory failure with hypoxia, oxygen dependence, COPD, diverticular disease, hypertension, hyperlipidemia, ulcerative colitis, and obstructive sleep apnea. The patient has a pacemaker, and is on systemic anticoagulation with Coumadin. He has previously undergone open reduction and internal fixation of a right ankle fracture, with subsequent skin graft procedures on multiple occasions. He has had a vein stripping in the left lower extremity, and a left total hip replacement. [facility] Medical History Ambulates with cane Arthritis Cardiology follow-up encounter Chewing tobacco nicotine dependence Chronic renal failure, stage 3 (moderate) COPD (chronic obstructive pulmonary disease) COPD (chronic obstructive pulmonary disease) CPAP (continuous positive airway pressure) dependence Dependence on supplemental oxygen Diabetes mellitus Dietary restriction Diverticular disease Diverticulitis of colon with hemorrhage (~2004) Essential hypertension History of echocardiogram History of edema History of steroid therapy Hyperlipidemia Hypertension Leg edema Leg swelling Loss of hearing Low iron Non-pressure chronic ulcer of right calf with fat layer exposed Obesity Obesity (BMI 30.0-34.9) On home oxygen therapy Open wound REBECA on CPAP Pacemaker Psoriasis Pulmonary hypertension Rheumatic fever without mention of heart involvement Shortness of breath on exertion Type 2 diabetes mellitus without complication Ulcerative colitis Wears dentures Wears glasses Wound of right lower extremity Home Medications albuterol sulfate 90 mcg/actuation aerosol inhaler 2 puff inhalation Q4H PRN Sob &/Or Wheezing 07/23/18 [History Last Taken Unknown] diltiazem HCl 180 mg capsule,extended release 24 hr 360 mg PO DAILY heart rhythm 07/23/18 [History Last Taken 09/26/18] fenofibrate 160 mg tablet 160 mg PO DAILY 07/23/18 [History Last Taken Unknown] fluticasone propionate 115 mcg-salmeterol 21 mcg/actuation HFA inhaler 2 puff inhalation BID inhaler 07/23/18 [History Last Taken Unknown] losartan 100 mg tablet 100 mg PO DAILY blood pressure 11/25/18 [History Last Taken Unknown] ascorbic acid (vitamin C) 500 mg tablet 500 mg PO BID 01/13/20 [History Last Taken Unknown] atorvastatin 80 mg tablet 80 mg PO QHS 01/13/20 [History Last Taken Unknown] carvedilol 3.125 mg tablet 3.125 mg PO BID 01/13/20 [History Last Taken 07/25/21] melatonin 5 mg tablet 5 mg PO QHS 01/13/20 [History Last Taken Unknown] potassium chloride 20 mEq tablet,extended release(part/cryst) 20 meq PO DAILY electrolyte 01/13/20 [History Last Taken Unknown] amoxicillin 875 mg-potassium clavulanate 125 mg tablet 1 ea PO BID #6 tabs 01/19/20 [Rx Last Taken Unknown] dexamethasone 6 mg tablet 6 mg PO DAILY ##0 01/19/20 [Rx Last Taken Unknown] furosemide 40 mg tablet 40 mg PO BID #60 tabs 01/19/20 [Rx Last Taken Unknown] warfarin 1 mg tablet 3.5 mg PO DAILY 02/08/20 [History Last Taken Unknown] oxycodone-acetaminophen 5 mg-325 mg tablet (Percocet) 1 tab PO Q8H PRN pain 3 days #14 tabs 07/25/21 [Rx Last Taken Unknown] Allergy/AdvReac Type Severity Reaction Status Date / Time povidone-iodine Allergy Intermediate rash, Verified 07/25/21 10:59 [From Betadine] itching soap [From Betadine] Allergy Intermediate rash, Verified 07/25/21 10:59 itching Family History Mother Cancer kidney Father Cancer lung Surgical History History of cardiac catheterization History of left hip replacement History of open reduction and internal fixation (ORIF) procedure History of skin graft History of vein stripping Social History Smoking Status: Current every day smoker tobacco type: smokeless tobacco Smokeless tobacco user: snuff how long ago did patient quit smokin months ago alcohol intake: never substance use type: does not use caffeine: Yes Type: coffee Number of servings: 2 Vital Signs Vital Signs Vital Signs: 08/01/21 09:25 Temperature 98.1 F Temperature Source Temporal Pulse Rate 67 Respiratory Rate 18 Blood Pressure 140/79 H Blood Pressure Mean 99 Weight Weight: 195 lb Body Mass Index (BMI) 32.4 Physical Exam Const alert, oriented x3, no apparent distress and well nourished Constitutional Narrative: An oxygen nasal cannula is in place. General Appearance: cooperative, comfortable, well kempt and well developed Orientation / Consciousness: awake, oriented to person, oriented to place and oriented to time HEENT normocephalic and head/scalp atraumatic Head and Scalp: normal to inspection, normocephalic and atraumatic External Ear: external ears normal Eyes PERRL and EOMs intact bilaterally General Eye: normal appearance of both eyes Chest inspection of chest normal Resp normal respiratory effort, normal air movement, no retractions and no use of accessory muscles Effort and Inspection: able to speak in complete sentences Extremity no calf tenderness General Extremity: Negative for clubbing or cyanosis Skin Wound Narrative: A large open wound is noted on the patient's upper right medial calf. This wound is a result of the patient's recent surgical procedure, performed on 07/25/2021, at which time an excision of the right calf wound with surgical preparation by excision of the open wound was performed. At this time, the surgical wound is pink and healthy in appearance. Wound margins are well beveled. Hemostasis is good. There is no sign of infection or cellulitis. Wound dimensions are documented elsewhere. Neuro oriented x3, CN's II-XII intact bilaterally and moves all extremities Sensorium / Orientation: awake, alert, oriented to person, oriented to place and oriented to time Psych Appearance: grossly normal and appropriate Attitude: calm Activity / Motor Behavior: appropriate eye contact Speech: normal speech Mood & Affect: euthymic mood Thought Process: normal thought process Thought Content: normal thought content Attention / Concentration: attention grossly intact Debridement Note Debridement Note No debridement was completed: No debridement was completed today Post-Debridement Measurements and Additional Note: Post-Debridement Measurements/Treatment WC - Nurse 1 - General Ulcer Assessment Start: 07/18/21 09:34 Freq: Status: Active Protocol: WC.LOWEXRosemary Activity Type Activity Date Activity User E-sign Co-sign Detail Recorded Client Recorded Date Recorded By Document 07/18/21 09:34 ML [id number] 07/18/21 09:39 ML Document 07/27/21 14:15 PL [id number] 07/27/21 14:19 PL Document 08/01/21 09:25 PL [id number] 08/01/21 09:29 PL 07/18/21 07/27/21 08/01/21 09:34 14:15 09:25 WC - Today's Visit Information Type of service Follow-up Visit Nurse-only Follow-up Visit (Physician/[employer] Visit (Physician/[employer] ) ) Arrival Mode Ambulatory,Cane Ambulatory Ambulatory,Cane Transfer Assistance None None None Patient Identification Verified (Name & Yes Yes Yes ) Patient Requires Transmission-Based No No No Precautions Safety Precautions NA NA Height and Weight Body Mass Index (BMI) 32.4 32.4 32.4 BMI Classification Obese Obese Obese Vital Signs Temperature (97.8 F-99.1 F) 97.0 F L 98.1 F Temperature Source Temporal Temporal Pulse Rate (60-100) 67 Pulse Location Monitor Respiratory Rate (12-18) 18 Blood Pressure (90/60-120/80) 128/84 H 140/79 H Blood Pressure Mean 98 99 Source Monitor Position Sitting Blood Pressure Location Right Arm History Since Last Visit- (Skip if this is Patient's initial visit) Have you changed medications since your No No No last visit? Any new allergies or adverse reactions No No No Had a fall/change in ADL's that may No No No increase risk of falls Signs or symptoms of abuse and/or No No No neglect since last visit Have you been in the hospital since your No No No last visit? Has dressing in place as prescribed Yes Yes Yes Has compression in place as prescribed N/A Yes Yes Has offloadiing in place as prescribed N/A N/A N/A Experienced any changes in pain level or No No No management Left Footwear Regular Shoe Right Footwear Regular Shoe Pain Scale: 0-10 Numeric Is Patient Pain Free? Yes Yes Yes WC - Nurse 1 - General Ulcer Measurement Start: 07/18/21 09:34 Freq: Status: Active Protocol: Activity Type Activity Date Activity User E-sign Co-sign Detail Recorded Client Recorded Date Recorded By Document 07/18/21 09:34 ML [id number] 07/18/21 09:39 ML Document 08/01/21 09:25 PL [id number] 08/01/21 09:29 PL 07/18/21 08/01/21 09:34 09:25 Wound Center Nurse 1 #4 R MEDIAL LE -Combined with other wound No -Current Size (cm) - Length 0.8 1.5 -Current Size (cm) - Width 0.3 3.8 -Current Size (cm) - Depth 0.5 1.5 -Total Square Cm 0.24 5.70 -Photo Taken No -Epithelialization Medium 34-66% -Tunneling No -Undermining/Tunneling No -Circular Undermining No -Classification - Thickness Partial Thickness -Exudate Amt Medium Medium -Exudate Type Serosanguineous Serosanguineous -Wound Margin Distinct, Flat & Intact Outline Attached -Granulation Amt Medium (34-66%) Medium (34-66%) -Granulation Quality [place] Pale,[place] -Slough/Fibrin No -Necrosis Amt Small (1-33%) Medium (34-66%) -Necrotic Tissue Type Adherent Slough Adherent Slough -Texture (Nancy-wound Skin Appearance) Assessed, Scarring -Moisture (Nancy-wound Skin Appearance) No Abnormality, Assessed -Color (Nancy-wound Skin Appearance) No Abnormality, Assessed -Temperature (Nancy-wound Skin No Abnormality Appearance) (Pt Warm) -Tenderness on Palpation (Nancy-wound No Skin Appearance) -Ulcer Cleansing Rinsed/ Irrigated with Saline -Foul Odor after Cleansing No -Anesthetic Used 5% Lidocaine Gel WC - Nurse 2 - General Ulcer CM Notes Start: 07/18/21 09:34 Freq: Status: Active Protocol: Activity Type Activity Date Activity User E-sign Co-sign Detail Recorded Client Recorded Date Recorded By Document 07/18/21 12:52 PL [id number] 07/18/21 12:53 PL Document 08/01/21 09:25 PL [id number] 08/01/21 09:29 PL 07/18/21 08/01/21 12:52 09:25 Wound Center Nurse 2 -Time 09:52 -Correct Patient Yes -Correct Side, Site, Position Yes -Correct Procedure Yes -Procedure Performed Yes -Type of Procedure Debridement -Clinical Debridement Subcutaneous -Tissue Removed Subcutaneous -Post Debridement (cm) - Length 0.8 -Post Debridement (cm) - Width 0.3 -Post Debridement (cm) - Depth 0.5 -Total Square (Post) (cm) 0.24 -Area of Debridement (cm) - Length 0.8 -Area of Debridement (cm) - Width 0.3 -Total Square (Area) (cm) 0.24 -Tunneling No -Undermining/Tunneling No -Circular Undermining No -Wound/Ulcer Outcome Not Healed -Ulcer Cleansing Rinsed/ Irrigated with Saline -Foul Odor after Cleansing No -Bioengineered Tissue No -Bleeding Controlled with Pressure -Treatment Response Procedure Tolerated Well -Debridement - Subq, 1st 20sq cm Yes Pain Scale: 0-10 Numeric Is Patient Pain Free? Yes Yes - Nurse 3 - General Ulcer D/C NN Start: 07/18/21 09:34 Freq: Status: Active Protocol: Activity Type Activity Date Activity User E-sign Co-sign Detail Recorded Client Recorded Date Recorded By Document 07/18/21 10:13 KR [id number] 07/18/21 10:14 KR Document 07/27/21 14:15 PL [id number] 07/27/21 14:19 PL 07/18/21 07/27/21 10:13 14:15 Wound Care Nurse 3 #4 R MEDIAL LE -Ulcer Cleansing Rinsed/ Soap and Water Irrigated with Saline -Foul Odor after Cleansing No -Primary Dressing Applied Nugauze, Plain Iodoform -Other Dressing moist to dry, Emanuel wrap -Primary Dressing Covered/Secured with Dry Gauze, Dry Gauze & Secured with Roll Gauze, Tape Secured with Tape -Nugauze, Plain Iodoform 1/4 1 Pain Scale: 0-10 Numeric Is Patient Pain Free? Yes Yes WC - Visit Discharge Discharge Condition Stable Stable Ambulatory Status Ambulatory Ambulatory Transportation Private Auto Private Auto Assessment/Plan Assessment/Plan (1) Non-pressure chronic ulcer of right calf with fat layer exposed: CODE(S): L97.212 - Non-pressure chronic ulcer of right calf with fat layer exposed (2) Wound of right lower extremity: CODE(S): S81.801A - Unspecified open wound, right lower leg, initial encounter QUALIFIERS: Encounter type: initial encounter Qualified Code(s): S81.801A - Unspecified open wound, right lower leg, initial encounter (3) Leg edema: CODE(S): R60.0 - Localized edema (4) Leg swelling: CODE(S): M79.89 - Other specified soft tissue disorders (5) Diabetes mellitus: CODE(S): E11.9 - Type 2 diabetes mellitus without complications (6) COPD (chronic obstructive pulmonary disease): CODE(S): J44.9 - Chronic obstructive pulmonary disease, unspecified (7) Chronic renal failure, stage 3 (moderate): CODE(S): N18.30 - Chronic kidney disease, stage 3 unspecified (8) Diverticular disease: CODE(S): K57.90 - Diverticulosis of intestine, part unspecified, without perforation or abscess without bleeding (9) Obesity (BMI 30.0-34.9): CODE(S): E66.9 - Obesity, unspecified (10) Pacemaker: CODE(S): Z95.0 - Presence of cardiac pacemaker (11) Dependence on supplemental oxygen: CODE(S): Z99.81 - Dependence on supplemental oxygen (12) Ulcerative colitis: CODE(S): K51.90 - Ulcerative colitis, unspecified, without complications (13) Paroxysmal atrial fibrillation: CODE(S): I48.0 - Paroxysmal atrial fibrillation (14) Mitral valve replaced: CODE(S): Z95.2 - Presence of prosthetic heart valve (15) senior living current use of anticoagulant: CODE(S): Z79.01 - senior living (current) use of anticoagulants (16) Acute and chronic respiratory failure with hypercapnia: CODE(S): J96.22 - Acute and chronic respiratory failure with hypercapnia (17) Atrial fibrillation with RVR: CODE(S): I48.91 - Unspecified atrial fibrillation (18) REBECA on CPAP: CODE(S): G47.33 - Obstructive sleep apnea (adult) (pediatric); Z99.89 - Dependence on other enabling machines and devices (19) Pulmonary hypertension: CODE(S): I27.20 - Pulmonary hypertension, unspecified (20) Hyperlipidemia: CODE(S): E78.5 - Hyperlipidemia, unspecified QUALIFIERS: Hyperlipidemia type: unspecified Qualified Code(s): E78.5 - Hyperlipidemia, unspecified (21) Essential hypertension: CODE(S): I10 - Essential (primary) hypertension PLAN: Plan This is a 71-year-old male who presented with an open wound on his right medial calf, which had been present for approximately 18 months. It had failed to heal, despite several means of treatment. The patient has multiple pre-existing medical problems, which are listed above. The patient underwent excision of a right calf wound with surgical preparation by excision of an open wound, which was performed in the operating room setting, on 07/25/2021. He returns today in routine follow-up. The surgical wound site appears healthy. We are to continue with gauze moist to dry dressing changes on a daily basis. We are to seek approval for the use of the wound VAC, which will be implemented in the next week. Activity has been encouraged. Leg elevation is to be implemented as much as possible. The patient has been encouraged to sleep with his legs elevated, and to elevate his legs even during daytime hours. Elevation is to be to heart level, or higher. The patient has been advised to optimize his nutritional intake and his glycemic control. A noninvasive lower extremity arterial study has been performed on 06/19/2021, demonstrating arterial flow to be normal at ankle level bilaterally, and at digital level on the left. 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 This finding is suggestive of adequate arterial circulation in the right lower extremity to support healing. The patient is to return in 1 week. Total time: 28 minutes
[2021-08-08 09:31] VITALS: BP 132/74; PULSE 71; RESP 24; TEMP 37.4; BMI 32.4
--- NOTE | 2021-08-08 12:43 | PCM.WC.HP ---
History of Present Illness Date of Service: 08/08/21 Chief Complaint: Open wound, right lower extremity History of Wound: This is a 71-year-old male who presented with an open wound in the right lower extremity. According the patient, the wound had been present for approximately 18 months. It is cared for by nursing staff at [facility], with visits 2-3 times per week. It appears as though a variety of treatments have been implemented, including the use of collagenase Santyl and gauze packing. The patient most recently was applying gauze topically. He has previously been treated with Augmentin. The patient is unaware of the etiology of his wound, or how it originated. It has been relatively unchanged for quite some time. He denies a history of thrombophlebitis. He does relate swelling in his right lower extremity, typically worse at the end of the day. He sleeps in a recliner. Patient has multiple pre-existing medical problems, including atrial fibrillation, congestive heart failure, diabetes mellitus, chronic respiratory failure with hypoxia, oxygen dependence, COPD, diverticular disease, hypertension, hyperlipidemia, ulcerative colitis, and obstructive sleep apnea. The patient has a pacemaker, and is on systemic anticoagulation with Coumadin. He has previously undergone open reduction and internal fixation of a right ankle fracture, with subsequent skin graft procedures on multiple occasions. He has had a vein stripping in the left lower extremity, and a left total hip replacement. COUNT INCLUDES THE [facility] Medical History Ambulates with cane Arthritis Cardiology follow-up encounter Chewing tobacco nicotine dependence Chronic renal failure, stage 3 (moderate) COPD (chronic obstructive pulmonary disease) COPD (chronic obstructive pulmonary disease) CPAP (continuous positive airway pressure) dependence Dependence on supplemental oxygen Diabetes mellitus Dietary restriction Diverticular disease Diverticulitis of colon with hemorrhage (~2004) Essential hypertension History of echocardiogram History of edema History of steroid therapy Hyperlipidemia Hypertension Leg edema Leg swelling Loss of hearing Low iron Non-pressure chronic ulcer of right calf with fat layer exposed Obesity Obesity (BMI 30.0-34.9) On home oxygen therapy Open wound REBECA on CPAP Pacemaker Psoriasis Pulmonary hypertension Rheumatic fever without mention of heart involvement Shortness of breath on exertion Type 2 diabetes mellitus without complication Ulcerative colitis Wears dentures Wears glasses Wound of right lower extremity Home Medications albuterol sulfate 90 mcg/actuation aerosol inhaler 2 puff inhalation Q4H PRN Sob &/Or Wheezing 07/23/18 [History Last Taken Unknown] diltiazem HCl 180 mg capsule,extended release 24 hr 360 mg PO DAILY heart rhythm 07/23/18 [History Last Taken 09/26/18] fenofibrate 160 mg tablet 160 mg PO DAILY 07/23/18 [History Last Taken Unknown] fluticasone propionate 115 mcg-salmeterol 21 mcg/actuation HFA inhaler 2 puff inhalation BID inhaler 07/23/18 [History Last Taken Unknown] losartan 100 mg tablet 100 mg PO DAILY blood pressure 11/25/18 [History Last Taken Unknown] ascorbic acid (vitamin C) 500 mg tablet 500 mg PO BID 01/13/20 [History Last Taken Unknown] atorvastatin 80 mg tablet 80 mg PO QHS 01/13/20 [History Last Taken Unknown] carvedilol 3.125 mg tablet 3.125 mg PO BID 01/13/20 [History Last Taken 07/25/21] melatonin 5 mg tablet 5 mg PO QHS 01/13/20 [History Last Taken Unknown] potassium chloride 20 mEq tablet,extended release(part/cryst) 20 meq PO DAILY electrolyte 01/13/20 [History Last Taken Unknown] amoxicillin 875 mg-potassium clavulanate 125 mg tablet 1 ea PO BID #6 tabs 01/19/20 [Rx Last Taken Unknown] dexamethasone 6 mg tablet 6 mg PO DAILY ##0 01/19/20 [Rx Last Taken Unknown] furosemide 40 mg tablet 40 mg PO BID #60 tabs 01/19/20 [Rx Last Taken Unknown] warfarin 1 mg tablet 3.5 mg PO DAILY 02/08/20 [History Last Taken Unknown] oxycodone-acetaminophen 5 mg-325 mg tablet (Percocet) 1 tab PO Q8H PRN pain 3 days #14 tabs 07/25/21 [Rx Last Taken Unknown] Allergy/AdvReac Type Severity Reaction Status Date / Time povidone-iodine Allergy Intermediate rash, Verified 07/25/21 10:59 [From Betadine] itching soap [From Betadine] Allergy Intermediate rash, Verified 07/25/21 10:59 itching Family History Mother Cancer kidney Father Cancer lung Surgical History History of cardiac catheterization History of left hip replacement History of open reduction and internal fixation (ORIF) procedure History of skin graft History of vein stripping Social History Smoking Status: Current every day smoker tobacco type: smokeless tobacco Smokeless tobacco user: snuff how long ago did patient quit smokin months ago alcohol intake: never substance use type: does not use caffeine: Yes Type: coffee Number of servings: 2 Vital Signs Vital Signs Vital Signs: 08/08/21 09:31 Temperature 99.4 F H Temperature Source Temporal Pulse Rate 71 Respiratory Rate 24 H Blood Pressure 132/74 H Blood Pressure Mean 93 Blood Pressure Source Monitor Weight Weight: 195 lb Body Mass Index (BMI) 32.4 Physical Exam Const alert, oriented x3, no apparent distress and well nourished Constitutional Narrative: An oxygen nasal cannula is in place. General Appearance: cooperative, comfortable, well kempt and well developed Orientation / Consciousness: awake, oriented to person, oriented to place and oriented to time HEENT normocephalic and head/scalp atraumatic Head and Scalp: normal to inspection, normocephalic and atraumatic External Ear: external ears normal Eyes PERRL and EOMs intact bilaterally General Eye: normal appearance of both eyes Chest inspection of chest normal Resp normal respiratory effort, normal air movement, no retractions and no use of accessory muscles Effort and Inspection: able to speak in complete sentences Extremity no calf tenderness General Extremity: Negative for clubbing or cyanosis Skin Wound Narrative: A large open wound is noted on the patient's upper right medial calf. This wound is a result of the patient's recent surgical procedure, performed on 07/25/2021, at which time an excision of the right calf wound with surgical preparation by excision of the open wound was performed. At this time, the surgical wound remains pink and healthy in appearance. Wound margins are well beveled. Hemostasis is good. There is no sign of infection or cellulitis. Wound dimensions are documented elsewhere. Neuro oriented x3, CN's II-XII intact bilaterally, moves all extremities and no focal motor deficits Sensorium / Orientation: awake, alert, oriented to person, oriented to place and oriented to time Psych Appearance: grossly normal and appropriate Attitude: calm Activity / Motor Behavior: appropriate eye contact Speech: normal speech Mood & Affect: euthymic mood Thought Process: normal thought process Thought Content: normal thought content Attention / Concentration: attention grossly intact Debridement Note Debridement Note No debridement was completed: No debridement was completed today (The wound is pink and healthy in appearance, with little or no bioburden or nonviable tissue.) Post-Debridement Measurements and Additional Note: Post-Debridement Measurements/Treatment - Nurse 1 - General Ulcer Assessment Start: 07/18/21 09:34 Freq: Status: Active Protocol: RAJAT Activity Type Activity Date Activity User E-sign Co-sign Detail Recorded Client Recorded Date Recorded By Document 07/18/21 09:34 ML [id number] 07/18/21 09:39 ML Document 07/27/21 14:15 PL [id number] 07/27/21 14:19 PL Document 08/01/21 09:25 PL [id number] 08/01/21 09:29 PL Document 08/08/21 09:31 DL [id number] 08/08/21 09:39 DL 07/18/21 07/27/21 08/01/21 09:34 14:15 09:25 - Today's Visit Information Type of service Follow-up Visit Nurse-only Follow-up Visit (Physician/MOVEMENT EDUCATION SPECIALIST Visit (Physician/MOVEMENT EDUCATION SPECIALIST ) ) Arrival Mode Ambulatory,Cane Ambulatory Ambulatory,Cane Transfer Assistance None None None Patient Identification Verified (Name & Yes Yes Yes ) Patient Requires Transmission-Based No No No Precautions Safety Precautions NA NA Finger Stick Blood Sugar(mg/dl) (if indicated): Blood Sugar Height and Weight Body Mass Index (BMI) 32.4 32.4 32.4 BMI Classification Obese Obese Obese Vital Signs Temperature (97.8 F-99.1 F) 97.0 F L 98.1 F Temperature Source Temporal Temporal Pulse Rate (60-100) 67 Pulse Location Monitor Respiratory Rate (12-18) 18 Respiratory rate source Blood Pressure (90/60-120/80) 128/84 H 140/79 H Blood Pressure Mean 98 99 Source Monitor Position Sitting Blood Pressure Location Right Arm History Since Last Visit- (Skip if this is Patient's initial visit) Have you changed medications since your No No No last visit? Any new allergies or adverse reactions No No No Had a fall/change in ADL's that may No No No increase risk of falls Signs or symptoms of abuse and/or No No No neglect since last visit Have you been in the hospital since your No No No last visit? Has dressing in place as prescribed Yes Yes Yes Has compression in place as prescribed N/A Yes Yes Has offloadiing in place as prescribed N/A N/A N/A Experienced any changes in pain level or No No No management Left Footwear Regular Shoe Right Footwear Regular Shoe Pain Scale: 0-10 Numeric Is Patient Pain Free? Yes Yes Yes 08/08/21 09:31 WC - Today's Visit Information Type of service Follow-up Visit (Physician/MOVEMENT EDUCATION SPECIALIST ) Arrival Mode Ambulatory Transfer Assistance None Patient Identification Verified (Name & Yes ) Patient Requires Transmission-Based No Precautions Safety Precautions Fall Prevention Finger Stick Blood Sugar(mg/dl) (if 134 indicated): Blood Sugar Stated by Patient Height and Weight Body Mass Index (BMI) 32.4 BMI Classification Obese Vital Signs Temperature (97.8 F-99.1 F) 99.4 F H Temperature Source Temporal Pulse Rate (60-100) 71 Pulse Location Monitor Respiratory Rate (12-18) 24 H Respiratory rate source Observation Blood Pressure (90/60-120/80) 132/74 H Blood Pressure Mean 93 Source Monitor Position Blood Pressure Location History Since Last Visit- (Skip if this is Patient's initial visit) Have you changed medications since your No last visit? Any new allergies or adverse reactions No Had a fall/change in ADL's that may No increase risk of falls Signs or symptoms of abuse and/or No neglect since last visit Have you been in the hospital since your No last visit? Has dressing in place as prescribed Yes Has compression in place as prescribed Yes Has offloadiing in place as prescribed Yes Experienced any changes in pain level or management Left Footwear Right Footwear Pain Scale: 0-10 Numeric Is Patient Pain Free? Yes - Nurse 1 - General Ulcer Measurement Start: 07/18/21 09:34 Freq: Status: Active Protocol: Activity Type Activity Date Activity User E-sign Co-sign Detail Recorded Client Recorded Date Recorded By Document 07/18/21 09:34 ML [id number] 07/18/21 09:39 ML Document 08/01/21 09:25 PL [id number] 08/01/21 09:29 PL Document 08/08/21 09:31 DL [id number] 08/08/21 09:39 DL 07/18/21 08/01/21 08/08/21 09:34 09:25 09:31 Wound Center Nurse 1 #4 R MEDIAL LE -Combined with other wound No -Current Size (cm) - Length 0.8 1.5 4.5 -Current Size (cm) - Width 0.3 3.8 3.8 -Current Size (cm) - Depth 0.5 1.5 1 -Total Square Cm 0.24 5.70 17.10 -Photo Taken No No -Epithelialization Medium 34-66% -Tunneling No -Undermining/Tunneling No -Circular Undermining No -Classification - Thickness Partial Thickness -Exudate Amt Medium Medium Medium -Exudate Type Serosanguineous Serosanguineous Serosanguineous -Wound Margin Distinct, Flat & Intact Distinct, Outline Outline Attached Attached -Granulation Amt Medium (34-66%) Medium (34-66%) Large (67-100%) -Granulation Quality [place] Pale,[place] Red -Slough/Fibrin No -Necrosis Amt Small (1-33%) Medium (34-66%) Small (1-33%) -Necrotic Tissue Type Adherent Slough Adherent Slough Adherent Slough -Texture (Nancy-wound Skin Appearance) Assessed, Scarring Scarring -Moisture (Nancy-wound Skin Appearance) No Abnormality, No Abnormality Assessed -Color (Nancy-wound Skin Appearance) No Abnormality, No Abnormality Assessed -Temperature (Nancy-wound Skin No Abnormality No Abnormality Appearance) (Pt Warm) (Pt Warm) -Tenderness on Palpation (Nancy-wound No Skin Appearance) -Ulcer Cleansing Rinsed/ Rinsed/ Irrigated with Irrigated with Saline Saline -Foul Odor after Cleansing No No -Anesthetic Used 5% Lidocaine 4% Lidocaine Gel Solution WC - Nurse 2 - General Ulcer CM Notes Start: 07/18/21 09:34 Freq: Status: Active Protocol: Activity Type Activity Date Activity User E-sign Co-sign Detail Recorded Client Recorded Date Recorded By Document 07/18/21 12:52 PL [id number] 07/18/21 12:53 PL Document 08/01/21 09:25 PL [id number] 08/01/21 09:29 PL Document 08/01/21 12:16 PL [id number] 08/01/21 12:17 PL 07/18/21 08/01/21 08/01/21 12:52 09:25 12:16 Wound Center Nurse 2 #4 R MEDIAL LE -Time 09: 09:10 -Correct Patient Yes Yes -Correct Side, Site, Position Yes -Correct Procedure Yes -Procedure Performed Yes No -Type of Procedure Debridement -Clinical Debridement Subcutaneous -Tissue Removed Subcutaneous -Post Debridement (cm) - Length 0.8 4.7 -Post Debridement (cm) - Width 0.3 4.6 -Post Debridement (cm) - Depth 0.5 0.1 -Total Square (Post) (cm) 0.24 21.62 -Area of Debridement (cm) - Length 0.8 -Area of Debridement (cm) - Width 0.3 -Total Square (Area) (cm) 0.24 -Tunneling No No -Undermining/Tunneling No No -Circular Undermining No No -Wound/Ulcer Outcome Not Healed Not Healed -Ulcer Cleansing Rinsed/ Rinsed/ Irrigated with Irrigated with Saline Saline -Foul Odor after Cleansing No No -Bioengineered Tissue No No -Bleeding Controlled with Pressure Pressure -Treatment Response Procedure Procedure Tolerated Well Tolerated Well -Debridement - Subq, 1st 20sq cm Yes Pain Scale: 0-10 Numeric Is Patient Pain Free? Yes Yes Yes - Nurse 3 - General Ulcer D/C NN Start: 07/18/21 09:34 Freq: Status: Active Protocol: Activity Type Activity Date Activity User E-sign Co-sign Detail Recorded Client Recorded Date Recorded By Document 07/18/21 10:13 KR [id number] 07/18/21 10:14 KR Document 07/27/21 14:15 PL [id number] 07/27/21 14:19 PL Document 08/01/21 12:27 PL [id number] 08/01/21 12:28 PL Document 08/08/21 10:18 DL [id number] 08/08/21 10:20 DL 07/18/21 07/27/21 08/01/21 10:13 14:15 12:27 Wound Care Nurse 3 #4 R MEDIAL LE -Ulcer Cleansing Rinsed/ Soap and Water Soap and Water Irrigated with Saline -Foul Odor after Cleansing No No -Negative Pressure Wound Therapy -Setting (mmHg) -Negative Pressure is -Primary Dressing Applied Nugauze, Plain Iodoform -Other Dressing moist to dry, moist to dry Emanuel wrap dressing -Primary Dressing Covered/Secured with Dry Gauze, Dry Gauze & Dry Gauze & Secured with Roll Gauze, Roll Gauze, Tape Secured with Secured with Tape Tape -NPWT Application Charge -Nugauze, Plain Iodoform 1/4 1 Treatment Response Pain Scale: 0-10 Numeric Is Patient Pain Free? Yes Yes Yes WC - Visit Discharge Discharge Condition Stable Stable Stable Ambulatory Status Ambulatory Ambulatory Cane Transportation Private Auto Private Auto Private Auto Facility Type Orders Sent 08/08/21 10:18 Wound Care Nurse 3 #4 R MEDIAL LE -Ulcer Cleansing Soap and Water -Foul Odor after Cleansing No -Negative Pressure Wound Therapy Continue -Setting (mmHg) 150 -Negative Pressure is Continuous -Primary Dressing Applied -Other Dressing -Primary Dressing Covered/Secured with -NPWT Application Charge NPWT </= 50 sq cm ($) -Nugauze, Plain Iodoform 1/4 Treatment Response Procedure Tolerated Well Pain Scale: 0-10 Numeric Is Patient Pain Free? Yes WC - Visit Discharge Discharge Condition Stable Ambulatory Status Ambulatory,Cane Transportation Private Auto Facility Type Home Health Orders Sent Yes Assessment/Plan Assessment/Plan (1) Non-pressure chronic ulcer of right calf with fat layer exposed: CODE(S): L97.212 - Non-pressure chronic ulcer of right calf with fat layer exposed (2) Wound of right lower extremity: CODE(S): S81.801A - Unspecified open wound, right lower leg, initial encounter QUALIFIERS: Encounter type: initial encounter Qualified Code(s): S81.801A - Unspecified open wound, right lower leg, initial encounter (3) Leg edema: CODE(S): R60.0 - Localized edema (4) Leg swelling: CODE(S): M79.89 - Other specified soft tissue disorders (5) Diabetes mellitus: CODE(S): E11.9 - Type 2 diabetes mellitus without complications (6) COPD (chronic obstructive pulmonary disease): CODE(S): J44.9 - Chronic obstructive pulmonary disease, unspecified (7) Chronic renal failure, stage 3 (moderate): CODE(S): N18.30 - Chronic kidney disease, stage 3 unspecified (8) Diverticular disease: CODE(S): K57.90 - Diverticulosis of intestine, part unspecified, without perforation or abscess without bleeding (9) Obesity (BMI 30.0-34.9): CODE(S): E66.9 - Obesity, unspecified (10) Pacemaker: CODE(S): Z95.0 - Presence of cardiac pacemaker (11) Dependence on supplemental oxygen: CODE(S): Z99.81 - Dependence on supplemental oxygen (12) Ulcerative colitis: CODE(S): K51.90 - Ulcerative colitis, unspecified, without complications (13) Paroxysmal atrial fibrillation: CODE(S): I48.0 - Paroxysmal atrial fibrillation (14) Mitral valve replaced: CODE(S): Z95.2 - Presence of prosthetic heart valve (15) [facility] current use of anticoagulant: CODE(S): Z79.01 - cane piler (current) use of anticoagulants (16) Acute and chronic respiratory failure with hypercapnia: CODE(S): J96.22 - Acute and chronic respiratory failure with hypercapnia (17) Atrial fibrillation with RVR: CODE(S): I48.91 - Unspecified atrial fibrillation (18) REBECA on CPAP: CODE(S): G47.33 - Obstructive sleep apnea (adult) (pediatric); Z99.89 - Dependence on other enabling machines and devices (19) Pulmonary hypertension: CODE(S): I27.20 - Pulmonary hypertension, unspecified (20) Hyperlipidemia: CODE(S): E78.5 - Hyperlipidemia, unspecified QUALIFIERS: Hyperlipidemia type: unspecified Qualified Code(s): E78.5 - Hyperlipidemia, unspecified (21) Essential hypertension: CODE(S): I10 - Essential (primary) hypertension PLAN: Plan This is a 71-year-old male who presented with an open wound on his right medial calf, which had been present for approximately 18 months. It had failed to heal, despite several means of treatment. The patient has multiple pre-existing medical problems, which are listed above. The patient underwent excision of a right calf wound with surgical preparation by excision of an open wound, which was performed in the operating room setting, on 07/25/2021. He returns today in routine follow-up. The surgical wound site appears healthy. We are to implement the use of the wound VAC/negative pressure wound therapy. The wound VAC will be changed 3 times weekly. Activity has been encouraged. Leg elevation is to be implemented as much as possible. The patient has been encouraged to sleep with his legs elevated, and to elevate his legs even during daytime hours. Elevation is to be to heart level, or higher. The patient has been advised to optimize his nutritional intake and his glycemic control. A noninvasive lower extremity arterial study has been performed on 06/19/2021, demonstrating arterial flow to be normal at ankle level bilaterally, and at digital level on the left. 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 This finding is suggestive of adequate arterial circulation in the right lower extremity to support healing. The patient is to return in 1 week. The patient is noted to have a cough, which is quite prominent, and temperature is noted to be 100 degrees. In the presence of cough and fever, and considering the patient's history of pulmonary disease, he has been advised to follow-up without delay with his primary care physician in this regard. Total time: 29 minutes
== END 2021-08-10 23:59 | disposition home or self-care (01) ==
LOC: WC 09:00
PROVIDERS: PCP Family Medicine; Visit Provider Surgery
DX: E11.622 Type 2 diabetes mellitus with other skin ulcer (principal); L97.212 Non-pressure chronic ulcer of right calf with fat layer exposed; J44.9 Chronic obstructive pulmonary disease, unspecified; I13.0 Hypertensive heart and chronic kidney disease with heart failure and stage 1 through stage 4 chronic kidney disease, or unspecified chronic kidney disease; I50.9 Heart failure, unspecified; I27.20 Pulmonary hypertension, unspecified; K51.90 Ulcerative colitis, unspecified, without complications; E11.22 Type 2 diabetes mellitus with diabetic chronic kidney disease; J96.22 Acute and chronic respiratory failure with hypercapnia; I48.0 Paroxysmal atrial fibrillation; N18.30 Chronic kidney disease, stage 3 unspecified; Z79.01 Long term (current) use of anticoagulants; Z87.891 Personal history of nicotine dependence; E66.9 Obesity, unspecified; Z95.0 Presence of cardiac pacemaker; E78.5 Hyperlipidemia, unspecified; Z96.642 Presence of left artificial hip joint; K57.90 Diverticulosis of intestine, part unspecified, without perforation or abscess without bleeding; Z99.81 Dependence on supplemental oxygen; G47.33 Obstructive sleep apnea (adult) (pediatric); Z95.2 Presence of prosthetic heart valve; R60.0 Localized edema; M79.89 Other specified soft tissue disorders
CPT/HCPCS: 11042; 97605; 99213; G0463

== ENCOUNTER → 2021-08-10 | Outpatient (CLI) | payer MEDICARE, OTHER, SELFPAY ==
[2021-08-10 18:01] LABS: Hematocrit 33.8 % (40-54); Hemoglobin 10.3 g/dL (13.0-16.5); Mean Corp Hgb Conc 30.5 g/dL (32-36); Mean Corpuscular Hgb 29.4 pg (27.0-32.0); Mean Corpuscular Volume 96.6 fL (80-94); Mean Platelet Vol. 10.4 fl (6.2-12.0); Platelet Count 141 K/mm3 (150-450); RBC Distribution Width CV 14.9 % (11.6-14.6); RBC Distribution Width SD 52.5 fl (35.1-43.9); White Blood Count 6.8 K/mm3 (4.4-11.0)
== END | disposition home or self-care (01) ==
PROVIDERS: PCP Family Medicine; Visit Provider Family Medicine
DX: I50.22 Chronic systolic (congestive) heart failure (principal); I48.19 Other persistent atrial fibrillation; I48.92 Unspecified atrial flutter
CPT/HCPCS: 85027

== ENCOUNTER 2021-09-05 09:15 | Outpatient (RCR) | payer MEDICARE, OTHER, SELFPAY ==
[2021-08-11 00:39] VITALS: BP 132/74; PULSE 71; RESP 24; TEMP 37.4; BMI 32.4
[2021-08-15 09:42] VITALS: BP 158/99; PULSE 70; TEMP 36.1; BMI 32.4
--- NOTE | 2021-08-15 09:55 | WC ---
PT TO HAVE HH PUT VAC ON D/T HI FORGETTING TO BRING HIS SUPPLIES WITH HIM TO APPOINTMENT.
--- NOTE | 2021-08-15 09:56 | HP.PCM_ITS ---
History of Present Illness Date of Service: 08/15/21 Chief Complaint: Open wound, right lower extremity History of Wound: This is a 71-year-old male who presented with an open wound in the right lower extremity. According the patient, the wound had been present for approximately 18 months. It is cared for by nursing staff at [facility], with visits 2-3 times per week. It appears as though a variety of treatments have been implemented, including the use of collagenase Santyl and gauze packing. The patient most recently was applying gauze topically. He has previously been treated with Augmentin. The patient is unaware of the etiology of his wound, or how it originated. It has been relatively unchanged for quite some time. He denies a history of thrombophlebitis. He does relate swelling in his right lower extremity, typically worse at the end of the day. He sleeps in a recliner. Patient has multiple pre-existing medical problems, including atrial fibrillation, congestive heart failure, diabetes mellitus, chronic respiratory failure with hypoxia, oxygen dependence, COPD, diverticular disease, hypertension, hyperlipidemia, ulcerative colitis, and obstructive sleep apnea. The patient has a pacemaker, and is on systemic anticoagulation with Coumadin. He has previously undergone open reduction and internal fixation of a right ankle fracture, with subsequent skin graft procedures on multiple occasions. He has had a vein stripping in the left lower extremity, and a left total hip replacement. [facility] Medical History Ambulates with cane Arthritis Cardiology follow-up encounter Chewing tobacco nicotine dependence Chronic renal failure, stage 3 (moderate) COPD (chronic obstructive pulmonary disease) COPD (chronic obstructive pulmonary disease) CPAP (continuous positive airway pressure) dependence Dependence on supplemental oxygen Diabetes mellitus Dietary restriction Diverticular disease Diverticulitis of colon with hemorrhage (~2004) Essential hypertension History of echocardiogram History of edema History of steroid therapy Hyperlipidemia Hypertension Leg edema Leg swelling Loss of hearing Low iron Non-pressure chronic ulcer of right calf with fat layer exposed Obesity Obesity (BMI 30.0-34.9) On home oxygen therapy Open wound REBECA on CPAP Pacemaker Psoriasis Pulmonary hypertension Rheumatic fever without mention of heart involvement Shortness of breath on exertion Type 2 diabetes mellitus without complication Ulcerative colitis Wears dentures Wears glasses Wound of right lower extremity Home Medications albuterol sulfate 90 mcg/actuation aerosol inhaler 2 puff inhalation Q4H PRN Sob &/Or Wheezing 07/23/18 [History Last Taken Unknown] diltiazem HCl 180 mg capsule,extended release 24 hr 360 mg PO DAILY heart rhythm 07/23/18 [History Last Taken 09/26/18] fenofibrate 160 mg tablet 160 mg PO DAILY 07/23/18 [History Last Taken Unknown] fluticasone propionate 115 mcg-salmeterol 21 mcg/actuation HFA inhaler 2 puff inhalation BID inhaler 07/23/18 [History Last Taken Unknown] losartan 100 mg tablet 100 mg PO DAILY blood pressure 11/25/18 [History Last Taken Unknown] ascorbic acid (vitamin C) 500 mg tablet 500 mg PO BID 01/13/20 [History Last Taken Unknown] atorvastatin 80 mg tablet 80 mg PO QHS 01/13/20 [History Last Taken Unknown] carvedilol 3.125 mg tablet 3.125 mg PO BID 01/13/20 [History Last Taken 07/25/21] melatonin 5 mg tablet 5 mg PO QHS 01/13/20 [History Last Taken Unknown] potassium chloride 20 mEq tablet,extended release(part/cryst) 20 meq PO DAILY electrolyte 01/13/20 [History Last Taken Unknown] amoxicillin 875 mg-potassium clavulanate 125 mg tablet 1 ea PO BID #6 tabs 01/19/20 [Rx Last Taken Unknown] dexamethasone 6 mg tablet 6 mg PO DAILY ##0 01/19/20 [Rx Last Taken Unknown] furosemide 40 mg tablet 40 mg PO BID #60 tabs 01/19/20 [Rx Last Taken Unknown] warfarin 1 mg tablet 3.5 mg PO DAILY 02/08/20 [History Last Taken Unknown] oxycodone-acetaminophen 5 mg-325 mg tablet (Percocet) 1 tab PO Q8H PRN pain 3 days #14 tabs 07/25/21 [Rx Last Taken Unknown] Allergy/AdvReac Type Severity Reaction Status Date / Time povidone-iodine Allergy Intermediate rash, Verified 07/25/21 10:59 [From Betadine] itching soap [From Betadine] Allergy Intermediate rash, Verified 07/25/21 10:59 itching Family History Mother Cancer kidney Father Cancer lung Surgical History History of cardiac catheterization History of left hip replacement History of open reduction and internal fixation (ORIF) procedure History of skin graft History of vein stripping Social History Smoking Status: Current every day smoker tobacco type: smokeless tobacco Smokeless tobacco user: snuff how long ago did patient quit smokin months ago alcohol intake: never substance use type: does not use caffeine: Yes Type: coffee Number of servings: 2 Vital Signs Vital Signs Vital Signs: 08/15/21 09:42 Temperature 97.0 F L Temperature Source Temporal Pulse Rate 70 Blood Pressure 158/99 H Blood Pressure Mean 118 Blood Pressure Source Monitor Blood Pressure Position Sitting Blood Pressure Location Right Arm Weight Weight: 195 lb Body Mass Index (BMI) 32.4 Physical Exam Const alert, oriented x3, no apparent distress, average body habitus and well nourished General Appearance: cooperative, comfortable, well kempt and well developed Orientation / Consciousness: awake, oriented to person, oriented to place and oriented to time HEENT normocephalic and head/scalp atraumatic Head and Scalp: normal to inspection, normocephalic and atraumatic External Ear: external ears normal Eyes PERRL and EOMs intact bilaterally General Eye: normal appearance of both eyes Chest inspection of chest normal Resp normal respiratory effort, normal air movement, no retractions and no use of accessory muscles Effort and Inspection: able to speak in complete sentences Extremity no calf tenderness General Extremity: Negative for clubbing or cyanosis Skin Wound Narrative: A large open wound is noted on the patient's upper right medial calf. This wound is a result of the patient's recent surgical procedure, performed on 07/25/2021, at which time an excision of the right calf wound with surgical preparation by excision of the open wound was performed. At this time, the surgical wound remains pink and healthy in appearance. Wound margins are well beveled. Hemostasis is good. There is no sign of infection or cellulitis. Wound dimensions are documented elsewhere. The wound is smaller in size than noted 1 week ago. No significant swelling is noted in the patient's right lower extremity. Lipodermatosclerosis and hyperpigmentation are noted in the patient's right gaiter area. Neuro oriented x3, CN's II-XII intact bilaterally, moves all extremities and no focal motor deficits Sensorium / Orientation: awake, alert, oriented to person, oriented to place and oriented to time Psych Appearance: grossly normal and appropriate Attitude: calm Activity / Motor Behavior: appropriate eye contact Speech: normal speech Mood & Affect: euthymic mood Thought Process: normal thought process Thought Content: normal thought content Attention / Concentration: attention grossly intact Debridement Note Debridement Note No debridement was completed: No debridement was completed today Post-Debridement Measurements and Additional Note: Post-Debridement Measurements/Treatment - Nurse 1 - General Ulcer Assessment Start: 08/15/21 09:42 Freq: Status: Active Protocol: RAJAT Activity Type Activity Date Activity User E-sign Co-sign Detail Recorded Client Recorded Date Recorded By Document 08/15/21 09:42 KAVITHA [id number] 08/15/21 09:44 KAVITHA 08/15/21 09:42 USHA - Today's Visit Information Type of service Follow-up Visit (Physician/[employer] ) Arrival Mode Ambulatory,Cane Patient Identification Verified (Name & Yes ) Height and Weight Body Mass Index (BMI) 32.4 BMI Classification Obese Vital Signs Temperature (97.8 F-99.1 F) 97.0 F L Temperature Source Temporal Pulse Rate (60-100) 70 Pulse Location Monitor Blood Pressure (90/60-120/80) 158/99 H Blood Pressure Mean 118 Source Monitor Position Sitting Blood Pressure Location Right Arm History Since Last Visit- (Skip if this is Patient's initial visit) Have you changed medications since your No last visit? Any new allergies or adverse reactions No Had a fall/change in ADL's that may No increase risk of falls Signs or symptoms of abuse and/or No neglect since last visit Have you been in the hospital since your No last visit? Has dressing in place as prescribed Yes Has compression in place as prescribed N/A Has offloadiing in place as prescribed N/A Experienced any changes in pain level or No management Left Footwear Regular Shoe Right Footwear Regular Shoe Pain Scale: 0-10 Numeric Is Patient Pain Free? Yes USHA [place] Nurse 1 - General Ulcer Measurement Start: 08/15/21 09:42 Freq: Status: Active Protocol: Activity Type Activity Date Activity User E-sign Co-sign Detail Recorded Client Recorded Date Recorded By Document 08/15/21 09:42 KAVITHA [id number] 08/15/21 09:44 KR 08/15/21 09:42 Wound Center Nurse 1 #4 R MEDIAL LE -Current Size (cm) - Length 3.4 -Current Size (cm) - Width 4 -Current Size (cm) - Depth 0.2 -Total Square Cm 13.6 -Exudate Amt Medium -Exudate Type Serosanguineous -Wound Margin Distinct, Outline Attached -Granulation Amt Large (67-100%) -Granulation Quality Red -Necrosis Amt None Present (0 %) -Texture (Nancy-wound Skin Appearance) Assessed, Scarring -Moisture (Nancy-wound Skin Appearance) No Abnormality, Assessed -Color (Nancy-wound Skin Appearance) No Abnormality, Assessed -Temperature (Nancy-wound Skin No Abnormality Appearance) (Pt Warm) -Tenderness on Palpation (Nancy-wound No Skin Appearance) -Ulcer Cleansing Soap and Water -Foul Odor after Cleansing No -Anesthetic Used 4% Lidocaine Solution,5% Lidocaine Gel Assessment/Plan Assessment/Plan (1) Non-pressure chronic ulcer of right calf with fat layer exposed: CODE(S): L97.212 - Non-pressure chronic ulcer of right calf with fat layer exposed (2) Wound of right lower extremity: CODE(S): S81.801A - Unspecified open wound, right lower leg, initial encounter QUALIFIERS: Encounter type: initial encounter Qualified Code(s): S81.801A - Unspecified open wound, right lower leg, initial encounter (3) Leg edema: CODE(S): R60.0 - Localized edema (4) Leg swelling: CODE(S): M79.89 - Other specified soft tissue disorders (5) Diabetes mellitus: CODE(S): E11.9 - Type 2 diabetes mellitus without complications (6) COPD (chronic obstructive pulmonary disease): CODE(S): J44.9 - Chronic obstructive pulmonary disease, unspecified (7) Chronic renal failure, stage 3 (moderate): CODE(S): N18.30 - Chronic kidney disease, stage 3 unspecified (8) Diverticular disease: CODE(S): K57.90 - Diverticulosis of intestine, part unspecified, without perforation or abscess without bleeding (9) Obesity (BMI 30.0-34.9): CODE(S): E66.9 - Obesity, unspecified (10) Pacemaker: CODE(S): Z95.0 - Presence of cardiac pacemaker (11) Dependence on supplemental oxygen: CODE(S): Z99.81 - Dependence on supplemental oxygen (12) Ulcerative colitis: CODE(S): K51.90 - Ulcerative colitis, unspecified, without complications (13) Paroxysmal atrial fibrillation: CODE(S): I48.0 - Paroxysmal atrial fibrillation (14) Mitral valve replaced: CODE(S): Z95.2 - Presence of prosthetic heart valve (15) long-term current use of anticoagulant: CODE(S): Z79.01 - 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 (16) Acute and chronic respiratory failure with hypercapnia: CODE(S): J96.22 - Acute and chronic respiratory failure with hypercapnia (17) Atrial fibrillation with RVR: CODE(S): I48.91 - Unspecified atrial fibrillation (18) REBECA on CPAP: CODE(S): G47.33 - Obstructive sleep apnea (adult) (pediatric); Z99.89 - Dependence on other enabling machines and devices (19) Pulmonary hypertension: CODE(S): I27.20 - Pulmonary hypertension, unspecified (20) Hyperlipidemia: CODE(S): E78.5 - Hyperlipidemia, unspecified QUALIFIERS: Hyperlipidemia type: unspecified Qualified Code(s): E78.5 - Hyperlipidemia, unspecified (21) Essential hypertension: CODE(S): I10 - Essential (primary) hypertension PLAN: Plan This is a 71-year-old male who presented with an open wound on his right medial calf, which had been present for approximately 18 months. It had failed to heal, despite several means of treatment. The patient has multiple pre-existing medical problems, which are listed above. The patient underwent excision of a right calf wound with surgical preparation by excision of an open wound, which was performed in the operating room setting, on 07/25/2021. He returns today in routine follow-up. The surgical wound site appears healthy. The wound has decreased in size since 1 week prior. We are to continue the use of the wound VAC/negative pressure wound therapy. The wound VAC will be changed 3 times weekly. Activity has been encouraged. Leg elevation is to be implemented as much as possible. The patient has been encouraged to sleep with his legs elevated, and to elevate his legs even during daytime hours. Elevation is to be to heart level, or higher. The patient has been advised to optimize his nutritional intake and his glycemic control. A noninvasive lower extremity arterial study has been performed on 06/19/2021, demonstrating arterial flow to be normal at ankle level bilaterally, and at digital level on the left. 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 This finding is suggestive of adequate arterial circulation in the right lower extremity to support healing. The patient is to return in 1 week. Total time: 28 minutes
[2021-08-22 09:50] VITALS: BP 108/74; PULSE 91; RESP 24; TEMP 36.6; BMI 32.4
--- NOTE | 2021-08-22 12:14 | PCM.WC.HP ---
History of Present Illness Date of Service: 08/22/21 Chief Complaint: Open wound, right lower extremity History of Wound: This is a 71-year-old male who presented with an open wound in the right lower extremity. According the patient, the wound had been present for approximately 18 months. It is cared for by nursing staff at [facility], with visits 2-3 times per week. It appears as though a variety of treatments have been implemented, including the use of collagenase Santyl and gauze packing. The patient most recently was applying gauze topically. He has previously been treated with Augmentin. The patient is unaware of the etiology of his wound, or how it originated. It has been relatively unchanged for quite some time. He denies a history of thrombophlebitis. He does relate swelling in his right lower extremity, typically worse at the end of the day. He sleeps in a recliner. Patient has multiple pre-existing medical problems, including atrial fibrillation, congestive heart failure, diabetes mellitus, chronic respiratory failure with hypoxia, oxygen dependence, COPD, diverticular disease, hypertension, hyperlipidemia, ulcerative colitis, and obstructive sleep apnea. The patient has a pacemaker, and is on systemic anticoagulation with Coumadin. He has previously undergone open reduction and internal fixation of a right ankle fracture, with subsequent skin graft procedures on multiple occasions. He has had a vein stripping in the left lower extremity, and a left total hip replacement. [facility] Medical History Ambulates with cane Arthritis Cardiology follow-up encounter Chewing tobacco nicotine dependence Chronic renal failure, stage 3 (moderate) COPD (chronic obstructive pulmonary disease) COPD (chronic obstructive pulmonary disease) CPAP (continuous positive airway pressure) dependence Dependence on supplemental oxygen Diabetes mellitus Dietary restriction Diverticular disease Diverticulitis of colon with hemorrhage (~2004) Essential hypertension History of echocardiogram History of edema History of steroid therapy Hyperlipidemia Hypertension Leg edema Leg swelling Loss of hearing Low iron Non-pressure chronic ulcer of right calf with fat layer exposed Obesity Obesity (BMI 30.0-34.9) On home oxygen therapy Open wound REBECA on CPAP Pacemaker Psoriasis Pulmonary hypertension Rheumatic fever without mention of heart involvement Shortness of breath on exertion Type 2 diabetes mellitus without complication Ulcerative colitis Wears dentures Wears glasses Wound of right lower extremity Home Medications albuterol sulfate 90 mcg/actuation aerosol inhaler 2 puff inhalation Q4H PRN Sob &/Or Wheezing 07/23/18 [History Last Taken Unknown] diltiazem HCl 180 mg capsule,extended release 24 hr 360 mg PO DAILY heart rhythm 07/23/18 [History Last Taken 09/26/18] fenofibrate 160 mg tablet 160 mg PO DAILY 07/23/18 [History Last Taken Unknown] fluticasone propionate 115 mcg-salmeterol 21 mcg/actuation HFA inhaler 2 puff inhalation BID inhaler 07/23/18 [History Last Taken Unknown] losartan 100 mg tablet 100 mg PO DAILY blood pressure 11/25/18 [History Last Taken Unknown] ascorbic acid (vitamin C) 500 mg tablet 500 mg PO BID 01/13/20 [History Last Taken Unknown] atorvastatin 80 mg tablet 80 mg PO QHS 01/13/20 [History Last Taken Unknown] carvedilol 3.125 mg tablet 3.125 mg PO BID 01/13/20 [History Last Taken 07/25/21] melatonin 5 mg tablet 5 mg PO QHS 01/13/20 [History Last Taken Unknown] potassium chloride 20 mEq tablet,extended release(part/cryst) 20 meq PO DAILY electrolyte 01/13/20 [History Last Taken Unknown] amoxicillin 875 mg-potassium clavulanate 125 mg tablet 1 ea PO BID #6 tabs 01/19/20 [Rx Last Taken Unknown] dexamethasone 6 mg tablet 6 mg PO DAILY ##0 01/19/20 [Rx Last Taken Unknown] furosemide 40 mg tablet 40 mg PO BID #60 tabs 01/19/20 [Rx Last Taken Unknown] warfarin 1 mg tablet 3.5 mg PO DAILY 02/08/20 [History Last Taken Unknown] oxycodone-acetaminophen 5 mg-325 mg tablet (Percocet) 1 tab PO Q8H PRN pain 3 days #14 tabs 07/25/21 [Rx Last Taken Unknown] Allergy/AdvReac Type Severity Reaction Status Date / Time povidone-iodine Allergy Intermediate rash, Verified 07/25/21 10:59 [From Betadine] itching soap [From Betadine] Allergy Intermediate rash, Verified 07/25/21 10:59 itching Family History Mother Cancer kidney Father Cancer lung Surgical History History of cardiac catheterization History of left hip replacement History of open reduction and internal fixation (ORIF) procedure History of skin graft History of vein stripping Social History Smoking Status: Current every day smoker tobacco type: smokeless tobacco Smokeless tobacco user: snuff how long ago did patient quit smokin months ago alcohol intake: never substance use type: does not use caffeine: Yes Type: coffee Number of servings: 2 Vital Signs Vital Signs Vital Signs: 08/22/21 09:50 Temperature 98 F Temperature Source Temporal Pulse Rate 91 Respiratory Rate 24 H Blood Pressure 108/74 Blood Pressure Mean 85 Blood Pressure Source Monitor Weight Weight: 195 lb Body Mass Index (BMI) 32.4 Physical Exam Const alert, oriented x3, no apparent distress, average body habitus and well nourished General Appearance: cooperative, comfortable, well kempt and well developed Orientation / Consciousness: awake, oriented to person, oriented to place and oriented to time HEENT normocephalic and head/scalp atraumatic Head and Scalp: normal to inspection, normocephalic and atraumatic External Ear: external ears normal Eyes PERRL and EOMs intact bilaterally General Eye: normal appearance of both eyes Chest inspection of chest normal Resp normal respiratory effort, normal air movement, no retractions and no use of accessory muscles Effort and Inspection: able to speak in complete sentences Extremity no calf tenderness General Extremity: Negative for clubbing or cyanosis Skin Wound Narrative: A large open wound is noted on the patient's upper right medial calf. This wound is a result of the patient's recent surgical procedure, performed on 07/25/2021, at which time an excision of the right calf wound with surgical preparation by excision of the open wound was performed. At this time, the surgical wound remains pink and healthy in appearance. Wound margins are well beveled. Hemostasis is good. There is no sign of infection or cellulitis. Wound dimensions are documented elsewhere. The wound is smaller in size than noted 1 week ago. The wound is also more superficial. No significant swelling is noted in the patient's right lower extremity. Lipodermatosclerosis and hyperpigmentation are noted in the patient's right gaiter area. Neuro oriented x3, CN's II-XII intact bilaterally, moves all extremities and no focal motor deficits Sensorium / Orientation: awake, alert, oriented to person, oriented to place and oriented to time Psych Appearance: grossly normal and appropriate Attitude: calm Activity / Motor Behavior: appropriate eye contact Speech: normal speech Mood & Affect: euthymic mood Thought Process: normal thought process Thought Content: normal thought content Attention / Concentration: attention grossly intact Debridement Note Debridement Note Wound debrided: Right medial calf Laterality: Right Type of Debridement: Excisional debridement Anesthesia Used: 5% Lidocaine Gel Depth: Down to and including healthy tissue and in the subcutaneous layer Percentage of wound debrided: 100 Instrument Used: 5mm curette Tissue Removed: Bioburden Severity: Fat Layer Exposed Amount of bleeding with debridement: Mild Bleeding Controlled with: Compression and gauze Patient tolerated procedure: Patient tolerated procedure well Post-Debridement Measurements and Additional Note: Post-Debridement Measurements/Treatment - Nurse 1 - General Ulcer Assessment Start: 08/15/21 09:42 Freq: Status: Active Protocol: RAJAT Activity Type Activity Date Activity User E-sign Co-sign Detail Recorded Client Recorded Date Recorded By Document 08/15/21 09:42 KR [id number] 08/15/21 09:44 KR Document 08/22/21 09:50 DL [id number] 08/22/21 09:56 DL 08/15/21 08/22/21 09:42 09:50 - Today's Visit Information Type of service Follow-up Visit Follow-up Visit (Physician/SERVICENOW ADMINISTRATOR (Physician/SERVICENOW ADMINISTRATOR ) ) Arrival Mode Ambulatory,Cane Ambulatory Transfer Assistance None Patient Identification Verified (Name & Yes Yes ) Patient Requires Transmission-Based No Precautions Finger Stick Blood Sugar(mg/dl) (if not checked indicated): Blood Sugar Stated by Patient Height and Weight Body Mass Index (BMI) 32.4 32.4 BMI Classification Obese Obese Vital Signs Temperature (97.8 F-99.1 F) 97.0 F L 98 F Temperature Source Temporal Temporal Pulse Rate (60-100) 70 91 Pulse Location Monitor Monitor Respiratory Rate (12-18) 24 H Respiratory rate source Observation Blood Pressure (90/60-120/80) 158/99 H 108/74 Blood Pressure Mean 118 85 Source Monitor Monitor Position Sitting Blood Pressure Location Right Arm History Since Last Visit- (Skip if this is Patient's initial visit) Have you changed medications since your No No last visit? Any new allergies or adverse reactions No No Had a fall/change in ADL's that may No No increase risk of falls Signs or symptoms of abuse and/or No No neglect since last visit Have you been in the hospital since your No No last visit? Has dressing in place as prescribed Yes Yes Has compression in place as prescribed N/A Yes Has offloadiing in place as prescribed N/A N/A Experienced any changes in pain level or No No management Left Footwear Regular Shoe Right Footwear Regular Shoe Pain Scale: 0-10 Numeric Is Patient Pain Free? Yes Yes WC - Nurse 1 - General Ulcer Measurement Start: 08/15/21 09:42 Freq: Status: Active Protocol: Activity Type Activity Date Activity User E-sign Co-sign Detail Recorded Client Recorded Date Recorded By Document 08/15/21 09:42 KR [id number] 08/15/21 09:44 KR Document 08/22/21 09:50 DL [id number] 08/22/21 09:56 DL 08/15/21 08/22/21 09:42 09:50 Wound Center Nurse 1 #4 R MEDIAL LE -Current Size (cm) - Length 3.4 2.8 -Current Size (cm) - Width 4 2.4 -Current Size (cm) - Depth 0.2 0.2 -Total Square Cm 13.6 6.72 -Photo Taken No -Exudate Amt Medium Medium -Exudate Type Serosanguineous Serosanguineous -Wound Margin Distinct, Distinct, Outline Outline Attached Attached -Granulation Amt Large (67-100%) Large (67-100%) -Granulation Quality Red Red -Necrosis Amt None Present (0 None Present (0 %) %) -Structure Exposed N/A -Texture (Nancy-wound Skin Appearance) Assessed, Scarring Scarring -Moisture (Nancy-wound Skin Appearance) No Abnormality, Dry/Scaly Assessed -Color (Nancy-wound Skin Appearance) No Abnormality, Hemosiderin Assessed Staining -Temperature (Nancy-wound Skin No Abnormality No Abnormality Appearance) (Pt Warm) (Pt Warm) -Tenderness on Palpation (Nancy-wound No No Skin Appearance) -Ulcer Cleansing Soap and Water Rinsed/ Irrigated with Saline -Foul Odor after Cleansing No No -Anesthetic Used 4% Lidocaine 5% Lidocaine Solution,5% Gel Lidocaine Gel WC - Nurse 2 - General Ulcer CM Notes Start: 08/15/21 09:42 Freq: Status: Active Protocol: Activity Type Activity Date Activity User E-sign Co-sign Detail Recorded Client Recorded Date Recorded By Document 08/22/21 11:03 PL [id number] 08/22/21 11:04 PL 08/22/21 11:03 Wound Center Nurse 2 -Time 10:30 -Correct Patient Yes -Correct Side, Site, Position Yes -Correct Procedure Yes -Procedure Performed Yes -Type of Procedure Debridement -Clinical Debridement Subcutaneous -Tissue Removed Subcutaneous -Post Debridement (cm) - Length 2.9 -Post Debridement (cm) - Width 2.4 -Post Debridement (cm) - Depth 0.2 -Total Square (Post) (cm) 6.96 -Area of Debridement (cm) - Length 2.9 -Area of Debridement (cm) - Width 2.4 -Total Square (Area) (cm) 6.96 -Tunneling No -Undermining/Tunneling No -Circular Undermining No -Wound/Ulcer Outcome Not Healed -Ulcer Cleansing Rinsed/ Irrigated with Saline -Foul Odor after Cleansing No -Bioengineered Tissue No -Bleeding Controlled with Pressure -Treatment Response Procedure Tolerated Well -Debridement - Subq, 1st 20sq cm Yes Pain Scale: 0-10 Numeric Is Patient Pain Free? Yes USHA - Nurse 3 - General Ulcer D/C NN Start: 08/15/21 09:42 Freq: Status: Active Protocol: Activity Type Activity Date Activity User E-sign Co-sign Detail Recorded Client Recorded Date Recorded By Document 08/15/21 09:55 ML [id number] 08/15/21 09:57 ML Document 08/22/21 10:45 DL [id number] 08/22/21 10:46 DL 08/15/21 08/22/21 09:55 10:45 Wound Care Nurse 3 #4 R MEDIAL LE -Ulcer Cleansing Rinsed/ Irrigated with Saline -Foul Odor after Cleansing No -Other Dressing wet to dry moist gauze today -Primary Dressing Covered/Secured with Dry Gauze & Dry Gauze & Roll Gauze, Roll Gauze, Secured with Secured with Tape Tape Treatment Response Procedure Tolerated Well Pain Scale: 0-10 Numeric Is Patient Pain Free? Yes Yes WC - Visit Discharge Discharge Condition Stable Stable Ambulatory Status Ambulatory Ambulatory Transportation Private Auto Medication Reconcilliation completed & No provided to patient/care provider Clinical Summary of Care Provided Yes Notes: HH To resume VAC at home Facility Type Home Health Orders Sent Yes 08/15/21 09:55 Wound Center by Geena Armenta PT TO HAVE HH PUT VAC ON D/T HI FORGETTING TO BRING HIS SUPPLIES WITH HIM TO APPOINTMENT. Initialized on 08/15/21 09:55 - END OF NOTE Assessment/Plan Assessment/Plan (1) Non-pressure chronic ulcer of right calf with fat layer exposed: CODE(S): L97.212 - Non-pressure chronic ulcer of right calf with fat layer exposed (2) Wound of right lower extremity: CODE(S): S81.801A - Unspecified open wound, right lower leg, initial encounter QUALIFIERS: Encounter type: initial encounter Qualified Code(s): S81.801A - Unspecified open wound, right lower leg, initial encounter (3) Leg edema: CODE(S): R60.0 - Localized edema (4) Leg swelling: CODE(S): M79.89 - Other specified soft tissue disorders (5) Diabetes mellitus: CODE(S): E11.9 - Type 2 diabetes mellitus without complications (6) COPD (chronic obstructive pulmonary disease): CODE(S): J44.9 - Chronic obstructive pulmonary disease, unspecified (7) Chronic renal failure, stage 3 (moderate): CODE(S): N18.30 - Chronic kidney disease, stage 3 unspecified (8) Diverticular disease: CODE(S): K57.90 - Diverticulosis of intestine, part unspecified, without perforation or abscess without bleeding (9) Obesity (BMI 30.0-34.9): CODE(S): E66.9 - Obesity, unspecified (10) Pacemaker: CODE(S): Z95.0 - Presence of cardiac pacemaker (11) Dependence on supplemental oxygen: CODE(S): Z99.81 - Dependence on supplemental oxygen (12) Ulcerative colitis: CODE(S): K51.90 - Ulcerative colitis, unspecified, without complications (13) Paroxysmal atrial fibrillation: CODE(S): I48.0 - Paroxysmal atrial fibrillation (14) Mitral valve replaced: CODE(S): Z95.2 - Presence of prosthetic heart valve (15) long term current use of anticoagulant: CODE(S): Z79.01 - skilled nursing (current) use of anticoagulants (16) Acute and chronic respiratory failure with hypercapnia: CODE(S): J96.22 - Acute and chronic respiratory failure with hypercapnia (17) Atrial fibrillation with RVR: CODE(S): I48.91 - Unspecified atrial fibrillation (18) REBECA on CPAP: CODE(S): G47.33 - Obstructive sleep apnea (adult) (pediatric); Z99.89 - Dependence on other enabling machines and devices (19) Pulmonary hypertension: CODE(S): I27.20 - Pulmonary hypertension, unspecified (20) Hyperlipidemia: CODE(S): E78.5 - Hyperlipidemia, unspecified QUALIFIERS: Hyperlipidemia type: unspecified Qualified Code(s): E78.5 - Hyperlipidemia, unspecified (21) Essential hypertension: CODE(S): I10 - Essential (primary) hypertension PLAN: Plan This is a 71-year-old male who presented with an open wound on his right medial calf, which had been present for approximately 18 months. It had failed to heal, despite several means of treatment. The patient has multiple pre-existing medical problems, which are listed above. The patient underwent excision of a right calf wound with surgical preparation by excision of an open wound, which was performed in the operating room setting, on 07/25/2021. He returns today in routine follow-up. The surgical wound site appears healthy. The wound has decreased in size since 1 week prior. We are to continue the use of the wound VAC/negative pressure wound therapy. The wound VAC will be changed 3 times weekly. Activity has been encouraged. Leg elevation is to be implemented as much as possible. The patient has been encouraged to sleep with his legs elevated, and to elevate his legs even during daytime hours. Elevation is to be to heart level, or higher. The patient has been advised to optimize his nutritional intake and his glycemic control. A noninvasive lower extremity arterial study has been performed on 06/19/2021, demonstrating arterial flow to be normal at ankle level bilaterally, and at digital level on the left. 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 This finding is suggestive of adequate arterial circulation in the right lower extremity to support healing. The patient is to return in 1 week. If the wound continues to progress as expected, it is anticipated that we will transition to the use of a skin graft substitute within the next several weeks. Total time: 29 minutes
[2021-09-05 09:05] VITALS: BP 133/78; PULSE 97; TEMP 36.2; BMI 32.4
--- NOTE | 2021-09-05 10:01 | HP.PCM_ITS ---
History of Present Illness Date of Service: 09/05/21 Chief Complaint: Open wound, right lower extremity History of Wound: This is a 71-year-old male who presented with an open wound in the right lower extremity. According the patient, the wound had been present for approximately 18 months. It is cared for by nursing staff at [facility], with visits 2-3 times per week. It appears as though a variety of treatments have been implemented, including the use of collagenase Santyl and gauze packing. The patient most recently was applying gauze topically. He has previously been treated with Augmentin. The patient is unaware of the etiology of his wound, or how it originated. It has been relatively unchanged for quite some time. He denies a history of thrombophlebitis. He does relate swelling in his right lower extremity, typically worse at the end of the day. He sleeps in a recliner. Patient has multiple pre-existing medical problems, including atrial fibrillation, congestive heart failure, diabetes mellitus, chronic respiratory failure with hypoxia, oxygen dependence, COPD, diverticular disease, hypertension, hyperlipidemia, ulcerative colitis, and obstructive sleep apnea. The patient has a pacemaker, and is on systemic anticoagulation with Coumadin. He has previously undergone open reduction and internal fixation of a right ankle fracture, with subsequent skin graft procedures on multiple occasions. He has had a vein stripping in the left lower extremity, and a left total hip replacement. [facility] Medical History Ambulates with cane Arthritis Cardiology follow-up encounter Chewing tobacco nicotine dependence Chronic renal failure, stage 3 (moderate) COPD (chronic obstructive pulmonary disease) COPD (chronic obstructive pulmonary disease) CPAP (continuous positive airway pressure) dependence Dependence on supplemental oxygen Diabetes mellitus Dietary restriction Diverticular disease Diverticulitis of colon with hemorrhage (~2004) Essential hypertension History of echocardiogram History of edema History of steroid therapy Hyperlipidemia Hypertension Leg edema Leg swelling Loss of hearing Low iron Non-pressure chronic ulcer of right calf with fat layer exposed Obesity Obesity (BMI 30.0-34.9) On home oxygen therapy Open wound REBECA on CPAP Pacemaker Psoriasis Pulmonary hypertension Rheumatic fever without mention of heart involvement Shortness of breath on exertion Type 2 diabetes mellitus without complication Ulcerative colitis Wears dentures Wears glasses Wound of right lower extremity Home Medications albuterol sulfate 90 mcg/actuation aerosol inhaler 2 puff inhalation Q4H PRN Sob &/Or Wheezing 07/23/18 [History Last Taken Unknown] diltiazem HCl 180 mg capsule,extended release 24 hr 360 mg PO DAILY heart rhythm 07/23/18 [History Last Taken 09/26/18] fenofibrate 160 mg tablet 160 mg PO DAILY 07/23/18 [History Last Taken Unknown] fluticasone propionate 115 mcg-salmeterol 21 mcg/actuation HFA inhaler 2 puff inhalation BID inhaler 07/23/18 [History Last Taken Unknown] losartan 100 mg tablet 100 mg PO DAILY blood pressure 11/25/18 [History Last Taken Unknown] ascorbic acid (vitamin C) 500 mg tablet 500 mg PO BID 01/13/20 [History Last Taken Unknown] atorvastatin 80 mg tablet 80 mg PO QHS 01/13/20 [History Last Taken Unknown] carvedilol 3.125 mg tablet 3.125 mg PO BID 01/13/20 [History Last Taken 07/25/21] melatonin 5 mg tablet 5 mg PO QHS 01/13/20 [History Last Taken Unknown] potassium chloride 20 mEq tablet,extended release(part/cryst) 20 meq PO DAILY electrolyte 01/13/20 [History Last Taken Unknown] amoxicillin 875 mg-potassium clavulanate 125 mg tablet 1 ea PO BID #6 tabs 01/19/20 [Rx Last Taken Unknown] dexamethasone 6 mg tablet 6 mg PO DAILY ##0 01/19/20 [Rx Last Taken Unknown] furosemide 40 mg tablet 40 mg PO BID #60 tabs 01/19/20 [Rx Last Taken Unknown] warfarin 1 mg tablet 3.5 mg PO DAILY 02/08/20 [History Last Taken Unknown] oxycodone-acetaminophen 5 mg-325 mg tablet (Percocet) 1 tab PO Q8H PRN pain 3 days #14 tabs 07/25/21 [Rx Last Taken Unknown] Allergy/AdvReac Type Severity Reaction Status Date / Time povidone-iodine Allergy Intermediate rash, Verified 07/25/21 10:59 [From Betadine] itching soap [From Betadine] Allergy Intermediate rash, Verified 07/25/21 10:59 itching Family History Mother Cancer kidney Father Cancer lung Surgical History History of cardiac catheterization History of left hip replacement History of open reduction and internal fixation (ORIF) procedure History of skin graft History of vein stripping Social History Smoking Status: Current every day smoker tobacco type: smokeless tobacco Smokeless tobacco user: snuff how long ago did patient quit smokin months ago alcohol intake: never substance use type: does not use caffeine: Yes Type: coffee Number of servings: 2 Vital Signs Vital Signs Vital Signs: 09/05/21 09:05 Temperature 97.2 F L Temperature Source Temporal Pulse Rate 97 Blood Pressure 133/78 H Blood Pressure Mean 96 Blood Pressure Source Monitor Blood Pressure Position Semi-Fowlers Blood Pressure Location Left Arm Weight Weight: 195 lb Body Mass Index (BMI) 32.4 Physical Exam Const alert, oriented x3, no apparent distress, average body habitus and well nourished General Appearance: cooperative, comfortable, well kempt and well developed Orientation / Consciousness: awake, oriented to person, oriented to place and oriented to time HEENT normocephalic and head/scalp atraumatic Head and Scalp: normal to inspection, normocephalic and atraumatic External Ear: external ears normal Eyes PERRL and EOMs intact bilaterally General Eye: normal appearance of both eyes Chest inspection of chest normal Resp normal respiratory effort, normal air movement, no retractions and no use of accessory muscles Effort and Inspection: able to speak in complete sentences Extremity no calf tenderness General Extremity: Negative for clubbing or cyanosis Skin Wound Narrative: A large open wound is noted on the patient's upper right medial calf. This wound is a result of the patient's recent surgical procedure, performed on 07/25/2021, at which time an excision of the right calf wound with surgical preparation by excision of the open wound was performed. At this time, the surgical wound remains pink and healthy in appearance. Wound margins are well beveled. Hemostasis is good. There is no sign of infection or cellulitis. The wound has decreased in size and wound dimensions are documented elsewhere. The wound is also more superficial. No significant swelling is noted in the patient's right lower extremity. Lipodermatosclerosis and hyperpigmentation are noted in the patient's right gaiter area. Neuro oriented x3, CN's II-XII intact bilaterally, moves all extremities and no focal motor deficits Sensorium / Orientation: awake, alert, oriented to person, oriented to place and oriented to time Psych Appearance: grossly normal and appropriate Attitude: calm Activity / Motor Behavior: appropriate eye contact Speech: normal speech Mood & Affect: euthymic mood Thought Process: normal thought process Thought Content: normal thought content Attention / Concentration: attention grossly intact Debridement Note Debridement Note Wound debrided: Right upper medial calf Laterality: Right Type of Debridement: Excisional debridement Anesthesia Used: 5% Lidocaine Gel Depth: Down to and including healthy tissue and in the subcutaneous layer Percentage of wound debrided: 100 Instrument Used: 5mm curette Severity: Fat Layer Exposed Bleeding Controlled with: Compression and gauze Patient tolerated procedure: Patient tolerated procedure well Debridement Free Text: Following the excisional debridement, which was well- tolerated, an EpiFix allograft was applied. A 4 cm x 4.5 cm fenestrated allograft was selected. It was removed from its sterile packaging, and applied in the appropriate orientation. 100% of the graft was utilized. The graft was then covered with Adaptic Touch, which was then anchored using Steri-Strips. A dry sterile gauze dressing was then applied. The procedure was well-tolerated by the patient. This represents the first such application of an allograft. Post-Debridement Measurements and Additional Note: Post-Debridement Measurements/Treatment - Nurse 1 - General Ulcer Assessment Start: 08/15/21 09:42 Freq: Status: Active Protocol: USHA.LOWEXT Activity Type Activity Date Activity User E-sign Co-sign Detail Recorded Client Recorded Date Recorded By Document 08/15/21 09:42 KR [id number] 08/15/21 09:44 KR Document 08/22/21 09:50 DL [id number] 08/22/21 09:56 DL Document 09/05/21 09:05 KR [id number] 09/05/21 09:10 KR 08/15/21 08/22/21 09/05/21 09:42 09:50 09:05 - Today's Visit Information Type of service Follow-up Visit Follow-up Visit Follow-up Visit (Physician/DAY CAMP COUNSELOR (Physician/DAY CAMP COUNSELOR (Physician/DAY CAMP COUNSELOR ) ) ) Arrival Mode Ambulatory,Cane Ambulatory Ambulatory,Cane Transfer Assistance None Patient Identification Verified (Name & Yes Yes Yes ) Patient Requires Transmission-Based No Precautions Finger Stick Blood Sugar(mg/dl) (if not checked indicated): Blood Sugar Stated by Patient Height and Weight Body Mass Index (BMI) 32.4 32.4 32.4 BMI Classification Obese Obese Obese Vital Signs Temperature (97.8 F-99.1 F) 97.0 F L 98 F 97.2 F L Temperature Source Temporal Temporal Temporal Pulse Rate (60-100) 70 91 97 Pulse Location Monitor Monitor Monitor Respiratory Rate (12-18) 24 H Respiratory rate source Observation Blood Pressure (90/60-120/80) 158/99 H 108/74 133/78 H Blood Pressure Mean 118 85 96 Source Monitor Monitor Monitor Position Sitting Semi-Fowlers Blood Pressure Location Right Arm Left Arm History Since Last Visit- (Skip if this is Patient's initial visit) Have you changed medications since your No No No last visit? Any new allergies or adverse reactions No No No Had a fall/change in ADL's that may No No No increase risk of falls Signs or symptoms of abuse and/or No No No neglect since last visit Have you been in the hospital since your No No No last visit? Has dressing in place as prescribed Yes Yes Yes Has compression in place as prescribed N/A Yes N/A Has offloadiing in place as prescribed N/A N/A N/A Experienced any changes in pain level or No No No management Left Footwear Regular Shoe Regular Shoe Right Footwear Regular Shoe Regular Shoe Pain Scale: 0-10 Numeric Is Patient Pain Free? Yes Yes Yes WC - Nurse 1 - General Ulcer Measurement Start: 08/15/21 09:42 Freq: Status: Active Protocol: Activity Type Activity Date Activity User E-sign Co-sign Detail Recorded Client Recorded Date Recorded By Document 08/15/21 09:42 KR [id number] 08/15/21 09:44 KR Document 08/22/21 09:50 DL [id number] 08/22/21 09:56 DL Document 09/05/21 09:05 KR [id number] 09/05/21 09:10 KR 08/15/21 08/22/21 09/05/21 09:42 09:50 09:05 Wound Center Nurse 1 #4 R MEDIAL LE -Current Size (cm) - Length 3.4 2.8 1.6 -Current Size (cm) - Width 4 2.4 2.7 -Current Size (cm) - Depth 0.2 0.2 0.1 -Total Square Cm 13.6 6.72 4.32 -Photo Taken No -Exudate Amt Medium Medium Medium -Exudate Type Serosanguineous Serosanguineous Serosanguineous -Wound Margin Distinct, Distinct, Distinct, Outline Outline Outline Attached Attached Attached -Granulation Amt Large (67-100%) Large (67-100%) Large (67-100%) -Granulation Quality Red Red Red -Necrosis Amt None Present (0 None Present (0 None Present (0 %) %) %) -Structure Exposed N/A -Texture (Nancy-wound Skin Appearance) Assessed, Scarring Assessed, Scarring Scarring -Moisture (Nancy-wound Skin Appearance) No Abnormality, Dry/Scaly No Abnormality, Assessed Assessed -Color (Nancy-wound Skin Appearance) No Abnormality, Hemosiderin No Abnormality, Assessed Staining Assessed -Temperature (Nancy-wound Skin No Abnormality No Abnormality No Abnormality Appearance) (Pt Warm) (Pt Warm) (Pt Warm) -Tenderness on Palpation (Nancy-wound No No No Skin Appearance) -Ulcer Cleansing Soap and Water Rinsed/ Soap and Water Irrigated with Saline -Foul Odor after Cleansing No No No -Anesthetic Used 4% Lidocaine 5% Lidocaine 5% Lidocaine Solution,5% Gel Gel Lidocaine Gel WC - Nurse 2 - General Ulcer CM Notes Start: 08/15/21 09:42 Freq: Status: Active Protocol: Activity Type Activity Date Activity User E-sign Co-sign Detail Recorded Client Recorded Date Recorded By Document 08/22/21 11:03 PL [id number] 08/22/21 11:04 PL Document 09/05/21 09:51 PL [id number] 09/05/21 09:53 PL 08/22/21 09/05/21 11:03 09:51 Wound Center Nurse 2 #4 R [facility] LE -Time 10:30 09:18 -Correct Patient Yes Yes -Correct Side, Site, Position Yes Yes -Correct Procedure Yes Yes -Procedure Performed Yes Yes -Type of Procedure Debridement Debridement -Clinical Debridement Subcutaneous Subcutaneous -Tissue Removed Subcutaneous Subcutaneous -Post Debridement (cm) - Length 2.9 1.6 -Post Debridement (cm) - Width 2.4 2.7 -Post Debridement (cm) - Depth 0.2 0.1 -Total Square (Post) (cm) 6.96 4.32 -Area of Debridement (cm) - Length 2.9 1.6 -Area of Debridement (cm) - Width 2.4 2.7 -Total Square (Area) (cm) 6.96 4.32 -Tunneling No No -Undermining/Tunneling No No -Circular Undermining No No -Wound/Ulcer Outcome Not Healed Not Healed -Ulcer Cleansing Rinsed/ Rinsed/ Irrigated with Irrigated with Saline Saline -Foul Odor after Cleansing No No -Bioengineered Tissue No Yes -Type of Bioengineered Tissue Epifix Mesh -Expiration Date 10/12/25 -Product Lot Number [id number] -Percent Used 100 -Bleeding Controlled with Pressure Pressure -Treatment Response Procedure Procedure Tolerated Well Tolerated Well -Debridement - Subq, 1st 20sq cm Yes No -Apply Skin Sub - 1st 25 sq cm - Legs 1 -Epifix Mesh (per sq cm) 11 Pain Scale: 0-10 Numeric Is Patient Pain Free? Yes Yes WC - Nurse 3 - General Ulcer D/C NN Start: 08/15/21 09:42 Freq: Status: Active Protocol: Activity Type Activity Date Activity User E-sign Co-sign Detail Recorded Client Recorded Date Recorded By Document 08/15/21 09:55 ML [id number] 08/15/21 09:57 ML Document 08/22/21 10:45 DL [id number] 08/22/21 10:46 DL Document 09/05/21 09:38 KR [id number] 09/05/21 09:38 KR 08/15/21 08/22/21 09/05/21 09:55 10:45 09:38 Wound Care Nurse 3 #4 R MEDIAL LE -Ulcer Cleansing Rinsed/ Irrigated with Saline -Foul Odor after Cleansing No -Other Dressing wet to dry moist gauze today -Primary Dressing Covered/Secured with Dry Gauze & Dry Gauze & Dry Gauze, Roll Gauze, Roll Gauze, Secured with Secured with Secured with Tape Tape Tape Right -Multi-Layered Wrap Application Multi-Layer Comp - Right ($ ) Treatment Response Procedure Tolerated Well Pain Scale: 0-10 Numeric Is Patient Pain Free? Yes Yes Yes WC - Visit Discharge Discharge Condition Stable Stable Stable Ambulatory Status Ambulatory Ambulatory Ambulatory,Cane Transportation Private Auto Private Auto Medication Reconcilliation completed & No provided to patient/care provider Clinical Summary of Care Provided Yes Notes: HH To resume VAC at home Facility Type Home Health Orders Sent Yes 08/15/21 09:55 Wound Center by Geena Armenta PT TO HAVE HH PUT VAC ON D/T HI FORGETTING TO BRING HIS SUPPLIES WITH HIM TO APPOINTMENT. Initialized on 08/15/21 09:55 - END OF NOTE Assessment/Plan Assessment/Plan (1) Non-pressure chronic ulcer of right calf with fat layer exposed: CODE(S): L97.212 - Non-pressure chronic ulcer of right calf with fat layer exposed (2) Leg edema: CODE(S): R60.0 - Localized edema (3) Leg swelling: CODE(S): M79.89 - Other specified soft tissue disorders (4) Diabetes mellitus: CODE(S): E11.9 - Type 2 diabetes mellitus without complications (5) COPD (chronic obstructive pulmonary disease): CODE(S): J44.9 - Chronic obstructive pulmonary disease, unspecified (6) Chronic renal failure, stage 3 (moderate): CODE(S): N18.30 - Chronic kidney disease, stage 3 unspecified (7) Diverticular disease: CODE(S): K57.90 - Diverticulosis of intestine, part unspecified, without perforation or abscess without bleeding (8) Obesity (BMI 30.0-34.9): CODE(S): E66.9 - Obesity, unspecified (9) Pacemaker: CODE(S): Z95.0 - Presence of cardiac pacemaker (10) Dependence on supplemental oxygen: CODE(S): Z99.81 - Dependence on supplemental oxygen (11) Ulcerative colitis: CODE(S): K51.90 - Ulcerative colitis, unspecified, without complications (12) Paroxysmal atrial fibrillation: CODE(S): I48.0 - Paroxysmal atrial fibrillation (13) Mitral valve replaced: CODE(S): Z95.2 - Presence of prosthetic heart valve (14) 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: CODE(S): Z79.01 - termite control service representative (current) use of anticoagulants (15) Acute and chronic respiratory failure with hypercapnia: CODE(S): J96.22 - Acute and chronic respiratory failure with hypercapnia (16) Atrial fibrillation with RVR: CODE(S): I48.91 - Unspecified atrial fibrillation (17) REBECA on CPAP: CODE(S): G47.33 - Obstructive sleep apnea (adult) (pediatric); Z99.89 - Dependence on other enabling machines and devices (18) Pulmonary hypertension: CODE(S): I27.20 - Pulmonary hypertension, unspecified (19) Hyperlipidemia: CODE(S): E78.5 - Hyperlipidemia, unspecified QUALIFIERS: Hyperlipidemia type: unspecified Qualified Code(s): E78.5 - Hyperlipidemia, unspecified (20) Essential hypertension: CODE(S): I10 - Essential (primary) hypertension PLAN: Plan This is a 71-year-old male who presented with an open wound on his right medial calf, which had been present for approximately 18 months. It had failed to heal, despite several means of treatment. The patient has multiple pre-existing medical problems, which are listed above. The patient underwent excision of a right calf wound with surgical preparation by excision of an open wound, which was performed in the operating room setting, on 07/25/2021. He returns today in routine follow-up. The surgical wound site appears healthy. The wound has decreased in size since 1 week prior. An EpiFix allograft has been applied topically to the patient's wound. This represents the first such application of an allograft. A 3M 2 layer compression wrap was then applied, and is anticipated to remain in place for 1 week. The patient will return in 1 week for reapplication of the multilayer compression wrap. Activity has been encouraged. Leg elevation is to be implemented as much as possible. The patient has been encouraged to sleep with his legs elevated, and to elevate his legs even during daytime hours. Elevation is to be to heart level, or higher. The patient has been advised to optimize his nutritional intake and his glycemic control. A noninvasive lower extremity arterial study has been performed on 06/19/2021, demonstrating arterial flow to be normal at ankle level bilaterally, and at digital level on the left. 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 This finding is suggestive of adequate arterial circulation in the right lower extremity to support healing. The patient is to return in 2 weeks for reevaluation, at which time it is anticipated that a second application of an allograft will be performed. Total time: 28 minutes
== END 2021-09-10 23:59 | disposition home or self-care (01) ==
LOC: WC 09:15
PROVIDERS: PCP Family Medicine; Visit Provider Surgery
DX: L97.212 Non-pressure chronic ulcer of right calf with fat layer exposed (principal); E11.622 Type 2 diabetes mellitus with other skin ulcer; J44.9 Chronic obstructive pulmonary disease, unspecified; I27.20 Pulmonary hypertension, unspecified; I50.9 Heart failure, unspecified; I13.0 Hypertensive heart and chronic kidney disease with heart failure and stage 1 through stage 4 chronic kidney disease, or unspecified chronic kidney disease; K51.90 Ulcerative colitis, unspecified, without complications; E11.22 Type 2 diabetes mellitus with diabetic chronic kidney disease; J96.21 Acute and chronic respiratory failure with hypoxia; J96.22 Acute and chronic respiratory failure with hypercapnia; I48.0 Paroxysmal atrial fibrillation; N18.30 Chronic kidney disease, stage 3 unspecified; Z99.81 Dependence on supplemental oxygen; E78.5 Hyperlipidemia, unspecified; G47.33 Obstructive sleep apnea (adult) (pediatric); Z96.642 Presence of left artificial hip joint; F17.220 Nicotine dependence, chewing tobacco, uncomplicated; Z95.0 Presence of cardiac pacemaker; K57.90 Diverticulosis of intestine, part unspecified, without perforation or abscess without bleeding; Z79.01 Long term (current) use of anticoagulants; E66.9 Obesity, unspecified
CPT/HCPCS: 11042; 15271; 29581; 99213; Q4186; G0463

== ENCOUNTER 2021-10-10 09:15 | Outpatient (RCR) | payer MEDICARE, OTHER, SELFPAY ==
[2021-09-11 00:30] VITALS: BP 133/78; PULSE 97; RESP 24; TEMP 36.2; BMI 32.4
[2021-09-12 13:31] VITALS: BP 148/76; PULSE 84; RESP 20; TEMP 36.7; BMI 32.4
[2021-09-19 09:22] VITALS: BP 127/74; PULSE 82; RESP 18; TEMP 36.1; BMI 32.4
--- NOTE | 2021-09-19 12:03 | HP.PCM_ITS ---
History of Present Illness Date of Service: 09/19/21 Chief Complaint: Open wound, right lower extremity History of Wound: This is a 71-year-old male who presented with an open wound in the right lower extremity. According the patient, the wound had been present for approximately 18 months. It is cared for by nursing staff at [facility], with visits 2-3 times per week. It appears as though a variety of treatments have been implemented, including the use of collagenase Santyl and gauze packing. The patient most recently was applying gauze topically. He has previously been treated with Augmentin. The patient is unaware of the etiology of his wound, or how it originated. It has been relatively unchanged for quite some time. He denies a history of thrombophlebitis. He does relate swelling in his right lower extremity, typically worse at the end of the day. He sleeps in a recliner. Patient has multiple pre-existing medical problems, including atrial fibrillation, congestive heart failure, diabetes mellitus, chronic respiratory failure with hypoxia, oxygen dependence, COPD, diverticular disease, hypertension, hyperlipidemia, ulcerative colitis, and obstructive sleep apnea. The patient has a pacemaker, and is on systemic anticoagulation with Coumadin. He has previously undergone open reduction and internal fixation of a right ankle fracture, with subsequent skin graft procedures on multiple occasions. He has had a vein stripping in the left lower extremity, and a left total hip replacement. [facility] Medical History Ambulates with cane Arthritis Cardiology follow-up encounter Chewing tobacco nicotine dependence Chronic renal failure, stage 3 (moderate) COPD (chronic obstructive pulmonary disease) COPD (chronic obstructive pulmonary disease) CPAP (continuous positive airway pressure) dependence Dependence on supplemental oxygen Diabetes mellitus Dietary restriction Diverticular disease Diverticulitis of colon with hemorrhage (~2004) Essential hypertension History of echocardiogram History of edema History of steroid therapy Hyperlipidemia Hypertension Leg edema Leg swelling Loss of hearing Low iron Non-pressure chronic ulcer of right calf with fat layer exposed Obesity Obesity (BMI 30.0-34.9) On home oxygen therapy Open wound REBECA on CPAP Pacemaker Psoriasis Pulmonary hypertension Rheumatic fever without mention of heart involvement Shortness of breath on exertion Type 2 diabetes mellitus without complication Ulcerative colitis Wears dentures Wears glasses Wound of right lower extremity Home Medications albuterol sulfate 90 mcg/actuation aerosol inhaler 2 puff inhalation Q4H PRN Sob &/Or Wheezing 07/23/18 [History Last Taken Unknown] diltiazem HCl 180 mg capsule,extended release 24 hr 360 mg PO DAILY heart rhythm 07/23/18 [History Last Taken 09/26/18] fenofibrate 160 mg tablet 160 mg PO DAILY 07/23/18 [History Last Taken Unknown] fluticasone propionate 115 mcg-salmeterol 21 mcg/actuation HFA inhaler 2 puff inhalation BID inhaler 07/23/18 [History Last Taken Unknown] losartan 100 mg tablet 100 mg PO DAILY blood pressure 11/25/18 [History Last Taken Unknown] ascorbic acid (vitamin C) 500 mg tablet 500 mg PO BID 01/13/20 [History Last Taken Unknown] atorvastatin 80 mg tablet 80 mg PO QHS 01/13/20 [History Last Taken Unknown] carvedilol 3.125 mg tablet 3.125 mg PO BID 01/13/20 [History Last Taken 07/25/21] melatonin 5 mg tablet 5 mg PO QHS 01/13/20 [History Last Taken Unknown] potassium chloride 20 mEq tablet,extended release(part/cryst) 20 meq PO DAILY electrolyte 01/13/20 [History Last Taken Unknown] amoxicillin 875 mg-potassium clavulanate 125 mg tablet 1 ea PO BID #6 tabs 01/19/20 [Rx Last Taken Unknown] dexamethasone 6 mg tablet 6 mg PO DAILY ##0 01/19/20 [Rx Last Taken Unknown] furosemide 40 mg tablet 40 mg PO BID #60 tabs 01/19/20 [Rx Last Taken Unknown] warfarin 1 mg tablet 3.5 mg PO DAILY 02/08/20 [History Last Taken Unknown] oxycodone-acetaminophen 5 mg-325 mg tablet (Percocet) 1 tab PO Q8H PRN pain 3 days #14 tabs 07/25/21 [Rx Last Taken Unknown] Allergy/AdvReac Type Severity Reaction Status Date / Time povidone-iodine Allergy Intermediate rash, Verified 07/25/21 10:59 [From Betadine] itching soap [From Betadine] Allergy Intermediate rash, Verified 07/25/21 10:59 itching Family History Mother Cancer kidney Father Cancer lung Surgical History History of cardiac catheterization History of left hip replacement History of open reduction and internal fixation (ORIF) procedure History of skin graft History of vein stripping Social History Smoking Status: Current every day smoker tobacco type: smokeless tobacco Smokeless tobacco user: snuff how long ago did patient quit smokin months ago alcohol intake: never substance use type: does not use caffeine: Yes Type: coffee Number of servings: 2 Vital Signs Vital Signs Vital Signs: 09/19/21 09:22 Temperature 97 F L Temperature Source Temporal Pulse Rate 82 Respiratory Rate 18 Blood Pressure 127/74 H Blood Pressure Mean 91 Blood Pressure Source Monitor Weight Weight: 195 lb Body Mass Index (BMI) 32.4 Physical Exam Const alert, oriented x3, no apparent distress, average body habitus and well nourished General Appearance: cooperative, comfortable, well kempt and well developed Orientation / Consciousness: awake, oriented to person, oriented to place and oriented to time HEENT normocephalic and head/scalp atraumatic Head and Scalp: normal to inspection, normocephalic and atraumatic External Ear: external ears normal Eyes PERRL and EOMs intact bilaterally General Eye: normal appearance of both eyes Chest inspection of chest normal Resp normal respiratory effort, normal air movement, no retractions and no use of accessory muscles Effort and Inspection: able to speak in complete sentences Extremity no calf tenderness General Extremity: Negative for clubbing or cyanosis Skin Wound Narrative: A large open wound is noted on the patient's upper right medial calf. This wound is a result of the patient's recent surgical procedure, performed on 07/25/2021, at which time an excision of the right calf wound with surgical preparation by excision of the open wound was performed. At this time, the surgical wound remains pink and healthy in appearance. Wound margins are well beveled. Hemostasis is good. There is no sign of infection or cellulitis. Mild dermatitic changes are noted superior to the wound, suspected to be due to irritation from wound drainage. The wound has decreased in size and wound dimensions are documented elsewhere. The wound is also more superficial. No significant swelling is noted in the patient's right lower extremity. Lipodermatosclerosis and hyperpigmentation are noted in the patient's right gaiter area. Neuro oriented x3, CN's II-XII intact bilaterally, moves all extremities and no focal motor deficits Sensorium / Orientation: awake, alert, oriented to person, oriented to place and oriented to time Psych Appearance: grossly normal and appropriate Attitude: calm Activity / Motor Behavior: appropriate eye contact Speech: normal speech Mood & Affect: euthymic mood Thought Process: normal thought process Thought Content: normal thought content Attention / Concentration: attention grossly intact Debridement Note Debridement Note Wound debrided: Right upper medial calf Laterality: Right Type of Debridement: Excisional debridement Anesthesia Used: 5% Lidocaine Gel Depth: Down to and including healthy tissue and in the subcutaneous layer Percentage of wound debrided: 100 Instrument Used: 5mm curette Tissue Removed: Bioburden Severity: Fat Layer Exposed Amount of bleeding with debridement: Mild Bleeding Controlled with: Compression and gauze Patient tolerated procedure: Patient tolerated procedure well Post-Debridement Measurements and Additional Note: Post-Debridement Measurements/Treatment [facility] - Nurse 1 - General Ulcer Assessment Start: 09/12/21 13:30 Freq: Status: Active Protocol: RAJAT Activity Type Activity Date Activity User E-sign Co-sign Detail Recorded Client Recorded Date Recorded By Document 09/12/21 13:31 DL [id number] 09/12/21 13:36 DL Document 09/19/21 09:22 DL [id number] 09/19/21 09:25 DL 09/12/21 09/19/21 13:31 09:22 WC - Today's Visit Information Type of service Nurse-only Follow-up Visit Visit (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 ) Arrival Mode Ambulatory Ambulatory Transfer Assistance None None Patient Identification Verified (Name & Yes Yes ) Patient Requires Transmission-Based No No Precautions Height and Weight Body Mass Index (BMI) 32.4 32.4 BMI Classification Obese Obese Vital Signs Temperature (97.8 F-99.1 F) 98.1 F 97 F L Temperature Source Temporal Temporal Pulse Rate (60-100) 84 82 Pulse Location Monitor Monitor Respiratory Rate (12-18) 20 H 18 Respiratory rate source Observation Observation Blood Pressure (90/60-120/80) 148/76 H 127/74 H Blood Pressure Mean 100 91 Source Monitor Monitor Comment Epifix intact. 3M reapplied History Since Last Visit- (Skip if this is Patient's initial visit) Have you changed medications since your No No last visit? Any new allergies or adverse reactions No No Had a fall/change in ADL's that may No No increase risk of falls Signs or symptoms of abuse and/or No No neglect since last visit Have you been in the hospital since your No No last visit? Has dressing in place as prescribed No Yes Has compression in place as prescribed Yes Yes Has offloadiing in place as prescribed N/A N/A Experienced any changes in pain level or No No management Pain Scale: 0-10 Numeric Is Patient Pain Free? Yes Yes - Nurse 1 - General Ulcer Measurement Start: 09/12/21 13:30 Freq: Status: Active Protocol: Activity Type Activity Date Activity User E-sign Co-sign Detail Recorded Client Recorded Date Recorded By Document 09/12/21 13:31 DL [id number] 09/12/21 13:36 DL Document 09/19/21 09:22 DL [id number] 09/19/21 09:25 DL 09/12/21 09/19/21 13:31 09:22 Wound Center Nurse 1 #4 R MEDIAL LE -Current Size (cm) - Length 1.9 -Current Size (cm) - Width 1.1 -Current Size (cm) - Depth 0.1 -Total Square Cm 2.09 -Photo Taken No No -Exudate Amt Small Medium -Exudate Type Serosanguineous Serosanguineous -Wound Margin Distinct, Distinct, Outline Outline Attached Attached -Granulation Amt Large (67-100%) -Granulation Quality Hyper- granulation,Red -Necrosis Amt Small (1-33%) -Necrotic Tissue Type Adherent Slough -Structure Exposed N/A N/A -Texture (Nancy-wound Skin Appearance) Scarring Scarring,Rash -Moisture (Nancy-wound Skin Appearance) Dry/Scaly Dry/Scaly -Color (Nancy-wound Skin Appearance) Hemosiderin Hemosiderin Staining Staining -Temperature (Nancy-wound Skin No Abnormality No Abnormality Appearance) (Pt Warm) (Pt Warm) -Tenderness on Palpation (Nancy-wound No No Skin Appearance) -Ulcer Cleansing Soap and Water Soap and Water -Foul Odor after Cleansing No No -Anesthetic Used 5% Lidocaine Gel Right Calf (cm) 33.7 32 Right Ankle (cm) 21 20.4 - Nurse 2 - General Ulcer CM Notes Start: 09/12/21 13:30 Freq: Status: Active Protocol: Activity Type Activity Date Activity User E-sign Co-sign Detail Recorded Client Recorded Date Recorded By Document 09/19/21 10:04 PL [id number] 09/19/21 10:06 PL 09/19/21 10:04 Wound Center Nurse 2 #4 R MEDIAL LE -Time 09:27 -Correct Patient Yes -Correct Side, Site, Position Yes -Correct Procedure Yes -Procedure Performed Yes -Type of Procedure Debridement -Clinical Debridement Subcutaneous -Tissue Removed Subcutaneous -Post Debridement (cm) - Length 1.9 -Post Debridement (cm) - Width 1.1 -Post Debridement (cm) - Depth 0.1 -Total Square (Post) (cm) 2.09 -Area of Debridement (cm) - Length 1.9 -Area of Debridement (cm) - Width 1.1 -Total Square (Area) (cm) 2.09 -Tunneling No -Undermining/Tunneling No -Circular Undermining No -Wound/Ulcer Outcome Not Healed -Ulcer Cleansing Rinsed/ Irrigated with Saline -Foul Odor after Cleansing No -Bioengineered Tissue Yes -Type of Bioengineered Tissue Epifix -Expiration Date 06/11/26 -Product Lot Number [id number] -Percent Used 100 -Bleeding Controlled with Pressure -Treatment Response Procedure Tolerated Well -Debridement - Subq, 1st 20sq cm No -Apply Skin Sub - 1st 25 sq cm - Legs 1 -Epifix (per sq cm) 4 Pain Scale: 0-10 Numeric Is Patient Pain Free? Yes - Nurse 3 - General Ulcer D/C NN Start: 09/12/21 13:30 Freq: Status: Active Protocol: Activity Type Activity Date Activity User E-sign Co-sign Detail Recorded Client Recorded Date Recorded By Document 09/12/21 13:31 DL [id number] 09/12/21 13:36 DL Document 09/19/21 09:47 MW Desktop 09/19/21 09:48 MW 09/12/21 09/19/21 13:31 09:47 Vital Signs Temperature (97.8 F-99.1 F) 98.1 F Temperature Source Temporal Pulse Rate (60-100) 84 Pulse Location Monitor Respiratory Rate (12-18) 20 H Respiratory rate source Observation Blood Pressure (90/60-120/80) 148/76 H Blood Pressure Mean 100 Source Monitor Comment Epifix intact. 3M reapplied Pain Scale: 0-10 Numeric Is Patient Pain Free? Yes Yes Teaching: Wound Center Dressing Your Wound -Person Taught Patient -Teaching Method Discussion, Demonstration -Response to teaching Verbalize understanding Wound Care Nurse 3 #4 R MEDIAL LE -Ulcer Cleansing Soap and Water Not Cleansed -Foul Odor after Cleansing No No -Negative Pressure Wound Therapy N/A -Primary Dressing Applied Optilok 6.5x10 -Other Dressing Epifix intact -Primary Dressing Covered/Secured with Dry Gauze Dry Gauze & Roll Gauze, Secured with Tape -Other Covering 3M -Optilok 6.5x10 1 Right -Lotion applied to leg before No compression wrap -Multi-Layered Wrap Application Multi-Layer Comp - Right ($ ) -Size of Tubigrip Used Size C -Size C ($) 2 -Stockings No Treatment Response Procedure Procedure Tolerated Well Tolerated Well WC - Visit Discharge Discharge Condition Stable Stable Ambulatory Status Ambulatory Ambulatory Transportation Private Auto Private Auto Medication Reconcilliation completed & No provided to patient/care provider Clinical Summary of Care Provided Yes Assessment/Plan Assessment/Plan (1) Non-pressure chronic ulcer of right calf with fat layer exposed: CODE(S): L97.212 - Non-pressure chronic ulcer of right calf with fat layer exposed (2) Leg edema: CODE(S): R60.0 - Localized edema (3) Leg swelling: CODE(S): M79.89 - Other specified soft tissue disorders (4) Diabetes mellitus: CODE(S): E11.9 - Type 2 diabetes mellitus without complications (5) COPD (chronic obstructive pulmonary disease): CODE(S): J44.9 - Chronic obstructive pulmonary disease, unspecified (6) Chronic renal failure, stage 3 (moderate): CODE(S): N18.30 - Chronic kidney disease, stage 3 unspecified (7) Diverticular disease: CODE(S): K57.90 - Diverticulosis of intestine, part unspecified, without perforation or abscess without bleeding (8) Obesity (BMI 30.0-34.9): CODE(S): E66.9 - Obesity, unspecified (9) Pacemaker: CODE(S): Z95.0 - Presence of cardiac pacemaker (10) Dependence on supplemental oxygen: CODE(S): Z99.81 - Dependence on supplemental oxygen (11) Ulcerative colitis: CODE(S): K51.90 - Ulcerative colitis, unspecified, without complications (12) Paroxysmal atrial fibrillation: CODE(S): I48.0 - Paroxysmal atrial fibrillation (13) Mitral valve replaced: CODE(S): Z95.2 - Presence of prosthetic heart valve (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: CODE(S): Z79.01 - nursing home (current) use of anticoagulants (15) Acute and chronic respiratory failure with hypercapnia: CODE(S): J96.22 - Acute and chronic respiratory failure with hypercapnia (16) Atrial fibrillation with RVR: CODE(S): I48.91 - Unspecified atrial fibrillation (17) REBECA on CPAP: CODE(S): G47.33 - Obstructive sleep apnea (adult) (pediatric); Z99.89 - Dependence on other enabling machines and devices (18) Pulmonary hypertension: CODE(S): I27.20 - Pulmonary hypertension, unspecified (19) Hyperlipidemia: CODE(S): E78.5 - Hyperlipidemia, unspecified QUALIFIERS: Hyperlipidemia type: unspecified Qualified Code(s): E78.5 - Hyperlipidemia, unspecified (20) Essential hypertension: CODE(S): I10 - Essential (primary) hypertension PLAN: Plan This is a 71-year-old male who presented with an open wound on his right medial calf, which had been present for approximately 18 months. It had failed to heal, despite several means of treatment. The patient has multiple pre-existing medical problems, which are listed above. The patient underwent excision of a right calf wound with surgical preparation by excision of an open wound, which was performed in the operating room setting, on 07/25/2021. He returns today in routine follow-up. The surgical wound site appears healthy. The wound has decreased in size since 1 week prior. An EpiFix allograft has been applied topically to the patient's wound. This represents the second such application of an allograft. The periwound dermatitic changes are to be treated by SuperAbsorb applied topically to absorb wound drainage. Compression to the right lower extremity is to be applied by means of Tubigrip's which will be applied daily, of 20 to 30 mmHg compression. Activity has been encouraged. Leg elevation is to be implemented as much as possible. The patient has been encouraged to sleep with his legs elevated, and to elevate his legs even during daytime hours. Elevation is to be to heart level, or higher. The patient has been advised to optimize his nutritional intake and his glycemic control. A noninvasive lower extremity arterial study has been performed on 06/19/2021, demonstrating arterial flow to be normal at ankle level bilaterally, and at digital level on the left. 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 This finding is suggestive of adequate arterial circulation in the right lower extremity to support healing. The patient is to return in 1 weeks for reevaluation, at which time it is anticipated that a third application of an allograft will be performed. Total time: 29 minutes
[2021-09-26 09:01] VITALS: BP 143/95; PULSE 85; RESP 18; TEMP 35.9; BMI 32.4
--- NOTE | 2021-09-26 09:43 | PCM.WC.HP ---
History of Present Illness Date of Service: 09/26/21 Chief Complaint: Open wound, right lower extremity History of Wound: This is a 71-year-old male who presented with an open wound in the right lower extremity. According the patient, the wound had been present for approximately 18 months. It was cared for by nursing staff at [facility], with visits 2-3 times per week. It appeared as though a variety of treatments have been implemented, including the use of collagenase Santyl and gauze packing. The patient most recently was applying gauze topically. He has previously been treated with Augmentin. The patient is unaware of the etiology of his wound, or how it originated. It had been relatively unchanged for quite some time. He denies a history of thrombophlebitis. He does relate swelling in his right lower extremity, typically worse at the end of the day. He sleeps in a recliner. Patient has multiple pre-existing medical problems, including atrial fibrillation, congestive heart failure, diabetes mellitus, chronic respiratory failure with hypoxia, oxygen dependence, COPD, diverticular disease, hypertension, hyperlipidemia, ulcerative colitis, and obstructive sleep apnea. The patient has a pacemaker, and is on systemic anticoagulation with Coumadin. He has previously undergone open reduction and internal fixation of a right ankle fracture, with subsequent skin graft procedures on multiple occasions. He has had a vein stripping in the left lower extremity, and a left total hip replacement. [facility] Medical History Ambulates with cane Arthritis Cardiology follow-up encounter Chewing tobacco nicotine dependence Chronic renal failure, stage 3 (moderate) COPD (chronic obstructive pulmonary disease) COPD (chronic obstructive pulmonary disease) CPAP (continuous positive airway pressure) dependence Dependence on supplemental oxygen Diabetes mellitus Dietary restriction Diverticular disease Diverticulitis of colon with hemorrhage (~2004) Essential hypertension History of echocardiogram History of edema History of steroid therapy Hyperlipidemia Hypertension Leg edema Leg swelling Loss of hearing Low iron Non-pressure chronic ulcer of right calf with fat layer exposed Obesity Obesity (BMI 30.0-34.9) On home oxygen therapy Open wound REBECA on CPAP Pacemaker Psoriasis Pulmonary hypertension Rheumatic fever without mention of heart involvement Shortness of breath on exertion Type 2 diabetes mellitus without complication Ulcerative colitis Wears dentures Wears glasses Wound of right lower extremity Home Medications albuterol sulfate 90 mcg/actuation aerosol inhaler 2 puff inhalation Q4H PRN Sob &/Or Wheezing 07/23/18 [History Last Taken Unknown] diltiazem HCl 180 mg capsule,extended release 24 hr 360 mg PO DAILY heart rhythm 07/23/18 [History Last Taken 09/26/18] fenofibrate 160 mg tablet 160 mg PO DAILY 07/23/18 [History Last Taken Unknown] fluticasone propionate 115 mcg-salmeterol 21 mcg/actuation HFA inhaler 2 puff inhalation BID inhaler 07/23/18 [History Last Taken Unknown] losartan 100 mg tablet 100 mg PO DAILY blood pressure 11/25/18 [History Last Taken Unknown] ascorbic acid (vitamin C) 500 mg tablet 500 mg PO BID 01/13/20 [History Last Taken Unknown] atorvastatin 80 mg tablet 80 mg PO QHS 01/13/20 [History Last Taken Unknown] carvedilol 3.125 mg tablet 3.125 mg PO BID 01/13/20 [History Last Taken 07/25/21] melatonin 5 mg tablet 5 mg PO QHS 01/13/20 [History Last Taken Unknown] potassium chloride 20 mEq tablet,extended release(part/cryst) 20 meq PO DAILY electrolyte 01/13/20 [History Last Taken Unknown] amoxicillin 875 mg-potassium clavulanate 125 mg tablet 1 ea PO BID #6 tabs 01/19/20 [Rx Last Taken Unknown] dexamethasone 6 mg tablet 6 mg PO DAILY ##0 01/19/20 [Rx Last Taken Unknown] furosemide 40 mg tablet 40 mg PO BID #60 tabs 01/19/20 [Rx Last Taken Unknown] warfarin 1 mg tablet 3.5 mg PO DAILY 02/08/20 [History Last Taken Unknown] oxycodone-acetaminophen 5 mg-325 mg tablet (Percocet) 1 tab PO Q8H PRN pain 3 days #14 tabs 07/25/21 [Rx Last Taken Unknown] Allergy/AdvReac Type Severity Reaction Status Date / Time povidone-iodine Allergy Intermediate rash, Verified 07/25/21 10:59 [From Betadine] itching soap [From Betadine] Allergy Intermediate rash, Verified 07/25/21 10:59 itching Family History Mother Cancer kidney Father Cancer lung Surgical History History of cardiac catheterization History of left hip replacement History of open reduction and internal fixation (ORIF) procedure History of skin graft History of vein stripping Social History Smoking Status: Current every day smoker tobacco type: smokeless tobacco Smokeless tobacco user: snuff how long ago did patient quit smokin months ago alcohol intake: never substance use type: does not use caffeine: Yes Type: coffee Number of servings: 2 Vital Signs Vital Signs Vital Signs: 09/26/21 09:01 Temperature 96.6 F L Temperature Source Temporal Pulse Rate 85 Respiratory Rate 18 Blood Pressure 143/95 H Blood Pressure Mean 111 Blood Pressure Source Monitor Weight Weight: 195 lb Body Mass Index (BMI) 32.4 Physical Exam Const alert, oriented x3, no apparent distress, average body habitus and well nourished General Appearance: cooperative, comfortable, well kempt and well developed Orientation / Consciousness: awake, oriented to person, oriented to place and oriented to time HEENT normocephalic and head/scalp atraumatic Head and Scalp: normal to inspection, normocephalic and atraumatic External Ear: external ears normal Eyes PERRL and EOMs intact bilaterally General Eye: normal appearance of both eyes Chest inspection of chest normal Resp normal respiratory effort, normal air movement, no retractions and no use of accessory muscles Effort and Inspection: able to speak in complete sentences Extremity no calf tenderness General Extremity: Negative for clubbing or cyanosis Skin Wound Narrative: An open wound is noted on the patient's upper right medial calf. This wound is a result of the patient's recent surgical procedure, performed on 07/25/2021, at which time an excision of the right calf wound with surgical preparation by excision of the open wound was performed. At this time, the surgical wound remains pink and healthy in appearance. Wound margins are well beveled. There is no sign of infection or cellulitis. Mild dermatitic changes and excoriations are noted on the patient's right pretibial area. The wound has decreased in size and wound dimensions are documented elsewhere. The wound is also more superficial. No significant swelling is noted in the patient's right lower extremity. Lipodermatosclerosis and hyperpigmentation are noted in the patient's right gaiter area. Neuro oriented x3, CN's II-XII intact bilaterally, moves all extremities and no focal motor deficits Sensorium / Orientation: awake, alert, oriented to person, oriented to place and oriented to time Psych Appearance: grossly normal and appropriate Attitude: calm Activity / Motor Behavior: appropriate eye contact Speech: normal speech Mood & Affect: euthymic mood Thought Process: normal thought process Thought Content: normal thought content Attention / Concentration: attention grossly intact Debridement Note Debridement Note Wound debrided: Right upper medial calf Laterality: Right Type of Debridement: Excisional debridement Anesthesia Used: 5% Lidocaine Gel Depth: Down to and including healthy tissue and in the subcutaneous layer Percentage of wound debrided: 100 Instrument Used: 5mm curette Tissue Removed: Bioburden Severity: Fat Layer Exposed Amount of bleeding with debridement: Mild Bleeding Controlled with: Compression and gauze Patient tolerated procedure: Patient tolerated procedure well Debridement Free Text: Following a routine excisional debridement, which was well-tolerated by the patient, an allograft was applied. An 18 mm circular EpiFix allograft was selected. It was removed from its sterile packaging. It was applied topically to the wound in the appropriate orientation. Adaptic Touch was then applied topically, and was anchored in place using Steri-Strips. A dry sterile gauze dressing was then placed, and an Unna boot was then applied to the right lower extremity. Post-Debridement Measurements and Additional Note: Post-Debridement Measurements/Treatment - Nurse 1 - General Ulcer Assessment Start: 09/12/21 13:30 Freq: Status: Active Protocol: USHA.LOWDEBORAH Activity Type Activity Date Activity User E-sign Co-sign Detail Recorded Client Recorded Date Recorded By Document 09/12/21 13:31 DL [id number] 09/12/21 13:36 DL Document 09/19/21 09:22 DL [id number] 09/19/21 09:25 DL Document 09/26/21 09:01 DL [id number] 09/26/21 09:08 DL 09/12/21 09/19/21 09/26/21 13:31 09:22 09:01 - Today's Visit Information Type of service Nurse-only Follow-up Visit Follow-up Visit Visit (Physician/AUTOMATION QA TESTER (Physician/AUTOMATION QA TESTER ) ) Arrival Mode Ambulatory Ambulatory Ambulatory, Walker Transfer Assistance None None None Patient Identification Verified (Name & Yes Yes Yes ) Patient Requires Transmission-Based No No No Precautions Height and Weight Body Mass Index (BMI) 32.4 32.4 32.4 BMI Classification Obese Obese Obese Vital Signs Temperature (97.8 F-99.1 F) 98.1 F 97 F L 96.6 F L Temperature Source Temporal Temporal Temporal Pulse Rate (60-100) 84 82 85 Pulse Location Monitor Monitor Monitor Respiratory Rate (12-18) 20 H 18 18 Respiratory rate source Observation Observation Observation Blood Pressure (90/60-120/80) 148/76 H 127/74 H 143/95 H Blood Pressure Mean 100 91 111 Source Monitor Monitor Monitor Comment Epifix intact. 3M reapplied History Since Last Visit- (Skip if this is Patient's initial visit) Have you changed medications since your No No No last visit? Any new allergies or adverse reactions No No No Had a fall/change in ADL's that may No No No increase risk of falls Signs or symptoms of abuse and/or No No No neglect since last visit Have you been in the hospital since your No No No last visit? Has dressing in place as prescribed No Yes Yes Has compression in place as prescribed Yes Yes Yes Has offloadiing in place as prescribed N/A N/A N/A Experienced any changes in pain level or No No No management Pain Scale: 0-10 Numeric Is Patient Pain Free? Yes Yes Yes WC - Nurse 1 - General Ulcer Measurement Start: 09/12/21 13:30 Freq: Status: Active Protocol: Activity Type Activity Date Activity User E-sign Co-sign Detail Recorded Client Recorded Date Recorded By Document 09/12/21 13:31 DL [id number] 09/12/21 13:36 DL Document 09/19/21 09:22 DL [id number] 09/19/21 09:25 DL Document 09/26/21 09:01 DL [id number] 09/26/21 09:08 DL 09/12/21 09/19/21 09/26/21 13:31 09:22 09:01 Wound Center Nurse 1 #4 R MEDIAL LE -Current Size (cm) - Length 1.9 0.8 -Current Size (cm) - Width 1.1 1.2 -Current Size (cm) - Depth 0.1 0.1 -Total Square Cm 2.09 0.96 -Photo Taken No No Yes -Exudate Amt Small Medium Medium -Exudate Type Serosanguineous Serosanguineous Serosanguineous -Wound Margin Distinct, Distinct, Distinct, Outline Outline Outline Attached Attached Attached -Granulation Amt Large (67-100%) Large (67-100%) -Granulation Quality Hyper- [place],Red granulation,Red -Necrosis Amt Small (1-33%) Small (1-33%) -Necrotic Tissue Type Adherent Slough Adherent Slough -Structure Exposed N/A N/A -Texture (Nancy-wound Skin Appearance) Scarring Scarring,Rash Excoriation, Scarring,Rash -Moisture (Nancy-wound Skin Appearance) Dry/Scaly Dry/Scaly Dry/Scaly -Color (Nancy-wound Skin Appearance) Hemosiderin Hemosiderin Hemosiderin Staining Staining Staining -Temperature (Nancy-wound Skin No Abnormality No Abnormality No Abnormality Appearance) (Pt Warm) (Pt Warm) (Pt Warm) -Tenderness on Palpation (Nancy-wound No No Skin Appearance) -Ulcer Cleansing Soap and Water Soap and Water Soap and Water -Foul Odor after Cleansing No No No -Anesthetic Used 5% Lidocaine 5% Lidocaine Gel Gel Right Calf (cm) 33.7 32 35.5 Right Ankle (cm) 21 20.4 21.4 WC - Nurse 2 - General Ulcer CM Notes Start: 09/12/21 13:30 Freq: Status: Active Protocol: Activity Type Activity Date Activity User E-sign Co-sign Detail Recorded Client Recorded Date Recorded By Document 09/19/21 10:04 LOIS [id number] 09/19/21 10:06 LOIS 09/19/21 10:04 Wound Center Nurse 2 #4 R MEDIAL LE -Time 09:27 -Correct Patient Yes -Correct Side, Site, Position Yes -Correct Procedure Yes -Procedure Performed Yes -Type of Procedure Debridement -Clinical Debridement Subcutaneous -Tissue Removed Subcutaneous -Post Debridement (cm) - Length 1.9 -Post Debridement (cm) - Width 1.1 -Post Debridement (cm) - Depth 0.1 -Total Square (Post) (cm) 2.09 -Area of Debridement (cm) - Length 1.9 -Area of Debridement (cm) - Width 1.1 -Total Square (Area) (cm) 2.09 -Tunneling No -Undermining/Tunneling No -Circular Undermining No -Wound/Ulcer Outcome Not Healed -Ulcer Cleansing Rinsed/ Irrigated with Saline -Foul Odor after Cleansing No -Bioengineered Tissue Yes -Type of Bioengineered Tissue Epifix -Expiration Date 06/11/26 -Product Lot Number [id number] -Percent Used 100 -Bleeding Controlled with Pressure -Treatment Response Procedure Tolerated Well -Debridement - Subq, 1st 20sq cm No -Apply Skin Sub - 1st 25 sq cm - Legs 1 -Epifix (per sq cm) 4 Pain Scale: 0-10 Numeric Is Patient Pain Free? Yes WC - Nurse 3 - General Ulcer D/C NN Start: 09/12/21 13:30 Freq: Status: Active Protocol: Activity Type Activity Date Activity User E-sign Co-sign Detail Recorded Client Recorded Date Recorded By Document 09/12/21 13:31 DL [id number] 09/12/21 13:36 DL Document 09/19/21 09:47 MW Desktop 09/19/21 09:48 MW 09/12/21 09/19/21 13:31 09:47 Vital Signs Temperature (97.8 F-99.1 F) 98.1 F Temperature Source Temporal Pulse Rate (60-100) 84 Pulse Location Monitor Respiratory Rate (12-18) 20 H Respiratory rate source Observation Blood Pressure (90/60-120/80) 148/76 H Blood Pressure Mean 100 Source Monitor Comment Epifix intact. 3M reapplied Pain Scale: 0-10 Numeric Is Patient Pain Free? Yes Yes Teaching: Wound Center Dressing Your Wound -Person Taught Patient -Teaching Method Discussion, Demonstration -Response to teaching Verbalize understanding Wound Care Nurse 3 #4 R MEDIAL LE -Ulcer Cleansing Soap and Water Not Cleansed -Foul Odor after Cleansing No No -Negative Pressure Wound Therapy N/A -Primary Dressing Applied Optilok 6.5x10 -Other Dressing Epifix intact -Primary Dressing Covered/Secured with Dry Gauze Dry Gauze & Roll Gauze, Secured with Tape -Other Covering 3M -Optilok 6.5x10 1 Right -Lotion applied to leg before No compression wrap -Multi-Layered Wrap Application Multi-Layer Comp - Right ($ ) -Size of Tubigrip Used Size C -Size C ($) 2 -Stockings No Treatment Response Procedure Procedure Tolerated Well Tolerated Well WC - Visit Discharge Discharge Condition Stable Stable Ambulatory Status Ambulatory Ambulatory Transportation Private Auto Private Auto Medication Reconcilliation completed & No provided to patient/care provider Clinical Summary of Care Provided Yes Assessment/Plan Assessment/Plan (1) Non-pressure chronic ulcer of right calf with fat layer exposed: CODE(S): L97.212 - Non-pressure chronic ulcer of right calf with fat layer exposed (2) Leg edema: CODE(S): R60.0 - Localized edema (3) Leg swelling: CODE(S): M79.89 - Other specified soft tissue disorders (4) Diabetes mellitus: CODE(S): E11.9 - Type 2 diabetes mellitus without complications (5) COPD (chronic obstructive pulmonary disease): CODE(S): J44.9 - Chronic obstructive pulmonary disease, unspecified (6) Chronic renal failure, stage 3 (moderate): CODE(S): N18.30 - Chronic kidney disease, stage 3 unspecified (7) Diverticular disease: CODE(S): K57.90 - Diverticulosis of intestine, part unspecified, without perforation or abscess without bleeding (8) Obesity (BMI 30.0-34.9): CODE(S): E66.9 - Obesity, unspecified (9) Pacemaker: CODE(S): Z95.0 - Presence of cardiac pacemaker (10) Dependence on supplemental oxygen: CODE(S): Z99.81 - Dependence on supplemental oxygen (11) Ulcerative colitis: CODE(S): K51.90 - Ulcerative colitis, unspecified, without complications (12) Paroxysmal atrial fibrillation: CODE(S): I48.0 - Paroxysmal atrial fibrillation (13) Mitral valve replaced: CODE(S): Z95.2 - Presence of prosthetic heart valve (14) manager 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: CODE(S): Z79.01 - manager intermediate (current) use of anticoagulants (15) Acute and chronic respiratory failure with hypercapnia: CODE(S): J96.22 - Acute and chronic respiratory failure with hypercapnia (16) Atrial fibrillation with RVR: CODE(S): I48.91 - Unspecified atrial fibrillation (17) REBECA on CPAP: CODE(S): G47.33 - Obstructive sleep apnea (adult) (pediatric); Z99.89 - Dependence on other enabling machines and devices (18) Pulmonary hypertension: CODE(S): I27.20 - Pulmonary hypertension, unspecified (19) Hyperlipidemia: CODE(S): E78.5 - Hyperlipidemia, unspecified QUALIFIERS: Hyperlipidemia type: unspecified Qualified Code(s): E78.5 - Hyperlipidemia, unspecified (20) Essential hypertension: CODE(S): I10 - Essential (primary) hypertension PLAN: Plan This is a 71-year-old male who presented with an open wound on his right medial calf, which had been present for approximately 18 months. It had failed to heal, despite several means of treatment. The patient has multiple pre-existing medical problems, which are listed above. The patient underwent excision of a right calf wound with surgical preparation by excision of an open wound, which was performed in the operating room setting, on 07/25/2021. He returns today in routine follow-up. The surgical wound site appears healthy. The wound has decreased in size since 1 week prior. An EpiFix allograft has been applied topically to the patient's wound. This represents the 3rd such application of an allograft. The dermatitic changes and excoriations on the right pretibial area are thought to be, in part, due to the patient scratching pruritic areas. He has been discouraged from doing so. We are to implement the use of an Unna boot, applied topically today, which will remain in place for several days, and changed twice weekly. Activity has been encouraged. Leg elevation is to be implemented as much as possible. The patient has been encouraged to sleep with his legs elevated, and to elevate his legs even during daytime hours. Elevation is to be to heart level, or higher. The patient has been advised to optimize his nutritional intake and his glycemic control. A noninvasive lower extremity arterial study has been performed on 06/19/2021, demonstrating arterial flow to be normal at ankle level bilaterally, and at digital level on the left. 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 This finding is suggestive of adequate arterial circulation in the right lower extremity to support healing. The patient is to return in 1 week for reevaluation, at which time it is anticipated that a 4th application of an allograft will be performed. Total time: 28 minutes
[2021-09-29 08:27] VITALS: BP 146/97; PULSE 84; RESP 18; TEMP 35.5; BMI 32.4
[2021-10-03 09:38] VITALS: BP 119/94; PULSE 86; RESP 18; TEMP 36.4; BMI 32.4
--- NOTE | 2021-10-03 12:20 | PCM.WC.HP ---
History of Present Illness Date of Service: 10/03/21 Chief Complaint: Open wound, right lower extremity History of Wound: This is a 71-year-old male who presented with an open wound in the right lower extremity. According the patient, the wound had been present for approximately 18 months. It was cared for by nursing staff at [facility], with visits 2-3 times per week. It appeared as though a variety of treatments have been implemented, including the use of collagenase Santyl and gauze packing. The patient most recently was applying gauze topically. He has previously been treated with Augmentin. The patient is unaware of the etiology of his wound, or how it originated. It had been relatively unchanged for quite some time. He denies a history of thrombophlebitis. He does relate swelling in his right lower extremity, typically worse at the end of the day. He sleeps in a recliner. Patient has multiple pre-existing medical problems, including atrial fibrillation, congestive heart failure, diabetes mellitus, chronic respiratory failure with hypoxia, oxygen dependence, COPD, diverticular disease, hypertension, hyperlipidemia, ulcerative colitis, and obstructive sleep apnea. The patient has a pacemaker, and is on systemic anticoagulation with Coumadin. He has previously undergone open reduction and internal fixation of a right ankle fracture, with subsequent skin graft procedures on multiple occasions. He has had a vein stripping in the left lower extremity, and a left total hip replacement. [facility] Medical History Ambulates with cane Arthritis Cardiology follow-up encounter Chewing tobacco nicotine dependence Chronic renal failure, stage 3 (moderate) COPD (chronic obstructive pulmonary disease) COPD (chronic obstructive pulmonary disease) CPAP (continuous positive airway pressure) dependence Dependence on supplemental oxygen Diabetes mellitus Dietary restriction Diverticular disease Diverticulitis of colon with hemorrhage (~2004) Essential hypertension History of echocardiogram History of edema History of steroid therapy Hyperlipidemia Hypertension Leg edema Leg swelling Loss of hearing Low iron Non-pressure chronic ulcer of right calf with fat layer exposed Obesity Obesity (BMI 30.0-34.9) On home oxygen therapy Open wound REBECA on CPAP Pacemaker Psoriasis Pulmonary hypertension Rheumatic fever without mention of heart involvement Shortness of breath on exertion Type 2 diabetes mellitus without complication Ulcerative colitis Wears dentures Wears glasses Wound of right lower extremity Home Medications albuterol sulfate 90 mcg/actuation aerosol inhaler 2 puff inhalation Q4H PRN Sob &/Or Wheezing 07/23/18 [History Last Taken Unknown] diltiazem HCl 180 mg capsule,extended release 24 hr 360 mg PO DAILY heart rhythm 07/23/18 [History Last Taken 09/26/18] fenofibrate 160 mg tablet 160 mg PO DAILY 07/23/18 [History Last Taken Unknown] fluticasone propionate 115 mcg-salmeterol 21 mcg/actuation HFA inhaler 2 puff inhalation BID inhaler 07/23/18 [History Last Taken Unknown] losartan 100 mg tablet 100 mg PO DAILY blood pressure 11/25/18 [History Last Taken Unknown] ascorbic acid (vitamin C) 500 mg tablet 500 mg PO BID 01/13/20 [History Last Taken Unknown] atorvastatin 80 mg tablet 80 mg PO QHS 01/13/20 [History Last Taken Unknown] carvedilol 3.125 mg tablet 3.125 mg PO BID 01/13/20 [History Last Taken 07/25/21] melatonin 5 mg tablet 5 mg PO QHS 01/13/20 [History Last Taken Unknown] potassium chloride 20 mEq tablet,extended release(part/cryst) 20 meq PO DAILY electrolyte 01/13/20 [History Last Taken Unknown] amoxicillin 875 mg-potassium clavulanate 125 mg tablet 1 ea PO BID #6 tabs 01/19/20 [Rx Last Taken Unknown] dexamethasone 6 mg tablet 6 mg PO DAILY ##0 01/19/20 [Rx Last Taken Unknown] furosemide 40 mg tablet 40 mg PO BID #60 tabs 01/19/20 [Rx Last Taken Unknown] warfarin 1 mg tablet 3.5 mg PO DAILY 02/08/20 [History Last Taken Unknown] oxycodone-acetaminophen 5 mg-325 mg tablet (Percocet) 1 tab PO Q8H PRN pain 3 days #14 tabs 07/25/21 [Rx Last Taken Unknown] Allergy/AdvReac Type Severity Reaction Status Date / Time povidone-iodine Allergy Intermediate rash, Verified 07/25/21 10:59 [From Betadine] itching soap [From Betadine] Allergy Intermediate rash, Verified 07/25/21 10:59 itching Family History Mother Cancer kidney Father Cancer lung Surgical History History of cardiac catheterization History of left hip replacement History of open reduction and internal fixation (ORIF) procedure History of skin graft History of vein stripping Social History Smoking Status: Current every day smoker tobacco type: smokeless tobacco Smokeless tobacco user: snuff how long ago did patient quit smokin months ago alcohol intake: never substance use type: does not use caffeine: Yes Type: coffee Number of servings: 2 Vital Signs Vital Signs Vital Signs: 10/03/21 09:38 Temperature 97.6 F L Temperature Source Temporal Pulse Rate 86 Respiratory Rate 18 Blood Pressure 119/94 H Blood Pressure Mean 102 Blood Pressure Source Monitor Blood Pressure Position Supine Weight Weight: 195 lb Body Mass Index (BMI) 32.4 Physical Exam Const alert, oriented x3, no apparent distress, average body habitus and well nourished General Appearance: cooperative, comfortable, well kempt and well developed Orientation / Consciousness: awake, oriented to person, oriented to place and oriented to time HEENT normocephalic and head/scalp atraumatic Head and Scalp: normal to inspection, normocephalic and atraumatic External Ear: external ears normal Eyes PERRL and EOMs intact bilaterally General Eye: normal appearance of both eyes Chest inspection of chest normal Resp normal respiratory effort, normal air movement, no retractions and no use of accessory muscles Effort and Inspection: able to speak in complete sentences Extremity no calf tenderness General Extremity: Negative for clubbing or cyanosis Skin Wound Narrative: An open wound is noted on the patient's upper right medial calf. This wound is the residual from the patient's recent surgical procedure, performed on 07/25/2021, at which time an excision of the right calf wound with surgical preparation by excision of the open wound was performed. At this time, the surgical wound remains pink and healthy in appearance. It is much smaller in size. Dimensions are documented elsewhere. Wound margins are well beveled. There is no sign of infection or cellulitis. The wound is also more superficial. No significant swelling is noted in the patient's right lower extremity. Lipodermatosclerosis and hyperpigmentation are noted in the patient's right gaiter area. Neuro oriented x3, CN's II-XII intact bilaterally, moves all extremities and no focal motor deficits Sensorium / Orientation: awake, alert, oriented to person, oriented to place and oriented to time Psych Appearance: grossly normal and appropriate Attitude: calm Activity / Motor Behavior: appropriate eye contact Speech: normal speech Mood & Affect: euthymic mood Thought Process: normal thought process Thought Content: normal thought content Attention / Concentration: attention grossly intact Debridement Note Debridement Note Wound debrided: Right upper medial calf Laterality: Right Type of Debridement: Excisional debridement Anesthesia Used: 5% Lidocaine Gel Depth: Down to and including healthy tissue and in the subcutaneous layer Percentage of wound debrided: 100 Instrument Used: 5mm curette Tissue Removed: Bioburden and residual allograft material Severity: Fat Layer Exposed Amount of bleeding with debridement: Mild Bleeding Controlled with: Compression and gauze Patient tolerated procedure: Patient tolerated procedure well Debridement Free Text: Following a routine excisional debridement, which was well-tolerated by the patient, an 18 mm EpiFix allograft was applied. This represents the fourth such allograft application. Upon removal from the sterile packaging, the 18 mm allograft was applied topically in the appropriate orientation. Adaptic Touch was then applied, and secured in place using Steri-Strips. A dry gauze dressing was then applied, and an Unna boot was used to wrap the distal right lower extremity and foot. The entirety of the allograft was utilized. Post-Debridement Measurements and Additional Note: Post-Debridement Measurements/Treatment WC - Nurse 1 - General Ulcer Assessment Start: 09/12/21 13:30 Freq: Status: Active Protocol: WC.LOWEXT Activity Type Activity Date Activity User E-sign Co-sign Detail Recorded Client Recorded Date Recorded By Document 09/12/21 13:31 DL [id number] 09/12/21 13:36 DL Document 09/19/21 09:22 DL [id number] 09/19/21 09:25 DL Document 09/26/21 09:01 DL [id number] 09/26/21 09:08 DL Document 09/29/21 08:27 AK [id number] 09/29/21 08:33 AK Document 10/03/21 09:38 DL [id number] 10/03/21 09:40 DL 09/12/21 09/19/21 09/26/21 13:31 09:22 09:01 - Today's Visit Information Type of service Nurse-only Follow-up Visit Follow-up Visit Visit (Physician/LOGISTICS RESEARCH ENGINEER (Physician/LOGISTICS RESEARCH ENGINEER ) ) Arrival Mode Ambulatory Ambulatory Ambulatory, Walker Transfer Assistance None None None Patient Identification Verified (Name & Yes Yes Yes ) Patient Requires Transmission-Based No No No Precautions Height and Weight Body Mass Index (BMI) 32.4 32.4 32.4 BMI Classification Obese Obese Obese Vital Signs Temperature (97.8 F-99.1 F) 98.1 F 97 F L 96.6 F L Temperature Source Temporal Temporal Temporal Pulse Rate (60-100) 84 82 85 Pulse Location Monitor Monitor Monitor Respiratory Rate (12-18) 20 H 18 18 Respiratory rate source Observation Observation Observation Blood Pressure (90/60-120/80) 148/76 H 127/74 H 143/95 H Blood Pressure Mean 100 91 111 Source Monitor Monitor Monitor Position Blood Pressure Location Comment Epifix intact. 3M reapplied History Since Last Visit- (Skip if this is Patient's initial visit) Have you changed medications since your No No No last visit? Any new allergies or adverse reactions No No No Had a fall/change in ADL's that may No No No increase risk of falls Signs or symptoms of abuse and/or No No No neglect since last visit Have you been in the hospital since your No No No last visit? Has dressing in place as prescribed No Yes Yes Has compression in place as prescribed Yes Yes Yes Has offloadiing in place as prescribed N/A N/A N/A Experienced any changes in pain level or No No No management Pain Scale: 0-10 Numeric Is Patient Pain Free? Yes Yes Yes 09/29/21 10/03/21 08:27 09:38 [facility] [place] Today's Visit Information Type of service Nurse-only Follow-up Visit Visit (Physician/LOGISTICS RESEARCH ENGINEER ) Arrival Mode Ambulatory Ambulatory Transfer Assistance None None Patient Identification Verified (Name & Yes Yes ) Patient Requires Transmission-Based No No Precautions Height and Weight Body Mass Index (BMI) 32.4 32.4 BMI Classification Obese Obese Vital Signs Temperature (97.8 F-99.1 F) 96 F L 97.6 F L Temperature Source Temporal Temporal Pulse Rate (60-100) 84 86 Pulse Location Monitor Monitor Respiratory Rate (12-18) 18 18 Respiratory rate source Observation Observation Blood Pressure (90/60-120/80) 146/97 H 119/94 H Blood Pressure Mean 113 102 Source Monitor Monitor Position Sitting Supine Blood Pressure Location Left Arm Comment History Since Last Visit- (Skip if this is Patient's initial visit) Have you changed medications since your No No last visit? Any new allergies or adverse reactions No No Had a fall/change in ADL's that may No No increase risk of falls Signs or symptoms of abuse and/or No No neglect since last visit Have you been in the hospital since your No No last visit? Has dressing in place as prescribed Yes Yes Has compression in place as prescribed No Yes Has offloadiing in place as prescribed Yes N/A Experienced any changes in pain level or No No management Pain Scale: 0-10 Numeric Is Patient Pain Free? Yes Yes WC - Nurse 1 - General Ulcer Measurement Start: 09/12/21 13:30 Freq: Status: Active Protocol: Activity Type Activity Date Activity User E-sign Co-sign Detail Recorded Client Recorded Date Recorded By Document 09/12/21 13:31 DL [id number] 09/12/21 13:36 DL Document 09/19/21 09:22 DL [id number] 09/19/21 09:25 DL Document 09/26/21 09:01 DL [id number] 09/26/21 09:08 DL Document 09/29/21 08:27 AK [id number] 09/29/21 08:33 AK Document 10/03/21 09:38 DL [id number] 10/03/21 09:40 DL 09/12/21 09/19/21 09/26/21 13:31 09:22 09:01 Wound Center Nurse 1 #4 R MEDIAL LE -Current Size (cm) - Length 1.9 0.8 -Current Size (cm) - Width 1.1 1.2 -Current Size (cm) - Depth 0.1 0.1 -Total Square Cm 2.09 0.96 -Photo Taken No No Yes -Exudate Amt Small Medium Medium -Exudate Type Serosanguineous Serosanguineous Serosanguineous -Wound Margin Distinct, Distinct, Distinct, Outline Outline Outline Attached Attached Attached -Granulation Amt Large (67-100%) Large (67-100%) -Granulation Quality Hyper- [place],Red granulation,Red -Necrosis Amt Small (1-33%) Small (1-33%) -Necrotic Tissue Type Adherent Slough Adherent Slough -Structure Exposed N/A N/A -Texture (Nancy-wound Skin Appearance) Scarring Scarring,Rash Excoriation, Scarring,Rash -Moisture (Nancy-wound Skin Appearance) Dry/Scaly Dry/Scaly Dry/Scaly -Color (Nancy-wound Skin Appearance) Hemosiderin Hemosiderin Hemosiderin Staining Staining Staining -Temperature (Nancy-wound Skin No Abnormality No Abnormality No Abnormality Appearance) (Pt Warm) (Pt Warm) (Pt Warm) -Tenderness on Palpation (Nancy-wound No No Skin Appearance) -Ulcer Cleansing Soap and Water Soap and Water Soap and Water -Foul Odor after Cleansing No No No -Anesthetic Used 5% Lidocaine 5% Lidocaine Gel Gel Lower Limb Edema Present Right Calf (cm) 33.7 32 35.5 Right Ankle (cm) 21 20.4 21.4 09/29/21 10/03/21 08:27 09:38 Wound Center Nurse 1 #4 R MEDIAL LE -Current Size (cm) - Length 0.5 -Current Size (cm) - Width 0.7 -Current Size (cm) - Depth 0.1 -Total Square Cm 0.35 -Photo Taken No -Exudate Amt Small -Exudate Type Serosanguineous -Wound Margin Distinct, Outline Attached -Granulation Amt Small (1-33%) -Granulation Quality Red -Necrosis Amt None Present (0 %) -Necrotic Tissue Type -Structure Exposed N/A -Texture (Nancy-wound Skin Appearance) Scarring,Rash -Moisture (Nancy-wound Skin Appearance) Dry/Scaly -Color (Nancy-wound Skin Appearance) No Abnormality -Temperature (Nancy-wound Skin No Abnormality Appearance) (Pt Warm) -Tenderness on Palpation (Nancy-wound No Skin Appearance) -Ulcer Cleansing Soap and Water -Foul Odor after Cleansing No -Anesthetic Used 5% Lidocaine Gel Lower Limb Edema Present Yes Right Calf (cm) 35.2 34 Right Ankle (cm) 22 20.8 WC - Nurse 2 - General Ulcer CM Notes Start: 09/12/21 13:30 Freq: Status: Active Protocol: Activity Type Activity Date Activity User E-sign Co-sign Detail Recorded Client Recorded Date Recorded By Document 09/19/21 10:04 PL [id number] 09/19/21 10:06 PL Document 09/26/21 10:09 PL [id number] 09/26/21 10:11 PL Document 10/03/21 10:00 PL [id number] 10/03/21 10:02 PL 09/19/21 09/26/21 10/03/21 10:04 10:09 10:00 Wound Center Nurse 2 #4 R MEDIAL LE -Time 09:27 09:15 09:44 -Correct Patient Yes Yes Yes -Correct Side, Site, Position Yes Yes Yes -Correct Procedure Yes Yes Yes -Procedure Performed Yes Yes Yes -Type of Procedure Debridement Debridement Debridement -Clinical Debridement Subcutaneous Subcutaneous Subcutaneous -Tissue Removed Subcutaneous Subcutaneous Subcutaneous -Post Debridement (cm) - Length 1.9 1.0 0.5 -Post Debridement (cm) - Width 1.1 1.5 0.7 -Post Debridement (cm) - Depth 0.1 0.1 0.1 -Total Square (Post) (cm) 2.09 1.50 0.35 -Area of Debridement (cm) - Length 1.9 1.0 0.5 -Area of Debridement (cm) - Width 1.1 1.5 0.7 -Total Square (Area) (cm) 2.09 1.50 0.35 -Tunneling No No No -Undermining/Tunneling No No No -Circular Undermining No No No -Wound/Ulcer Outcome Not Healed Not Healed Not Healed -Ulcer Cleansing Rinsed/ Rinsed/ Rinsed/ Irrigated with Irrigated with Irrigated with Saline Saline Saline -Foul Odor after Cleansing No No No -Bioengineered Tissue Yes Yes Yes -Type of Bioengineered Tissue Epifix Epifix 18mm Epifix 18mm Disc Disc -Expiration Date 06/11/26 07/12/26 07/12/26 -Product Lot Number [id number] -Percent Used 100 100 100 -Bleeding Controlled with Pressure Pressure Pressure -Treatment Response Procedure Procedure Procedure Tolerated Well Tolerated Well Tolerated Well -Debridement - Subq, 1st 20sq cm No No No -Apply Skin Sub - 1st 25 sq cm - Legs 1 1 1 -Epifix (per sq cm) 4 -Epifix 18mm Disc 3 3 Pain Scale: 0-10 Numeric Is Patient Pain Free? Yes Yes Yes - Nurse 3 - General Ulcer D/C NN Start: 09/12/21 13:30 Freq: Status: Active Protocol: Activity Type Activity Date Activity User E-sign Co-sign Detail Recorded Client Recorded Date Recorded By Document 09/12/21 13:31 DL [id number] 09/12/21 13:36 DL Document 09/19/21 09:47 MW Desktop 09/19/21 09:48 MW Document 09/26/21 09:44 DL [id number] 09/26/21 09:46 DL Document 09/29/21 08:27 AK [id number] 09/29/21 08:33 AK Document 10/03/21 10:01 DL [id number] 10/03/21 10:02 DL 09/12/21 09/19/21 09/26/21 13:31 09:47 09:44 Vital Signs Temperature (97.8 F-99.1 F) 98.1 F Temperature Source Temporal Pulse Rate (60-100) 84 Pulse Location Monitor Respiratory Rate (12-18) 20 H Respiratory rate source Observation Blood Pressure (90/60-120/80) 148/76 H Blood Pressure Mean 100 Source Monitor Position Blood Pressure Location Comment Epifix intact. 3M reapplied Pain Scale: 0-10 Numeric Is Patient Pain Free? Yes Yes Yes Teaching: Wound Center Dressing Your Wound -Person Taught Patient -Teaching Method Discussion, Demonstration -Response to teaching Verbalize understanding Wound Care Nurse 3 #4 R MEDIAL LE -Ulcer Cleansing Soap and Water Not Cleansed Not Cleansed -Foul Odor after Cleansing No No No -Negative Pressure Wound Therapy N/A -Primary Dressing Applied Optilok 6.5x10 -Other Dressing Epifix intact skin sub today/ suberabsorber -Primary Dressing Covered/Secured with Dry Gauze Dry Gauze & Roll Gauze, Secured with Tape -Other Covering 3M -Optilok 6.5x10 1 Right -Lotion applied to leg before No compression wrap -Multi-Layered Wrap Application Multi-Layer Unna Boot - Comp - Right ($ Right ($) ) -Size of Tubigrip Used Size C -Size C ($) 2 -Stockings No -Other Treatment Response Procedure Procedure Procedure Tolerated Well Tolerated Well Tolerated Well - Visit Discharge Discharge Condition Stable Stable Stable Ambulatory Status Ambulatory Ambulatory Ambulatory Transportation Private Auto Private Auto Private Auto Medication Reconcilliation completed & No provided to patient/care provider Clinical Summary of Care Provided Yes 09/29/21 10/03/21 08:27 10:01 Vital Signs Temperature (97.8 F-99.1 F) 96 F L Temperature Source Temporal Pulse Rate (60-100) 84 Pulse Location Monitor Respiratory Rate (12-18) 18 Respiratory rate source Observation Blood Pressure (90/60-120/80) 146/97 H Blood Pressure Mean 113 Source Monitor Position Sitting Blood Pressure Location Left Arm Comment Pain Scale: 0-10 Numeric Is Patient Pain Free? Yes Yes Teaching: Wound Center Dressing Your Wound -Person Taught -Teaching Method -Response to teaching Wound Care Nurse 3 #4 R MEDIAL LE -Ulcer Cleansing Wound Cleanser Not Cleansed -Foul Odor after Cleansing No -Negative Pressure Wound Therapy -Primary Dressing Applied Optilok 6.5x10 -Other Dressing epifix -Primary Dressing Covered/Secured with Dry Gauze -Other Covering adaptic/steri stips -Optilok 6.5x10 1 Right -Lotion applied to leg before compression wrap -Multi-Layered Wrap Application Unna Boot - Unna Boot - Right ($) Right ($) -Size of Tubigrip Used -Size C ($) -Stockings -Other epifix left in place eliu applied by lola will Treatment Response Procedure Procedure Tolerated Well Tolerated Well WC - Visit Discharge Discharge Condition Stable Stable Ambulatory Status Ambulatory Ambulatory Transportation Private Auto Private Auto Medication Reconcilliation completed & No provided to patient/care provider Clinical Summary of Care Provided No Assessment/Plan Assessment/Plan (1) Non-pressure chronic ulcer of right calf with fat layer exposed: CODE(S): L97.212 - Non-pressure chronic ulcer of right calf with fat layer exposed (2) Leg edema: CODE(S): R60.0 - Localized edema (3) Leg swelling: CODE(S): M79.89 - Other specified soft tissue disorders (4) Diabetes mellitus: CODE(S): E11.9 - Type 2 diabetes mellitus without complications (5) COPD (chronic obstructive pulmonary disease): CODE(S): J44.9 - Chronic obstructive pulmonary disease, unspecified (6) Chronic renal failure, stage 3 (moderate): CODE(S): N18.30 - Chronic kidney disease, stage 3 unspecified (7) Diverticular disease: CODE(S): K57.90 - Diverticulosis of intestine, part unspecified, without perforation or abscess without bleeding (8) Obesity (BMI 30.0-34.9): CODE(S): E66.9 - Obesity, unspecified (9) Pacemaker: CODE(S): Z95.0 - Presence of cardiac pacemaker (10) Dependence on supplemental oxygen: CODE(S): Z99.81 - Dependence on supplemental oxygen (11) Ulcerative colitis: CODE(S): K51.90 - Ulcerative colitis, unspecified, without complications (12) Paroxysmal atrial fibrillation: CODE(S): I48.0 - Paroxysmal atrial fibrillation (13) Mitral valve replaced: CODE(S): Z95.2 - Presence of prosthetic heart valve (14) detention current use of anticoagulant: CODE(S): Z79.01 - detention (current) use of anticoagulants (15) Acute and chronic respiratory failure with hypercapnia: CODE(S): J96.22 - Acute and chronic respiratory failure with hypercapnia (16) Atrial fibrillation with RVR: CODE(S): I48.91 - Unspecified atrial fibrillation (17) REBECA on CPAP: CODE(S): G47.33 - Obstructive sleep apnea (adult) (pediatric); Z99.89 - Dependence on other enabling machines and devices (18) Pulmonary hypertension: CODE(S): I27.20 - Pulmonary hypertension, unspecified (19) Hyperlipidemia: CODE(S): E78.5 - Hyperlipidemia, unspecified QUALIFIERS: Hyperlipidemia type: unspecified Qualified Code(s): E78.5 - Hyperlipidemia, unspecified (20) Essential hypertension: CODE(S): I10 - Essential (primary) hypertension PLAN: Plan This is a 71-year-old male who presented with an open wound on his right medial calf, which had been present for approximately 18 months. It had failed to heal, despite several means of treatment. The patient has multiple pre-existing medical problems, which are listed above. The patient underwent excision of a right calf wound with surgical preparation by excision of an open wound, which was performed in the operating room setting, on 07/25/2021. He returns today in routine follow-up. The surgical wound site appears healthy. The wound has decreased in size. An EpiFix allograft has been applied topically to the patient's wound. This represents the 4th such application of an allograft. The dermatitic changes and excoriations on the right pretibial area have diminished. We are to continue the use of an Unna boot, applied topically today, which will remain in place for several days, and changed twice weekly. Activity has been encouraged. Leg elevation is to be implemented as much as possible. The patient has been encouraged to sleep with his legs elevated, and to elevate his legs even during daytime hours. Elevation is to be to heart level, or higher. The patient has been advised to optimize his nutritional intake and his glycemic control. A noninvasive lower extremity arterial study has been performed on 06/19/2021, demonstrating arterial flow to be normal at ankle level bilaterally, and at digital level on the left. 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 This finding is suggestive of adequate arterial circulation in the right lower extremity to support healing. The patient is to return in 1 week for reevaluation, at which time it is anticipated that a 5th application of an allograft will be performed, unless the wound demonstrates completion of healing. Total time: 29 minutes
[2021-10-06 13:28] VITALS: BP 123/86; PULSE 92; TEMP 36.4; BMI 32.4
[2021-10-10 09:25] VITALS: BP 146/95; PULSE 85; RESP 20; TEMP 35.9; BMI 32.4
--- NOTE | 2021-10-10 12:06 | PCM.WC.HP ---
History of Present Illness Date of Service: 10/10/21 Chief Complaint: Open wound, right lower extremity History of Wound: This is a 71-year-old male who presented with an open wound in the right lower extremity. According the patient, the wound had been present for approximately 18 months. It was cared for by nursing staff at [facility], with visits 2-3 times per week. It appeared as though a variety of treatments have been implemented, including the use of collagenase Santyl and gauze packing. The patient most recently was applying gauze topically. He has previously been treated with Augmentin. The patient is unaware of the etiology of his wound, or how it originated. It had been relatively unchanged for quite some time. He denies a history of thrombophlebitis. He does relate swelling in his right lower extremity, typically worse at the end of the day. He sleeps in a recliner. Patient has multiple pre-existing medical problems, including atrial fibrillation, congestive heart failure, diabetes mellitus, chronic respiratory failure with hypoxia, oxygen dependence, COPD, diverticular disease, hypertension, hyperlipidemia, ulcerative colitis, and obstructive sleep apnea. The patient has a pacemaker, and is on systemic anticoagulation with Coumadin. He has previously undergone open reduction and internal fixation of a right ankle fracture, with subsequent skin graft procedures on multiple occasions. He has had a vein stripping in the left lower extremity, and a left total hip replacement. [facility] Medical History Ambulates with cane Arthritis Cardiology follow-up encounter Chewing tobacco nicotine dependence Chronic renal failure, stage 3 (moderate) COPD (chronic obstructive pulmonary disease) COPD (chronic obstructive pulmonary disease) CPAP (continuous positive airway pressure) dependence Dependence on supplemental oxygen Diabetes mellitus Dietary restriction Diverticular disease Diverticulitis of colon with hemorrhage (~2004) Essential hypertension History of echocardiogram History of edema History of steroid therapy Hyperlipidemia Hypertension Leg edema Leg swelling Loss of hearing Low iron Non-pressure chronic ulcer of right calf with fat layer exposed Obesity Obesity (BMI 30.0-34.9) On home oxygen therapy Open wound REBECA on CPAP Pacemaker Psoriasis Pulmonary hypertension Rheumatic fever without mention of heart involvement Shortness of breath on exertion Type 2 diabetes mellitus without complication Ulcerative colitis Wears dentures Wears glasses Wound of right lower extremity Home Medications albuterol sulfate 90 mcg/actuation aerosol inhaler 2 puff inhalation Q4H PRN Sob &/Or Wheezing 07/23/18 [History Last Taken Unknown] diltiazem HCl 180 mg capsule,extended release 24 hr 360 mg PO DAILY heart rhythm 07/23/18 [History Last Taken 09/26/18] fenofibrate 160 mg tablet 160 mg PO DAILY 07/23/18 [History Last Taken Unknown] fluticasone propionate 115 mcg-salmeterol 21 mcg/actuation HFA inhaler 2 puff inhalation BID inhaler 07/23/18 [History Last Taken Unknown] losartan 100 mg tablet 100 mg PO DAILY blood pressure 11/25/18 [History Last Taken Unknown] ascorbic acid (vitamin C) 500 mg tablet 500 mg PO BID 01/13/20 [History Last Taken Unknown] atorvastatin 80 mg tablet 80 mg PO QHS 01/13/20 [History Last Taken Unknown] carvedilol 3.125 mg tablet 3.125 mg PO BID 01/13/20 [History Last Taken 07/25/21] melatonin 5 mg tablet 5 mg PO QHS 01/13/20 [History Last Taken Unknown] potassium chloride 20 mEq tablet,extended release(part/cryst) 20 meq PO DAILY electrolyte 01/13/20 [History Last Taken Unknown] amoxicillin 875 mg-potassium clavulanate 125 mg tablet 1 ea PO BID #6 tabs 01/19/20 [Rx Last Taken Unknown] dexamethasone 6 mg tablet 6 mg PO DAILY ##0 01/19/20 [Rx Last Taken Unknown] furosemide 40 mg tablet 40 mg PO BID #60 tabs 01/19/20 [Rx Last Taken Unknown] warfarin 1 mg tablet 3.5 mg PO DAILY 02/08/20 [History Last Taken Unknown] oxycodone-acetaminophen 5 mg-325 mg tablet (Percocet) 1 tab PO Q8H PRN pain 3 days #14 tabs 07/25/21 [Rx Last Taken Unknown] Allergy/AdvReac Type Severity Reaction Status Date / Time povidone-iodine Allergy Intermediate rash, Verified 07/25/21 10:59 [From Betadine] itching soap [From Betadine] Allergy Intermediate rash, Verified 07/25/21 10:59 itching Family History Mother Cancer kidney Father Cancer lung Surgical History History of cardiac catheterization History of left hip replacement History of open reduction and internal fixation (ORIF) procedure History of skin graft History of vein stripping Social History Smoking Status: Current every day smoker tobacco type: smokeless tobacco Smokeless tobacco user: snuff how long ago did patient quit smokin months ago alcohol intake: never substance use type: does not use caffeine: Yes Type: coffee Number of servings: 2 Vital Signs Vital Signs Vital Signs: 10/10/21 09:25 Temperature 96.7 F L Temperature Source Temporal Pulse Rate 85 Respiratory Rate 20 H Blood Pressure 146/95 H Blood Pressure Mean 112 Blood Pressure Source Monitor Oxygen Flow Rate (L/min) 2 Weight Weight: 195 lb Body Mass Index (BMI) 32.4 Physical Exam Const alert, oriented x3, no apparent distress, average body habitus and well nourished General Appearance: cooperative, comfortable, well kempt and well developed Orientation / Consciousness: awake, oriented to person, oriented to place and oriented to time HEENT normocephalic and head/scalp atraumatic Head and Scalp: normal to inspection, normocephalic and atraumatic External Ear: external ears normal Eyes PERRL and EOMs intact bilaterally General Eye: normal appearance of both eyes Chest inspection of chest normal Resp normal respiratory effort, normal air movement, no retractions and no use of accessory muscles Effort and Inspection: able to speak in complete sentences Extremity no calf tenderness General Extremity: Negative for clubbing or cyanosis Skin Wound Narrative: The ulceration on the patient's right upper medial calf is now completely healed and epithelialized. There is no significant swelling in the patient's right lower extremity. Chronic lipodermatosclerosis and hyperpigmentation persist in the right gaiter area. Neuro oriented x3, CN's II-XII intact bilaterally, moves all extremities and no focal motor deficits Sensorium / Orientation: awake, alert, oriented to person, oriented to place and oriented to time Psych Appearance: grossly normal and appropriate Attitude: calm Activity / Motor Behavior: appropriate eye contact Speech: normal speech Mood & Affect: euthymic mood Thought Process: normal thought process Thought Content: normal thought content Attention / Concentration: attention grossly intact Debridement Note Debridement Note No debridement was completed: No debridement was completed today (There are no open wounds or ulcerations.) Post-Debridement Measurements and Additional Note: Post-Debridement Measurements/Treatment - Nurse 1 - General Ulcer Assessment Start: 09/12/21 13:30 Freq: Status: Active Protocol: RAJAT Activity Type Activity Date Activity User E-sign Co-sign Detail Recorded Client Recorded Date Recorded By Document 09/12/21 13:31 DL [id number] 09/12/21 13:36 DL Document 09/19/21 09:22 DL [id number] 09/19/21 09:25 DL Document 09/26/21 09:01 DL [id number] 09/26/21 09:08 DL Document 09/29/21 08:27 AK [id number] 09/29/21 08:33 AK Document 10/03/21 09:38 DL [id number] 10/03/21 09:40 DL Document 10/06/21 13:28 KR [id number] 10/06/21 13:29 KR Document 10/10/21 09:25 DL [id number] 10/10/21 09:31 DL 09/12/21 09/19/21 09/26/21 13:31 09:22 09:01 - Today's Visit Information Type of service Nurse-only Follow-up Visit Follow-up Visit Visit (Physician/[facility] PHARMACY TECHNICIAN (Physician/DIPLOMA PHARMACY TECHNICIAN ) ) Arrival Mode Ambulatory Ambulatory Ambulatory, Walker Transfer Assistance None None None Patient Identification Verified (Name & Yes Yes Yes ) Patient Requires Transmission-Based No No No Precautions Finger Stick Blood Sugar(mg/dl) (if indicated): Blood Sugar Height and Weight Body Mass Index (BMI) 32.4 32.4 32.4 BMI Classification Obese Obese Obese Vital Signs Temperature (97.8 F-99.1 F) 98.1 F 97 F L 96.6 F L Temperature Source Temporal Temporal Temporal Pulse Rate (60-100) 84 82 85 Pulse Location Monitor Monitor Monitor Respiratory Rate (12-18) 20 H 18 18 Respiratory rate source Observation Observation Observation O2 L/MIN Blood Pressure (90/60-120/80) 148/76 H 127/74 H 143/95 H Blood Pressure Mean 100 91 111 Source Monitor Monitor Monitor Position Blood Pressure Location Comment Epifix intact. 3M reapplied History Since Last Visit- (Skip if this is Patient's initial visit) Have you changed medications since your No No No last visit? Any new allergies or adverse reactions No No No Had a fall/change in ADL's that may No No No increase risk of falls Signs or symptoms of abuse and/or No No No neglect since last visit Have you been in the hospital since your No No No last visit? Has dressing in place as prescribed No Yes Yes Has compression in place as prescribed Yes Yes Yes Has offloadiing in place as prescribed N/A N/A N/A Experienced any changes in pain level or No No No management Left Footwear Right Footwear Pain Scale: 0-10 Numeric Is Patient Pain Free? Yes Yes Yes 09/29/21 10/03/21 10/06/21 08:27 09:38 13:28 WC - Today's Visit Information Type of service Nurse-only Follow-up Visit Nurse-only Visit (Physician/DIPLOMA PHARMACY TECHNICIAN Visit ) Arrival Mode Ambulatory Ambulatory Ambulatory,Cane Transfer Assistance None None Patient Identification Verified (Name & Yes Yes Yes ) Patient Requires Transmission-Based No No Precautions Finger Stick Blood Sugar(mg/dl) (if indicated): Blood Sugar Height and Weight Body Mass Index (BMI) 32.4 32.4 32.4 BMI Classification Obese Obese Obese Vital Signs Temperature (97.8 F-99.1 F) 96 F L 97.6 F L 97.6 F L Temperature Source Temporal Temporal Temporal Pulse Rate (60-100) 84 86 92 Pulse Location Monitor Monitor Monitor Respiratory Rate (12-18) 18 18 Respiratory rate source Observation Observation O2 L/MIN Blood Pressure (90/60-120/80) 146/97 H 119/94 H 123/86 H Blood Pressure Mean 113 102 98 Source Monitor Monitor Monitor Position Sitting Supine Sitting Blood Pressure Location Left Arm Right Arm Comment History Since Last Visit- (Skip if this is Patient's initial visit) Have you changed medications since your No No No last visit? Any new allergies or adverse reactions No No No Had a fall/change in ADL's that may No No No increase risk of falls Signs or symptoms of abuse and/or No No No neglect since last visit Have you been in the hospital since your No No No last visit? Has dressing in place as prescribed Yes Yes Yes Has compression in place as prescribed No Yes Yes Has offloadiing in place as prescribed Yes N/A N/A Experienced any changes in pain level or No No No management Left Footwear Slipper Right Footwear Slipper Pain Scale: 0-10 Numeric Is Patient Pain Free? Yes Yes Yes 10/10/21 09:25 WC - Today's Visit Information Type of service Follow-up Visit (Physician/[facility]IPLOMA PHARMACY TECHNICIAN ) Arrival Mode Ambulatory,Cane Transfer Assistance None Patient Identification Verified (Name & Yes ) Patient Requires Transmission-Based No Precautions Finger Stick Blood Sugar(mg/dl) (if 124 indicated): Blood Sugar Stated by Patient Height and Weight Body Mass Index (BMI) 32.4 BMI Classification Obese Vital Signs Temperature (97.8 F-99.1 F) 96.7 F L Temperature Source Temporal Pulse Rate (60-100) 85 Pulse Location Monitor Respiratory Rate (12-18) 20 H Respiratory rate source O2 L/MIN 2 Blood Pressure (90/60-120/80) 146/95 H Blood Pressure Mean 112 Source Monitor Position Blood Pressure Location Comment History Since Last Visit- (Skip if this is Patient's initial visit) Have you changed medications since your No last visit? Any new allergies or adverse reactions No Had a fall/change in ADL's that may No increase risk of falls Signs or symptoms of abuse and/or No neglect since last visit Have you been in the hospital since your No last visit? Has dressing in place as prescribed Yes Has compression in place as prescribed Yes Has offloadiing in place as prescribed N/A Experienced any changes in pain level or management Left Footwear Right Footwear Pain Scale: 0-10 Numeric Is Patient Pain Free? Yes - Nurse 1 - General Ulcer Measurement Start: 09/12/21 13:30 Freq: Status: Active Protocol: Activity Type Activity Date Activity User E-sign Co-sign Detail Recorded Client Recorded Date Recorded By Document 09/12/21 13:31 DL [id number] 09/12/21 13:36 DL Document 09/19/21 09:22 DL [id number] 09/19/21 09:25 DL Document 09/26/21 09:01 DL [id number] 09/26/21 09:08 DL Document 09/29/21 08:27 AK [id number] 09/29/21 08:33 AK Document 10/03/21 09:38 DL [id number] 10/03/21 09:40 DL Document 10/10/21 09:25 DL [id number] 10/10/21 09:31 DL 09/12/21 09/19/21 09/26/21 13:31 09:22 09:01 Wound Center Nurse 1 #4 R MEDIAL LE -Current Size (cm) - Length 1.9 0.8 -Current Size (cm) - Width 1.1 1.2 -Current Size (cm) - Depth 0.1 0.1 -Total Square Cm 2.09 0.96 -Photo Taken No No Yes -Exudate Amt Small Medium Medium -Exudate Type Serosanguineous Serosanguineous Serosanguineous -Wound Margin Distinct, Distinct, Distinct, Outline Outline Outline Attached Attached Attached -Granulation Amt Large (67-100%) Large (67-100%) -Granulation Quality Hyper- Abbott,Red granulation,Red -Necrosis Amt Small (1-33%) Small (1-33%) -Necrotic Tissue Type Adherent Slough Adherent Slough -Structure Exposed N/A N/A -Texture (Nancy-wound Skin Appearance) Scarring Scarring,Rash Excoriation, Scarring,Rash -Moisture (Nancy-wound Skin Appearance) Dry/Scaly Dry/Scaly Dry/Scaly -Color (Nancy-wound Skin Appearance) Hemosiderin Hemosiderin Hemosiderin Staining Staining Staining -Temperature (Nancy-wound Skin No Abnormality No Abnormality No Abnormality Appearance) (Pt Warm) (Pt Warm) (Pt Warm) -Tenderness on Palpation (Nancy-wound No No Skin Appearance) -Ulcer Cleansing Soap and Water Soap and Water Soap and Water -Foul Odor after Cleansing No No No -Anesthetic Used 5% Lidocaine 5% Lidocaine Gel Gel Lower Limb Edema Present Right Calf (cm) 33.7 32 35.5 Right Ankle (cm) 21 20.4 21.4 09/29/21 10/03/21 10/10/21 08:27 09:38 09:25 Wound Center Nurse 1 #4 R MEDIAL LE -Current Size (cm) - Length 0.5 0.1 -Current Size (cm) - Width 0.7 0.1 -Current Size (cm) - Depth 0.1 0.1 -Total Square Cm 0.35 0.01 -Photo Taken No Yes -Exudate Amt Small None Present -Exudate Type Serosanguineous -Wound Margin Distinct, Flat & Intact Outline Attached -Granulation Amt Small (1-33%) Large (67-100%) -Granulation Quality Red Abbott -Necrosis Amt None Present (0 Small (1-33%) %) -Necrotic Tissue Type Adherent Slough -Structure Exposed N/A N/A -Texture (Nancy-wound Skin Appearance) Scarring,Rash Scarring -Moisture (Nancy-wound Skin Appearance) Dry/Scaly Dry/Scaly -Color (Nancy-wound Skin Appearance) No Abnormality Hemosiderin Staining -Temperature (Nancy-wound Skin No Abnormality No Abnormality Appearance) (Pt Warm) (Pt Warm) -Tenderness on Palpation (Nancy-wound No No Skin Appearance) -Ulcer Cleansing Soap and Water Soap and Water -Foul Odor after Cleansing No No -Anesthetic Used 5% Lidocaine 5% Lidocaine Gel Gel Lower Limb Edema Present Yes Right Calf (cm) 35.2 34 Right Ankle (cm) 22 20.8 WC - Nurse 2 - General Ulcer CM Notes Start: 09/12/21 13:30 Freq: Status: Active Protocol: Activity Type Activity Date Activity User E-sign Co-sign Detail Recorded Client Recorded Date Recorded By Document 09/19/21 10:04 [id number] 09/19/21 10:06 Document 09/26/21 10:09 [id number] 09/26/21 10:11 PL Document 10/03/21 10:00 [id number] 10/03/21 10:02 Document 10/10/21 12:03 [id number] 10/10/21 12:03 09/19/21 09/26/21 10/03/21 10:04 10:09 10:00 Wound Center Nurse 2 #4 R MEDIAL LE -Time 09:27 09:15 09:44 -Correct Patient Yes Yes Yes -Correct Side, Site, Position Yes Yes Yes -Correct Procedure Yes Yes Yes -Procedure Performed Yes Yes Yes -Type of Procedure Debridement Debridement Debridement -Clinical Debridement Subcutaneous Subcutaneous Subcutaneous -Tissue Removed Subcutaneous Subcutaneous Subcutaneous -Post Debridement (cm) - Length 1.9 1.0 0.5 -Post Debridement (cm) - Width 1.1 1.5 0.7 -Post Debridement (cm) - Depth 0.1 0.1 0.1 -Total Square (Post) (cm) 2.09 1.50 0.35 -Area of Debridement (cm) - Length 1.9 1.0 0.5 -Area of Debridement (cm) - Width 1.1 1.5 0.7 -Total Square (Area) (cm) 2.09 1.50 0.35 -Tunneling No No No -Undermining/Tunneling No No No -Circular Undermining No No No -Wound/Ulcer Outcome Not Healed Not Healed Not Healed -Ulcer Cleansing Rinsed/ Rinsed/ Rinsed/ Irrigated with Irrigated with Irrigated with Saline Saline Saline -Foul Odor after Cleansing No No No -Bioengineered Tissue Yes Yes Yes -Type of Bioengineered Tissue Epifix Epifix 18mm Epifix 18mm Disc Disc -Expiration Date 06/11/26 07/12/26 07/12/26 -Product Lot Number [id number] -Percent Used 100 100 100 -Bleeding Controlled with Pressure Pressure Pressure -Treatment Response Procedure Procedure Procedure Tolerated Well Tolerated Well Tolerated Well -Debridement - Subq, 1st 20sq cm No No No -Apply Skin Sub - 1st 25 sq cm - Legs 1 1 1 -Epifix (per sq cm) 4 -Epifix 18mm Disc 3 3 Pain Scale: 0-10 Numeric Is Patient Pain Free? Yes Yes Yes 10/10/21 12:03 Wound Center Nurse 2 #4 R MEDIAL LE -Time -Correct Patient -Correct Side, Site, Position -Correct Procedure -Procedure Performed No -Type of Procedure -Clinical Debridement -Tissue Removed -Post Debridement (cm) - Length -Post Debridement (cm) - Width -Post Debridement (cm) - Depth -Total Square (Post) (cm) -Area of Debridement (cm) - Length -Area of Debridement (cm) - Width -Total Square (Area) (cm) -Tunneling -Undermining/Tunneling -Circular Undermining -Wound/Ulcer Outcome Healed- Epithelialized -Ulcer Cleansing -Foul Odor after Cleansing -Bioengineered Tissue -Type of Bioengineered Tissue -Expiration Date -Product Lot Number -Percent Used -Bleeding Controlled with -Treatment Response -Debridement - Subq, 1st 20sq cm -Apply Skin Sub - 1st 25 sq cm - Legs -Epifix (per sq cm) -Epifix 18mm Disc Pain Scale: 0-10 Numeric Is Patient Pain Free? Yes WC - Nurse 3 - General Ulcer D/C NN Start: 09/12/21 13:30 Freq: Status: Active Protocol: Activity Type Activity Date Activity User E-sign Co-sign Detail Recorded Client Recorded Date Recorded By Document 09/12/21 13:31 DL [id number] 09/12/21 13:36 DL Document 09/19/21 09:47 MW Desktop 09/19/21 09:48 MW Document 09/26/21 09:44 DL [id number] 09/26/21 09:46 DL Document 09/29/21 08:27 AK [id number] 09/29/21 08:33 AK Document 10/03/21 10:01 DL [id number] 10/03/21 10:02 DL Document 10/06/21 13:28 KR [id number] 10/06/21 13:29 KR Document 10/10/21 09:53 BMF [id number] 10/10/21 09:54 BMF Edit Result 10/10/21 09:53 BMF (1) [id number] 10/10/21 09:54 BMF (1) Discharge Condition => Stable Ambulatory Status => Ambulatory Transportation => Private Auto Accompanied by => FRIEND 09/12/21 09/19/21 09/26/21 13:31 09:47 09:44 Vital Signs Temperature (97.8 F-99.1 F) 98.1 F Temperature Source Temporal Pulse Rate (60-100) 84 Pulse Location Monitor Respiratory Rate (12-18) 20 H Respiratory rate source Observation Blood Pressure (90/60-120/80) 148/76 H Blood Pressure Mean 100 Source Monitor Position Blood Pressure Location Comment Epifix intact. 3M reapplied Pain Scale: 0-10 Numeric Is Patient Pain Free? Yes Yes Yes Teaching: Wound Center Dressing Your Wound -Person Taught Patient -Teaching Method Discussion, Demonstration -Response to teaching Verbalize understanding Wound Care Nurse 3 #4 R MEDIAL LE -Ulcer Cleansing Soap and Water Not Cleansed Not Cleansed -Foul Odor after Cleansing No No No -Negative Pressure Wound Therapy N/A -Primary Dressing Applied Optilok 6.5x10 -Other Dressing Epifix intact skin sub today/ suberabsorber -Primary Dressing Covered/Secured with Dry Gauze Dry Gauze & Roll Gauze, Secured with Tape -Other Covering 3M -Optilok 6.5x10 1 Right -Lotion applied to leg before No compression wrap -Multi-Layered Wrap Application Multi-Layer Unna Boot - Comp - Right ($ Right ($) ) -Size of Tubigrip Used Size C -Size C ($) 2 -Stockings No -Other Treatment Response Procedure Procedure Procedure Tolerated Well Tolerated Well Tolerated Well WC - Visit Discharge Discharge Condition Stable Stable Stable Ambulatory Status Ambulatory Ambulatory Ambulatory Transportation Private Auto Private Auto Private Auto Accompanied by Medication Reconcilliation completed & No provided to patient/care provider Clinical Summary of Care Provided Yes 09/29/21 10/03/21 10/06/21 08:27 10:01 13:28 Vital Signs Temperature (97.8 F-99.1 F) 96 F L 97.6 F L Temperature Source Temporal Temporal Pulse Rate (60-100) 84 92 Pulse Location Monitor Monitor Respiratory Rate (12-18) 18 Respiratory rate source Observation Blood Pressure (90/60-120/80) 146/97 H 123/86 H Blood Pressure Mean 113 98 Source Monitor Monitor Position Sitting Sitting Blood Pressure Location Left Arm Right Arm Comment Pain Scale: 0-10 Numeric Is Patient Pain Free? Yes Yes Yes Teaching: Wound Center Dressing Your Wound -Person Taught -Teaching Method -Response to teaching Wound Care Nurse 3 #4 R MEDIAL LE -Ulcer Cleansing Wound Cleanser Not Cleansed Rinsed/ Irrigated with Saline -Foul Odor after Cleansing No -Negative Pressure Wound Therapy -Primary Dressing Applied Optilok 6.5x10 -Other Dressing epifix abd pad -Primary Dressing Covered/Secured with Dry Gauze -Other Covering adaptic/steri stips -Optilok 6.5x10 1 Right -Lotion applied to leg before compression wrap -Multi-Layered Wrap Application Unna Boot - Unna Boot - Unna Boot - Right ($) Right ($) Right ($) -Size of Tubigrip Used -Size C ($) -Stockings -Other epifix left in place eliu applied by lola will Treatment Response Procedure Procedure Tolerated Well Tolerated Well WC - Visit Discharge Discharge Condition Stable Stable Stable Ambulatory Status Ambulatory Ambulatory Ambulatory,Cane Transportation Private Auto Private Auto Private Auto Accompanied by Medication Reconcilliation completed & No provided to patient/care provider Clinical Summary of Care Provided No 10/10/21 09:53 Vital Signs Temperature (97.8 F-99.1 F) Temperature Source Pulse Rate (60-100) Pulse Location Respiratory Rate (12-18) Respiratory rate source Blood Pressure (90/60-120/80) Blood Pressure Mean Source Position Blood Pressure Location Comment Pain Scale: 0-10 Numeric Is Patient Pain Free? Yes Teaching: Wound Center Dressing Your Wound -Person Taught -Teaching Method -Response to teaching Wound Care Nurse 3 #4 R MEDIAL LE -Ulcer Cleansing -Foul Odor after Cleansing -Negative Pressure Wound Therapy -Primary Dressing Applied -Other Dressing -Primary Dressing Covered/Secured with Dry Gauze & Roll Gauze, Secured with Tape -Other Covering ABD, PAD AND PROTECT -Optilok 6.5x10 Right -Lotion applied to leg before compression wrap -Multi-Layered Wrap Application -Size of Tubigrip Used -Size C ($) -Stockings -Other Treatment Response Procedure Tolerated Well WC - Visit Discharge Discharge Condition Stable Ambulatory Status Ambulatory Transportation Private Auto Accompanied by FRIEND Medication Reconcilliation completed & provided to patient/care provider Clinical Summary of Care Provided Assessment/Plan Assessment/Plan (1) Non-pressure chronic ulcer of right calf with fat layer exposed: CODE(S): L97.212 - Non-pressure chronic ulcer of right calf with fat layer exposed (2) Leg edema: CODE(S): R60.0 - Localized edema (3) Leg swelling: CODE(S): M79.89 - Other specified soft tissue disorders (4) Diabetes mellitus: CODE(S): E11.9 - Type 2 diabetes mellitus without complications (5) COPD (chronic obstructive pulmonary disease): CODE(S): J44.9 - Chronic obstructive pulmonary disease, unspecified (6) Chronic renal failure, stage 3 (moderate): CODE(S): N18.30 - Chronic kidney disease, stage 3 unspecified (7) Diverticular disease: CODE(S): K57.90 - Diverticulosis of intestine, part unspecified, without perforation or abscess without bleeding (8) Obesity (BMI 30.0-34.9): CODE(S): E66.9 - Obesity, unspecified (9) Pacemaker: CODE(S): Z95.0 - Presence of cardiac pacemaker (10) Dependence on supplemental oxygen: CODE(S): Z99.81 - Dependence on supplemental oxygen (11) Ulcerative colitis: CODE(S): K51.90 - Ulcerative colitis, unspecified, without complications (12) Paroxysmal atrial fibrillation: CODE(S): I48.0 - Paroxysmal atrial fibrillation (13) Mitral valve replaced: CODE(S): Z95.2 - Presence of prosthetic heart valve (14) 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: CODE(S): Z79.01 - bed bug 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 (current) use of anticoagulants (15) Acute and chronic respiratory failure with hypercapnia: CODE(S): J96.22 - Acute and chronic respiratory failure with hypercapnia (16) Atrial fibrillation with RVR: CODE(S): I48.91 - Unspecified atrial fibrillation (17) REBECA on CPAP: CODE(S): G47.33 - Obstructive sleep apnea (adult) (pediatric); Z99.89 - Dependence on other enabling machines and devices (18) Pulmonary hypertension: CODE(S): I27.20 - Pulmonary hypertension, unspecified (19) Hyperlipidemia: CODE(S): E78.5 - Hyperlipidemia, unspecified QUALIFIERS: Hyperlipidemia type: unspecified Qualified Code(s): E78.5 - Hyperlipidemia, unspecified (20) Essential hypertension: CODE(S): I10 - Essential (primary) hypertension PLAN: Plan This is a 71-year-old male who presented with an open wound on his right medial calf, which had been present for approximately 18 months. It had failed to heal, despite several means of treatment. The patient has multiple pre-existing medical problems, which are listed above. The patient underwent excision of a right calf wound with surgical preparation by excision of an open wound, which was performed in the operating room setting, on 07/25/2021. He has undergone 4 recent applications of an EpiFix allograft, and returns today with complete healing of his ulceration. Therefore, the patient is to be discharged, and will follow-up henceforth on a as needed basis. He has been encouraged to continue conservative treatment measures, including leg elevation and compression to his lower extremities. A prescription has been provided for graduated compression stockings of 15 to 20 mmHg compression. These are to be worn on a daily basis. He is to be discharged, and will follow-up henceforth as needed. Total time: 28 minutes
== END 2021-10-10 15:18 | disposition home or self-care (01) ==
LOC: WC 09:15
PROVIDERS: PCP Family Medicine; Visit Provider Surgery
DX: E11.622 Type 2 diabetes mellitus with other skin ulcer (principal); L97.212 Non-pressure chronic ulcer of right calf with fat layer exposed; J44.9 Chronic obstructive pulmonary disease, unspecified; I50.9 Heart failure, unspecified; I13.0 Hypertensive heart and chronic kidney disease with heart failure and stage 1 through stage 4 chronic kidney disease, or unspecified chronic kidney disease; I27.20 Pulmonary hypertension, unspecified; K51.90 Ulcerative colitis, unspecified, without complications; E11.22 Type 2 diabetes mellitus with diabetic chronic kidney disease; J96.21 Acute and chronic respiratory failure with hypoxia; J96.22 Acute and chronic respiratory failure with hypercapnia; I48.0 Paroxysmal atrial fibrillation; I48.91 Unspecified atrial fibrillation; N18.30 Chronic kidney disease, stage 3 unspecified; E78.5 Hyperlipidemia, unspecified; K57.90 Diverticulosis of intestine, part unspecified, without perforation or abscess without bleeding; Z96.642 Presence of left artificial hip joint; Z99.81 Dependence on supplemental oxygen; Z79.01 Long term (current) use of anticoagulants; G47.33 Obstructive sleep apnea (adult) (pediatric); F17.220 Nicotine dependence, chewing tobacco, uncomplicated; E66.9 Obesity, unspecified; Z95.0 Presence of cardiac pacemaker; Z99.89 Dependence on other enabling machines and devices
CPT/HCPCS: 15271; 29580; 29581; 99213; Q4186; G0463